=== PATIENT | male | born 1935 | race Caucasian/White ===

== ENCOUNTER → 2016-04-23 | Outpatient (CLI) | payer MEDICARE ==
[~2016-04-23] MED LIST: ASP81TEC PO; HYDR-3454 PO; LISI10TA2 PO; MECL-124 PO; SIMV40TA4 PO
--- OUTSIDE RECORDS SUMMARY | 2016-04-23 07:30 | XMS REPORT | Continuity of Care Document ---
Author Author [facility] Organization [facility] Address Unknown Phone Unavailable Allergies Active Description Code Type Severity Reaction Onset Reported/Identified Relationship to Patient Clinical Status Yes NKANo Known Allergies NKA Miscellaneous Allergy Unknown N/ A 03/24/2008 Medications Problems Date Dx Coded Attending Type Code Diagnosis Diagnosed By 08/06/2011 Ot 562.10 08/06/2011 Ot 600.00 08/06/2011 Ot V76.51 03/21/2015 Ot V72.84 03/27/2015 MARÍA RAZO, COLLEEN Tilley Ot K40.90 04/10/2015 MARÍA RAZO, COLLEEN Tilley Ot K40.90 04/10/2015 MARÍA RAZO, COLLEEN Tilley Ot Z01.812 04/10/2015 MARÍA RAZO, COLLEEN Tilley Ot Z11.2 04/28/2015 MARÍA RAZO, COLLEEN Tilley Ot K40.90 04/28/2015 MARÍA RAZO, COLLEEN Tilley Ot Z01.812 04/28/2015 MARÍA RAZO, COLLEEN Tilley Ot Z11.2 Procedures Results Encounters ACCT No. Visit Date/Time Discharge Status Pt. Type Provider Facility Loc./Unit Complaint [id number] 03/26/2015 06:00:00 2015 16:00:00 DIS Outpatient COLLEEN DANIEL MD [facility] [id number] 04/23/2016 07:27:00 ACT Outpatient CIARA CRISOSTOMO MD [facility] RAD MICROHEMOTURIA [id number] 03/21/2015 13:11:00 ACT Outpatient COLLEEN DANIEL MD [facility] PREOP [id number] 08/06/2011 07:17:00 Document Registration [id number] 08/05/2011 07:33:00 Document Registration
--- NOTE | 2016-04-23 08:14 | Diagnostic Imaging Report ---
PROCEDURE: CT urinary tract, rule out kidney stone. TECHNIQUE: Multiple contiguous axial images were obtained through the abdomen and pelvis without the use of intravenous contrast. INDICATION: Microhematuria. History of hernia. COMPARISON: None FINDINGS: Included views of the lung bases are clear. CT abdomen: Large, but otherwise uniformly hypodense right renal cyst is noted extending from the superior pole. Smaller hypodensity is also noted involving the posterior inferior pole of the left kidney. No renal or ureteral calculi are seen on either side. Additionally, there is no hydroureteronephrosis or other evidence of obstruction. Multiple hypodense hepatic cysts are also noted. Otherwise, the liver, spleen, pancreas, and adrenal glands have an unremarkable noncontrast CT appearance. Normal appendix is identified. There is colonic diverticulosis, but no CT evidence of acute diverticulitis. Small bowel loops are nondistended. No abnormal mesenteric or retroperitoneal adenopathy is seen. There is no loculated fluid collection, free fluid, nor free air within the abdomen. There is diffuse calcified aortic and arterial atherosclerosis. Bony structures show age-related degenerative changes, but no acute abnormalities. CT Pelvis: Urinary bladder is unopacified. No calculi are seen within the urinary bladder. There is a left inguinal hernia containing a portion of the distal descending and proximal sigmoid colon. Note is also made of left-sided hydrocele. There is no loculated fluid question, free fluid or free air within the pelvis. No abnormal adenopathy is seen. Bony structures show no acute abnormalities. IMPRESSION: 1. No renal or ureteral calculi or other evidence of obstruction on either side. 2. Bilateral hypodense renal cysts. 3. Colonic diverticulosis, but no CT evidence of acute diverticulitis. 4. Left inguinal hernia containing a portion of the colon. There is no evidence of upstream obstruction or underlying strangulation. Dictated by: Dictated on workstation # [id number]
== END ==
LOC: RAD 07:27
PROVIDERS: ATTEND Internal Medicine
DX: R31.29 Other microscopic hematuria (principal); F32.9 Major depressive disorder, single episode, unspecified
CPT/HCPCS: 74176

== ENCOUNTER → 2018-08-10 | Outpatient (CLI) | payer MEDICARE ==
[~2018-08-10] MED LIST changes: -HYDR-3454 PO; +HYDR-3455 PO
--- NOTE | 2018-08-10 15:07 | Diagnostic Imaging Report ---
CLINICAL INDICATION: Patient went to doctor for six month checkup and thought he needed a chest X-ray due to hoarseness and weight loss. Patient had no chest complaints. EXAM: Chest x-ray PA and lateral views. COMPARISONS: None. FINDINGS: Lungs/pleura: There is asymmetric consolidation in both lung apices with the right side more so than the left side. Otherwise, lungs are clear. There is no pleural effusion or pneumothorax. Mediastinum: Unremarkable. Pulmonary vasculature: Unremarkable. Heart: Unremarkable. Bones/extrathoracic soft tissue: There are hypertrophic spurs involving the thoracic spine. IMPRESSION: 1: There is an area of consolidation in the right lung apex. This may be related to apical pleural-parenchymal thickening/scarring, but a mass should be excluded. CT scan of the chest with contrast is suggested for further evaluation. 2: Otherwise, there is no radiographic evidence of acute cardiopulmonary process. Dictated by: Dictated on workstation # [id number]
== END ==
LOC: RAD 13:42
PROVIDERS: ATTEND Internal Medicine
DX: J18.1 Lobar pneumonia, unspecified organism (principal); R63.4 Abnormal weight loss
CPT/HCPCS: 71046

== ENCOUNTER → 2018-08-18 | Outpatient (CLI) | payer MEDICARE ==
[~2018-08-18] MED LIST changes: +HOLD METFORMIN - RECEIVED CONTRAST 20 ML VIAL IV SCH; +IOHEXOL 350 MG/ML 100 ML (OMNIPAQUE 350) VIAL IV ONE; +NS 100 ML (IVPB) BAG IV ONE
--- NOTE | 2018-08-18 11:47 | Diagnostic Imaging Report ---
PROCEDURE: CT chest with contrast only. TECHNIQUE: Multiple contiguous axial images were obtained through the chest after administration of intravenous contrast. Auto Exposure Controls were utilized during the CT exam to meet ALARA standards for radiation dose reduction. INDICATION: Abnormal chest x-ray. FINDINGS: Comparison is 08/10/2018 chest radiograph. The right apical soft tissue seen on the chest x-ray appears to be scarring on the CT with a lenticular shape and taller than wide configuration. However, there is a 2.5 x 2.0 cm nodule in the apicoposterior segment of the left upper lobe directly behind the aortic arch which is highly concerning for primary lung malignancy. Lungs are emphysematous. No edema or pneumonia. Both ventricles are mildly dilated. There are mild coronary artery calcifications. No axillary, supraclavicular, or mediastinal lymphadenopathy. The aorta is normal in caliber. No central pulmonary embolism. Multiple low attenuating hepatic lesions are present, most likely representing cysts. There are no suspicious osseous lesions. IMPRESSION: 1. Very suspicious nodule in the left upper lobe. This would be amenable to percutaneous biopsy. 2. The right apical abnormality seen on the chest radiograph likely represents scarring given its morphology. Dictated by: Dictated on workstation # [id number]
== END ==
LOC: RAD 08:42
PROVIDERS: ATTEND Internal Medicine
DX: J18.1 Lobar pneumonia, unspecified organism (principal)
CPT/HCPCS: 71260

== ENCOUNTER 2018-08-28 06:44 | Outpatient (CLI) | payer MEDICARE ==
[~2018-08-28] VITALS: Ht 175.3 cm; Wt 79.5 kg
[2018-08-28] VITALS (12 sets, daily range): BP systolic 100–150; BP diastolic 57–82
[~2018-08-28 06:44] MED LIST changes: -HOLD METFORMIN - RECEIVED CONTRAST 20 ML VIAL IV SCH; -IOHEXOL 350 MG/ML 100 ML (OMNIPAQUE 350) VIAL IV ONE; -NS 100 ML (IVPB) BAG IV ONE
[2018-08-28 07:17] LABS: HEMOGLOBIN 15.2 G/DL (13.3-17.7); MEAN PLATELET VOLUME 10.3 FL (7.4-10.4); RED CELL DISTRIBUTION WIDTH 12.9 % (10.0-14.5); WHITE BLOOD COUNT 8.4 10^3/uL (4.3-11.0)
[2018-08-28 07:28] LABS: PROTHROMBIN TIME PATIENT 13.7 SEC (12.2-14.7)
[2018-08-28] MEDS ORDERED: MIDAZOLAM 2 MG/2 ML (VERSED) VIAL IVP ONE (08:00)
[2018-08-28] MEDS ORDERED: fentaNYL INJECTION 100 MCG/2 ML AMP IVP ONE (08:00)
[2018-08-28] MEDS ORDERED: LIDOCAINE 1% INJ 20 ML 20 ML VIAL INJ ONE (08:00)
[2018-08-28] MEDS ORDERED: NS IV 1000 ML 1,000 ML IV STA (08:02)
[2018-08-28] MEDS ORDERED: SIMV40TA4 PO (08:40)
[2018-08-28] MEDS ORDERED: ASPI-983 PO (08:40)
--- NOTE | 2018-08-28 09:03 | NUR ---
Pt's family present: pt states he is ready to get his procedure "over with." He verbalized moderate anxiety, stating that he prayed in the past but this did not get the outcomes for which he asked. He said he appreciated this operations support analyst's visit and prayers, and that "maybe your prayers will work."
--- NOTE | 2018-08-28 09:27 | Pre-Op Note & Conscious Sedat ---
Pre-Operative Progress Note H&P Reviewed The H&P was reviewed, patient examined and no changes noted. Date H&P Reviewed: Aug 28, 2018 Time H&P Reviewed: 08:00 Pre-Op Diagnosis: Lung mass Conscious Sedation Pre-Proced Time 08:00 ASA Score 2 For ASA 3 and 4: Consider anesthesia and medical clearance. Also, for patients with a history of failed moderate sedation consider anesthesia. Airway Lungs Heart ASA score ASA 1: a normal healthy patient ASA 2: a patient with a mild systemic disease (mid diabetes, controlled hypertension, obesity ASA 3: a patient with a severe systemic disease that limits activity (angina, COPD, prior Myocardial infarction) ASA 4: a patient with an incapacitating disease that is a constant threat to life (CHF, renal failure) ASA 5: a moribund patient not expected to survive 24 hrs. (ruptured aneurysm) ASA 6: a declared brain- patient whose organs are being harvested. For emergent operations, add the letter E after the classification Mallampati Classification Grade 2 Sedation Plan Analgesia, Amnesia, Plan communicated to team members, Discussed options with patient/fam, Discussed risks with patient/fam The patient is an appropriate candidate to undergo the planned procedure, sedation, and anesthesia. The patient immediately re-assessed prior to indication. FOREST MOLINA MD Aug 28, 2018 09:26
--- NOTE | 2018-08-28 09:34 | NUR ---
TO AMB SURG FROM RADIOLOGY PER CART WITH STAFF X1. REPORT FROM ERIN CUTLER RN. DENISE/NANCY DSG D/I TO PROCEDURE SITE, SLIGHTLY LEFT OF SPINE, LEFT UPPER BACK. PT LYING ON BACK, DENIES COMPLAINTS. ON ROOM AIR, NO COUGH NOTED. PO FLUIDS PROVIDED. BED LOW, LOCKED, RAILS UP X2. CALL LIGHT TO PT AND DAUGHTERS AT SIDE.
[2018-08-28] MEDS ORDERED: HYDROcodone/APAP 5 MG/325 MG (LORTAB) TAB PO PRN (09:45)
--- NOTE | 2018-08-28 11:49 | Diagnostic Imaging Report ---
INDICATION: Left lung mass. Patient presents for CT-guided biopsy. TECHNIQUE: The patient was brought to the CT suite, placed on the table in [id number] decubitus position. Axial imaging through the chest was performed to evaluate appropriate entry site. Study was performed utilizing conscious sedation with radiology nursing and constant patient monitoring. Patient was administered a total of 50 mcg of fentanyl intravenously and 1.5 mg of Versed intravenously. Total procedure time was 10 minutes. The skin of the left posterior thorax was prepped and draped in the usual sterile fashion. Small amount of 1% lidocaine was utilized for local anesthesia. 20-gauge coaxial Temno needle was advanced from a posterior approach, placed with its tip along the margin of the mass in the posterior left upper lobe. Total of three core biopsies were obtained. Needle was removed during the injection of a blood patch. Hemostasis was obtained using manual compression. Followup imaging is without complicating feature. IMPRESSION: Successful CT-guided left upper lobe lung mass biopsy, utilizing conscious sedation. Pathology results are currently pending. Dictated by: Dictated on workstation # [id number]
--- NOTE | 2018-08-28 12:11 | Diagnostic Imaging Report ---
INDICATION: Status post left lung biopsy. TIME OF EXAM: 11:09 AM FINDINGS: Expiration portable upright view of the chest was obtained. No pneumothorax is seen status post left upper lobe biopsy. IMPRESSION: No pneumothorax. Dictated by: Dictated on workstation # [id number]
== END 2018-08-28 13:38 | disposition home or self-care (01) ==
LOC: RAD 06:44
PROVIDERS: ATTEND Internal Medicine
DX: R91.1 Solitary pulmonary nodule (principal)
CPT/HCPCS: 36415; 71045; 77012; 85027; 85610; 85730

== ENCOUNTER → 2018-09-19 | Outpatient (CLI) | payer MEDICARE ==
[~2018-09-19] MED LIST changes: +ASPI-983 PO
--- NOTE | 2018-09-19 14:25 | Diagnostic Imaging Report ---
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 TECHNIQUE: Serum blood glucose level at the time of injection was 96 mg/dL. Patient was administered 14.0 mCi F-18 FDG intravenously in the right antecubital location and PET imaging was performed from the top of skull to mid thighs. Noncontrast CT was also performed for attenuation correction and anatomic correlation. COMPARISON: No prior PET/CT studies are available for comparison. Comparison is made with prior chest CT from 08/18/2018. FINDINGS: There is symmetric activity throughout the brain. Soft tissues of the neck are unremarkable. There is a hypermetabolic mass in the left upper lobe posteriorly corresponding to patient's known lung carcinoma. SUV max is approximately 8.1. The area of consolidation versus mass in the right upper lobe does not show FDG uptake. No hilar or mediastinal hypermetabolism is seen. The abdomen and pelvis demonstrate physiologic activity within the GI and tracts. No suspicious hypermetabolism is seen. Note is made of a left inguinal hernia containing bowel loops. There are cysts within the liver and right kidney. IMPRESSION: Hypermetabolic mass in left upper lobe corresponding to known left upper lobe lung carcinoma. No mediastinal or hilar hypermetabolism is seen. No other suspicious abnormalities are detected. Dictated by: Dictated on workstation # [id number]
== END ==
LOC: RAD 07:46
PROVIDERS: ATTEND Internal Medicine
DX: C34.12 Malignant neoplasm of upper lobe, left bronchus or lung (principal)

== ENCOUNTER 2018-10-13 07:05 | Emergency (ER) | payer MEDICARE ==
[~2018-10-13] VITALS: Ht 175.3 cm; Wt 68.9 kg
--- NOTE | 2018-10-13 07:22 | ED GI ---
General Stated Complaint: LOWER ABD PAIN Source of Information: Patient Exam Limitations: No Limitations History of Present Illness Date Seen by Provider: Oct 13, 2018 Time Seen by Provider: 07:05 Initial Comments The patient presents to ER by private conveyance with family and chief complaint of left inguinal swelling and pain. He's been able to pass gas and had a bowel movement yesterday. He had a right inguinal hernia repair 20 years ago and in 2016 at his left inguinal repair by Dr. Das. The last day and a half however he says having increasing swelling and pain in his left groin down into the scrotum. No dysuria fever or chills. He does occasionally get nausea but is not having any at rest. He denies fever, diverticulosis, bloody stool. No other abdominal surgeries. Allergies and Home Medications Allergies Coded Allergies: No Known Allergies (Verified Allergy, Unknown, 03/24/08) Home Medications Aspirin 81 Mg Tablet.dr, 81 MG PO DAILY, (Reported) Lisinopril 10 Mg Tablet, 10 MG PO DAILY, (Reported) Simvastatin 40 Mg Tablet, 40 MG PO DAILY, (Reported) Patient Home Medication List Home Medication List Reviewed: Yes Review of Systems Review of Systems Constitutional: No chills, No diaphoresis EENTM: No Blurred Vision, No Double Vision Respiratory: Denies Cough, Denies Shortness of Air Cardiovascular: Denies Chest Pain, Denies Edema Gastrointestinal: See HPI, Abdominal Pain; Denies Constipated, Denies Diarrhea; Nausea; Denies Vomiting Genitourinary: Denies Burning, Denies Discharge Musculoskeletal: No back pain, No joint pain Skin: No pruritus, No rash Past Ddwivbn-Cnyhgv-Adyusz Hx Patient Social History Alcohol Use: Denies Use Recreational Drug Use: No Smoking Status: Former Smoker Immunizations Up To Date Date of Influenza Vaccine: Oct 15, 2014 Past Medical History Reproductive Disorders: No Hearing Impairment: Hard of Hearing Skin Adverse Reaction/Blood Tranf: No Physical Exam Vital Signs Vital Signs - First Documented 10/13/18 07:38 Temp 97.9 Pulse 92 Resp 16 B/P (MAP) 172/112 (132) Pulse Ox 96 Capillary Refill : Height/Weight/BMI Height: 5'9.00" Weight: 175lbs. 4.3oz. 79.665700wr; 29.12 BMI Method: General Appearance: WD/WN, mild distress HEENT: PERRL/EOMI, pharynx normal Neck: non-tender, full range of motion Respiratory: lungs clear, normal breath sounds, no respiratory distress, no accessory muscle use Cardiovascular: normal peripheral pulses, regular rate, rhythm Peripheral Pulses: 2+ Radial Pulses (R), 2+ Radial Pulses (L) Gastrointestinal: normal bowel sounds, non tender, soft, other (left inguinal canal and scrotum with a large mass consistent with inguinal hernia, nonpulsatile, nonerythematous or indurated.) Neurologic/Psychiatric: alert, oriented x 3 Skin: normal color, warm/dry Progress/Results/Core Measures Results/Orders Lab Results Laboratory Tests Test 10/13/18 07:23 Range/Units White Blood Count 10.6 4.3-11.0 10^3/uL Red Blood Count 4.79 4.35-5.85 10^6/uL Hemoglobin 15.2 13.3-17.7 G/DL Hematocrit 45 40-54 % Mean Corpuscular Volume 93 80-99 FL Mean Corpuscular Hemoglobin 32 25-34 PG Mean Corpuscular Hemoglobin Concent 34 32-36 G/DL Red Cell Distribution Width 13.0 10.0-14.5 % Platelet Count 186 130-400 10^3/uL Mean Platelet Volume 10.2 7.4-10.4 FL Neutrophils (%) (Auto) 83 H 42-75 % Lymphocytes (%) (Auto) 8 L 12-44 % Monocytes (%) (Auto) 8 0-12 % Eosinophils (%) (Auto) 1 0-10 % Basophils (%) (Auto) 0 0-10 % Neutrophils # (Auto) 8.8 H 1.8-7.8 X 10^3 Lymphocytes # (Auto) 0.9 L 1.0-4.0 X 10^3 Monocytes # (Auto) 0.8 0.0-1.0 X 10^3 Eosinophils # (Auto) 0.1 0.0-0.3 10^3/uL Basophils # (Auto) 0.0 0.0-0.1 10^3/uL Sodium Level 136 135-145 MMOL/L Potassium Level 4.5 3.6-5.0 MMOL/L Chloride Level 100 98-107 MMOL/L Carbon Dioxide Level 23 21-32 MMOL/L Anion Gap 13 5-14 MMOL/L Blood Urea Nitrogen 19 H 7-18 MG/DL Creatinine 0.95 0.60-1.30 MG/DL Estimat Glomerular Filtration Rate > 60 BUN/Creatinine Ratio 20 Glucose Level 141 H 70-105 MG/DL Calcium Level 10.1 8.5-10.1 MG/DL Corrected Calcium 9.7 8.5-10.1 MG/DL Total Bilirubin 1.7 H 0.1-1.0 MG/DL Aspartate Amino Transf (AST/SGOT) 25 5-34 U/L Alanine Aminotransferase (ALT/SGPT) 9 0-55 U/L Alkaline Phosphatase 72 40-136 U/L Total Protein 7.5 6.4-8.2 GM/DL Albumin 4.5 3.2-4.5 GM/DL My Orders Orders - CHRISTIANA TREVIZO Cbc With Automated Diff (10/13/18 07:19) Comprehensive Metabolic Panel (10/13/18 07:19) Ketorolac Injection (Toradol Injection) (10/13/18 07:30) Fentanyl Injection (Sublimaze Injection (10/13/18 07:45) Ondansetron Injection (Zofran Injectio (10/13/18 07:45) Medications Given in ED Current Medications Medications Dose Ordered Sig/Ozzy Route Start Time Stop Time Status Last Admin Dose Admin Fentanyl Citrate 50 mcg ONCE ONCE IVP 10/13/18 07:45 10/13/18 07:46 DC 10/13/18 07:53 50 MCG Ketorolac Tromethamine 30 mg ONCE ONCE IVP 10/13/18 07:30 10/13/18 07:31 DC 10/13/18 07:32 30 MG Ondansetron HCl 4 mg ONCE ONCE IVP 10/13/18 07:45 10/13/18 07:46 DC 10/13/18 07:53 4 MG Vital Signs/I&O 10/13/18 07:38 Temp 97.9 Pulse 92 Resp 16 B/P (MAP) 172/112 (132) Pulse Ox 96 Progress Progress Note : Time: 07:22 Progress Note Plan to give the patient some Toradol and then attempt reduction. 0745: Held pressure for about 5 minutes on the swollen small intestine however we were not able to facilitate reduction. Patient's pain is pretty significant and the intestine seems to be swollen so we called Dr. Szymanski and he'll come by and a little bit and try. 50 g of fentanyl and some Zofran IV. Consults : Consulting Physician: ANTONY SZYMANSKI MD Consults Notes 0900: Dr. Szymanski in the room with the patient. Dr. Szymanski had a extensive conversation with the patient got the hernia reduced back to chronic baseline. He provided the patient with a prescription for or TAB. The patient has plans to have surgery in the next week or 2 for a lung rese ction secondary to squamous cell carcinoma and has been given return precautions. After his lung resection if he wants to follow up with Dr. Szymanski at the time. He also provided him with a prescription for a hernia belt. Departure Impression Primary Impression: Left inguinal hernia Disposition: HOME, SELF-CARE Condition: Stable Departure-Patient Inst. Decision time for Depature: 09:43 Referrals: CIARA CRISOSTOMO MD (PCP/Family) Primary Care Physician ANTONY SZYMANSKI MD Patient Instructions: Inguinal and Femoral (Groin) Hernias Add. Discharge Instructions: Use stool softeners as necessary. If you cannot pass a bowel movement or having tremendous pain then you should return to the ER. Use the pain medicines as prescribed. Obtain the hernia belt and use it as described. CHRISTIANA TREVIZO Oct 13, 2018 07:22
[2018-10-13] MEDS ORDERED: KETOROLAC 30 MG/ML VIAL IVP ONE (07:30)
[2018-10-13 07:33] LABS: BASOPHILS % (AUTO) 0 % (0-10); EOSINOPHILS # (AUTO) 0.1 10^3/uL (0.0-0.3); EOSINOPHILS % (AUTO) 1 % (0-10); HEMATOCRIT 45 % (40-54); HEMOGLOBIN 15.2 G/DL (13.3-17.7); LYMPHOCYTES # (AUTO) 0.9 X 10^3 (1.0-4.0); LYMPHOCYTES % (AUTO) 8 % (12-44); MEAN CORPUSCULAR HEMOGLOBIN 32 PG (25-34); MEAN CORPUSCULAR HGB CONC 34 G/DL (32-36); MEAN CORPUSCULAR VOLUME 93 FL (80-99); MEAN PLATELET VOLUME 10.2 FL (7.4-10.4); MONOCYTES # (AUTO) 0.8 X 10^3 (0.0-1.0); MONOCYTES % (AUTO) 8 % (0-12); NEUTROPHILS # (AUTO) 8.8 X 10^3 (1.8-7.8); NEUTROPHILS % (AUTO) 83 % (42-75); PLATELET COUNT 186 10^3/uL (130-400); WHITE BLOOD COUNT 10.6 10^3/uL (4.3-11.0)
[2018-10-13] MEDS ORDERED: ONDANSETRON 4 MG/2 ML (SDV) Z0FRAN IVP ONE (07:45)
[2018-10-13] MEDS ORDERED: fentaNYL INJECTION 100 MCG/2 ML AMP IVP ONE (07:45)
[2018-10-13 07:58] LABS: ALANINE AMINOTRANSFERASE 9 U/L (0-55); ALBUMIN 4.5 GM/DL (3.2-4.5); ALKALINE PHOSPHATASE 72 U/L (40-136); BILIRUBIN,TOTAL 1.7 MG/DL (0.1-1.0); BUN/CREATININE RATIO 20; CALCIUM 10.1 MG/DL (8.5-10.1); CARBON DIOXIDE 23 MMOL/L (21-32); CHLORIDE 100 MMOL/L (98-107); CREATININE SERUM 0.95 MG/DL (0.60-1.30); GFR ESTIMATED > 60; GLUCOSE 141 MG/DL (70-105); POTASSIUM 4.5 MMOL/L (3.6-5.0); SODIUM 136 MMOL/L (135-145); TOTAL PROTEIN 7.5 GM/DL (6.4-8.2)
--- NOTE | 2018-10-13 09:12 | NUR ---
DR HERNÁNDEZ HERE ASSESSING PT AT THIS TIME.
[2018-10-13 09:51] VITALS: BP 122/74
--- NOTE | 2018-10-13 11:07 | HISTORY AND PHYSICAL ---
DATE OF SERVICE: 10/13/2018 ATTENDING PRIMARY CARE PHYSICIAN: Roscoe Holden MD HISTORY OF PRESENT ILLNESS: The patient is an 83-year-old male who presented to the Emergency Department with pain and swelling in the left groin. He has had a recurrent left inguinal hernia for years and states that he had a slight increase in size as well as pain starting yesterday. The patient was given IV pain medication and the hernia was able to reduce back to his chronic form. He otherwise states that he is tolerating a diet, had a bowel movement yesterday. He has had an open right inguinal hernia repair approximately 25 years ago and a laparoscopic left inguinal hernia repair in 2016. He states that since the surgery the hernia has reoccurred and grown slowly larger over several years. PAST MEDICAL HISTORY: Hypertension, hypercholesterolemia newly diagnosed left lung cancer. PAST SURGICAL HISTORY: Tonsillectomy, open right inguinal hernia repair and laparoscopic left inguinal hernia repair. ALLERGIES: No known drug allergies. MEDICATIONS: Lisinopril 20 mg daily, atorvastatin daily. SOCIAL HISTORY: Previous smoker, quit in 2003, 30-pack years. Negative alcohol. FAMILY HISTORY: Noncontributory. VITAL SIGNS: Stable, afebrile. REVIEW OF SYSTEMS: Well-nourished male in no acute distress. He is not experiencing any shortness of breath or difficulty in breathing. He is not experiencing any cough or sputum production. No chest pain, palpitations, diaphoresis. No nausea, vomiting with last bowel movement yesterday, which was normal in consistency. No red blood per rectum, no dark tarry stools. No fever, chills, no recent inadvertent weight loss. All other review of systems negative. PHYSICAL EXAMINATION: CHEST: Good breath sounds bilaterally. HEART: Regular, no murmurs. EXTREMITIES: No lower extremity edema, negative Homans sign. HEENT: No scleral icterus. NECK: No cervical lymphadenopathy. ABDOMEN: Soft, nondistended. There is a chronic left inguinal hernia identified. This appears to be a chronic preperitoneal fat versus a seroma. Since coming and noticing the larger hernia it has reduced back to this its normal chronic state. No overlying redness or erythema. ASSESSMENT AND PLAN: An 83-year-old male with recurrent left inguinal hernia. He did have an acute exacerbation; however, has reduced back to normal. At this time, he is comfortable and there were no signs of strangulation. We will recommend continue conservative management and proceed with pain control as well as a groin and scrotal support. He is currently in the process of being worked up for her to be scheduled for what sounds to be a left upper lobectomy for a newly diagnosed stage I lung cancer. We will recommend that take precedence over the surgery; however, eventually he will need to have this recurrent left inguinal hernia repair, which we would want to do when there is no inflammation and more on an elective basis. For now, we will proceed with scrotal and inguinal support as well as pain medication. He is instructed to call if his symptoms worsen. Job ID: [id number] DocumentID: [id number] Dictated Date: 10/13/2018 10:45:12 Tanbark Peeler Date: 10/13/2018 11:06:37 Dictated By: ANTONY HERNÁNDEZ MD MTDD
== END 2018-10-13 09:51 | disposition home or self-care (01) ==
LOC: EDUNIT# 07:05 → ER 07:05
DX: K40.90 Unilateral inguinal hernia, without obstruction or gangrene, not specified as recurrent (principal); Z98.890 Other specified postprocedural states; Z79.82 Long term (current) use of aspirin; Z87.891 Personal history of nicotine dependence
CPT/HCPCS: 36415; 80053; 85025

== ENCOUNTER → 2018-11-28 | Outpatient (CLI) | payer MEDICARE ==
[2018-11-28 13:27] LABS: BASOPHILS % (AUTO) 0 % (0-10); EOSINOPHILS # (AUTO) 0.2 10^3/uL (0.0-0.3); EOSINOPHILS % (AUTO) 2 % (0-10); HEMATOCRIT 31 % (40-54); HEMOGLOBIN 10.1 G/DL (13.3-17.7); LYMPHOCYTES # (AUTO) 0.6 X 10^3 (1.0-4.0); LYMPHOCYTES % (AUTO) 6 % (12-44); MEAN CORPUSCULAR HEMOGLOBIN 30 PG (25-34); MEAN CORPUSCULAR HGB CONC 32 G/DL (32-36); MEAN CORPUSCULAR VOLUME 94 FL (80-99); MEAN PLATELET VOLUME 9.7 FL (7.4-10.4); MONOCYTES # (AUTO) 0.6 X 10^3 (0.0-1.0); MONOCYTES % (AUTO) 6 % (0-12); NEUTROPHILS # (AUTO) 8.8 X 10^3 (1.8-7.8); NEUTROPHILS % (AUTO) 85 % (42-75); PLATELET COUNT 400 10^3/uL (130-400); RED CELL DISTRIBUTION WIDTH 14.1 % (10.0-14.5); WHITE BLOOD COUNT 10.4 10^3/uL (4.3-11.0)
[2018-11-28 14:26] LABS: BASOPHILS % (MANUAL) 0 %; EOSINOPHILS % (MANUAL) 1 %; LYMPHOCYTES % (MANUAL) 4 %; MONOCYTES % (MANUAL) 2 %; NEUTROPHILS % (MANUAL) 93 %
[2018-11-28 14:27] LABS: BURR CELLS SLIGHT
== END ==
LOC: LABNPT 09:15
PROVIDERS: ATTEND Internal Medicine
DX: Z01.89 Encounter for other specified special examinations (principal)
CPT/HCPCS: 85007; 85027

== ENCOUNTER 2019-02-21 12:44 | Outpatient (RCR) | payer MEDICARE ==
[~2019-02-21 12:44] MED LIST changes: -BARIUM SUSPENSION 2.1% (VANILLA SILQ) 450 ML PO ONE; -HOLD METFORMIN - RECEIVED CONTRAST 20 ML VIAL IV SCH; -IOHEXOL 350 MG/ML 100 ML (OMNIPAQUE 350) VIAL IV ONE; -NS 100 ML (IVPB) BAG IV ONE; +SIMV40TA25 PO
[2019-02-21 12:57] LABS: BASOPHILS % (AUTO) 0 % (0-10); EOSINOPHILS # (AUTO) 0.2 10^3/uL (0.0-0.3); EOSINOPHILS % (AUTO) 2 % (0-10); HEMATOCRIT 37 % (40-54); HEMOGLOBIN 11.8 G/DL (13.3-17.7); LYMPHOCYTES # (AUTO) 1.7 X 10^3 (1.0-4.0); LYMPHOCYTES % (AUTO) 15 % (12-44); MEAN CORPUSCULAR HEMOGLOBIN 28 PG (25-34); MEAN CORPUSCULAR HGB CONC 32 G/DL (32-36); MEAN CORPUSCULAR VOLUME 88 FL (80-99); MEAN PLATELET VOLUME 8.9 FL (7.4-10.4); MONOCYTES # (AUTO) 0.9 X 10^3 (0.0-1.0); MONOCYTES % (AUTO) 8 % (0-12); NEUTROPHILS # (AUTO) 8.6 X 10^3 (1.8-7.8); NEUTROPHILS % (AUTO) 76 % (42-75); PLATELET COUNT 311 10^3/uL (130-400); RED CELL DISTRIBUTION WIDTH 15.8 % (10.0-14.5); WHITE BLOOD COUNT 11.4 10^3/uL (4.3-11.0)
[2019-02-21 13:20] LABS: ALANINE AMINOTRANSFERASE 10 U/L (0-55); ALBUMIN 4.5 GM/DL (3.2-4.5); ALKALINE PHOSPHATASE 105 U/L (40-136); BILIRUBIN,TOTAL 0.4 MG/DL (0.1-1.0); BUN/CREATININE RATIO 23; CALCIUM 9.6 MG/DL (8.5-10.1); CARBON DIOXIDE 27 MMOL/L (21-32); CHLORIDE 101 MMOL/L (98-107); CREATININE SERUM 0.91 MG/DL (0.60-1.30); GFR ESTIMATED > 60; GLUCOSE 103 MG/DL (70-105); POTASSIUM 4.6 MMOL/L (3.6-5.0); SODIUM 139 MMOL/L (135-145); TOTAL PROTEIN 7.6 GM/DL (6.4-8.2)
== END 2019-05-01 | disposition home or self-care (01) ==
LOC: ONC 12:44
PROVIDERS: ATTEND Internal Medicine Hematology & Oncology
DX: C34.32 Malignant neoplasm of lower lobe, left bronchus or lung (principal); I10 Essential (primary) hypertension; Z90.2 Acquired absence of lung [part of]
CPT/HCPCS: 80053; 85025; 99214

== ENCOUNTER → 2019-02-21 | Outpatient (CLI) | payer MEDICARE ==
[~2019-02-21] MED LIST changes: +BARIUM SUSPENSION 2.1% (VANILLA SILQ) 450 ML PO ONE; +HOLD METFORMIN - RECEIVED CONTRAST 20 ML VIAL IV SCH; +IOHEXOL 350 MG/ML 100 ML (OMNIPAQUE 350) VIAL IV ONE; +NS 100 ML (IVPB) BAG IV ONE
--- NOTE | 2019-02-21 14:51 | Diagnostic Imaging Report ---
PROCEDURE: CT chest with contrast, CT abdomen and pelvis with and without contrast. TECHNIQUE: Pre and post intravenous contrast axial imaging of the abdomen and pelvis and post contrast axial imaging of the chest were performed. Auto Exposure Controls were utilized during the CT exam to meet ALARA standards for radiation dose reduction. INDICATION: Left-sided lobectomy for squamous cell carcinoma of the lung. COMPARISON: Correlation is made with prior CT chest from 08/18/2018 and PET/CT from 09/19/2018. CT CHEST: No axillary lymphadenopathy is detected. No definite mediastinal or hilar lymphadenopathy is detected. No pericardial fluid is identified. Postsurgical changes to the left hemithorax are now noted. There is some moderate fluid in the left base. There is also fluid in the left upper chest with air-fluid level. Previously noted mass on the left is no longer appreciated and has likely been surgically resected. There are multiple sutures on the left from resection. The irregular opacity in the right apex is stable. No new mass is seen. IMPRESSION: Postsurgical changes involving the left hemithorax. Previously noted soft tissue mass has been resected. No residual or recurrent mass is seen. There is some fluid filling the left hemithorax, although there is a gas-fluid level at the apex. No thoracic lymphadenopathy is detected. CT ABDOMEN AND PELVIS: Several circumscribed low densities within the liver are noted consistent with cysts. The gallbladder is unremarkable. There is no biliary ductal dilatation. The pancreas and spleen are unremarkable. No definite adrenal mass is identified. Large cyst in the upper pole of the right kidney is again noted. Aorta and iliac vessels are heavily calcified but non-aneurysmal. No central retroperitoneal or mesenteric lymphadenopathy is seen. Small and large bowel loops are normal in caliber. There is a hernia in the left inguinal canal with the bowel loops extending into the scrotal sac. Bowel loops appear to be predominantly sigmoid colon. No free fluid or fluid collection is identified. Bladder is unremarkable. Prostate is enlarged. Bony structures are nonacute. IMPRESSION: 1. Hepatic and renal cysts. 2. No evidence of abdominal or pelvic lymphadenopathy or metastatic disease. 3. Prostatomegaly. 4. Left inguinal hernia containing portion of the distal colon. No bowel obstruction is seen. Dictated by: Dictated on workstation # [id number]
== END ==
LOC: RAD 12:57
PROVIDERS: ATTEND Internal Medicine Hematology & Oncology
DX: C34.90 Malignant neoplasm of unspecified part of unspecified bronchus or lung (principal); K76.89 Other specified diseases of liver; N28.1 Cyst of kidney, acquired
CPT/HCPCS: 71260; 74178

== ENCOUNTER → 2019-05-17 | Outpatient (CLI) | payer MEDICARE ==
[~2019-05-17] MED LIST changes: +HOLD METFORMIN - RECEIVED CONTRAST 20 ML VIAL IV SCH; +IOHEXOL 350 MG/ML 100 ML (OMNIPAQUE 350) VIAL IV ONE; +NS 100 ML (IVPB) BAG IV ONE
--- NOTE | 2019-05-17 12:49 | Diagnostic Imaging Report ---
PROCEDURE: CT chest with contrast, CT abdomen and pelvis with and without contrast. TECHNIQUE: Pre and post intravenous contrast axial imaging of the abdomen and pelvis and post contrast axial imaging of the chest were performed. Auto Exposure Controls were utilized during the CT exam to meet ALARA standards for radiation dose reduction. INDICATION: Squamous cell carcinoma of the lung. Patient presents for follow-up. COMPARISON: Correlation is made with prior CT from 02/21/2019. FINDINGS: CT chest: Postsurgical changes involving the left hemithorax are again noted. Suture at the left hilum is seen. The pneumothorax component on the left has resolved. There is some fluid or pleural thickening in the left apex. There appears to be some mild residual fluid in the left base but improved when compared with prior exam. No right-sided effusion or pericardial effusion is identified. No axillary, hilar or mediastinal lymphadenopathy is detected. Irregular linear opacity in the right apex appears stable. No definite new or recurrent lung mass is identified. IMPRESSION: Postsurgical changes, as described. No thoracic lymphadenopathy is seen. Previously noted left-sided pneumothorax has resolved. In addition, pleural fluid on the left has decreased. CT abdomen and pelvis: Hepatic low densities appear to be stable and most consistent with cysts. No new liver mass is detected. Gallbladder is unremarkable. There is no biliary ductal dilatation. Pancreas and spleen are unremarkable. No definite adrenal mass is identified. Large cyst in upper pole of right kidney appears stable. There is a small cyst in lower pole of left kidney, stable. Aorta and iliac vessels remain heavily calcified but non-aneurysmal. Small and large bowel loops remain nonobstructed. The hernia in the left inguinal region containing bowel loops is again noted. No abdominal or pelvic lymphadenopathy is seen. Bladder and prostate are unremarkable. Bony structures appear nonacute. IMPRESSION: 1. Stable CT abdomen and pelvis since exam from 02/21/2019. There are hepatic and renal cysts. No lymphadenopathy or evidence of metastatic disease is detected. 2. Left inguinal hernia containing bowel loops. No obstruction or strangulation is identified. Dictated by: Dictated on workstation # [id number]
== END ==
LOC: RAD 10:52
PROVIDERS: ATTEND Internal Medicine Hematology & Oncology
DX: C34.90 Malignant neoplasm of unspecified part of unspecified bronchus or lung (principal); N28.1 Cyst of kidney, acquired; K76.89 Other specified diseases of liver; K40.90 Unilateral inguinal hernia, without obstruction or gangrene, not specified as recurrent
CPT/HCPCS: 71260; 74178

== ENCOUNTER 2019-05-21 13:50 | Outpatient (RCR) | payer MEDICARE ==
[2019-05-17 11:34] LABS: BASOPHILS % (AUTO) 0 % (0-10); EOSINOPHILS # (AUTO) 0.2 10^3/uL (0.0-0.3); EOSINOPHILS % (AUTO) 2 % (0-10); HEMATOCRIT 39 % (40-54); HEMOGLOBIN 12.5 G/DL (13.3-17.7); LYMPHOCYTES % (AUTO) 10 % (12-44); MEAN CORPUSCULAR HEMOGLOBIN 28 PG (25-34); MEAN CORPUSCULAR HGB CONC 32 G/DL (32-36); MEAN CORPUSCULAR VOLUME 86 FL (80-99); MEAN PLATELET VOLUME 9.4 FL (7.4-10.4); MONOCYTES # (AUTO) 0.6 X 10^3 (0.0-1.0); MONOCYTES % (AUTO) 6 % (0-12); NEUTROPHILS # (AUTO) 7.9 X 10^3 (1.8-7.8); NEUTROPHILS % (AUTO) 81 % (42-75); PLATELET COUNT 258 10^3/uL (130-400); RED CELL DISTRIBUTION WIDTH 15.6 % (10.0-14.5); WHITE BLOOD COUNT 9.7 10^3/uL (4.3-11.0)
[2019-05-17 11:54] LABS: ALANINE AMINOTRANSFERASE 9 U/L (0-55); ALBUMIN 4.5 GM/DL (3.2-4.5); ALKALINE PHOSPHATASE 95 U/L (40-136); BILIRUBIN,TOTAL 0.7 MG/DL (0.1-1.0); BUN/CREATININE RATIO 14; CALCIUM 9.5 MG/DL (8.5-10.1); CARBON DIOXIDE 24 MMOL/L (21-32); CHLORIDE 102 MMOL/L (98-107); CREATININE SERUM 0.92 MG/DL (0.60-1.30); GFR ESTIMATED > 60; GLUCOSE 104 MG/DL (70-105); POTASSIUM 4.3 MMOL/L (3.6-5.0); SODIUM 136 MMOL/L (135-145); TOTAL PROTEIN 7.7 GM/DL (6.4-8.2)
== END 2019-08-14 15:26 | disposition home or self-care (01) ==
LOC: ONC 13:50
PROVIDERS: ATTEND Internal Medicine Hematology & Oncology
DX: C34.32 Malignant neoplasm of lower lobe, left bronchus or lung (principal); I10 Essential (primary) hypertension; Z90.2 Acquired absence of lung [part of]
CPT/HCPCS: 80053; 85025; 99213

== ENCOUNTER → 2019-08-15 | Outpatient (CLI) | payer MEDICARE ==
--- NOTE | 2019-08-15 13:19 | Diagnostic Imaging Report ---
PROCEDURE: CT chest with contrast only. TECHNIQUE: Multiple contiguous axial images were obtained through the chest after administration of intravenous contrast. Auto Exposure Controls were utilized during the CT exam to meet ALARA standards for radiation dose reduction. INDICATION: Non-small cell lung cancer. COMPARISON: 05/17/2019 and 08/18/2018 FINDINGS: No significant adenopathy within the chest. Postsurgical changes are again noted within the left hilum with associated left upper lobectomy. Previously noted left-sided pleural effusion is again identified, appearing similar to the prior examination and is small in size. Leftward deviation of the mediastinum secondary to volume loss and postsurgical changes again noted. No aneurysmal dilatation of the thoracic aorta. The heart is within normal limits in size. No significant pericardial effusion. No right pleural effusion. No pneumothorax. Scarring within the right lung apex is again identified, appearing similar to the prior exams. Background emphysematous changes, greatest within upper lobes. No new pulmonary nodule. The trachea is patent. Large right renal cyst is partially visualized. Multiple hepatic cysts are again noted with additional tiny subcentimeter hypodensities which are too small to completely characterize. These appear similar to the prior exams. No definite new hepatic lesion noted. The upper abdomen is otherwise unremarkable. Scattered osseous degenerative changes without acute osseous abnormality. IMPRESSION: Postsurgical changes within the left lung without evidence of residual or recurrent malignancy. Persistent irregular density within the right upper lobe felt to relate to scarring. No new pulmonary nodules. Mild background emphysematous changes. Stable small left pleural effusion. Additional stable findings as above. Dictated by: Dictated on workstation # [id number]
== END ==
LOC: RAD 10:58
PROVIDERS: ATTEND Internal Medicine Hematology & Oncology
DX: J43.9 Emphysema, unspecified (principal); J98.4 Other disorders of lung; J90 Pleural effusion, not elsewhere classified; Z98.890 Other specified postprocedural states; Z85.118 Personal history of other malignant neoplasm of bronchus and lung
CPT/HCPCS: 71260

== ENCOUNTER 2019-08-22 10:53 | Outpatient (RCR) | payer MEDICARE ==
[2019-08-15 11:21] LABS: BASOPHILS % (AUTO) 0 % (0-10); EOSINOPHILS # (AUTO) 0.2 10^3/uL (0.0-0.3); EOSINOPHILS % (AUTO) 2 % (0-10); HEMATOCRIT 39 % (40-54); HEMOGLOBIN 12.7 G/DL (13.3-17.7); LYMPHOCYTES # (AUTO) 1.1 X 10^3 (1.0-4.0); LYMPHOCYTES % (AUTO) 12 % (12-44); MEAN CORPUSCULAR HEMOGLOBIN 29 PG (25-34); MEAN CORPUSCULAR HGB CONC 33 G/DL (32-36); MEAN CORPUSCULAR VOLUME 89 FL (80-99); MEAN PLATELET VOLUME 9.8 FL (7.4-10.4); MONOCYTES # (AUTO) 0.6 X 10^3 (0.0-1.0); MONOCYTES % (AUTO) 6 % (0-12); NEUTROPHILS # (AUTO) 7.3 X 10^3 (1.8-7.8); NEUTROPHILS % (AUTO) 80 % (42-75); PLATELET COUNT 221 10^3/uL (130-400); WHITE BLOOD COUNT 9.1 10^3/uL (4.3-11.0)
[2019-08-15 11:45] LABS: ALANINE AMINOTRANSFERASE 9 U/L (0-55); ALBUMIN 4.4 GM/DL (3.2-4.5); ALKALINE PHOSPHATASE 94 U/L (40-136); BILIRUBIN,TOTAL 0.8 MG/DL (0.1-1.0); BUN/CREATININE RATIO 17; CALCIUM 9.3 MG/DL (8.5-10.1); CARBON DIOXIDE 26 MMOL/L (21-32); CHLORIDE 104 MMOL/L (98-107); CREATININE SERUM 1.08 MG/DL (0.60-1.30); GFR ESTIMATED > 60; GLUCOSE 100 MG/DL (70-105); POTASSIUM 4.5 MMOL/L (3.6-5.0); SODIUM 140 MMOL/L (135-145); TOTAL PROTEIN 7.3 GM/DL (6.4-8.2)
[~2019-08-22 10:53] MED LIST changes: +ASPI-1238 PO; -ASPI-983 PO; -HOLD METFORMIN - RECEIVED CONTRAST 20 ML VIAL IV SCH; -IOHEXOL 350 MG/ML 100 ML (OMNIPAQUE 350) VIAL IV ONE; -NS 100 ML (IVPB) BAG IV ONE
== END 2019-11-01 14:24 | disposition home or self-care (01) ==
LOC: ONC 10:53
PROVIDERS: ATTEND Internal Medicine Hematology & Oncology
DX: C34.32 Malignant neoplasm of lower lobe, left bronchus or lung (principal); I10 Essential (primary) hypertension; Z90.2 Acquired absence of lung [part of]
CPT/HCPCS: 80053; 85025; 99213

== ENCOUNTER → 2019-11-02 | Outpatient (CLI) | payer MEDICARE ==
[2019-11-02 14:26] LABS: BASOPHILS % (AUTO) 0 % (0-10); EOSINOPHILS # (AUTO) 0.3 10^3/uL (0.0-0.3); EOSINOPHILS % (AUTO) 3 % (0-10); HEMATOCRIT 38 % (40-54); HEMOGLOBIN 12.8 G/DL (13.3-17.7); LYMPHOCYTES # (AUTO) 1.2 X 10^3 (1.0-4.0); LYMPHOCYTES % (AUTO) 17 % (12-44); MEAN CORPUSCULAR HEMOGLOBIN 30 PG (25-34); MEAN CORPUSCULAR HGB CONC 34 G/DL (32-36); MEAN CORPUSCULAR VOLUME 91 FL (80-99); MEAN PLATELET VOLUME 9.6 FL (7.4-10.4); MONOCYTES # (AUTO) 0.5 X 10^3 (0.0-1.0); MONOCYTES % (AUTO) 7 % (0-12); NEUTROPHILS # (AUTO) 5.4 X 10^3 (1.8-7.8); NEUTROPHILS % (AUTO) 73 % (42-75); PLATELET COUNT 210 10^3/uL (130-400); WHITE BLOOD COUNT 7.4 10^3/uL (4.3-11.0)
[2019-11-02 14:45] LABS: ALANINE AMINOTRANSFERASE 11 U/L (0-55); ALBUMIN 4.2 GM/DL (3.2-4.5); ALKALINE PHOSPHATASE 94 U/L (40-136); BILIRUBIN,TOTAL 0.8 MG/DL (0.1-1.0); BUN/CREATININE RATIO 16; CALCIUM 8.7 MG/DL (8.5-10.1); CARBON DIOXIDE 27 MMOL/L (21-32); CHLORIDE 103 MMOL/L (98-107); CREATININE SERUM 1.03 MG/DL (0.60-1.30); GFR ESTIMATED > 60; GLUCOSE 133 MG/DL (70-105); POTASSIUM 3.7 MMOL/L (3.6-5.0); SODIUM 138 MMOL/L (135-145); TOTAL PROTEIN 6.7 GM/DL (6.4-8.2)
== END ==
LOC: ONC 14:16
PROVIDERS: ATTEND Internal Medicine Hematology & Oncology
DX: C34.32 Malignant neoplasm of lower lobe, left bronchus or lung (principal); I10 Essential (primary) hypertension
CPT/HCPCS: 80053; 85025; G0463; 99213

== ENCOUNTER 2019-11-26 16:17 | Inpatient (IN) | payer MEDICARE ==
[2019-11-26] VITALS (8 sets, daily range): BP systolic 144–149; BP diastolic 76–91
[~2019-11-26] VITALS: Ht 175 cm; Wt 62.0 kg
[2019-11-26] MEDS ORDERED: fentaNYL INJECTION 100 MCG/2 ML AMP IVP ONE (16:45)
[2019-11-26] MEDS ORDERED: NS IV 500 ML 500 ML IV SCH (16:45)
--- NOTE | 2019-11-26 16:50 | ED General ---
General Stated Complaint: ABD PAIN;NAUSEA Source of Information: Patient Exam Limitations: No Limitations History of Present Illness Date Seen by Provider: Nov 26, 2019 Time Seen by Provider: 16:47 Initial Comments To ER with abdominal pain that began earlier this morning. He had some intermittent nausea but none currently. He is not passing gas today as per usual. No fevers. No cough no shortness of breath. He has a chronic left inguinal hernia for which he wears an abdominal binder. That is in place currently. The left inguinal hernia doesn't seem to be any larger than usual but it is much more tender than usual. His daughter and son-in-law with whom he lives tested positive for coronavirus this morning. He has no symptoms as of y et. Timing/Duration: 12 Hours Severity: Moderate Associated Systoms: Denies Symptoms Allergies and Home Medications Allergies Coded Allergies: Benita Known Allergies (Verified Allergy, Unknown, 03/24/08) Home Medications Aspirin 81 Mg Tablet.dr, 81 MG PO DAILY, (Reported) Lisinopril 10 Mg Tablet, 10 MG PO DAILY, (Reported) Simvastatin 40 Mg Tablet, 40 MG PO DAILY, (Reported) Patient Home Medication List Home Medication List Reviewed: Yes Review of Systems Review of Systems Constitutional: see HPI EENTM: see HPI Respiratory: no symptoms reported Cardiovascular: no symptoms reported Gastrointestinal: abdominal pain Genitourinary: no symptoms reported Musculoskeletal: no symptoms reported Skin: no symptoms reported Psychiatric/Neurological: No Symptoms Reported Hematologic/Lymphatic: No Symptoms Reported Immunological/Allergic: no symptoms reported Past Ezwenyf-Yabote-Nzcoow Hx Patient Social History Former Smoker, Quit: Oct 09, 2003 Recent Foreign Travel: No Contact w/Someone Who Travel: No Recent Hopitalizations: No Immunizations Up To Date Date of Influenza Vaccine: Oct 15, 2014 Past Medical History Surgeries: Yes (LEFT EAR SURGERY AND RIGHT ING HERNIA SURGERY, BILAT CATARACTS) Respiratory: No Cardiac: Yes High Cholesterol, Hypertension Neurological: Yes Reproductive Disorders: No Genitourinary: No Gastrointestinal: Yes (inguinal hernia) Musculoskeletal: No Endocrine: No Hearing Impairment: Hard of Hearing Cancer: Yes Skin Psychosocial: No Integumentary: No Blood Disorders: No Adverse Reaction/Blood Tranf: No Physical Exam Vital Signs Vital Signs - First Documented 11/26/19 16:30 Temp 36.5 Pulse 107 Resp 18 B/P (MAP) 156/87 (110) Pulse Ox 99 Capillary Refill : Height, Weight, BMI Height: 5'9.00" Weight: 152lbs. 4.3oz. 68.393153tn; 29.12 BMI Method:Stated General Appearance: No Apparent Distress, WD/WN Eyes: Bilateral Eye Normal Inspection, Bilateral Eye PERRL, Bilateral Eye EOMI Neck: Full Range of Motion, Normal Inspection Respiratory: No Accessory Muscle Use, No Respiratory Distress Gastrointestinal: Normal Bowel Sounds, Soft, Tenderness (tenderness left lower abdomen and left inguinal region. There is a very firm left inguinal hernia) Neurologic/Psychiatric: Alert, Oriented x3 Skin: Normal Color, Warm/Dry Focused Exam Lactate Level 11/26/19 17:20: Lactic Acid Level 1.42 Lactic Acid Level Laboratory Tests Test 11/26/19 17:20 Lactic Acid Level 1.42 MMOL/L (0.50-2.00) Progress/Results/Core Measures Suspected Sepsis SIRS Temperature: Pulse: Respiratory Rate: Laboratory Tests 11/26/19 16:40: White Blood Count 14.7H Blood Pressure / Mean: 11/26/19 17:20: Lactic Acid Level 1.42 Laboratory Tests 11/26/19 16:40: Creatinine 1.04, Platelet Count 232, Total Bilirubin 1.4H Results/Orders Lab Results Laboratory Tests Test 11/26/19 16:40 11/26/19 16:41 11/26/19 17:20 Range/Units White Blood Count 14.7 H 4.3-11.0 10^3/uL Red Blood Count 4.65 4.30-5.52 10^6/uL Hemoglobin 14.0 13.3-17.7 g/dL Hematocrit 42 40-54 % Mean Corpuscular Volume 90 80-99 fL Mean Corpuscular Hemoglobin 30 25-34 pg Mean Corpuscular Hemoglobin Concent 33 32-36 g/dL Red Cell Distribution Width 13.1 10.0-14.5 % Platelet Count 232 130-400 10^3/uL Mean Platelet Volume 9.8 9.0-12.2 fL Immature Granulocyte % (Auto) 1 % Neutrophils (%) (Auto) 91 H 42-75 % Lymphocytes (%) (Auto) 5 L 12-44 % Monocytes (%) (Auto) 3 0-12 % Eosinophils (%) (Auto) 0 0-10 % Basophils (%) (Auto) 0 0-10 % Neutrophils # (Auto) 13.4 H 1.8-7.8 10^3/uL Lymphocytes # (Auto) 0.7 L 1.0-4.0 10^3/uL Monocytes # (Auto) 0.5 0.0-1.0 10^3/uL Eosinophils # (Auto) 0.0 0.0-0.3 10^3/uL Basophils # (Auto) 0.0 0.0-0.1 10^3/uL Immature Granulocyte # (Auto) 0.1 0.0-0.1 10^3/uL Neutrophils % (Manual) 95 % Lymphocytes % (Manual) 3 % Monocytes % (Manual) 2 % Eosinophils % (Manual) 0 % Basophils % (Manual) 0 % Band Neutrophils 0 % Blood Morphology Comment NORMAL Sodium Level 136 135-145 MMOL/L Potassium Level 4.1 3.6-5.0 MMOL/L Chloride Level 99 98-107 MMOL/L Carbon Dioxide Level 24 21-32 MMOL/L Anion Gap 13 5-14 MMOL/L Blood Urea Nitrogen 16 7-18 MG/DL Creatinine 1.04 0.60-1.30 MG/DL Estimat Glomerular Filtration Rate > 60 BUN/Creatinine Ratio 15 Glucose Level 122 H 70-105 MG/DL Calcium Level 9.4 8.5-10.1 MG/DL Corrected Calcium 8.5-10.1 MG/DL Total Bilirubin 1.4 H 0.1-1.0 MG/DL Aspartate Amino Transf (AST/SGOT) 16 5-34 U/L Alanine Aminotransferase (ALT/SGPT) 9 0-55 U/L Alkaline Phosphatase 107 40-136 U/L Total Protein 7.4 6.4-8.2 GM/DL Albumin 4.6 H 3.2-4.5 GM/DL Lactic Acid Level 1.42 0.50-2.00 MMOL/L My Orders Orders - DOMENIC MUNOZ APRN Cbc With Automated Diff (11/26/19 16:40) Comprehensive Metabolic Panel (11/26/19 16:40) Ed Iv/Invasive Line Start (11/26/19 16:40) Lactic Acid Analyzer (11/26/19 16:40) Ct Abdomen/Pelvis W (11/26/19 16:40) Fentanyl Injection (Sublimaze Injection (11/26/19 16:45) Ns Iv 500 Ml (Sodium Chloride 0.9%) (11/26/19 16:45) Covid 19 Inhouse Test (11/26/19 16:46) Iohexol Injection (Omnipaque 350 Mg/Ml 1 (11/26/19 17:00) Received Contrast (Hold Metformin- Contr (11/26/19 17:00) Ns (Ivpb) (Sodium Chloride 0.9% Ivpb Bag (11/26/19 17:00) Manual Differential (11/26/19 16:40) Medications Given in ED Current Medications Medications Dose Ordered Sig/Ozzy Route Start Time Stop Time Status Last Admin Dose Admin Iohexol 100 ml ONCE ONCE IV 11/26/19 17:00 11/26/19 17:01 DC 11/26/19 18:09 100 ML Sodium Chloride 100 ml ONCE ONCE IV 11/26/19 17:00 11/26/19 17:01 DC 11/26/19 18:09 80 ML Vital Signs/I&O 11/26/19 16:30 Temp 36.5 Pulse 107 Resp 18 B/P (MAP) 156/87 (110) Pulse Ox 99 Capillary Refill : Departure Impression Primary Impression: Obstruction concurrent with and due to inguinal hernia of left side Additional Impression: Recurrent left inguinal hernia Disposition: ADMITTED INPATIENT Condition: Stable Admissions Decision to Admit Reason: Admit from ER (General) Decision to Admit/Date: Nov 26, 2019 Time/Decision to Admit Time: 18:39 Departure-Patient Inst. Referrals: CIARA CRISOSTOMO MD (PCP/Family) Primary Care Physician DOMENIC MUNOZ APRN Nov 26, 2019 16:50
[2019-11-26] MEDS ORDERED: IOHEXOL 350 MG/ML 100 ML (OMNIPAQUE 350) VIAL IV ONE (17:00)
[2019-11-26] MEDS ORDERED: HOLD METFORMIN - RECEIVED CONTRAST 20 ML VIAL IV SCH (17:00)
[2019-11-26] MEDS ORDERED: NS 100 ML (IVPB) BAG IV ONE (17:00)
[2019-11-26 17:06] LABS: BASOPHILS % (AUTO) 0 % (0-10); EOSINOPHILS % (AUTO) 0 % (0-10); HEMATOCRIT 42 % (40-54); LYMPHOCYTES # (AUTO) 0.7 10^3/uL (1.0-4.0); LYMPHOCYTES % (AUTO) 5 % (12-44); MEAN CORPUSCULAR HEMOGLOBIN 30 pg (25-34); MEAN CORPUSCULAR HGB CONC 33 g/dL (32-36); MEAN CORPUSCULAR VOLUME 90 fL (80-99); MEAN PLATELET VOLUME 9.8 fL (9.0-12.2); MONOCYTES # (AUTO) 0.5 10^3/uL (0.0-1.0); MONOCYTES % (AUTO) 3 % (0-12); NEUTROPHILS # (AUTO) 13.4 10^3/uL (1.8-7.8); NEUTROPHILS % (AUTO) 91 % (42-75); PLATELET COUNT 232 10^3/uL (130-400); WHITE BLOOD COUNT 14.7 10^3/uL (4.3-11.0)
[2019-11-26 17:21] LABS: ALBUMIN 4.6 GM/DL (3.2-4.5); CHLORIDE 99 MMOL/L (98-107); POTASSIUM 4.1 MMOL/L (3.6-5.0); SODIUM 136 MMOL/L (135-145)
[2019-11-26 17:23] LABS: CALCIUM 9.4 MG/DL (8.5-10.1)
[2019-11-26 17:24] LABS: GLUCOSE 122 MG/DL (70-105); TOTAL PROTEIN 7.4 GM/DL (6.4-8.2)
[2019-11-26 17:25] LABS: CARBON DIOXIDE 24 MMOL/L (21-32)
[2019-11-26 17:26] LABS: BILIRUBIN,TOTAL 1.4 MG/DL (0.1-1.0)
[2019-11-26 17:27] LABS: ALKALINE PHOSPHATASE 107 U/L (40-136); BAND NEUTROPHILS 0 %; CREATININE SERUM 1.04 MG/DL (0.60-1.30); GFR ESTIMATED > 60; LYMPHOCYTES % (MANUAL) 3 %; NEUTROPHILS % (MANUAL) 95 %
[2019-11-26 17:28] LABS: BASOPHILS % (MANUAL) 0 %; BUN/CREATININE RATIO 15; EOSINOPHILS % (MANUAL) 0 %; MONOCYTES % (MANUAL) 2 %; RBC MORPH NORMAL
[2019-11-26 17:30] LABS: ALANINE AMINOTRANSFERASE 9 U/L (0-55)
--- NOTE | 2019-11-26 18:29 | Diagnostic Imaging Report ---
PROCEDURE: CT abdomen and pelvis with contrast. TECHNIQUE: Multiple contiguous axial images were obtained through the abdomen and pelvis after administration of intravenous contrast. Auto Exposure Controls were utilized during the CT exam to meet ALARA standards for radiation dose reduction. All CT scans use one or more of the following dose optimizing techniques: automated exposure control, MA and/or KvP adjustment based on patient size and exam type or iterative reconstruction. INDICATION: Generalized abdominal pain and distention, left inguinal hernia. COMPARISON: 08/15/2019 FINDINGS: There are moderately distended loops of small bowel throughout the abdomen. There is mild distention of the stomach and proximal colon. There is a bowel containing left inguinal hernia which may be the transition point. There is no free air or free fluid. There is a small effusion in the left lung base. The right lung base is clear. Stable cysts are seen in the liver and right kidney. Otherwise, solid organs and vascular structures are intact. There is abdominal aortic ectasia with atherosclerotic disease. No solid organ or bowel ischemia is seen. There is diverticulosis of the sigmoid colon without diverticulitis. There is mild prostate enlargement. The urinary bladder is grossly normal. Osseous structures are age-appropriate. IMPRESSION: 1. Small bowel obstruction with likely transition point in the left inguinal canal which contains a loop of small bowel 2. No free air or free fluid. 3. Small left pleural effusion. 4. Atherosclerosis of the abdominal aorta without evidence of solid organ or bowel ischemia. Dictated by: Dictated on workstation # [id number]
[2019-11-26] MEDS ORDERED: ceFAZolin INJECTION 2,000 MG ONE (19:04)
--- NOTE | 2019-11-26 19:30 | Consultation - Surgery ---
History of Present Illness History of Present Illness Patient Consulted On(padmini/time) 11/26/19 19:25 Time Seen by Provider: 18:54 History of Present Illness Surgery asked to consult regarding left inguinal hernia. HPI per ED: To ER with abdominal pain that began earlier this morning. He had some intermittent nausea but none currently. He is not passing gas today as per usual. No fevers. No cough no shortness of breath. He has a chronic left inguinal hernia for which he wears an abdominal binder. That is in place currently. The left inguinal hernia doesn't seem to be any larger than usual but it is much more tender than usual. His daughter and son-in-law with whom he live s tested positive for coronavirus this morning. He has no symptoms as of yet. Timing/Duration: 12 Hours Severity: Moderate Associated Systoms: Denies Symptoms When I spoke to pt he states the pain has kind of "ebbed away", but that he still has some pain. The pain started early this morning and is now rating it a 2-3 out of 10; this morning it was at least a 7. He states he had his left inguinal hernia repaired in 2015, but ever since then he has had a "golf ball" in the inguinal area. He thinks that is bigger and harder today. Pain does not radiate anywhere and not moving helps the pain. Allergies and Home Medications Allergies Coded Allergies: LISANo Known Allergies (Verified Allergy, Unknown, 03/24/08) Home Medications Aspirin 81 Mg Tablet.dr, 81 MG PO DAILY, (Reported) Lisinopril 10 Mg Tablet, 10 MG PO DAILY, (Reported) Simvastatin 40 Mg Tablet, 40 MG PO DAILY, (Reported) Patient Home Medication List Home Medication List Reviewed: Yes Past Rwbmsbh-Aejrrd-Hbmdhl Hx Patient Social History Alcohol Use: Denies Use Recreational Drug Use: No Smoking Status: Never a Smoker Former Smoker, Quit: Oct 09, 2003 Recent Foreign Travel: No Contact w/Someone Who Travel: No Recent Infectious Disease Expo: No Recent Hopitalizations: No Immunizations Up To Date Date of Influenza Vaccine: Oct 15, 2014 Surgeries History of Surgeries: Yes (LEFT EAR SURGERY AND RIGHT ING HERNIA SURGERY, BILAT CATARACTS) Surgeries: Lobectomy Respiratory History of Respiratory Disorde: No Cardiovascular History of Cardiac Disorders: Yes Cardiac Disorders: High Cholesterol, Hypertension Neurological History of Neurological Disord: Yes Reproductive System Hx Reproductive Disorders: No Genitourinary History of Genitourinary Disor: No Gastrointestinal History of Gastrointestinal Di: Yes (inguinal hernia) Musculoskeletal History of Musculoskeletal Dis: No Endocrine History of Endocrine Disorders: No HEENT History of HEENT Disorders: Yes HEENT Disorders: Cataract Hearing Impairment: Hard of Hearing Cancer History of Cancer: Yes Cancer: Skin Psychosocial History of Psychiatric Problem: No Integumentary History of Skin or Integumenta: No Blood Transfusions History of Blood Disorders: No Adverse Reaction to a Blood Tr: No Family Medical History Significant Family History: CAD Over 55 Years Old (father of heart diseas e) Review of Systems-General Constitutional: No chills, No diaphoresis; malaise, weakness EENTM: vision loss; No blurred vision, No double vision, No mouth pain, No mouth swelling, No epistaxis Respiratory: No cough, No dyspnea on exertion, No short of breath Cardiovascular: No chest pain, No edema, No palpitations Gastrointestinal: abdominal pain (LLQ); No jaundice, No nausea, No vomiting Genitourinary: No dysuria, No frequency, No hematuria Musculoskeletal: back pain, joint pain, joint swelling, muscle pain, muscle stiffness Skin: No change in color, No change in hair/nails Psychiatric/Neurological: Denies Anxiety, Denies Depressed, Denies Seizure, Denies Tremors Other pt denies any hx of abnormal bleeding or bruising Physical Exam-General Problems Physical Exam Vital Signs Vital Signs - First Documented 11/26/19 16:30 Temp 36.5 Pulse 107 Resp 18 B/P (MAP) 156/87 (110) Pulse Ox 99 Capillary Refill : Less Than 3 Seconds General Appearance: WD/WN, no apparent distress Eyes: Bilateral Eye PERRL, Bilateral Eye EOMI HEENT: pharynx normal; No scleral icterus (R), No scleral icterus (L) Neck: non-tender, supple Respiratory: chest non-tender, lungs clear, normal breath sounds, no respiratory distress, no accessory muscle use Cardiovascular: no murmur, tachycardia Gastrointestinal: soft, no organomegaly, hernia (incarcerated LIH) Back: no CVA tenderness, no vertebral tenderness Extremities: non-tender, no pedal edema, no calf tenderness, normal capillary refill Neurologic/Psychiatric: specialist managers II-XII nml as tested, no motor/sensory deficits, alert, normal mood/affect, oriented x 3 Skin: normal color, warm/dry Lymphatic: no adenopathy (neck, axilla or groin) Data Review Labs Laboratory Tests 11/26/19 16:40: White Blood Count 14.7H, Red Blood Count 4.65, Hemoglobin 14.0, Hematocrit 42, Mean Corpuscular Volume 90, Mean Corpuscular Hemoglobin 30, Mean Corpuscular Hemoglobin Concent 33, Red Cell Distribution Width 13.1, Platelet Count 232, Mean Platelet Volume 9.8, Immature Granulocyte % (Auto) 1, Neutrophils (%) (Auto) 91H, Lymphocytes (%) (Auto) 5L, Monocytes (%) (Auto) 3, Eosinophils (%) (Auto) 0, Basophils (%) (Auto) 0, Neutrophils # (Auto) 13.4H, Lymphocytes # (Auto) 0.7L, Monocytes # (Auto) 0.5, Eosinophils # (Auto) 0.0, Basophils # (Auto) 0.0, Immature Granulocyte # (Auto) 0.1, Neutrophils % (Manual) 95, Lymphocytes % (Manual) 3, Monocytes % (Manual) 2, Eosinophils % (Manual) 0, Basophils % (Manual) 0, Band Neutrophils 0, Blood Morphology Comment NORMAL, Sodium Level 136, Potassium Level 4.1, Chloride Level 99, Carbon Dioxide Level 24, Anion Gap 13, Blood Urea Nitrogen 16, Creatinine 1.04, Estimat Glomerular Filtration Rate > 60, BUN/Creatinine Ratio 15, Glucose Level 122H, Calcium Level 9.4, Corrected Calcium , Total Bilirubin 1.4H, Aspartate Amino Transf (AST/SGOT) 16, Alanine Aminotransferase (ALT/SGPT) 9, Alkaline Phosphatase 107, Total Protein 7.4, Albumin 4.6H 11/26/19 16:41: Coronavirus 2019 (MASOOD) Negative 11/26/19 17:20: Lactic Acid Level 1.42 Radiology Date of Exam:11/26/19 CT ABDOMEN/PELVIS W PROCEDURE: CT abdomen and pelvis with contrast. TECHNIQUE: Multiple contiguous axial images were obtained through the abdomen and pelvis after administration of intravenous contrast. Auto Exposure Controls were utilized during the CT exam to meet ALARA standards for radiation dose reduction. All CT scans use one or more of the following dose optimizing techniques: automated exposure control, MA and/or KvP adjustment based on patient size and exam type or iterative reconstruction. INDICATION: Generalized abdominal pain and distention, left inguinal hernia. COMPARISON: 08/15/2019 FINDINGS: There are moderately distended loops of small bowel throughout the abdomen. There is mild distention of the stomach and proximal colon. There is a bowel containing left inguinal hernia which may be the transition point. There is no free air or free fluid. There is a small effusion in the left lung base. The right lung base is clear. Stable cysts are seen in the liver and right kidney. Otherwise, solid organs and vascular structures are intact. There is abdominal aortic ectasia with atherosclerotic disease. No solid organ or bowel ischemia is seen. There is diverticulosis of the sigmoid colon without diverticulitis. There is mild prostate enlargement. The urinary bladder is grossly normal. Osseous structures are age-appropriate. IMPRESSION: 1. Small bowel obstruction with likely transition point in the left inguinal canal which contains a loop of small bowel 2. No free air or free fluid. 3. Small left pleural effusion. 4. Atherosclerosis of the abdominal aorta without evidence of solid organ or bowel ischemia. Dictated on workstation # [id number] Dict: 11/26/191814 Trans: 11/26/19 1829 [facility] [id number] Interpreted by: BERHANE BROWN Assessment/Plan Assessment/Plan Assessment/Plan Incarcerated LIH r/o strangulated HTN Pt has an elevated WBC (14.7) with a left shift and CT shows PSBO with transition point in the Left inguinal hernia. It also shows a large fluid collection in inguinal canal. I need to look laparoscopically to make sure the bowel is viable and then try to repair the area. The best way to do this is use the robot. I may also have to do part of the surgery open to get into the inguinal and figure out what the large collection of fluid is; if I can't see from inside. I discussed the procedure with pt; risks and complications not limited to pain, bleeding infection, scar, damage to bowel and need for further procedure including bowel resection. All questions answered to his satisfaction. FLACA BARAJAS DO Nov 26, 2019 19:30
--- NOTE | 2019-11-26 19:36 | NUR ---
Daughter Kendra, called and updated on patient plan of care.
--- NOTE | 2019-11-26 19:37 | NUR ---
Consent signed and witnessed.
[2019-11-26] MEDS ORDERED: SEVOFLURANE (ULTANE) 15 ML INHAL SOLN ONE ×6 (19:51→22:21)
[2019-11-26] MEDS ORDERED: proPOfol 200 MG/20 ML (DIPRIVAN) VIAL IV ONE (19:51)
[2019-11-26] MEDS ORDERED: ROCURONIUM 10 MG/ML 5 ML SYRINGE IV ONE (19:51)
[2019-11-26] MEDS ORDERED: LIDOCAINE PF 2% 5 ML (XYLOCAINE) VIAL ONE (19:51)
[2019-11-26] MEDS ORDERED: fentaNYL INJECTION 100 MCG/2 ML AMP ONE (19:52)
[2019-11-26] MEDS ORDERED: MIDAZOLAM 2 MG/2 ML (VERSED) VIAL ONE (19:52)
[2019-11-26] MEDS ORDERED: SUCCINYLCHOLINE INJ 100 MG/5 ML SYR/VIAL ONE (19:57)
[2019-11-26] MEDS ORDERED: ONDANSETRON 4 MG/2 ML (SDV) Z0FRAN ONE ×2 (19:57→22:21)
--- NOTE | 2019-11-26 20:00 | NUR ---
Pt up to [facility] for BM.
[2019-11-26] MEDS ORDERED: BUP/EPI 0.5% 1:200,000 (SENSORCAINE) 30 ML VIAL ONE (20:05)
--- NOTE | 2019-11-26 20:28 | NUR ---
Surgery staff here for patient.
[2019-11-26] MEDS: LACTATED RINGERS 1,000 ML IV PRN ×2 (20:34→21:50)
[2019-11-26] MEDS ORDERED: PHENYLEPHRINE 100 MCG/ML 10 ML (ANESTHESIA) SYR ONE (20:51)
[2019-11-26] MEDS ORDERED: GLYCOPYRROLATE 0.2 MG/ML (ROBINUL) 2 ML VIAL ONE (22:20)
[2019-11-26] MEDS ORDERED: NEOSTIGMINE 3 MG/3 ML VIAL ONE (22:20)
--- NOTE | 2019-11-26 23:45 | NUR ---
Received pt from recovery room nurse Patricia. Pt alert and oriented, no complaints of pain. Dressing is clean, dry and intact. All pt needs met.
--- NOTE | 2019-11-26 23:45 | NUR ---
BRAYAN LINO admitted to room 421, with an admitting diagnosis of Small Bowel Obstruction; Left Incarcerated Inguinal Hernia; Large Testicular Mass; Intraperitoneal Mass, on from PACU via hospital bed, accompanied by staff.BRAYAN LINO introduced to surroundings, call light, bed controls, phone, TV, temperature control, lights, meal times, smoking policy, visitor policy, side rail policy, bathrooms and showers. Patient Rights given to patient in the handbook. BRAYAN LINO verbalizes understanding that [facility] is not responsible for the loss or damage to any personal effects or valuables that are kept in the patients posession during their hospitalization. BRAYAN LINO verbalizes understanding of Interdisciplinary Patient Education. Patient and/or family were informed about the Rapid Response Team and its purpose.
[2019-11-27] VITALS: BP 145/76
[2019-11-27] MEDS ORDERED: HYDROcodone/APAP 5 MG/325 MG (LORTAB) TAB PO PRN (01:00)
[2019-11-27] MEDS ORDERED: ONDANSETRON 4 MG/2 ML (SDV) Z0FRAN IVP PRN (01:00)
--- NOTE | 2019-11-27 01:00 | Progress Note-Post Operative ---
Post-Operative Progess Note Surgeon (s)/Pressure Washer (s) Surgeon FLACA BARAJAS DO Pressure Washer: Bessie Pre-Operative Diagnosis Incarcerated LIH, Partial bowel obstruction Post-Operative Diagnosis Incarcerated LIH Testicular mass Procedure & Operative Findings Date of Procedure 11/27/19 Procedure Performed/Findings Diagnostic Laparoscopy with lysis of adhesions Open LIH with primary closure Left orchiectomy Anesthesia Type GET Estimated Blood Loss Estimated blood loss (mL): scant Specimens/Packing Specimens Removed intraperitoneal mass left testicle FLACA BARAJAS DO Nov 27, 2019 01:00
[2019-11-27] MEDS ORDERED: ceFAZolin INJECTION 0 MG ONE (04:27)
[2019-11-27 04:54] VITALS: BP 110/62
[2019-11-27] MEDS: LACTATED RINGERS 1,000 ML IV SCH ×3 (04:57→17:01)
[2019-11-27] MEDS: ceFAZolin 2 GM IV Premixed 50 ML IV SCH ×2 (04:57→14:16)
--- NOTE | 2019-11-27 06:37 | OPERATIVE REPORT ---
DATE OF SERVICE: PREOPERATIVE DIAGNOSES: Incarcerated left inguinal hernia with a transition point in the hernia as well as partial bowel obstruction secondary to this incarcerated hernia and large mass in the inguinal canal. POSTOPERATIVE DIAGNOSES: Incarcerated left inguinal hernia, a large testicular mass. PROCEDURES: 1. Diagnostic laparoscopy with lysis of adhesions, reduction of left inguinal hernia. 2. Open left inguinal herniorrhaphy with primary closure. 3. Left orchiectomy for removal of testicular mass. SURGEON: Todd Brown DO HOT MAN: Anand La DO. ANESTHESIA: General endotracheal tube. SPECIMEN: Intraperitoneal mass, portion of colon, and left testicular mass. BLOOD LOSS: Less than 20 mL. FLUIDS: Per anesthesia. POSTOPERATIVE CONDITION: Stable. INDICATION FOR PROCEDURE: The patient is an 84-year-old male who came in with increasing left inguinal pain. He knows he has a hernia there, but since he got it fixed in 2015 laparoscopically, but ever since then he had a large "golf ball" in his inguinal canal. FINDINGS: I actually looked at old CT, he has had a large incarcerated left inguinal hernia since at least 2016, that was when the first CT was done and all of them showed intestine in the left inguinal hernia, but the one today showed a mass and the transition point with a partial bowel obstruction. He had some bowel in the left inguinal hernia. This was reduced. While repairing this, looking at the intestine that was in the hernia found intraperitoneal mass, this was removed. Also appeared to be possibly a diverticulum that was attached to the wall of the abdomen, so this had to be removed and removed the large left testicular mass and the testicle. PROCEDURE NOTE: After informed consent was obtained, the patient was brought to the operating room, placed on the operating table in supine position, sterilely prepped and draped in normal fashion. Local lidocaine was used to infiltrate the skin above the umbilicus. I made the incision with #11 blade, carried down to skin into subcutaneous tissue, then deepened down to subcutaneous tissue with Bovie electrocautery down to fascia. Fascia was incised with Bovie electrocautery and bluntly entered the abdomen, swept a finger around, placed limited trocar port under direct visualization. Created pneumoperitoneum and then placed another 5mm port in the left lower quadrant just below at the level of the umbilicus using local lidocaine, 11 blade for stab incision and VersaStep system, all done under direct visualization. There were some adhesions in the abdominal wall. These were carefully taken down with Bovie electrocautery. Pulled the intestine out of the hernia, took a picture of this and then looked in the hernia, there was a very large mass down in the inguinal canal, trying to push from the outside and look from inside, could not see it. I elected to close the hernia with an open technique. I made an incision in the left inguinal region after first infiltrating with local as well as ilioinguinal nerve block. I made an incision with #15 blade, carried down through the skin into subcutaneous tissue, then deepened down to subcutaneous tissue with Bovie electrocautery down to the fascia and external oblique. External oblique fascia infiltrated with local and incised to the external inguinal ring. There was a very large mass and could try started to trying dissect out the cord and cord structures, able to start dissecting off and get into the hernia sac. I then started dissecting the hernia sac off the cord and cord structures and off the this large mass, able to remove this mass through into the inguinal canal, brought up the intestine to look at the sigmoid colon that we had been working on laparoscopically. It looked like there was a diverticulum or a portion of intestine; used an Endo-PRAKASH to cut this off, lysed some more adhesions with Bovie electrocautery and then found intraperitoneal mass. This was removed and passed off the table and sent to pathology. Then started dissecting out the cord and cord structures. They were right towards this mass. This was a very large firm mass, attached right to the left testicle. There was no way to remove this mass and save the testicle, so elected to perform orchiectomy, grabbed the cord and cord structures above this right at the opening into the inguinal canal and used the Endo-PRAKASH clamping and firing and transecting this and then had delivered this large mass and the testicle, went below the testicle, grasped the tissue clamped, cut this with Bovie electrocautery and then ligated and then removed this mass and testicle. At this point, I then elected to close inguinal hernia sac; used 0 Vicryl pursestring suture to close this and then suture ligated with 0 Vicryl, cut the inguinal hernia sac off, passed this off table, then elected to close the floor defect, closed with 2-0 Vicryl to primary close the floor with closing the Oscar's ligament to the shelving portion of Poupart ligament and the transverse abdominis. This was closed nicely and then closed the external oblique fascia over this with another 2-0 Vicryl, then closed Dominick's fascia with 2-0 Vicryl. Copiously irrigated with normal saline. Looked with the scope on the inside, looked like a good closure of the inguinal hernia and there was no leakage from the gas and pressure from the pneumoperitoneum leaking out into the hernia, so looked like it was a good closure. At this point, then removed the 11 mm trocar port and allowed pneumoperitoneum to escape and then closed the supraumbilical incision with an 0 Vicryl [id number] suture. Copiously irrigated this incision and closed this incision with rod as well as closed the 5 mm incisions with rod and then closed the left inguinal incision with rod. Area was cleaned and dried, dressings placed. The patient transferred to recovery room in stable condition. Sponge, instrument and needle count correct at the end of the case. Dr. La assisted in this case helping to make incisions, close incisions, identify anatomy, hold anatomy out of the way. Job ID: [id number] DocumentID: [id number] Dictated Date: 11/27/2019 01:16:32 Service Delivery Manager Date: 11/27/2019 06:36:22 Dictated By: DO RED FOX
[2019-11-27 07:54] VITALS: BP 121/72
[2019-11-27] MEDS: PANTOPRAZOLE 40 MG (PROTONIX) VIAL IVP SCH (07:58)
--- NOTE | 2019-11-27 09:59 | Anesthesia-General Post-Op ---
General Patient Condition Mental Status/LOC: Same as Preop Cardiovascular: Satisfactory Nausea/Vomiting: Absent Respiratory: Satisfactory Pain: Controlled Complications: Absent Post Op Complications Complications None Follow Up Care/Instructions Patient Instructions None needed. Anesthesia/Patient Condition Patient Condition Patient is doing well, no complaints, stable vital signs, no apparent adverse anesthesia problems. No complications reported per nursing. D/C home per [facility] Criteria: LAUREN Davenport CRNA Nov 27, 2019 09:59
[2019-11-27 12:15] VITALS: BP 118/65
--- NOTE | 2019-11-27 12:29 | Progress Note - Surgery ---
Subjective Time Seen by a Provider: 11:46 Subjective/Events-last exam Pt seen and examined, states pain is minimal and he has "weird sensations in my penis". He is hungry. Review of Systems General: No Chills, No Night Sweats Pulmonary: No Dyspnea, No Cough Cardiovascular: No: Chest Pain, Palpitations Gastrointestinal: No: Nausea, Vomiting Focused Exam Lactate Level 11/26/19 17:20: Lactic Acid Level 1.42 Objective Exam Vital Signs Date Time Temp Pulse Resp B/P (MAP) Pulse Ox O2 Delivery O2 Flow Rate FiO2 11/27/19 12:15 36.0 80 16 118/65 (82) 95 Room Air 11/27/19 09:00 Nasal Cannula 11/27/19 07:54 35.9 74 16 121/72 (88) 96 Nasal Cannula 2.00 11/27/19 04:54 36.0 74 16 110/62 (78) 97 Nasal Cannula 2.00 11/27/19 00:00 97 Nasal Cannula 2.00 11/27/19 00:00 36.0 96 16 145/76 95 Nasal Cannula 2.00 11/26/19 23:45 95 Nasal Cannula 2.00 11/26/19 23:45 Room Air 11/26/19 23:45 37.2 20 145/76 (99) 95 Room Air 11/26/19 23:40 37.2 20 145/76 (99) 95 Room Air 11/26/19 23:30 Room Air 11/26/19 23:30 20 145/76 (99) 95 Room Air 11/26/19 23:20 20 144/78 (100) 96 Room Air 11/26/19 23:18 OxyMask 2 11/26/19 23:10 OxyMask 3 11/26/19 23:10 20 147/83 (104) 98 OxyMask 2 11/26/19 23:00 19 149/76 (100) 97 OxyMask 3 11/26/19 22:55 OxyMask 6 11/26/19 22:50 24 148/77 (100) 99 OxyMask 6 11/26/19 22:40 OxyMask 6 11/26/19 22:40 37.4 16 146/91 (109) 99 OxyMask 6 11/26/19 20:07 96 18 140/98 94 Room Air 11/26/19 16:30 36.5 107 18 156/87 (110) 99 I & O 11/27/19 07:00 Intake Total 3050 ml Output Total 1250 ml Balance 1800 ml Capillary Refill : Less Than 3 SecondsLess Than 3 Seconds General Appearance: No Apparent Distress, WD/WN Respiratory: Lungs Clear, No Accessory Muscle Use, No Respiratory Distress Cardiovascular: Regular Rate, Rhythm, No Murmur Gastrointestinal: soft, other (Incisions are c/d/i) Neurologic/Psychiatric: Alert, Oriented x3 Skin: Warm/Dry Results Lab Laboratory Tests 11/26/19 16:40: White Blood Count 14.7H, Red Blood Count 4.65, Hemoglobin 14.0, Hematocrit 42, Mean Corpuscular Volume 90, Mean Corpuscular Hemoglobin 30, Mean Corpuscular Hemoglobin Concent 33, Red Cell Distribution Width 13.1, Platelet Count 232, Mean Platelet Volume 9.8, Immature Granulocyte % (Auto) 1, Neutrophils (%) (Auto) 91H, Lymphocytes (%) (Auto) 5L, Monocytes (%) (Auto) 3, Eosinophils (%) (Auto) 0, Basophils (%) (Auto) 0, Neutrophils # (Auto) 13.4H, Lymphocytes # (Auto) 0.7L, Monocytes # (Auto) 0.5, Eosinophils # (Auto) 0.0, Basophils # (Auto) 0.0, Immature Granulocyte # (Auto) 0.1, Neutrophils % (Manual) 95, Lymp hocytes % (Manual) 3, Monocytes % (Manual) 2, Eosinophils % (Manual) 0, Basophils % (Manual) 0, Band Neutrophils 0, Blood Morphology Comment NORMAL, Sodium Level 136, Potassium Level 4.1, Chloride Level 99, Carbon Dioxide Level 24, Anion Gap 13, Blood Urea Nitrogen 16, Creatinine 1.04, Estimat Glomerular Filtration Rate > 60, BUN/Creatinine Ratio 15, Glucose Level 122H, Calcium Level 9.4, Corrected Calcium , Total Bilirubin 1.4H, Aspartate Amino Transf (AST/SGOT) 16, Alanine Aminotransferase (ALT/SGPT) 9, Alkaline Phosphatase 107, Total Protein 7.4, Albumin 4.6H 11/26/19 16:41: Coronavirus 2019 (MASOOD) Negative 11/26/19 17:20: Lactic Acid Level 1.42 Assessment/Plan Assessment/Plan Assessment/Plan S/P Repair of Incarcerated LIH Left Testicular mass HTN I explained to pt that we had to perform a left Orchiectomy and why; he understood. His main concern is restarting his home meds and going back home; because his son-in law is Covid +. Pt encouraged to eat and ambulate, will restart home meds. He will talk to daughter about quarrantining and isolating at her house. Continue pain control. Clinical Quality Measures DVT/VTE Risk/Contraindication: Risk Factor Score Per Nursin RFS Level Per Nursing on Admit: 4+=Very High FLACA BARAJAS DO Nov 27, 2019 12:29
[2019-11-27 15:48] VITALS: BP 141/76
[2019-11-27] MEDS ORDERED: BUSP7.5T5 PO (18:34)
[2019-11-27 20:00] VITALS: BP 138/71
[2019-11-27] MEDS: busPIRone 15 MG (BUSPAR) TABLET PO SCH (20:36)
[2019-11-28 00:21] VITALS: BP 112/58
[2019-11-28 04:35] VITALS: BP 118/65
--- NOTE | 2019-11-28 07:42 | Progress Note - Surgery ---
TOM DEXTER,MED STUDENT 11/28/19 0742: Subjective Date Seen by a Provider: Nov 28, 2019 Time Seen by a Provider: 07:00 Subjective/Events-last exam Patient doing well this morning. He states he is having some burning pain near incisions when he moves, but is not needing any pain medications. Having some loose stools. He did notice one episode of blood in his urine yesterday but is not sure if it has happened since. Denies chest pain, shortness of breath, fever or chills. 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 Review of Systems General: No Chills HEENT: No Head Aches; Other (Dizziness) Pulmonary: No Dyspnea, No Cough Cardiovascular: No: Chest Pain, Palpitations, Edema Gastrointestinal: No: Nausea, Vomiting, Abdominal Pain Genitourinary: No Dysuria; Hematuria Musculoskeletal: neck pain ("pops" ) Neurological: Other (Dizziness) Focused Exam Lactate Level 11/26/19 17:20: Lactic Acid Level 1.42 Objective Exam Vital Signs Date Time Temp Pulse Resp B/P (MAP) Pulse Ox O2 Delivery O2 Flow Rate FiO2 11/28/19 04:35 36.6 73 20 118/65 (82) 95 Room Air 11/28/19 00:21 36.5 60 20 112/58 (76) 94 Room Air 11/27/19 20:40 Room Air 11/27/19 20:00 36.7 84 18 138/71 (93) 97 Room Air 11/27/19 15:48 36.4 83 20 141/76 (97) 97 Room Air 11/27/19 12:15 36.0 80 16 118/65 (82) 95 Room Air 11/27/19 09:00 Nasal Cannula 11/27/19 07:54 35.9 74 16 121/72 (88) 96 Nasal Cannula 2.00 I & O 11/28/19 07:00 Intake Total 1700 ml Output Total 1370 ml Balance 330 ml Capillary Refill : Less Than 3 SecondsLess Than 3 Seconds General Appearance: No Apparent Distress HEENT: PERRL/EOMI, Moist Mucous Membranes Neck: Supple, Carotid Bruit (left ) Respiratory: Lungs Clear, No Accessory Muscle Use, No Respiratory Distress Cardiovascular: Regular Rate, Rhythm, No Murmur, Other Peripheral Pulses: 2+ Dorsalis Pedis (R), 2+ Left Dors-Pedis (L), 2+ Radial Pulses (R), 2+ Radial Pulses (L) (hyperdynamic) Gastrointestinal: normal bowel sounds, non tender, soft; No distended; other (Incisions are c/d/i, mild swelling near inguinal incision, no edema) Extremity: Normal Capillary Refill, No Pedal Edema Neurologic/Psychiatric: Alert, Oriented x3 Skin: Warm/Dry Assessment/Plan Assessment/Plan Assessment/Plan S/P Repair of Incarcerated LIH Left Testicular mass, s/p left orchiectomy- awaiting pathology reports Hematuria- continue to monitor, possibly from hdz BPPV vs carotid stenosis- can attempt corina-hallpike to see if dizziness is caused by BPPV, can also consider carotid ultrasound after discharge HTN- continue home medications Pts COVID test came back negative Encourage ambulationg and IS Clinical Quality Measures DVT/VTE Risk/Contraindication: Risk Factor Score Per Nursin RFS Level Per Nursing on Admit: 4+=Very High TODD BROWN DO 11/28/19 1428: Subjective Time Seen by a Provider: 12:44 Subjective/Events-last exam Pt seen and examined, states his pain is controlled. He thought he saw some blood in his urine. Pt was not dizzy when I saw him. Review of Systems General: No Chills HEENT: No Head Aches Pulmonary: No Dyspnea, No Cough Cardiovascular: No: Chest Pain, Palpitations Gastrointestinal: No: Nausea, Vomiting, Abdominal Pain Objective Exam General Appearance: No Apparent Distress Respiratory: Lungs Clear, No Accessory Muscle Use, No Respiratory Distress Cardiovascular: Regular Rate, Rhythm, No Murmur Gastrointestinal: soft; No distended; tenderness (mild at LLQ incision), other (Incisions are c/d/i, small ecchymosis near inguinal incision, no edema) Assessment/Plan Assessment/Plan Assessment/Plan S/P Repair of LIH S/P left orchiectomy with excision of mass. Supervisory-Addendum Brief Verification & Attestation Participated in pt care: history, MDM, physical Personally performed: exam, history, MDM Care discussed with: Medical Student Procedures: n/a Verification and Attestation of Medical Student E/M Service A medical student performed and documented this service. I then reviewed and verified all information documented by the medical student and made modifications to such information, when appropriate. I personally performed a physical exam, medical decision making and then discussed any differences between the notes and made revisions as necessary to create one note. Todd Brown , 11/28/19 , 14:28 TOM DEXTER,MED STUDENT Nov 28, 2019 07:42 TODD BROWN DO Nov 28, 2019 14:28
[2019-11-28 07:50] VITALS: BP 144/65
[2019-11-28] MEDS: PANTOPRAZOLE 40 MG (PROTONIX) VIAL IVP SCH (08:52)
[2019-11-28] MEDS ORDERED: SIMvastatin 40 MG (ZOCOR) TAB PO SCH (09:00)
[2019-11-28] MEDS ORDERED: lisINopril 10 MG (PRINIVIL) TABLET PO SCH (09:00)
[2019-11-28] MEDS ORDERED: PANTOPRAZOLE 40 MG (PROTONIX) TAB PO SCH (09:00)
[2019-11-28] MEDS: busPIRone 15 MG (BUSPAR) TABLET PO SCH (09:45)
[2019-11-28 11:47] VITALS: BP 131/67
--- NOTE | 2019-11-28 13:41 | NUR ---
CM/SS: Visited with pt as to plan for discharge - based on son in law testing positive and pt has been staying with them prior to hospital stay. Pt does have his home at the [facility]. Plan: Pt to stay with granddaughter in [place] until he is stronger and can return to his apartment Summary: [facility]. He would like to return there. Call to [facility], [facility] - he is ok for pt to return and his local non COVID daughter can help him based on their guidelines. Call to Daughter Mariela - [phone] - She would like for pt to stay with his granddaughter in [place]. Pt is informed and talks with daughter, he is ok with the idea. Call back to Pat at [facility] - letting him know that pt would not be coming back, he would be staying with his granddaughter in [place]. Granddaughter will be here to cotton picker pt between on 330pm and 400pm. Dr. Brown is notified on the updated plan for pt as to his discharge. Talk with granddaughter on the phone she is given information as to the entrance and also given the nurses number to call when she arrives. She verbalizes understanding. RAMIRO Ling is notified of the above plan. This worker will follow up.
--- NOTE | 2019-11-28 14:32 | Discharge Inst-Surgical ---
Discharge Inst-Surgical Depart Medication/Instructions New, Converted or Re-Newed RX: Other (Use Motrin for pain) Patient Instructions Follow up Appt: Make appointment for 1 week. [phone] Instructions: No lifting greater than 20 pounds. No strenuous activity. May shower in 24 hours, no tub bath or soaking. Use incentive spirometer at home as directed. No Smoking Skin/Wound Care: May remove bandages in am. You need to leave the rod in place and come in to clinic to have them removed. Symptoms to Report: Appetite Changes, Extremity Discoloration, Numbness/Tingling, Swelling Increased, Bleeding Excessive, Eyesight Changes, Pain Increased, Urine Color Change, Constipation(Persistent), Fever over 101 degree F, Pain/Pressure in chest, Urinating Difficulty, Cough Up/Vomit Blood, Heart Beat Irreg/Pounding, Pain/Pressure in jaw, Cramps in feet or legs, Lightheadedness, Pain/Pressure in shoulder, Diarrhea(Persistent), Memory Changes Suddenly, Questions/Concerns, Weight gain consecutive days, Dizziness/Fainting, Nausea/Vomiting, Shortness of Breath, Weight gain over 2 pounds If questions or concerns contact your physician Or seek help at emergency department. Activity Activity as Tolerated: Yes Activity Instructions: Avoid Stress to Incision Driving Instructions: No Driving/Refer to Dr. Patel Discharge Diet: No Restrictions Diet After 24 Hours: Clear Liquid if Nauseous If Any Problems/Questions/Issu: Contact Your Physician, Go to Emergency Room Skin/Wound Care Infection Signs and Symptoms: Increased Redness, Foul Odor of Wound, Increased Drainage, Skin Itchy or Has a Rash, Increased Swelling, Temperature Above 101 F Bathing Instructions: Shower Stitches/[place]/Dermabond Dis: Care of FLACA Hunt DO Nov 28, 2019 14:32
[2019-11-28 16:29] VITALS: BP 131/67
== END 2019-11-28 16:31 | disposition home or self-care (01) | DRG 331 ==
LOC: EDUNIT# 16:17 → ER 16:19 → SDC 19:27 → 4TH 23:45
PROVIDERS: ADMIT Surgery; ATTEND Surgery
PROC: 0YQ60ZZ Repair Left Inguinal Region, Open Approach (ICD-10-PCS; principal; 2019-11-27)
PROC: 0DBN0ZZ Excision of Sigmoid Colon, Open Approach (ICD-10-PCS; 2019-11-27)
PROC: 0YJ64ZZ Inspection of Left Inguinal Region, Percutaneous Endoscopic Approach (ICD-10-PCS; 2019-11-27)
PROC: 0VTB0ZZ Resection of Left Testis, Open Approach (ICD-10-PCS; 2019-11-27)
DX: K40.31 Unilateral inguinal hernia, with obstruction, without gangrene, recurrent (principal); N50.9 Disorder of male genital organs, unspecified; Z20.828 Contact with and (suspected) exposure to other viral communicable diseases; I10 Essential (primary) hypertension; K57.30 Diverticulosis of large intestine without perforation or abscess without bleeding; E78.00 Pure hypercholesterolemia, unspecified; R31.9 Hematuria, unspecified; R42 Dizziness and giddiness; Z85.828 Personal history of other malignant neoplasm of skin; N45.1 Epididymitis; N50.0 Atrophy of testis
CPT/HCPCS: 36415; 74177; 80053; 83605; 85007; 85027; 87635; 88302; 88305; 88307

== ENCOUNTER → 2019-12-31 | Outpatient (CLI) | payer MEDICARE ==
[~2019-12-31] MED LIST changes: +BUSP7.5T5 PO
== END ==
LOC: LABNPT 08:13
PROVIDERS: ATTEND Internal Medicine
DX: J02.9 Acute pharyngitis, unspecified (principal); Z20.828 Contact with and (suspected) exposure to other viral communicable diseases
CPT/HCPCS: 87635

== ENCOUNTER → 2020-05-01 | Outpatient (CLI) | payer MEDICARE ==
[~2020-05-01] MED LIST changes: -LISI10TA2 PO; +LISI10TA25 PO
[2020-05-01 15:03] LABS: BASOPHILS % (AUTO) 1 % (0-10); EOSINOPHILS # (AUTO) 0.3 10^3/uL (0.0-0.3); EOSINOPHILS % (AUTO) 4 % (0-10); HEMATOCRIT 42 % (40-54); HEMOGLOBIN 13.7 g/dL (13.3-17.7); LYMPHOCYTES # (AUTO) 1.4 10^3/uL (1.0-4.0); LYMPHOCYTES % (AUTO) 17 % (12-44); MEAN CORPUSCULAR HEMOGLOBIN 30 pg (25-34); MEAN CORPUSCULAR HGB CONC 33 g/dL (32-36); MEAN CORPUSCULAR VOLUME 91 fL (80-99); MEAN PLATELET VOLUME 9.6 fL (9.0-12.2); MONOCYTES # (AUTO) 0.5 10^3/uL (0.0-1.0); MONOCYTES % (AUTO) 7 % (0-12); NEUTROPHILS # (AUTO) 5.8 10^3/uL (1.8-7.8); NEUTROPHILS % (AUTO) 72 % (42-75); PLATELET COUNT 201 10^3/uL (130-400)
[2020-05-01 15:39] LABS: ALANINE AMINOTRANSFERASE 13 U/L (0-55); ALBUMIN 4.5 GM/DL (3.2-4.5); ALKALINE PHOSPHATASE 95 U/L (40-136); BUN/CREATININE RATIO 15; CARBON DIOXIDE 26 MMOL/L (21-32); CHLORIDE 102 MMOL/L (98-107); CREATININE SERUM 0.98 MG/DL (0.60-1.30); GFR ESTIMATED > 60; GLUCOSE 108 MG/DL (70-105); POTASSIUM 4.2 MMOL/L (3.6-5.0); SODIUM 138 MMOL/L (135-145); TOTAL PROTEIN 7.3 GM/DL (6.4-8.2)
== END ==
LOC: ONC 14:52
PROVIDERS: ATTEND Internal Medicine Hematology & Oncology
DX: C34.32 Malignant neoplasm of lower lobe, left bronchus or lung (principal); I10 Essential (primary) hypertension; Z90.2 Acquired absence of lung [part of]; Z98.890 Other specified postprocedural states
CPT/HCPCS: 80053; 85025; G0463; 99213

== ENCOUNTER → 2020-05-05 | Outpatient (CLI) | payer MEDICARE ==
[~2020-05-05] MED LIST changes: +CATHETER FLUSH 10 ML SYR IV PRN; +HOLD METFORMIN - RECEIVED CONTRAST 20 ML VIAL IV SCH; +IOHEXOL 350 MG/ML 100 ML (OMNIPAQUE 350) VIAL IV ONE; +NS 100 ML (IVPB) BAG IV ONE
--- NOTE | 2020-05-05 09:28 | Diagnostic Imaging Report ---
PROCEDURE: CT chest and abdomen with contrast. TECHNIQUE: Multiple contiguous axial images were obtained through the chest and abdomen after the administration of intravenous contrast. Auto Exposure Controls were utilized during the CT exam to meet ALARA standards for radiation dose reduction. INDICATION: Lung carcinoma, follow-up. Correlation is made with prior CT chest from 08/15/[address] abdomen from 11/26/2019. CT CHEST: Postsurgical changes of left upper lobectomy with volume loss left hemithorax is again noted and similar to prior exam. There is small amount of pleural fluid on the left side. No right-sided effusion. There is no pericardial effusion. No axillary lymphadenopathy is detected. No definite mediastinal or hilar lymphadenopathy is detected. Background emphysematous changes in both lungs again noted. The irregular density in the right apex appears similar to prior exam. No new pulmonary mass is identified. IMPRESSION: Stable CT chest with postsurgical changes when compared with exam from 11/26/2019. No thoracic lymphadenopathy or evidence of pulmonary mass is detected. CT ABDOMEN: Circumscribed low-density masses within the liver appear stable and again likely owing to cysts. The gallbladder is unremarkable. There is no biliary ductal dilatation. Pancreas and spleen are unremarkable. No adrenal mass is detected. A large cyst upper pole right kidney is again noted. Left kidney is unremarkable. Aorta is nonaneurysmal. No central retroperitoneal or mesenteric lymphadenopathy is seen. There is no ascites. Bony structures appear nonacute. IMPRESSION: Hepatic and right renal cysts, stable. No definite abdominal lymphadenopathy or evidence of metastatic disease is identified. Dictated by: Dictated on workstation # [id number]
== END ==
LOC: RAD 08:20
PROVIDERS: ATTEND Internal Medicine Hematology & Oncology
DX: C34.90 Malignant neoplasm of unspecified part of unspecified bronchus or lung (principal); K76.89 Other specified diseases of liver; N28.1 Cyst of kidney, acquired
CPT/HCPCS: 71260; 74160

== ENCOUNTER 2020-05-07 12:55 | Outpatient (RCR) | payer MEDICARE ==
[~2020-05-07 12:55] MED LIST changes: -CATHETER FLUSH 10 ML SYR IV PRN; -HOLD METFORMIN - RECEIVED CONTRAST 20 ML VIAL IV SCH; -IOHEXOL 350 MG/ML 100 ML (OMNIPAQUE 350) VIAL IV ONE; -NS 100 ML (IVPB) BAG IV ONE
== END 2020-08-05 | disposition home or self-care (01) ==
LOC: ONC 12:55
PROVIDERS: ATTEND Internal Medicine Hematology & Oncology
DX: C34.32 Malignant neoplasm of lower lobe, left bronchus or lung (principal); I10 Essential (primary) hypertension; Z90.2 Acquired absence of lung [part of]; Z98.890 Other specified postprocedural states
CPT/HCPCS: 99213

== ENCOUNTER → 2020-11-05 | Outpatient (CLI) | payer MEDICARE ==
[2020-11-05 15:04] LABS: BASOPHILS % (AUTO) 0 % (0-10); EOSINOPHILS # (AUTO) 0.1 10^3/uL (0.0-0.3); EOSINOPHILS % (AUTO) 1 % (0-10); HEMATOCRIT 38 % (40-54); HEMOGLOBIN 12.3 g/dL (13.3-17.7); LYMPHOCYTES # (AUTO) 1.1 10^3/uL (1.0-4.0); LYMPHOCYTES % (AUTO) 11 % (12-44); MEAN CORPUSCULAR HEMOGLOBIN 30 pg (25-34); MEAN CORPUSCULAR HGB CONC 32 g/dL (32-36); MEAN CORPUSCULAR VOLUME 93 fL (80-99); MEAN PLATELET VOLUME 9.1 fL (9.0-12.2); MONOCYTES # (AUTO) 0.6 10^3/uL (0.0-1.0); MONOCYTES % (AUTO) 6 % (0-12); NEUTROPHILS # (AUTO) 7.4 10^3/uL (1.8-7.8); NEUTROPHILS % (AUTO) 80 % (42-75); PLATELET COUNT 288 10^3/uL (130-400); WHITE BLOOD COUNT 9.3 10^3/uL (4.3-11.0)
[2020-11-05 15:25] LABS: ALBUMIN 3.9 GM/DL (3.2-4.5); BILIRUBIN,TOTAL 0.8 MG/DL (0.1-1.0); CALCIUM 9.2 MG/DL (8.5-10.1); CREATININE SERUM 0.88 MG/DL (0.60-1.30); POTASSIUM 4.6 MMOL/L (3.6-5.0)
== END ==
LOC: EDSTATUS 08-06 13:46 → ONC 14:27
PROVIDERS: ATTEND Internal Medicine Hematology & Oncology
DX: C34.32 Malignant neoplasm of lower lobe, left bronchus or lung (principal); D64.9 Anemia, unspecified; K76.89 Other specified diseases of liver; N28.1 Cyst of kidney, acquired; I10 Essential (primary) hypertension
CPT/HCPCS: 80053; 85025; G0463; 99213

== ENCOUNTER → 2020-11-07 | Outpatient (CLI) | payer MEDICARE | LOC: ONC 09:48 | PROVIDERS: ATTEND Internal Medicine Hematology & Oncology | DX: C34.32 Malignant neoplasm of lower lobe, left bronchus or lung (principal); D64.9 Anemia, unspecified; K76.89 Other specified diseases of liver; N28.1 Cyst of kidney, acquired; Z90.12 Acquired absence of left breast and nipple | CPT/HCPCS: 82274 ==

== ENCOUNTER 2020-11-19 05:30 | Outpatient (RCR) | payer MEDICARE | END 2020-11-19 09:01 | disposition home or self-care (01) | LOC: PREOP 05:30 | PROVIDERS: ATTEND Internal Medicine | DX: Z01.812 Encounter for preprocedural laboratory examination (principal); D64.9 Anemia, unspecified; R19.5 Other fecal abnormalities | CPT/HCPCS: 87635 ==

== ENCOUNTER 2020-11-21 08:41 | Day surgery (SDC) | payer MEDICARE ==
--- NOTE | 2020-11-16 12:28 | HISTORY AND PHYSICAL ---
DATE OF SERVICE: PANENDOSCOPY HISTORY AND PHYSICAL DATE OF ADMISSION: . HISTORY OF PRESENT ILLNESS: The patient is an 85-year-old white male, who 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 It was noted that his hemoglobin had dropped a gram over the past 4 to 6 months as I recall down to 12.3. He then had stool tested for occult blood, which was positive. He essentially had a negative review of systems from a GI standpoint, denying reflux symptoms, dysphagia, abdominal pain, nausea, vomiting, bright red blood per rectum or melena. His weight has been stable. He had accomplished one other colonoscopy in 2011, at which time he had diverticular disease with no evidence for neoplasia. Previously, he has not undergone EGD evaluation. 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 He has a history of hypertension and hyperlipidemia with no known history of coronary artery disease. PHYSICAL EXAMINATION: GENERAL: Reveals a white male, who appears to be in no acute distress. VITAL SIGNS: Weight 139.6 pounds, up 1.2 pounds from a month ago. Blood pressure 120/84. CHEST: Clear. CARDIOVASCULAR: Reveals a regular rate and rhythm without S3 or S4. Soft I to II/ systolic ejection murmur heard best at left lower sternal border without evidence of pulsus, parvus or tardus. ABDOMEN: Soft, supple without mass, organomegaly or tenderness. EXTREMITIES: Reveal no cyanosis, clubbing or edema. ASSESSMENT AND PLAN: For further investigation of anemia with occult positive blood in the stool, the patient is undergoing panendoscopy. Prep instructions with the Suprep kit were given and questions were answered. Job ID: [id number] DocumentID: [id number] Dictated Date: 11/13/2020 18:01:36 Instructional Specialist Date: 11/13/2020 18:13:17 Dictated By: CIARA CRISOSTOMO MD
[~2020-11-21] VITALS: Ht 175.3 cm; Wt 62.0 kg
[2020-11-21 09:00] VITALS: BP 122/92
[2020-11-21] MEDS ORDERED: LACTATED RINGERS 1,000 ML IV ONE (09:07)
[2020-11-21] MEDS ORDERED: LACTATED RINGERS 1,000 ML IV STA (09:18)
--- NOTE | 2020-11-21 09:28 | Pre-Op Note & Conscious Sedat ---
Pre-Operative Progress Note H&P Reviewed The H&P was reviewed, patient examined and no changes noted. Date H&P Reviewed: Nov 21, 2020 Time H&P Reviewed: 09:28 Conscious Sedation Pre-Proced ASA Score 3 For ASA 3 and 4: Consider anesthesia and medical clearance. Also, for patients with a history of failed moderate sedation consider anesthesia. Airway Lungs Heart ASA score ASA 1: a normal healthy patient ASA 2: a patient with a mild systemic disease (mid diabetes, controlled hypertension, obesity ASA 3: a patient with a severe systemic disease that limits activity (angina, COPD, prior Myocardial infarction) ASA 4: a patient with an incapacitating disease that is a constant threat to life (CHF, renal failure) ASA 5: a moribund patient not expected to survive 24 hrs. (ruptured aneurysm) ASA 6: a declared brain- patient whose organs are being harvested. For emergent operations, add the letter E after the classification Mallampati Classification Grade 2 Sedation Plan Analgesia, Amnesia, Plan communicated to team members, Discussed options with patient/fam, Discussed risks with patient/fam The patient is an appropriate candidate to undergo the planned procedure, sedation, and anesthesia. The patient immediately re-assessed prior to indication. CIARA CRISOSTOMO MD Nov 21, 2020 09:28
[2020-11-21] MEDS ORDERED: LIDOCAINE JELLY 2% 6 ML SYRINGE MM PRN (09:30)
[2020-11-21] MEDS ORDERED: proPOfol 200 MG/20 ML (DIPRIVAN) VIAL IV ONE ×2 (10:11→10:47)
[2020-11-21 11:00] VITALS: BP 101/66
[2020-11-21 11:05] VITALS: BP 105/67
[2020-11-21 11:10] VITALS: BP 105/63
[2020-11-21] MEDS ORDERED: LACTATED RINGERS 1,000 ML IV SCH (11:30)
[2020-11-21 11:35] VITALS: BP 113/83
[2020-11-21 11:50] VITALS: BP 113/83
--- NOTE | 2020-11-21 12:29 | Anesthesia-General Post-Op ---
MAC Patient Condition Mental Status/LOC: Same as Preop Cardiovascular: Satisfactory Nausea/Vomiting: Absent Respiratory: Satisfactory Pain: Controlled Complications: Absent Post Op Complications Complications None Follow Up Care/Instructions Patient Instructions None needed. Anesthesiology Discharge Order Discharge Order Patient is doing well, no complaints, stable vital signs, no apparent adverse anesthesia problems. No complications reported per nursing. ALEX LAN CRNA Nov 21, 2020 12:29
--- NOTE | 2020-11-21 20:13 | OPERATIVE REPORT ---
DATE OF SERVICE: PANENDOSCOPY SUMMARY INDICATION FOR THE PROCEDURE: Anemia, likely secondary to GI bleed with occult positive blood in the stool. DESCRIPTION OF PROCEDURE: The patient was placed in the left lateral decubitus position. The endoscope was inserted in the oral cavity and under direct visualization, esophagus was intubated. Endoscope was passed down the esophagus through the stomach and second portion of the duodenum. Careful inspection was made as the endoscope was withdrawn. FINDINGS: The proximal, mid and distal esophagus were unremarkable. There is a small hiatal hernia present with several centimeters of the stomach being present above the level of the diaphragm. There is no evidence for esophagitis. The cardia of the stomach was unremarkable. Several small fundal appearing polyps were noted. There was no evidence for gastritis. No evidence for blood in the upper GI tract. The pylorus and pyloric channel were unremarkable. There was some mild duodenal bulb, erythema and there were several small 2 to 3 mm areas of erosion whitish in color, again with no blood confined to the second portion of the duodenum. The proximal third portion was unremarkable. These findings are noted in the proximal aspect of the second portion of the duodenum only. Biopsies were obtained and submitted for histopathology and the biopsy from the antrum was obtained and submitted for Helicobacter. ASSESSMENT: 1. Small hiatal hernia was present without evidence for esophagitis. 2. Several shallow duodenal erosions were noted without evidence for ulceration. They were present in the proximal aspect of the second portion of the duodenum. There was no blood in the upper GI tract and these are an unlikely source for bleeding to the extent to cause anemia. We then proceeded with colonoscopy. Prior to undergoing colonoscopy, a digital rectal evaluation was performed. Anal sphincter tone was normal and the perianal reflexes were intact. Prostate is mildly enlarged and anodular on digital inspection. No other abnormalities were noted on digital inspection of the anal canal or distal rectal vault. The colonoscope was then inserted into the rectum and under direct visualization advanced to the cecum. Photographic documentation of the appendiceal orifice and cecum were obtained. Quality of the prep was good. FINDINGS: There was no evidence for internal or external hemorrhoids and the rectum was unremarkable. Severe diverticular disease, most notably in the sigmoid colon was present without evidence for diverticulitis. No evidence for blood was noted on today's colonoscopy. There was no evidence to suggest diverticulitis. Diverticulum were noted in the descending colon as well, which was otherwise unremarkable. The splenic flexure, transverse colon and hepatic flexure were unremarkable. Present in the proximal ascending colon adjacent to the ileocecal valve were vascular malformations. A photograph was obtained. There was no stigmata to suggest recent bleeding. It measured roughly 6 x 10 mm in size. A small area was noted in the cecum for which no other abnormalities were identified. ASSESSMENT: 1. Angiodysplasia of the proximal ascending colon and cecum as noted above without evidence for blood in the lower GI tract or stigmata to suggest recent bleeding. 2. Severe diverticular disease present predominantly in the sigmoid colon and to a lesser extent in the transverse colon was present without evidence for diverticulitis. The patient has been requested to discontinue baby aspirin use and increased dietary sources of iron, we will have the patient return in one month to repeat CBC and he is to return for early evaluation if he is seeing any evidence for blood in the stool. Job ID: [id number] DocumentID: [id number] Dictated Date: 11/21/2020 11:25:38 Wheat Inspector Date: 11/21/2020 20:12:22 Dictated By: CIARA CRISOSTOMO MD [facility]
== END 2020-11-21 11:50 | disposition home or self-care (01) ==
LOC: ENDO 08:41
PROVIDERS: ATTEND Internal Medicine
DX: K29.50 Unspecified chronic gastritis without bleeding (principal); K29.80 Duodenitis without bleeding; K26.9 Duodenal ulcer, unspecified as acute or chronic, without hemorrhage or perforation; K44.9 Diaphragmatic hernia without obstruction or gangrene; D50.0 Iron deficiency anemia secondary to blood loss (chronic); K57.30 Diverticulosis of large intestine without perforation or abscess without bleeding; K55.21 Angiodysplasia of colon with hemorrhage; I10 Essential (primary) hypertension; Z87.891 Personal history of nicotine dependence; Z79.82 Long term (current) use of aspirin; Z79.899 Other long term (current) drug therapy

== ENCOUNTER → 2020-11-27 | Outpatient (CLI) | payer MEDICARE ==
[~2020-11-27] MED LIST changes: +HOLD METFORMIN - RECEIVED CONTRAST 20 ML VIAL IV SCH; +IOHEXOL 350 MG/ML 100 ML (OMNIPAQUE 350) VIAL IV ONE; +NS 100 ML (IVPB) BAG IV ONE
--- NOTE | 2020-11-27 15:17 | Diagnostic Imaging Report ---
PROCEDURE: CT chest and abdomen with contrast. TECHNIQUE: Multiple contiguous axial images were obtained through the chest and abdomen after the administration of intravenous contrast. Auto Exposure Controls were utilized during the CT exam to meet ALARA standards for radiation dose reduction. INDICATION: History of lung cancer. COMPARISON: 05/05/2020. FINDINGS: CT CHEST: Irregular lesion in the right upper lobe unchanged from prior measuring 2.5 x 1.8 cm. Left lobectomy again noted with some chronic left apical pleural fluid and pleural thickening, unchanged. No thoracic lymphadenopathy. There is compensatory hyperexpansion of the right lung with leftward cardiomediastinal deviation unchanged. No pneumothorax. Some pleural fluid, likely loculated, in the left posterior sulcus, chronic. CT ABDOMEN: Tiny low density foci in the liver most notably in the left hepatic lobe, unchanged, believed cystic. No solid or enhancing liver mass. There is infrarenal aortic atherosclerotic ectasia, unruptured, measuring 2.9 cm. No ascites or hemorrhage. No bowel, biliary or urinary tract obstruction. Large anechoic benign Bosniak 1 cyst off the upper pole of the right kidney, stable. Smaller low-density left renal lesions, unchanged, also believed cystic. No lymphadenopathy. IMPRESSION: Stable findings in the chest and abdomen. Dictated on workstation # [id number]
== END ==
LOC: RAD 12:10
PROVIDERS: ATTEND Internal Medicine Hematology & Oncology
DX: C34.90 Malignant neoplasm of unspecified part of unspecified bronchus or lung (principal)
CPT/HCPCS: 71260; 74160

== ENCOUNTER → 2020-12-02 | Outpatient (CLI) | payer MEDICARE ==
[~2020-12-02] MED LIST changes: -HOLD METFORMIN - RECEIVED CONTRAST 20 ML VIAL IV SCH; -IOHEXOL 350 MG/ML 100 ML (OMNIPAQUE 350) VIAL IV ONE; -NS 100 ML (IVPB) BAG IV ONE
[2020-12-02 15:40] LABS: BASOPHILS % (AUTO) 1 % (0-10); EOSINOPHILS # (AUTO) 0.2 10^3/uL (0.0-0.3); EOSINOPHILS % (AUTO) 3 % (0-10); HEMATOCRIT 37 % (40-54); HEMOGLOBIN 11.8 g/dL (13.3-17.7); LYMPHOCYTES # (AUTO) 1.1 X 10^3 (1.0-4.0); LYMPHOCYTES % (AUTO) 14 % (12-44); MEAN CORPUSCULAR HEMOGLOBIN 30 pg (25-34); MEAN CORPUSCULAR HGB CONC 32 g/dL (32-36); MEAN CORPUSCULAR VOLUME 92 fL (80-99); MEAN PLATELET VOLUME 9.5 fL (9.0-12.2); MONOCYTES # (AUTO) 0.5 X 10^3 (0.0-1.0); MONOCYTES % (AUTO) 7 % (0-12); NEUTROPHILS # (AUTO) 5.9 X 10^3 (1.8-7.8); NEUTROPHILS % (AUTO) 76 % (42-75); PLATELET COUNT 243 10^3/uL (130-400); WHITE BLOOD COUNT 7.8 10^3/uL (4.3-11.0)
[2020-12-02 16:10] LABS: BILIRUBIN,TOTAL 0.6 MG/DL (0.1-1.0); CALCIUM 9.1 MG/DL (8.5-10.1); CREATININE SERUM 0.87 MG/DL (0.60-1.30); POTASSIUM 4.6 MMOL/L (3.6-5.0); TOTAL PROTEIN 6.8 GM/DL (6.4-8.2)
== END ==
LOC: ONC 14:45
PROVIDERS: ATTEND Internal Medicine Hematology & Oncology
DX: C34.32 Malignant neoplasm of lower lobe, left bronchus or lung (principal); D50.9 Iron deficiency anemia, unspecified; I10 Essential (primary) hypertension; Z90.12 Acquired absence of left breast and nipple
CPT/HCPCS: 80053; 82728; 83540; 83550; 85025; G0463; 99213

== ENCOUNTER 2021-01-23 09:13 | Outpatient (RCR) | payer MEDICARE ==
[2021-01-23 09:22] LABS: BASOPHILS % (AUTO) 1 % (0-10); EOSINOPHILS # (AUTO) 0.3 10^3/uL (0.0-0.3); EOSINOPHILS % (AUTO) 4 % (0-10); HEMATOCRIT 41 % (40-54); HEMOGLOBIN 13.3 g/dL (13.3-17.7); LYMPHOCYTES # (AUTO) 1.2 10^3/uL (1.0-4.0); LYMPHOCYTES % (AUTO) 15 % (12-44); MEAN CORPUSCULAR HEMOGLOBIN 29 pg (25-34); MEAN CORPUSCULAR HGB CONC 32 g/dL (32-36); MEAN CORPUSCULAR VOLUME 91 fL (80-99); MEAN PLATELET VOLUME 9.5 fL (9.0-12.2); MONOCYTES # (AUTO) 0.5 10^3/uL (0.0-1.0); MONOCYTES % (AUTO) 7 % (0-12); NEUTROPHILS % (AUTO) 73 % (42-75); PLATELET COUNT 221 10^3/uL (130-400); WHITE BLOOD COUNT 8.1 10^3/uL (4.3-11.0)
[2021-01-23 09:44] LABS: ALBUMIN 4.2 GM/DL (3.2-4.5); CALCIUM 9.2 MG/DL (8.5-10.1); CREATININE SERUM 1.06 MG/DL (0.60-1.30); POTASSIUM 4.4 MMOL/L (3.6-5.0); TOTAL PROTEIN 6.9 GM/DL (6.4-8.2)
== END 2021-02-13 | disposition home or self-care (01) ==
LOC: ONC 09:13
PROVIDERS: ATTEND Internal Medicine Hematology & Oncology
DX: C34.32 Malignant neoplasm of lower lobe, left bronchus or lung (principal); D50.9 Iron deficiency anemia, unspecified; I10 Essential (primary) hypertension
CPT/HCPCS: 80053; 85025

== ENCOUNTER 2021-03-01 08:10 | Inpatient (IN) | payer MEDICARE ==
[~2021-03-01] VITALS: Ht 175 cm; Wt 54.8 kg
[2021-03-01] MEDS ORDERED: RT-ALBUTEROL/IPRATROPIUM 3 ML (DUONEB) VIAL ONE (08:29)
[2021-03-01] MEDS ORDERED: ASPIRIN 81 MG CHEW (CHILDREN'S ASA) PO ONE (08:30)
[2021-03-01] MEDS ORDERED: CEFEPIME INJECTION 1,000 MG in NS (IVPB) 50 ML IV ONE (08:30)
[2021-03-01] MEDS ORDERED: NS IV 1000 ML 1,000 ML IV SCH (08:30)
[2021-03-01] MEDS ORDERED: VANCOMYCIN INJECTION 750 MG in NS (IVPB) 100 ML IV ONE (08:30)
--- NOTE | 2021-03-01 08:38 | ED Respiratory ---
General Chief Complaint: Respiratory Problems Stated Complaint: SOB Source: patient, EMS Exam Limitations: clinical condition History of Present Illness Date Seen by Provider: Mar 01, 2021 Time Seen by Provider: 08:25 Initial Comments Patient to the ER by EMS from home with chief complaint that last night he started having some shortness of breath chest tightness and this morning he was not getting any better. EMS gave him a breathing treatment and put him on a nonrebreather which maintain oxygen saturations in the mid upper 90s. Patient has a history of a thoracotomy a few years ago for lung cancer by Dr. Segovia at [facility]. He has not had any fevers or chills. He states his breathing a little better after EMS gave him a breathing treatment. He is known to Dr. Holden for primary care. No nausea vomiting diarrhea. Does not rely on oxygen at baseline. No history of COPD or asthma. Quit smoking many years ago. Allergies and Home Medications Allergies Coded Allergies: NKANo Known Allergies (Verified Allergy, Unknown, 03/24/08) Patient Home Medication List Home Medication List Reviewed: Yes Lisinopril (Lisinopril) 10 Mg Tablet, 10 MG PO DAILY, (Reported) Entered as Reported by: CHAVA BETANCUR on 03/21/15 1445 Simvastatin (Simvastatin) 40 Mg Tablet, 40 MG PO DAILY, (Reported) Entered as Reported by: CHARLEY DANIELLE on 08/28/18 0840 Review of Systems Review of Systems Constitutional: No chills, No fever; malaise, weakness EENTM: No ear discharge, No ear pain Respiratory: cough, short of breath Cardiovascular: No chest pain, No palpitations Gastrointestinal: No abdominal pain, No nausea, No vomiting Genitourinary: No discharge, No dysuria Musculoskeletal: No back pain, No joint pain Skin: No pruritus, No rash Psychiatric/Neurological: Denies Headache, Denies Numbness All Other Systems Reviewed Negative Unless Noted: Yes Past Bdcmxtc-Pnlvbs-Rgzmjr Hx Patient Social History Tobacco Use?: No Use of E-Cig and/or Vaping dev: No Substance use?: No Immunizations Up To Date First/Initial COVID19 Vaccinat: YES Second COVID19 Vaccination Phil: YES Third COVID19 Vaccination Date: YES Past Medical History Surgeries: Yes (LEFT EAR SURGERY AND RIGHT ING HERNIA SURGERY, BILAT CATARACTS) Abdominal, Lobectomy Respiratory: No Cardiac: Yes High Cholesterol, Hypertension Neurological: No Reproductive Disorders: No Sexually Transmitted Disease: No HIV/AIDS: No Genitourinary: No Gastrointestinal: Yes (inguinal hernia) Musculoskeletal: No Endocrine: No HEENT: Yes Cataract Hearing Impairment: Hard of Hearing Cancer: Yes Skin Psychosocial: No Integumentary: No Blood Disorders: No Adverse Reaction/Blood Tranf: No Family Medical History CAD Over 55 Years Old Physical Exam Vital Signs - First Documented 03/01/21 08:45 Temp 37.2 Pulse 98 Resp 38 B/P (MAP) 137/99 (112) Pulse Ox 99 O2 Delivery Non Rebreather O2 Flow Rate 15.00 Capillary Refill : Height: 5'9.00" Weight: 152lbs. 4.3oz. [id number]; 20.17 BMI Method:Stated General Appearance: WD/WN, no apparent distress Eyes: Bilateral Eye Normal Inspection, Bilateral Eye PERRL, Bilateral Eye EOMI HEENT: PERRL/EOMI, normal ENT inspection, TMs normal; No pharynx normal (Dry oral mucosa) Neck: full range of motion, normal inspection Respiratory: lungs clear, normal breath sounds, no respiratory distress, no accessory muscle use Cardiovascular: normal peripheral pulses, regular rate, rhythm Gastrointestinal: non tender, soft Neurologic/Psychiatric: alert, normal mood/affect, oriented x 3 Skin: normal color, warm/dry Focused Exam Sepsis Stage: Sepsis Possible Source: Pulmonary Lactate Level 03/01/21 08:36: Lactic Acid Level 1.17 Time of Focused Exam: 10:24 Respiratory: Lungs Clear, Normal Breath Sounds, Respiratory Distress (Moderate with oxygen saturations 100% on 35% FiO2) Cardiovascular: Regular Rate, Rhythm, Normal Peripheral Pulses Capillary Refill: Less Than 3 Seconds Peripheral Pulses: 2+ Radial Pulses (R), 2+ Radial Pulses (L) Skin: normal color Lactic Acid Level Laboratory Tests Test 03/01/21 08:36 Lactic Acid Level 1.17 MMOL/L (0.50-2.00) Within 3hrs of presentation: Admin fluids (Added another 500 cc to bring him up to 20 mL/kg based on an estimated body weight of 140 pounds.), Admin ABX, Blood cultures prior to ABX's, Focus exam, Lactate level Progress/Results/Core Measures Suspected Sepsis SIRS Temperature: Pulse: Respiratory Rate: Laboratory Tests 03/01/21 08:36: White Blood Count 24.6H Blood Pressure / Mean: 03/01/21 08:36: Lactic Acid Level 1.17 Laboratory Tests 03/01/21 08:36: Creatinine 0.79, INR Comment 1.0, Platelet Count 265, Total Bilirubin 2.0H Results/Orders Lab Results Laboratory Tests Test 03/01/21 08:25 03/01/21 08:36 03/01/21 08:51 Range/Units Influenza Type A (RT-PCR) Not Detected Not Detecte Influenza Type B (RT-PCR) Not Detected Not Detecte SARS-CoV-2 RNA (RT-PCR) Not Detected Not Detecte White Blood Count 24.6 H 4.3-11.0 10^3/uL Red Blood Count 4.29 L 4.30-5.52 10^6/uL Hemoglobin 12.7 L 13.3-17.7 g/dL Hematocrit 37 L 40-54 % Mean Corpuscular Volume 87 80-99 fL Mean Corpuscular Hemoglobin 30 25-34 pg Mean Corpuscular Hemoglobin Concent 34 32-36 g/dL Red Cell Distribution Width 13.5 10.0-14.5 % Platelet Count 265 130-400 10^3/uL Mean Platelet Volume 9.7 9.0-12.2 fL Immature Granulocyte % (Auto) 1 % Neutrophils (%) (Auto) 94 H 42-75 % Lymphocytes (%) (Auto) 2 L 12-44 % Monocytes (%) (Auto) 3 0-12 % Eosinophils (%) (Auto) 0 0-10 % Basophils (%) (Auto) 0 0-10 % Neutrophils # (Auto) 23.2 H 1.8-7.8 10^3/uL Lymphocytes # (Auto) 0.4 L 1.0-4.0 10^3/uL Monocytes # (Auto) 0.8 0.0-1.0 10^3/uL Eosinophils # (Auto) 0.0 0.0-0.3 10^3/uL Basophils # (Auto) 0.0 0.0-0.1 10^3/uL Immature Granulocyte # (Auto) 0.2 H 0.0-0.1 10^3/uL Neutrophils % (Manual) 96 % Lymphocytes % (Manual) 1 % Monocytes % (Manual) 3 % Eosinophils % (Manual) 0 % Basophils % (Manual) 0 % Band Neutrophils 0 % Blood Morphology Comment NORMAL Prothrombin Time 14.1 12.2-14.7 SEC INR Comment 1.0 0.8-1.4 Activated Partial Thromboplast Time 30 24-35 SEC D-Dimer 4.70 H 0.00-0.49 UG/ML Sodium Level 125 *L 135-145 MMOL/L Potassium Level 4.5 3.6-5.0 MMOL/L Chloride Level 91 L 98-107 MMOL/L Carbon Dioxide Level 22 21-32 MMOL/L Anion Gap 12 5-14 MMOL/L Blood Urea Nitrogen 18 7-18 MG/DL Creatinine 0.79 0.60-1.30 MG/DL Estimat Glomerular Filtration Rate 87 BUN/Creatinine Ratio 23 Glucose Level 130 H 70-105 MG/DL Lactic Acid Level 1.17 0.50-2.00 MMOL/L Calcium Level 9.2 8.5-10.1 MG/DL Corrected Calcium 9.0 8.5-10.1 MG/DL Magnesium Level 1.9 1.6-2.4 MG/DL Total Bilirubin 2.0 H 0.1-1.0 MG/DL Aspartate Amino Transf (AST/SGOT) 16 5-34 U/L Alanine Aminotransferase (ALT/SGPT) 10 0-55 U/L Alkaline Phosphatase 83 40-136 U/L Myoglobin 74.1 10.0-92.0 NG/ML Troponin I < 0.028 <0.028 NG/ML B-Type Natriuretic Peptide 51.5 <100.0 PG/ML Total Protein 7.1 6.4-8.2 GM/DL Albumin 4.3 3.2-4.5 GM/DL Blood Gas Puncture Site R BRACH Blood Gas Patient Temperature 37.8 Arterial Blood pH 7.41 7.37-7.43 Arterial Blood Partial Pressure CO2 40 35-45 MMHG Arterial Blood Partial Pressure O2 131 H 79-93 MMHG Arterial Blood HCO3 25 23-27 MMOL/L Arterial Blood Total CO2 25.9 21.0-31.0 MMOL/L Arterial Blood Oxygen Saturation 99 94-100 % Arterial Blood Base Excess 0.6 -2.5-2.5 MMOL/L Jesu Test YES-POS Blood Gas Ventilator Setting NO Blood Gas Inspired Oxygen 50% My Orders Orders - CHRISTIANA TREVIZO Chest 1 View, Ap/Pa Only (03/01/21 ) Cbc With Automated Diff (03/01/21 08:29) Magnesium (03/01/21 08:29) Ekg Tracing (03/01/21 08:29) Comprehensive Metabolic Panel (03/01/21 08:29) Myoglobin Serum (03/01/21 08:29) Protime With Inr (03/01/21 08:29) Partial Thromboplastin Time (03/01/21 08:29) O2 (03/01/21 08:29) Monitor-Rhythm Ecg Trace Only (03/01/21 08:29) Lipid Panel (03/02/21 06:00) Ed Iv/Invasive Line Start (03/01/21 08:29) Bnp Margo (03/01/21 08:29) Fibrin Degradation Products (03/01/21 08:29) Troponin I [place] (03/01/21 08:29) Aspirin Chewable Tablet (Baby Aspirin Ch (03/01/21 08:30) Blood Culture (03/01/21 08:29) Sputum Culture (03/01/21 08:29) Urinalysis (03/01/21 08:29) Urine Culture (03/01/21 08:29) Ed Iv/Invasive Line Start (03/01/21 08:29) Ed Iv/Invasive Line Start (03/01/21 08:29) Vital Signs Adult Sepsis Patie Q15M (03/01/21 08:29) O2 (03/01/21 08:29) Remove Rings In Anticipation O (03/01/21 08:29) Lactic Acid Analyzer (03/01/21 08:29) Ns Iv 1000 Ml (Sodium Chloride 0.9%) (03/01/21 08:30) Cefepime Injection (Maxipime Injection) (03/01/21 08:30) Vancomycin Injection (Vancomycin Injecti (03/01/21 08:30) Vancomycin Injection (Vancomycin Injecti (03/01/21 09:30) Albuterol/Ipra Inhalation Soln (Duoneb I (03/01/21 08:29) Arterial Blood Gas (03/01/21 08:37) Manual Differential (03/01/21 08:36) Arterial Blood Draw - Obtain (03/01/21 ) Covid 19 Inhouse Test (03/01/21 09:13) Influenza A And B By Pcr (03/01/21 09:13) Isolation Central Supply Req (03/01/21 09:13) Vancomycin Injection (Vancomycin Injecti (03/01/21 09:30) Ed Iv/Invasive Line Start (03/01/21 10:25) Normal Saline 500ml Iv (03/01/21 10:30) Medications Given in ED Current Medications Medications Dose Ordered Sig/Ozzy Route Start Time Stop Time Status Last Admin Dose Admin Albuterol/ Ipratropium 3 ml STK-MED ONCE .ROUTE 03/01/21 08:29 03/01/21 08:33 DC 03/01/21 08:38 3 ML Aspirin 324 mg ONCE ONCE PO 03/01/21 08:30 03/01/21 08:34 DC 03/01/21 09:34 324 MG Cefepime HCl 1000 mg/Sodium Chloride 50 ml @ 100 mls/hr ONCE ONCE IV 03/01/21 08:30 03/01/21 08:59 DC 03/01/21 09:34 100 MLS/HR Vital Signs/I&O 03/01/21 08:45 Temp 37.2 Pulse 98 Resp 38 B/P (MAP) 137/99 (112) Pulse Ox 99 O2 Delivery Non Rebreather O2 Flow Rate 15.00 Capillary Refill : Progress Note : Time: 09:05 Progress Note BiPAP was initiated 126 at 50% FiO2. ABG obtained. Labs COVID influenza chest x-ray and a septic work-up. We will start with just a liter of fluids and does want a be cautious if he has COVID about overloading him with fluids. ECG Initial ECG Impression Date: Mar 01, 2021 Initial ECG Impression Time: 08:17 Initial ECG Rate: 95 Initial ECG Rhythm: Normal Sinus Initial ECG Intervals: Normal Initial ECG Impression: Normal Comment Sinus rhythm without clinically relevant ST changes. Baseline wander in the lateral leads. Diagnostic Imaging Diagonstic Imaging: Xray Plain Films/CT/US/NM/MRI: chest Comments [facility] [place] [place] NAME: BRAYAN LINO MED REC#: [id number] PT STATUS: REG ER : 1935 PHYSICIAN: CHRISTIANA TREVIZO MD ADMIT DATE: 03/01/21/ER Signed Date of Exam:03/01/21 CHEST 1 VIEW, AP/PA ONLY CHEST 1 VIEW, AP/PA ONLY Indication: Shortness of air Comparison: CT chest of 11/27/2020 Findings: Stable left apical pleural thickening of fluid. Stable volume loss within the left hemithorax. New left basilar pulmonary opacities have developed. Right apical spiculated nodule is similar. Impression: 1. New left basilar pulmonary opacities could be on the basis of aspiration or pneumonia. 2. Stable chronic volume loss within left lung and chronic left apical pleural thickening. Dictated by: Dictated on workstation # [id number] Dict: 03/01/21 0854 Trans: 03/01/21 0858 CV [id number] Interpreted by: ALFRED FLAHERTY MD Electronically signed by: ALFRED FLAHERTY MD 03/01/21 0858 Reviewed: Reviewed by Me Departure Communication (Admissions) Time/Spoke to Admitting Phy: 10:15 Discussed the case with Dr. Holden and he agrees to admit the patient to the floor on BiPAP with sputum cultures to be collected Impression Primary Impression: Pneumonia Qualified Codes: J18.9 - Pneumonia, unspecified organism Additional Impression: Acute respiratory failure with hypoxemia Disposition: ADMITTED INPATIENT Condition: Stable Admissions Decision to Admit Reason: Admit from ER (General) Decision to Admit/Date: Mar 01, 2021 Time/Decision to Admit Time: 09:07 Departure-Patient Inst. Referrals: CIARA HOLDEN MD (PCP/Family) Primary Care Physician CHRISTIANA TREVIZO Mar 01, 2021 08:38
[2021-03-01 08:41] LABS: BASOPHILS % (AUTO) 0 % (0-10); EOSINOPHILS % (AUTO) 0 % (0-10); HEMATOCRIT 37 % (40-54); HEMOGLOBIN 12.7 g/dL (13.3-17.7); LYMPHOCYTES # (AUTO) 0.4 10^3/uL (1.0-4.0); LYMPHOCYTES % (AUTO) 2 % (12-44); MEAN CORPUSCULAR HEMOGLOBIN 30 pg (25-34); MEAN CORPUSCULAR HGB CONC 34 g/dL (32-36); MEAN CORPUSCULAR VOLUME 87 fL (80-99); MEAN PLATELET VOLUME 9.7 fL (9.0-12.2); MONOCYTES # (AUTO) 0.8 10^3/uL (0.0-1.0); MONOCYTES % (AUTO) 3 % (0-12); NEUTROPHILS # (AUTO) 23.2 10^3/uL (1.8-7.8); NEUTROPHILS % (AUTO) 94 % (42-75); PLATELET COUNT 265 10^3/uL (130-400); WHITE BLOOD COUNT 24.6 10^3/uL (4.3-11.0)
[2021-03-01 08:51] LABS: PROTHROMBIN TIME PATIENT 14.1 SEC (12.2-14.7)
[2021-03-01 08:52] LABS: ABG BASE EXCESS 0.6 MMOL/L (-2.5-2.5); ABG OXYGEN SATURATION 99 % (94-100); ABG PCO2 40 MMHG (35-45); ABG PH 7.41 (7.37-7.43); ABG PO2 131 MMHG (79-93); ABG TCO2 25.9 MMOL/L (21.0-31.0); ALLENS TEST YES-POS; INSPIRED O2 50%; PATIENT TEMP 37.8; VENTILATOR NO
[2021-03-01 08:55] LABS: ALBUMIN 4.3 GM/DL (3.2-4.5); POTASSIUM 4.5 MMOL/L (3.6-5.0)
[2021-03-01 08:56] LABS: CALCIUM 9.2 MG/DL (8.5-10.1)
[2021-03-01 08:58] LABS: TOTAL PROTEIN 7.1 GM/DL (6.4-8.2)
--- NOTE | 2021-03-01 09:00 | Diagnostic Imaging Report ---
CHEST 1 VIEW, AP/PA ONLY Indication: Shortness of air Comparison: CT chest of 11/27/2020 Findings: Stable left apical pleural thickening of fluid. Stable volume loss within the left hemithorax. New left basilar pulmonary opacities have developed. Right apical spiculated nodule is similar. Impression: 1. New left basilar pulmonary opacities could be on the basis of aspiration or pneumonia. 2. Stable chronic volume loss within left lung and chronic left apical pleural thickening. Dictated by: Dictated on workstation # [id number]
[2021-03-01 09:01] LABS: BAND NEUTROPHILS 0 %; BASOPHILS % (MANUAL) 0 %; CREATININE SERUM 0.79 MG/DL (0.60-1.30); EOSINOPHILS % (MANUAL) 0 %; LYMPHOCYTES % (MANUAL) 1 %; MONOCYTES % (MANUAL) 3 %; NEUTROPHILS % (MANUAL) 96 %; RBC MORPH NORMAL
[2021-03-01 09:04] LABS: MAGNESIUM 1.9 MG/DL (1.6-2.4)
[2021-03-01] MEDS ORDERED: VANCOMYCIN INJECTION 500 MG in NS (IVPB) 100 ML IV ONE (09:30)
[2021-03-01] MEDS ORDERED: VANCOMYCIN 1250 MG/NS 250 ML IVPB IV NR ×2 (09:30)
[2021-03-01] MEDS ORDERED: NS IV 500 ML 500 ML IV ONE (10:30)
[2021-03-01 11:33] VITALS: BP 122/70
[2021-03-01 11:47] VITALS: BP 122/70
[2021-03-01] MEDS ORDERED: ONDANSETRON 4 MG/2 ML (SDV) Z0FRAN IVP PRN (12:00)
[2021-03-01] MEDS ORDERED: ACETAMINOPHEN 325 MG TABLET PO PRN (12:00)
[2021-03-01] MEDS: LACTATED RINGERS 1,000 ML IV SCH ×2 (12:14→18:26)
--- NOTE | 2021-03-01 12:38 | History & Physical-Hospitalist ---
History of Present Illness HPI/Chief Complaint Patient is a 85-year-old white male who noted the onset of increased congestion Tuesday night with paroxysms of cough that he reports for minimally productive of a little bit of yellowish sputum. He did cough to the point that he could not catch his breath. He was brought in by family members secondary to this. He denied night sweats chills or fever but had a difficult to describe sensation in his face where he thought he might of run a fever although he did not check his temperature. Family noted they took him to the store Tuesday night that walking back in the house at appeared his respirations were more labored not typical for him. 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 He denies hemoptysis reports his appetite has been poor ever since surgery but even more so over the last week or so. He denies abdominal pain and is noted no melena or bright red blood per rectum. He denies nausea. Date Seen 03/01/21 Time Seen by a Provider: 12:36 Attending Physician Roscoe Crisostomo MD PCP Roscoe Crisostomo MD Referring Physician Date of Admission Mar 01, 2021 at 10:30 Home Medications & Allergies Home Medications Reviewed patient Home Medication Reconciliation performed by pharmacy medication reconciliations supervisor sound technician and/or nursing. Patients Allergies have been reviewed. Allergies Allergies Coded Allergies NKANo Known Allergies (Verified Allergy, Unknown, 03/24/08) Past Clwrxjh-Bafcyr-Drqmic Hx Patient Social History Tobacco Use?: No Use of E-Cig and/or Vaping dev: No Substance use?: No Alcohol Use?: No Pt feels they are or have been: No Immunizations Up To Date Date of Influenza Vaccine: Nov 20, 2019 First/Initial COVID19 Vaccinat: 2020 Second COVID19 Vaccination Phil: 2020 Date of Pneumonia Vaccine: Dec 12, 2015 Current Status Advance Directives: Yes Advance Directive Location: Copy placed in chart Communicates: Verbally Primary Language: Emirati Preferred Spoken Language: Emirati Is interpretation needed?: No Sensory deficits: Vision impairment Implanted or Applied Medical D: None Past Medical History Surgeries: Abdominal, Lobectomy High Cholesterol, Hypertension Sexually Transmitted Disease: No HIV/AIDS: No Cataract Hearing Impairment: Hard of Hearing Skin Blood Disorders: No Adverse Reaction/Blood Tranf: No Family Medical History CAD Over 55 Years Old Review of Systems Constitutional: see HPI Physical Exam Physical Exam Vital Signs Vital Signs - First Documented 03/01/21 08:45 Temp 37.2 Pulse 98 Resp 38 B/P (MAP) 137/99 (112) Capillary Refill : Less Than 3 Seconds Height, Weight, BMI Height: 5'9.00" Weight: 152lbs. 4.3oz. [id number]; 20.89 BMI Method:Stated General Appearance: No Apparent Distress, Thin Neck: Full Range of Motion, Normal Inspection, Non Tender Respiratory: No Accessory Muscle Use, No Respiratory Distress, Other (Decreased breath sounds in left base with some rales and rhonchi coarse breath sounds bilaterally no wheezing noted at the time of auscultation but was reported in the emergency room.) Gastrointestinal: Normal Bowel Sounds, No Organomegaly, No Pulsatile Mass, Non Tender, Soft Extremity: Normal Capillary Refill, Normal Inspection, Normal Range of Motion, Non Tender, No Calf Tenderness, No Pedal Edema Results Results/Procedures Labs Laboratory Tests 03/01/21 08:36 Patient resulted labs reviewed. Assessment/Plan Admission Diagnosis 1. Acute left lower lobe pneumonia COVID and flu negative bacterial etiology likely continuing broad-spectrum antibiotics in the form of cefepime and vancomycin as patient has MRSA and Pseudomonas risk. Blood cultures pending. Suspect mucous plugging that did require BiPAP in the emergency room currently the patient is on 3 L per nasal cannula with BiPAP capability in the room should he develop respiratory difficulty again. 2. Patient does have a past history of C. difficile that followed his left upper lobe lobectomy a little over a year ago we will continue to monitor an increased risk was discussed with the patient with the need to notify for any bowel habit change. 3. 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 4. History of hyperlipidemia continue statin therapy 5. History of hypertension hold lisinopril for now resume for significant hypertension. 6. Hyponatremia secondary to underlying pneumonia doubt paraneoplastic process but cannot rule this out entirely. He did not experience hyponatremia previous to squamous cell carcinoma resection.Normal saline has been initiated we will repeat basic metabolic panel in the morning with CBC. Patient currently asymptomatic. Admission Status: Inpatient Order (span 2 midnights) Reason for Inpatient Admission: See admission diagnosis ROSCOE CRISOSTOMO MD Mar 01, 2021 12:38
[2021-03-01 13:50] VITALS: BP 122/70
[2021-03-01] MEDS ORDERED: RT-ALBUTEROL/IPRATROPIUM 3 ML (DUONEB) VIAL INH PRN (14:00)
[2021-03-01 15:49] VITALS: BP 107/59
[2021-03-01] MEDS: CEFEPIME INJECTION 1,000 MG in NS (IVPB) 50 ML IV SCH ×2 (17:09→21:05)
[2021-03-01 19:33] VITALS: BP 101/55
[2021-03-01] MEDS: AtorvaSTATin TABLET 10 MG TABLET PO SCH (21:05)
[2021-03-01] MEDS: RT-ALBUTEROL/IPRATROPIUM 3 ML (DUONEB) VIAL INH SCH (21:59)
[2021-03-02] VITALS: BP 89/54
[2021-03-02] MEDS: LACTATED RINGERS 1,000 ML IV SCH ×4 (03:04→21:57)
[2021-03-02 03:21] VITALS: BP 104/61
[2021-03-02] MEDS: CEFEPIME INJECTION 1,000 MG in NS (IVPB) 50 ML IV SCH ×4 (03:50→21:56)
[2021-03-02 06:19] LABS: BASOPHILS % (AUTO) 0 % (0-10); EOSINOPHILS % (AUTO) 0 % (0-10); HEMATOCRIT 33 % (40-54); HEMOGLOBIN 10.9 g/dL (13.3-17.7); LYMPHOCYTES # (AUTO) 0.7 10^3/uL (1.0-4.0); LYMPHOCYTES % (AUTO) 5 % (12-44); MEAN CORPUSCULAR HEMOGLOBIN 29 pg (25-34); MEAN CORPUSCULAR HGB CONC 33 g/dL (32-36); MEAN CORPUSCULAR VOLUME 89 fL (80-99); MEAN PLATELET VOLUME 9.6 fL (9.0-12.2); MONOCYTES # (AUTO) 0.7 10^3/uL (0.0-1.0); MONOCYTES % (AUTO) 5 % (0-12); NEUTROPHILS # (AUTO) 13.8 10^3/uL (1.8-7.8); NEUTROPHILS % (AUTO) 89 % (42-75); PLATELET COUNT 195 10^3/uL (130-400); WHITE BLOOD COUNT 15.4 10^3/uL (4.3-11.0)
[2021-03-02 06:30] LABS: POTASSIUM 4.4 MMOL/L (3.6-5.0)
[2021-03-02 06:31] LABS: CALCIUM 8.3 MG/DL (8.5-10.1); TRIGLYCERIDES 27 MG/DL (<150); VLDL CHOLESTEROL 5 MG/DL (5-40)
[2021-03-02 06:36] LABS: CHOLESTEROL 66 MG/DL (< 200); CREATININE SERUM 0.79 MG/DL (0.60-1.30)
[2021-03-02 06:37] LABS: HDL CHOLESTEROL 34 MG/DL (40-60)
--- NOTE | 2021-03-02 07:34 | Diagnostic Imaging Report ---
INDICATION: Pneumonia. Comparison made with prior examination of 03/01/2021. FINDINGS: The heart size is normal. There is some left basilar atelectasis and/or pneumonitis. There is left pleural effusion. There is no pneumothorax. Mediastinum is unremarkable. IMPRESSION: Left basilar infiltrate and left pleural effusion with some left apical pleural thickening and/or scarring. This is essentially unchanged compared to prior examination. Dictated by: Dictated on workstation # [id number]
[2021-03-02 08:00] VITALS: BP 109/55
[2021-03-02] MEDS: VANCOMYCIN INJECTION 1,000 MG in NS (IVPB) 250 ML IV SCH (09:54)
[2021-03-02] MEDS ORDERED: LOSA50TA63 PO (10:09)
[2021-03-02] MEDS ORDERED: MULT-975 PO (10:09)
[2021-03-02] MEDS ORDERED: ESCI-2 PO (10:09)
[2021-03-02] MEDS ORDERED: ACET-2267 PO (10:10)
[2021-03-02] MEDS: RT-ALBUTEROL/IPRATROPIUM 3 ML (DUONEB) VIAL INH SCH ×2 (10:44→21:23)
--- NOTE | 2021-03-02 11:58 | Progress Note - Hospitalist ---
Subjective HPI/CC On Admission Date Seen by Provider: Mar 02, 2021 Time Seen by Provider: 10:30 Patient is a 85-year-old white male who noted the onset of increased congestion Tuesday night with paroxysms of cough that he reports for minimally productive of a little bit of yellowish sputum. He did cough to the point that he could not catch his breath. He was brought in by family members secondary to this. He denied night sweats chills or fever but had a difficult to describe sensation in his face where he thought he might of run a fever although he did not check his temperature. Family noted they took him to the store Tuesday night that walking back in the house at appeared his respirations were more labored not typical for him. 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 He denies hemoptysis reports his appetite has been poor ever since surgery but even more so over the last week or so. He denies abdominal pain and is noted no melena or bright red blood per rectum. He denies nausea. Subjective/Events-last exam Patient reports feeling better no bad shortness of breath episodes at rest. Still feels a lot of chest congestion with a loose cough ports he was able to produce a sputum specimen but reported that it was more frothy and not purulent. He has had no shortness of breath at rest and was able to get to the bathroom and back on a did this morning. He has had no nausea denies diarrhea. Focused Exam Lactate Level 03/01/21 08:36: Lactic Acid Level 1.17 Time of Focused Exam: 10:24 Objective Exam Vital Signs Vital Signs Date Time Temp Pulse Resp B/P (MAP) Pulse Ox O2 Delivery O2 Flow Rate FiO2 03/02/21 10:44 93 Room Air 03/02/21 08:00 35.6 69 16 109/55 (73) 03/01/21 13:54 0.00 03/01/21 13:50 3 Capillary Refill : Less Than 3 Seconds General Appearance: No Apparent Distress, Thin Respiratory: No Accessory Muscle Use, No Respiratory Distress, Other (Coarse breath sounds bilaterally without wheezing some vesicular breath sounds left base) Cardiovascular: Regular Rate, Rhythm, No Gallop, No Murmur Gastrointestinal: Normal Bowel Sounds, No Organomegaly, No Pulsatile Mass, Non Tender, Soft Results/Procedures Lab Laboratory Tests 03/02/21 06:06 Patient resulted labs reviewed. Assessment/Plan Assessment and Plan Assess & Plan/Chief Complaint 1. Acute left lower lobe pneumonia COVID and flu negative bacterial etiology likely continuing broad-spectrum antibiotics in the form of cefepime and vancomycin as patient has MRSA and Pseudomonas risk. Blood And sputum cultures pending although from the patient's description doubt that we will get an organism from sputum. His white count is down he is less short of breath indicative of positive response to therapeutic so far. 2. Patient does have a past history of C. difficile that followed his left upper lobe lobectomy a little over a year ago we will continue to monitor an increased risk was discussed with the patient with the need to notify for any bowel habit change. 3. 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 4. History of hyperlipidemia continue statin therapy 5. History of hypertension hold lisinopril for now resume for significant hypertension. 6. Hyponatremia secondary to underlying pneumonia doubt paraneoplastic process but cannot rule this out entirely. Sodium level up to 128 patient eating no symptoms will DC IV fluids due to adequate p.o. intake repeat a basic metabolic panel in the morning. CIARA CRISOSTOMO MD Mar 02, 2021 11:58
[2021-03-02 12:00] VITALS: BP 118/56
[2021-03-02 16:00] VITALS: BP 115/60
[2021-03-02 20:56] VITALS: BP 110/58
[2021-03-02] MEDS: AtorvaSTATin TABLET 10 MG TABLET PO SCH (21:56)
[2021-03-03] VITALS (7 sets, daily range): BP systolic 121–160; BP diastolic 57–77
[2021-03-03] MEDS: CEFEPIME INJECTION 1,000 MG in NS (IVPB) 50 ML IV SCH ×4 (03:53→21:38)
[2021-03-03] MEDS: LACTATED RINGERS 1,000 ML IV SCH (03:53)
[2021-03-03 06:47] LABS: BILIRUBIN,TOTAL 1.2 MG/DL (0.1-1.0); CALCIUM 8.4 MG/DL (8.5-10.1); CREATININE SERUM 0.72 MG/DL (0.60-1.30); POTASSIUM 4.8 MMOL/L (3.6-5.0); TOTAL PROTEIN 5.3 GM/DL (6.4-8.2)
[2021-03-03 06:49] LABS: BASOPHILS % (AUTO) 0 % (0-10); EOSINOPHILS % (AUTO) 0 % (0-10); HEMATOCRIT 33 % (40-54); HEMOGLOBIN 11.2 g/dL (13.3-17.7); LYMPHOCYTES # (AUTO) 0.8 10^3/uL (1.0-4.0); LYMPHOCYTES % (AUTO) 6 % (12-44); MEAN CORPUSCULAR HEMOGLOBIN 30 pg (25-34); MEAN CORPUSCULAR HGB CONC 34 g/dL (32-36); MEAN CORPUSCULAR VOLUME 89 fL (80-99); MONOCYTES # (AUTO) 0.7 10^3/uL (0.0-1.0); MONOCYTES % (AUTO) 6 % (0-12); NEUTROPHILS # (AUTO) 11.2 10^3/uL (1.8-7.8); NEUTROPHILS % (AUTO) 87 % (42-75); PLATELET COUNT 216 10^3/uL (130-400); WHITE BLOOD COUNT 12.8 10^3/uL (4.3-11.0)
[2021-03-03] MEDS: RT-ALBUTEROL/IPRATROPIUM 3 ML (DUONEB) VIAL INH SCH ×2 (07:31→20:52)
[2021-03-03] MEDS: VANCOMYCIN INJECTION 1,000 MG in NS (IVPB) 250 ML IV SCH (10:47)
--- NOTE | 2021-03-03 11:15 | Progress Note - Hospitalist ---
VISHNU QUINTERO 03/03/21 1115: Subjective HPI/CC On Admission Date Seen by Provider: Mar 03, 2021 Time Seen by Provider: 10:30 Patient is a 85-year-old white male who noted the onset of increased congestion Tuesday night with paroxysms of cough that he reports for minimally productive of a little bit of yellowish sputum. He did cough to the point that he could not catch his breath. He was brought in by family members secondary to this. He denied night sweats chills or fever but had a difficult to describe sensation in his face where he thought he might of run a fever although he did not check his temperature. Family noted they took him to the store Tuesday night that walking back in the house at appeared his respirations were more labored not typical for him. 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 He denies hemoptysis reports his appetite has been poor ever since surgery but even more so over the last week or so. He denies abdominal pain and is noted no melena or bright red blood per rectum. He denies nausea. Subjective/Events-last exam Patient is laying in bed at time of encounter. He states that he is not feeling very well today. He denies having any pain, although he does report a cough and exertional dyspnea. Patient is not requiring supplemental oxygen at this time; states he does not require supplemental oxygen at home. He states he has had several loose bowel movements. Reports decreased appetite. He reports some unsteadiness; usually uses a cane when outside of his house. In his home he generally furniture surfs and does not use a walker or cane. PT/OT will evaluate him today. Vitals are stable. Na 129, heparin locked Lactated Ringers. Will monitor Na and oral intake. WBC have decreased from 15.4 to 12.8 CXR from 03/02 demonstrated left basilar infiltrates, left pleural effusion, and left apical pleural thickening. Overall unchanged from previous imaging on 03/01. Medications reviewed. Review of Systems General: No Chills; Malaise; No Appetite (moderately decreased) Pulmonary: Dyspnea, Cough Cardiovascular: No: Chest Pain Gastrointestinal: No: Nausea, Vomiting, Abdominal Pain Musculoskeletal: neck pain (occasional) Focused Exam Lactate Level 1/16/22 08:36: Lactic Acid Level 1.17 Time of Focused Exam: 10:24 Objective Exam Vital Signs Vital Signs Date Time Temp Pulse Resp B/P (MAP) Pulse Ox O2 Delivery O2 Flow Rate FiO2 03/03/21 08:00 36.5 87 20 141/73 (95) 94 Room Air 03/01/21 13:54 0.00 03/01/21 13:50 3 Capillary Refill : Less Than 3 Seconds General Appearance: No Apparent Distress Respiratory: No Accessory Muscle Use, No Respiratory Distress, Other (coarse breath sounds of left lower lung field posteriorly) Cardiovascular: Regular Rate, Rhythm, No Edema, No Murmur Gastrointestinal: Normal Bowel Sounds, Non Tender, Soft Extremity: No Pedal Edema Neurologic/Psychiatric: Alert, Normal Mood/Affect Skin: Normal Color, Warm/Dry Results/Procedures Lab Laboratory Tests 03/03/21 05:55 Patient resulted labs reviewed. Assessment/Plan Assessment and Plan Assess & Plan/Chief Complaint Assessment: Left lower lobe pneumonia History of squamous cell carcinoma of left upper lobe s/p lobectomy Hyperlipidemia HTN Hyponatremia History of C. difficile infection Advanced age Debility Plan: Continue Vancomycin - finished Continue Cefepime Monitor for bowel habit/stool changes Continue Duoneb Heparin lock IV fluids AM labs: CBC, BMP. Monitor Na PT/OT AMALIA MAHONEY DO 03/04/21 0607: Subjective Subjective/Events-last exam Pt is doing well Sodium level 129 Will discontinue IV fluids Chest x-ray shows no changes Sputum culture is pending Vancomycin and Cefepime maintained Will initiate PT and OT also Review of Systems General: Fatigue, Malaise Pulmonary: Dyspnea Objective Exam General Appearance: No Apparent Distress, WD/WN, Chronically ill Respiratory: Decreased Breath Sounds, Other (coarse breath sounds of left lower lung field posteriorly) Cardiovascular: Regular Rate, Rhythm Neurologic/Psychiatric: Alert, Oriented x3 Assessment/Plan Assessment and Plan Assess & Plan/Chief Complaint Abx O2 PT OT Supervisory-Addendum Brief Verification & Attestation Participated in pt care: history, MDM, physical Personally performed: exam, history, MDM, supervision of care Care discussed with: Medical Student Procedures: n/a Results interpretation: Verified all documentation Verification and Attestation of Medical Student E/M Service A medical student performed and documented this service in my presence. I reviewed and verified all information documented by the medical student and made modifications to such information, when appropriate. I personally performed the physical exam and medical decision making. Amalia Mahoney, Mar 04, 2021,06:06 VISHNU QUINTERO Mar 03, 2021 11:15 AMALIA MAHONEY DO Mar 04, 2021 06:07
--- NOTE | 2021-03-03 14:04 | Physical Therapy Evaluation ---
PT Evaluation-General Medical Diagnosis Admission Date Mar 01, 2021 at 10:30 Medical Diagnosis: PNA/ Sepesis/ Resp failure Onset Date: Mar 01, 2021 Therapy Diagnosis Therapy Diagnosis: Weakness, debility Height/Weight Height (Feet): 5 Height (Inches): 9.00 Weight (Pounds): 152 Weight (Ounces): 4.3 Precautions Precautions/Isolations: Fall Prevention, Standard Precautions Referral Physician: Fernando Reason for Referral: Evaluation/Treatment Medical History Pertinent Medical History: HTN Additional Medical History Lung Cancer Current History Patient came to the hospital via EMS with reports of SOA. Social History Home: Apartment Current Living Status: Alone Entry Into Home: Elevator Prior Prior Level of Function SCALE: Activities may be completed with or without assistive devices. 5-Zsgwvjdkpx-axqtcvp completes the activity by him/herself with no assistance from a helper. 5-Set-up or Clean-up Assistance-helper sets up or cleans up; patient completes activity. [place] assists only prior to or following the activity. 4-Supervision or Touching Assistance-helper provides verbal cues and/or touching/steadying and/or contact guard assistance as patient completes activity. Assistance may be provided throughout the activity or intermittently. 3-Partial/Moderate Assistance-helper does LESS THAN HALF the effort. [place] lifts, holds or supports trunk or limbs, but provides less than half the effort. 2-Substantial/Maximal Assistance-helper does MORE THAN HALF the effort. [place] lifts or holds trunk or limbs and provides more than half the effort. 6-Aqqxyhpou-qphjpb does ALL the effort. Patient does none of the effort to complete the activity. Or, the assistance of 2 or more helpers is required for the patient to complete the activity. If activity was not attempted, code reason: 7-Patient Refused. 9-Not Applicable-not attempted and the patient did not perform the activity before the current illness, exacerbation or injury. 10-Not Attempted due to Environmental Limitations-(lack of equipment, weather restraints, etc.). 88-Not Attempted due to Medical Conditions or Safety Concerns. Bed Mobility: 6 Transfers (B,C,W/C): 6 Gait: 6 Indoor Mobility (Ambulation): Independent Prior Devices Use: Walker Prior Device Use: Cane PT Evaluation-Current Subjective Patient presented laying in bed. Patient is from [facility] apartment [facility]. Patient reports that he lives alone and uses either a cane or walker at home but also furniture walks around his apartment. Patient reports that he started having coughing fits a few nights ago and had difficulty breathing because of it. Objective Patient Orientation: Person, Place, Situation ROM/Strength ROM Lower Extremities WFL Strength Lower Extremities 4/5 strength bilaterally grossly Sensory Vision: Functional Hearing: Functional Transfers Lying to Sitting/Side of Bed(Q: 6 Sit to Stand (QC): 5 Chair/Epn-dy-Zvtxo Xfer(QC): 5 Gait Does the Patient Walk?: Yes Mode of Locomotion: Walk Anticipated Mode of Locomotion: Walk Walk 10 feet (QC): 4 Walk 50 ft with 2 Turns(QC): 4 Walk 150 ft (QC): 4 Distance: >300' Gait Assistive Device: FWW Balance Sitting Static: Normal Sitting Dynamic: Normal Standing Static: Normal Standing Dynamic: Fair Assessment/Needs Patient ambulated over 300' with FWW and SBA. Patient required rest breaks due to coughing and having productive coughs. Patient reported that he was fatigued after ambulation because he is deconditioned and has laid in a bed for a couple days. Patient reports that he is planning on returning to his apartment once he can get his coughing under control. Patient requested additional seated exercises that he can work on in his room because he wants to keep his strength up in his legs. Patient was educated that he can ask nursing staff for help walking later this evening. Rehab Potential: Good PT Snf Goals Pie Cutter Goals PT Snf Goals Time Frame: Mar 14, 2021 Roll Left & Right (QC): 6 Sit to Lying (QC): 6 Lying-Sitting on Side/Bed(QC): 6 Sit to Stand (QC): 6 Chair/Rac-gf-Mrmge Xfer(QC): 6 Toilet Transfer (QC): 6 Does the Patient Walk: Yes Walk 10 feet (QC): 6 Walk 50ft with 2 Turns (QC): 6 Walk 150 ft (QC): 6 Walking 10ft on Uneven Surface: 6 Does the Pt use WC or Scooter?: No PT Plan Problem List Problem List: Activity Tolerance, Functional Strength, Safety Treatment/Plan Treatment Plan: Continue Plan of Care Treatment Plan: Education, Functional Activity Sandie, Functional Strength, Gait, Therapeutic Exercise Treatment Duration: Mar 14, 2021 Frequency: 6 times per week Estimated Hrs Per Day: .25 hour per day Time/GCodes Time In: 1340 Time Out: 1356 Total Billed Treatment Time: 16 [facility] L[facility]I [facility] PT Mar 03, 2021 14:04
--- NOTE | 2021-03-03 14:46 | Occupational Therapy Eval ---
OT Evaluation-General/PLF Medical Diagnosis Admission Date Mar 01, 2021 at 10:30 Medical Diagnosis: PNA/ Sepesis/ Resp failure Onset Date: Mar 01, 2021 Therapy Diagnosis Therapy Diagnosis: impaired endurance Height/Weight Height (Feet): 5 Height (Inches): 9.00 Weight (Pounds): 152 Weight (Ounces): 4.3 Precautions Precautions/Isolations: Fall Prevention, Standard Precautions Referral Physician: Fernando Referral Reason: Evaluation/Treatment Medical History Pertinent Medical History: HTN Additional Medical History squamous cell carcinoma of L upper lobe-pt underwent lobectomy hyponatremia c-diff Current History presents to ER with increased congestion, cough, and SOA Reviewed History: Yes Social History Home: Apartment Current Living Status: Alone Entry Into Home: Elevator Pt reports living alone at [facility]; 6th floor with elevator access. He was indep with adls and iadls. His daughters assist with transportation and getting groceries but they do work signal timer. Pt reports using a cane outside of his apartment and furniture surfs within the apartment. He states that he eats simple meals such as oatmeal for breakfast and peanut butter and jelly for dinner. ADL-Prior Level of Function SCALE: Activities may be completed with or without assistive devices. 4-Bshpeknivj-aekagcn completes the activity by him/herself with no assistance from a helper. 5-Set-up or Clean-up Assistance-helper sets up or cleans up; patient completes activity. [place] assists only prior to or following the activity. 4-Supervision or Touching Assistance-helper provides verbal cues and/or touching/steadying and/or contact guard assistance as patient completes activity. Assistance may be provided throughout the activity or intermittently. 3-Partial/Moderate Assistance-helper does LESS THAN HALF the effort. [place] lifts, holds or supports trunk or limbs, but provides less than half the effort. 2-Substantial/Maximal Assistance-helper does MORE THAN HALF the effort. [place] lifts or holds trunk or limbs and provides more than half the effort. 3-Xwsicgqfl-uwsrev does ALL the effort. Patient does none of the effort to complete the activity. Or, the assistance of 2 or more helpers is required for the patient to complete the activity. If activity was not attempted, code reason: 7-Patient Refused. 9-Not Applicable-not attempted and the patient did not perform the activity before the current illness, exacerbation or injury. 10-Not Attempted due to Environmental Limitations-(lack of equipment, weather restraints, etc.). 88-Not Attempted due to Medical Conditions or Safety Concerns. Self Care: Independent Functional Cognition: Independent DME/Equipment: Grab Bars, Shower Drive Self: No OT Current Status Subjective Denies pain, agreeable to evaluation. Appearance Returned to sitting in chair, all needs within reach, RN notified. Mental Status/Objective Patient Orientation: Person, Place, Situation Current Glasses/Contacts: Yes Hearing Aids: No Hand Dominance: Right Upper Extremity ROM WNL Upper Extremity Strength R shoulder impaired secondary to old rotator cuff injury 20+ years ago; 3/5 All other joints 4/5 ADL-Treatment Oral Hygiene (QC): 4 Lower Body Dressing (QC): 4 On/Off Footwear (QC): 4 Toileting Hygiene (QC): 4 Pt stands quickly, initially unsteady. Cues for safety and slowing pace. He ambulated to/from bathroom with SBA and use of walker. OT educated pt on using w alker outside of hospital to aid in energy conservation and balance. Pt able to perform toilet transfer and all steps of toileting with supervision for safety. He does fatigue easily and requests to return to chair post activity.Lengthy conversation on independent vs assisted living. Pt could benefit from increased assistance with home management and iadls if returning home. Education OT Patient Education: Correct positioning, Energy conservation, Progress toward Goal/Update tx plan, Purpose of tx/functional activities, Safety issues, Transfer techniques Teaching Recipient: Patient Teaching Methods: Discussion Response to Teaching: Verbalize Understanding, Return Demonstration OT Wagon Washer Goals Skilled Nursing Goals Time Frame: Mar 10, 2021 Oral Hygiene (QC): 6 Toileting Hygiene (QC): 6 Shower/Bathe Self (QC): 4 Upper Body Dressing (QC): 6 Lower Body Dressing (QC): 6 On/Off Footwear (QC): 5 1=Demonstrate adherence to instructed precautions during ADL tasks. 2=Patient will verbalize/demonstrate understanding of assistive devices/modifications for ADL. 3=Patient will improve strength/tolerance for activity to enable patient to perform ADL's. OT Education/Plan Problem List/Assessment Assessment: Decreased Activ Tolerance, Decreased UE Strength, Impaired I ADL's Discharge Recommendations Plan/Recommendations: Continue POC Therapy Discharge Recommendati: Scheduled Assistance, Homemaker Support, Home & Family Treatment Plan/Plan of Care Treatment,Training & Education: Yes Patient would benefit from OT for education, treatment and training to promote independence in ADL's, mobility, safety and/or upper extremity function for ADL's. Plan of Care: ADL Retraining, Functional Mobility, UE Funct Exercise/Act Treatment Duration: Mar 10, 2021 Frequency: 3 times per week Estimated Hrs Per Day: .25 hour per day Agreement: Yes Rehab Potential: Good Time/GCodes Start Time: 13:58 Stop Time: 14:27 Total Time Billed (hr/min): 29 Billed Treatment Time 1 visit EVL (10 min) ADL (19 min) Meryl Cadena OT Mar 03, 2021 14:46
--- NOTE | 2021-03-03 18:08 | Physician Query Clarification ---
Physician Query-General Query to Physician: The medical record reflects the following clinical scenario: The patient, in the setting of History/Risk factors, Previous Lung CA/Lobectomy, PNA Clinical Findings Admission RR 30 -38, 02 sats 99% on 15 L NRB, then placed on Bipap, Had "Labored breathing", Later was able to be titrated to RA, Treatment IV ABX, Supplemental 02, Breathing RX, Question: Do you agree with the impression of Acute Hypoxic Respiratory Failure per Dr. Jesse Torrez? 1. Yes; will document Acute Hypoxic Respiratory Failure, present on admission, now resolved in the Progress Notes 2. No; will continue current documentation in the Progress Notes 3. Other; will document explanation of clinical findings 4. Clinically undetermined; no explanation for clinical findings Please clarify and document your clinical opinion in the Progress Notes and Discharge Summary including the definitive and/or presumptive diagnosis, (suspected or probable), related to the above clinical findings. Please include clinical findings supporting your diagnosis. In responding to this query, please exercise your independent professional judgment. The purpose of this communication is to more accurately reflect the complexity of your patients condition. The fact that a question is asked does not imply that any particular answer is desired or expected. Please remember a lack of response to the above will prompt a phone page by CDI/coding staff Thank you for timely response to this clarification. Cathy Alexander MSN, RN [employer] Consultant [phone] [email or web address] PHYSICIAN RESPONSE: Based on the clinical findings in the record, please respond to the query above on this document as an addendum. Physician Response: Physician Response yes If you have questions please contact: Qa Consultant: Ext: Thank you for your time and cooperation. [employer] Consultant/Qa Consultant This is a permanent part of the medical record CATHY ALEXANDER Mar 03, 2021 18:08 DAVID MAHONEY DO Mar 03, 2021 20:45
[2021-03-03] MEDS: AtorvaSTATin TABLET 10 MG TABLET PO SCH (21:38)
[2021-03-04] VITALS (7 sets, daily range): BP systolic 128–148; BP diastolic 68–83
[2021-03-04] MEDS: CEFEPIME INJECTION 1,000 MG in NS (IVPB) 50 ML IV SCH ×4 (04:13→21:55)
[2021-03-04 06:46] LABS: BASOPHILS % (AUTO) 0 % (0-10); EOSINOPHILS % (AUTO) 0 % (0-10); HEMATOCRIT 38 % (40-54); HEMOGLOBIN 12.8 g/dL (13.3-17.7); LYMPHOCYTES # (AUTO) 0.8 10^3/uL (1.0-4.0); LYMPHOCYTES % (AUTO) 6 % (12-44); MEAN CORPUSCULAR HEMOGLOBIN 30 pg (25-34); MEAN CORPUSCULAR HGB CONC 34 g/dL (32-36); MEAN CORPUSCULAR VOLUME 88 fL (80-99); MEAN PLATELET VOLUME 9.7 fL (9.0-12.2); MONOCYTES # (AUTO) 0.8 10^3/uL (0.0-1.0); MONOCYTES % (AUTO) 6 % (0-12); NEUTROPHILS # (AUTO) 11.9 10^3/uL (1.8-7.8); NEUTROPHILS % (AUTO) 87 % (42-75); PLATELET COUNT 267 10^3/uL (130-400); WHITE BLOOD COUNT 13.7 10^3/uL (4.3-11.0)
[2021-03-04 07:11] LABS: ALBUMIN 3.5 GM/DL (3.2-4.5); BILIRUBIN,TOTAL 1.4 MG/DL (0.1-1.0); CREATININE SERUM 0.75 MG/DL (0.60-1.30); POTASSIUM 3.9 MMOL/L (3.6-5.0); TOTAL PROTEIN 6.4 GM/DL (6.4-8.2)
--- NOTE | 2021-03-04 10:26 | Physical Therapy Daily Note ---
PT Daily Note-Current Subjective Pt up in chair, agreeable to treatment. Pt denies pain. Pt c/o SOA after one lap and does not want to walk further. Pt reports overall improvement but says he is not quite up to his prior level yet. Pain Numeric Pain Scale: 0-No Pain Mental Status Patient Orientation: Person, Place, Situation Transfers SCALE: Activities may be completed with or without assistive devices. 0-Ekmgicmcxt-xotknxl completes the activity by him/herself with no assistance from a helper. 5-Set-up or Clean-up Assistance-helper sets up or cleans up; patient completes activity. [place] assists only prior to or following the activity. 4-Supervision or Touching Assistance-helper provides verbal cues and/or touching/steadying and/or contact guard assistance as patient completes activity. Assistance may be provided throughout the activity or intermittently. 3-Partial/Moderate Assistance-helper does LESS THAN HALF the effort. [place] lifts, holds or supports trunk or limbs, but provides less than half the effort. 2-Substantial/Maximal Assistance-helper does MORE THAN HALF the effort. [place] lifts or holds trunk or limbs and provides more than half the effort. 2-Ttxwkijnv-rjnprf does ALL the effort. Patient does none of the effort to complete the activity. Or, the assistance of 2 or more helpers is required for the patient to complete the activity. If activity was not attempted, code reason: 7-Patient Refused. 9-Not Applicable-not attempted and the patient did not perform the activity before the current illness, exacerbation or injury. 10-Not Attempted due to Environmental Limitations-(lack of equipment, weather restraints, etc.). 88-Not Attempted due to Medical Conditions or Safety Concerns. Sit -stand transfers mod (I) Gait Training Gait Assistive Device: FWW Pt amb with FWW and CGA-SBA x 300ft at steady speed. Pt conversing throughout without issue. Pt noted he felt SOA upon return to room and declined walking further at this time. Exercises Seated Therapy Exercises: Ankle pumps, Long arc quads, Hip flexion Seated Reps: 15 Assessment Current Status: Good Progress Good performance. Pt appeared to tolerate very well despite c/o SOA. Pt resting in recliner post treatment with call light and all needs met. PT Porcelain Enameling Supervisor Goals Alf Goals PT Alf Goals Time Frame: Mar 14, 2021 Roll Left & Right (QC): 6 Sit to Lying (QC): 6 Lying-Sitting on Side/Bed(QC): 6 Sit to Stand (QC): 6 Chair/Kza-zu-Qmpvu Xfer(QC): 6 Toilet Transfer (QC): 6 Does the Patient Walk: Yes Walk 10 feet (QC): 6 Walk 50ft with 2 Turns (QC): 6 Walk 150 ft (QC): 6 Walking 10ft on Uneven Surface: 6 Does the Pt use WC or Scooter?: No PT Plan Treatment/Plan Treatment Plan: Continue Plan of Care Treatment Plan: Education, Functional Activity Sandie, Functional Strength, Gait, Therapeutic Exercise Treatment Duration: Mar 14, 2021 Frequency: 6 times per week Estimated Hrs Per Day: .25 hour per day Time/GCodes Time In: 900 Time Out: 920 Total Billed Treatment Time: 20 Total Billed Treatment 1, gait 15', ther ex 5' J CARLOS MEJIA CPTA Mar 04, 2021 10:26
--- NOTE | 2021-03-04 11:01 | Occupational Ther Daily Note ---
OT Current Status-Daily Note Subjective Pt alert, sitting in recliner. Pt agrees to therapy. No c/o pain. Mental Status/Objective Patient Orientation: Person, Place, Time, Situation Attachments: IV ADL-Treatment Pt and nrsg tech states that pt just had shower. Pt completed all bathing sitting on shower bench, per nrsg report. Pt wanted to complete denture care. After supplies were gathered pt able to sit in recliner and complete by self. Therapy Code Descriptions/Definitions Functional [place] Measure: 0=Not Assessed/NA 4=Minimal Assistance 1=Total Assistance 5=Supervision or Setup 2=Maximal Assistance 6=Modified [place] 3=Moderate Assistance 7=Complete IndependenceSCALE: Activities may be completed with or without assistive devices. 8-Hgcvrxmfez-ydiiubp completes the activity by him/herself with no assistance from a helper. 5-Set-up or Clean-up Assistance-helper sets up or cleans up; patient completes activity. [place] assists only prior to or following the activity. 4-Supervision or Touching Assistance-helper provides verbal cues and/or touching/steadying and/or contact guard assistance as patient completes activity. Assistance may be provided throughout the activity or intermittently. 3-Partial/Moderate Assistance-helper does LESS THAN HALF the effort. [place] lifts, holds or supports trunk or limbs, but provides less than half the effort. 2-Substantial/Maximal Assistance-helper does MORE THAN HALF the effort. [place] lifts or holds trunk or limbs and provides more than half the effort. 5-Rwsutrkgw-vyaohe does ALL the effort. Patient does none of the effort to complete the activity. Or, the assistance of 2 or more helpers is required for the patient to complete the activity. If activity was not attempted, code reason: 7-Patient Refused. 9-Not Applicable-not attempted and the patient did not perform the activity before the current illness, exacerbation or injury. 10-Not Attempted due to Environmental Limitations-(lack of equipment, weather restraints, etc.). 88-Not Attempted due to Medical Conditions or Safety Concerns. Oral Hygiene (QC): 5 Other Treatment Pt given medium resistance theraband and HEP for use in room. Skilled instruction for correct technique and modifications due to R rotator cuff injury. Pt able to complete each shldr exercises at waist level due to rotator cuff injury 5 reps 2 sets then bicep and tricep exercises 2 set 10 reps. After session, pt sitting in recliner with call light/phone in reach. All needs met. OT Mainstreaming Facilitator Goals Correction Goals Time Frame: Mar 10, 2021 Oral Hygiene (QC): 6 Toileting Hygiene (QC): 6 Shower/Bathe Self (QC): 4 Upper Body Dressing (QC): 6 Lower Body Dressing (QC): 6 On/Off Footwear (QC): 5 1=Demonstrate adherence to instructed precautions during ADL tasks. 2=Patient will verbalize/demonstrate understanding of assistive devices/modifications for ADL. 3=Patient will improve strength/tolerance for activity to enable patient to perform ADL's. OT Education/Plan Problem List/Assessment Assessment: Impaired Self-Care Skills, Restricted Funct UE ROM Discharge Recommendations Plan/Recommendations: Continue POC Treatment Plan/Plan of Care Patient would benefit from OT for education, treatment and training to promote independence in ADL's, mobility, safety and/or upper extremity function for ADL's. Plan of Care: ADL Retraining, Functional Mobility, UE Funct Exercise/Act Treatment Duration: Mar 10, 2021 Frequency: 3 times per week Estimated Hrs Per Day: .25 hour per day Agreement: Yes Rehab Potential: Good Time/GCodes Start Time: 10:12 Stop Time: 10:28 Total Time Billed (hr/min): 26 Billed Treatment Time 1 visit-ADL 1 (8 min) EX 1 (18 min) BERT CAZARES Mar 04, 2021 11:01
--- NOTE | 2021-03-04 11:54 | Progress Note - Hospitalist ---
VISHNU QUINTERO 03/04/21 1154: Subjective HPI/CC On Admission Date Seen by Provider: Mar 04, 2021 Time Seen by Provider: 11:00 Patient is a 85-year-old white male who noted the onset of increased congestion Tuesday night with paroxysms of cough that he reports for minimally productive of a little bit of yellowish sputum. He did cough to the point that he could not catch his breath. He was brought in by family members secondary to this. He denied night sweats chills or fever but had a difficult to describe sensation in his face where he thought he might of run a fever although he did not check his temperature. Family noted they took him to the store Tuesday night that walking back in the house at appeared his respirations were more labored not typical for him. 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 He denies hemoptysis reports his appetite has been poor ever since surgery but even more so over the last week or so. He denies abdominal pain and is noted no melena or bright red blood per rectum. He denies nausea. Subjective/Events-last exam Patient is sitting up in bed at time of encounter. He is alert and conversational. He says he feels about the same as yesterday with a little improvement. His cough has not changed from yesterday, and he reports that his phlegm is thick and sticky, causing him to choke. This provokes some anxiety for the patient. He expressed that since he is fearful of choking, he does not want to cough up the mucus as frequently. He continues to have soft bowel movements, often while micturating. He reports exertional dyspnea when getting out of bed to use the restroom. Patient also reports tense upper abdominal pain that feels like a muscle cramp. He states that this has been going on for months. Vitals appear stable. WBC increase to 13.7 from 12.8. Na 130, was 129 on 03/03. Medications have been reviewed. Begin incentive spirometer. Planning to consult Cardiology due to the patient's continued exertional dyspnea. Patient reports in 2019 during a hospitalization he had a secondary diagnosis of atrial fibrillation. He has not had any cardiac evaluation or inter vention since. Ordering an echo. Review of Systems HEENT: No Head Aches Pulmonary: Dyspnea (with exertion), Cough Cardiovascular: No: Chest Pain, Edema Gastrointestinal: Abdominal Pain (band-like upper abdominal pain that feels muscular in origin) Musculoskeletal: neck pain (occasional while resting in bed) Focused Exam Time of Focused Exam: 10:24 Objective Exam Vital Signs Vital Signs Date Time Temp Pulse Resp B/P (MAP) Pulse Ox O2 Delivery O2 Flow Rate FiO2 03/04/21 08:42 Room Air 03/04/21 07:41 36.8 105 24 135/70 (91) 93 03/04/21 07:14 0.00 03/04/21 03:44 21 Capillary Refill : Less Than 3 Seconds General Appearance: No Apparent Distress, Thin Respiratory: Normal Breath Sounds, No Accessory Muscle Use, No Respiratory Distress, Decreased Breath Sounds (left lower lung field posteriorly) Cardiovascular: Regular Rate, Rhythm, No Edema, No Murmur Gastrointestinal: Normal Bowel Sounds Extremity: No Pedal Edema Neurologic/Psychiatric: Alert, Normal Mood/Affect Skin: Normal Color, Warm/Dry Results/Procedures Lab Laboratory Tests 03/04/21 06:26 Patient resulted labs reviewed. Assessment/Plan Assessment and Plan Assess & Plan/Chief Complaint Assessment: Left lower lobe pneumonia History of squamous cell carcinoma of left upper lobe s/p lobectomy Hyperlipidemia HTN Hyponatremia History of C. difficile infection Advanced age Debility Exertional dyspnea Plan: Continue Cefepime Monitor for bowel habit/stool changes Continue Duoneb Heparin lock IV fluids AM labs: CBC, BMP. Monitor Na PT/OT Incentive spirometer Consult Cardiology, echocardiogram for dyspnea evaluation Mucinex for mucus thinning AMALIA MAHONEY DO 03/05/21 0536: Subjective Subjective/Events-last exam Pt is doing a little better Phlegm is awfully thick so we will start Mucinex PT and OT ordered Echocardiogram will be obtained along with Dr. Gabriel consult and added a BNP to the labs. Review of Systems General: Fatigue, Malaise Pulmonary: Dyspnea (with exertion), Cough Objective Exam General Appearance: No Apparent Distress, WD/WN, Chronically ill Respiratory: No Accessory Muscle Use, No Respiratory Distress, Decreased Breath Sounds (left lower lung field posteriorly) Cardiovascular: Regular Rate, Rhythm Neurologic/Psychiatric: Alert, Oriented x3 Assessment/Plan Assessment and Plan Assess & Plan/Chief Complaint Cardiology consult Lovenox for DVT prophylaxis started Continue antibiotics Supervisory-Addendum Brief Verification & Attestation Participated in pt care: history, MDM, physical Personally performed: exam, history, MDM, supervision of care Care discussed with: Medical Student Procedures: n/a Results interpretation: Verified all documentation Verification and Attestation of Medical Student E/M Service A medical student performed and documented this service in my presence. I reviewed and verified all information documented by the medical student and made modifications to such information, when appropriate. I personally performed the physical exam and medical decision making. Amalia Mahoney, Mar 05, 2021,05:35 VISHNU QUINTERO Mar 04, 2021 11:54 AMALIA MAHONEY DO Mar 05, 2021 05:36
[2021-03-04] MEDS: guaiFENesin (MUCINEX) 600 MG TAB PO SCH ×2 (12:14→19:18)
--- NOTE | 2021-03-04 12:57 | Consultation-Cardiology ---
HPI-Cardiology Cardiology Consultation: Date of Consultation 03/04/2021 Date of Admission 03/01/2021 Attending Physician Amalia King DO Admitting Physician Roscoe Holden MD Consulting Physician CHIKA PERSON JR, MD HPI: Time Seen by a Provider: 12:56 Chief Complaint: Reason for consultation: Dyspnea on exertion. I had the pleasure of seeing Don on the medical/surgical unit at [facility] in [place], [place] this afternoon. He has no known history of coronary artery disease but does have a history of postoperative atrial fibrillation when he had a partial lobectomy due to lung cancer in 2019. This sounds as though it resolved before he left the hospital. He normally walks around the community room at his apartment complex for exercise without any issues. On Tuesday evening he developed a persistent, dry cough. He tried to sleep but the cough is keeping him awake. He thought if he sat up in a chair, this would help. However, he continued to cough all evening. On Tuesday morning he decided to go to the emergency room. He had some testing and was felt to have left lower lobe pneumonia and was admitted for treatment. When he was having the coughing spells, he denied any shortness of breath. However, since being here in the hospital, he has been having some shortness of breath while walking around in his room. His cough is improved. He denies any chest discomfort. He denies paroxysmal nocturnal dyspnea, or orthopnea, lightheadedness, syncope, or ankle edema. From time to time, he will get some palpitations with the sensation of a fluttering in his chest but this only happens once or twice per month if even that. Certain portions of this document may have been dictated utilizing voice recognition technology. Inherent to this technology, typographical and grammatical errors may exist. As much as I am diligent to identify and correct these mistakes, some errors may remain in the document. Review of Systems-Cardiology Review of Systems Other comments Review of 10 organ systems is as per the history of present illness, otherwise negative. All Other Systems Reviewed Negative Unless Noted: Yes KWA-Yndift-Cmbznd Hx Patient Social History Former smoker/When Quit: Aug 06, 2007 2nd Hand Smoke Exposure: No Have you traveled recently?: No Alcohol Use?: No Pt feels they are or have been: No Immunizations Up To Date Date of Pneumonia Vaccine: Dec 12, 2015 Date of Influenza Vaccine: Nov 20, 2019 Past Medical History PMH As described under Assessment. Family Medical History Family Medical History: The patient does not know of any family history of premature coronary artery disease in first-degree relatives. Allergies and Home Medications Allergies Coded Allergies: LISANo Known Allergies (Verified Allergy, Unknown, 03/24/08) Patient Home Medication List Home Medication List Reviewed: Yes Acetaminophen (Tylenol Extra Strength) 500 Mg Tablet, 500 MG PO Q8H PRN for HEADACHE, (Reported) Entered as Reported by: PARKER AL on 03/02/21 1010 Last Action: Held Escitalopram Oxalate (Escitalopram Oxalate) 10 Mg Tablet, 10 MG PO DAILY, (Reported) Entered as Reported by: PARKER AL on 03/02/21 1009 Last Action: Held Losartan Potassium (Losartan Potassium) 50 Mg Tablet, 50 MG PO DAILY, (Reported) Entered as Reported by: PARKER AL on 03/02/21 1009 Last Action: Held Multivitamin/Iron/Folic Acid (Multi-Day Plus Iron Tablet) 1 Each Tablet, 1 EACH PO DAILY, (Reported) Entered as Reported by: PARKER AL on 03/02/21 1009 Last Action: Held Simvastatin (Simvastatin) 40 Mg Tablet, 40 MG PO DAILY, (Reported) Entered as Reported by: CHARLEY DANIELLE on 08/28/18 0840 Last Action: Held Discontinued Medications Lisinopril (Lisinopril) 10 Mg Tablet, 10 MG PO DAILY, (Reported) Discontinued Reason: No Longer Taking Entered as Reported by: CHAVA BETANCUR on 03/21/15 1445 Last Action: Discontinued Exam Vital Signs Vital Signs Date Time Temp Pulse Resp B/P (MAP) Pulse Ox O2 Delivery O2 Flow Rate FiO2 03/04/21 12:08 36.8 80 18 144/76 (98) 96 Room Air 03/04/21 07:14 0.00 03/04/21 03:44 21 Physical Exam General: Alert. No acute distress. Well nourished and appears stated age. Eye: Extraocular movements are intact. Conjunctivae are clear. There are no xanthelasma. HENT: Normocephalic. Atraumatic. Carotid pulsations 2/2 without bruits. Neck: Jugular venous pressure does not appear elevated. No thyromegaly appreciated. Respiratory: Lungs are clear to auscultation. Respirations are non-labored. B reath sounds are equal. Symmetrical chest wall expansion. Cardiovascular: Normal rate. Regular rhythm. No murmur. No gallop. Point of maximal impulse is not appear displaced. Good pulses equal in all extremities. No edema. Gastrointestinal: Soft. Normal bowel sounds. Skin: Skin turgor is normal. There is no pallor. Musculoskeletal: No kyphosis or scoliosis appreciated. Neurologic: Alert and oriented to person, place, time. Cranial nerves 3-12 appear grossly intact. The patient has good motor tone strength in the upper and lower extremities bilaterally. Psychiatric: Cooperative. Appropriate mood & affect. Labs Laboratory Tests Test 03/04/21 06:26 Range/Units White Blood Count 13.7 H 4.3-11.0 10^3/uL Red Blood Count 4.33 4.30-5.52 10^6/uL Hemoglobin 12.8 L 13.3-17.7 g/dL Hematocrit 38 L 40-54 % Mean Corpuscular Volume 88 80-99 fL Mean Corpuscular Hemoglobin 30 25-34 pg Mean Corpuscular Hemoglobin Concent 34 32-36 g/dL Red Cell Distribution Width 13.8 10.0-14.5 % Platelet Count 267 130-400 10^3/uL Mean Platelet Volume 9.7 9.0-12.2 fL Immature Granulocyte % (Auto) 1 % Neutrophils (%) (Auto) 87 H 42-75 % Lymphocytes (%) (Auto) 6 L 12-44 % Monocytes (%) (Auto) 6 0-12 % Eosinophils (%) (Auto) 0 0-10 % Basophils (%) (Auto) 0 0-10 % Neutrophils # (Auto) 11.9 H 1.8-7.8 10^3/uL Lymphocytes # (Auto) 0.8 L 1.0-4.0 10^3/uL Monocytes # (Auto) 0.8 0.0-1.0 10^3/uL Eosinophils # (Auto) 0.0 0.0-0.3 10^3/uL Basophils # (Auto) 0.0 0.0-0.1 10^3/uL Immature Granulocyte # (Auto) 0.1 0.0-0.1 10^3/uL Sodium Level 130 L 135-145 MMOL/L Potassium Level 3.9 3.6-5.0 MMOL/L Chloride Level 94 L 98-107 MMOL/L Carbon Dioxide Level 23 21-32 MMOL/L Anion Gap 13 5-14 MMOL/L Blood Urea Nitrogen 15 7-18 MG/DL Creatinine 0.75 0.60-1.30 MG/DL Estimat Glomerular Filtration Rate 88 BUN/Creatinine Ratio 20 Glucose Level 85 70-105 MG/DL Calcium Level 9.0 8.5-10.1 MG/DL Corrected Calcium 9.4 8.5-10.1 MG/DL Total Bilirubin 1.4 H 0.1-1.0 MG/DL Aspartate Amino Transf (AST/SGOT) 17 5-34 U/L Alanine Aminotransferase (ALT/SGPT) 11 0-55 U/L Alkaline Phosphatase 77 40-136 U/L B-Type Natriuretic Peptide 168.7 H <100.0 PG/ML Total Protein 6.4 6.4-8.2 GM/DL Albumin 3.5 3.2-4.5 GM/DL ECG Impression ECG Comment Electrocardiogram from 03/01 showed sinus rhythm with left atrial abnormality and left ventricular hypertrophy. Diagnosis/Problems Diagnosis/Problems (1) Dyspnea Assessment & Plan: He is in the hospital being treated for pneumonia and also has a prior partial left lower lobectomy. I suspect the pneumonia on top of his baseline decreased pulmonary capacity has led to his shortness of breath. He had an echocardiogram earlier today and I briefly reviewed the images and there was no sign of left ventricular systolic dysfunction or significant valvular heart disease. We will await the final report. I do not believe he will need any additional cardiac testing. His BNP level was only marginally elevated. He did have an elevated D-dimer level at the time of admission but did not have a chest CT angiogram. I have ordered a CT angiogram of the chest and discussed this with the current hospitalist. (2) Paroxysmal atrial fibrillation Assessment & Plan: It sounds likely he may have had postoperative atrial fibrillation following his partial lung resection in 2019. His electrocardiogram from admission shows a sinus rhythm. This does not necessarily require ongoing follow-up. (3) Primary hypertension Assessment & Plan: His blood pressures have been intermittently elevated. I will resume his home dose of the losartan. (4) Mixed hyperlipidemia Assessment & Plan: Continue statin medication. His LDL level was actually quit e low on his home dose of simvastatin. He may be able to reduce the dose. I suggested he follow-up with his primary provider in this regard after discharge. (5) Abnormal electrocardiogram Assessment & Plan: He has a borderline abnormal electrocardiogram as outlined above but no evidence of prior infarct or ischemia at rest. We will await the results of the echocardiogram. I do not see any indication for an ischemic evaluation at this time. CHIKA PERSON JR, MD Mar 04, 2021 12:57
[2021-03-04] MEDS ORDERED: LOSARTAN 50 MG (COZAAR) TAB PO NR (16:00)
[2021-03-04] MEDS ORDERED: HOLD METFORMIN - RECEIVED CONTRAST 20 ML VIAL IV SCH (16:30)
[2021-03-04] MEDS ORDERED: NS 100 ML (IVPB) BAG IV ONE (16:30)
[2021-03-04] MEDS ORDERED: IOHEXOL 350 MG/ML 100 ML (OMNIPAQUE 350) VIAL IV ONE (16:30)
--- NOTE | 2021-03-04 18:12 | Diagnostic Imaging Report ---
PROCEDURE: CT angiography of the chest with contrast. TECHNIQUE: Multiple contiguous axial images were obtained through the chest after uneventful bolus administration of intravenous contrast. 3D reconstructed CTA MIP acquisitions were also performed. Auto Exposure Controls were utilized during the CT exam to meet ALARA standards for radiation dose reduction. INDICATION: Elevated D-dimer, shortness of breath. COMPARISON: 05/05/2020. FINDINGS: There are stable postoperative changes in the left hemithorax. There is a stable spiculated mass in the right upper lobe. Pleural thickening is seen in the right or left apex. There is new infiltrate and consolidation in the left lung base which likely represents pneumonia. Follow-up recommended to assure resolution. Heart and pulmonary arteries are stable. Coronary artery disease is present. There is no pneumothorax. Although the timing of the contrast bolus is such that the aorta cannot be fully evaluated, there is an intraluminal filling defect that is seen just above the diaphragm and extends into the abdomen. A focal dissection cannot be fully excluded. Osseous structures and visualized upper abdominal solid organs are otherwise unremarkable. IMPRESSION: 1. New infiltrate in the left base with consolidation. Follow-up recommended. 2. Status post partial left-sided pneumonectomy. 3. No pulmonary embolism identified. 4. Filling artifact versus dissection of the distal thoracic aorta and visualized upper abdominal aorta. This may be further evaluated with dissection technique. 5. Coronary artery disease. Dr. Gurvinder Gabriel in [place] was paged at 6:08 p.m., by maryellen. Dictated by: Dictated on workstation # [id number]
[2021-03-04] MEDS: AtorvaSTATin TABLET 10 MG TABLET PO SCH (19:18)
[2021-03-04] MEDS: ENOXAPARIN 40 MG/0.4 ML (LOVENOX) SYR SC SCH (21:55)
[2021-03-05 03:38] VITALS: BP 136/79
[2021-03-05] MEDS: CEFEPIME INJECTION 1,000 MG in NS (IVPB) 50 ML IV SCH ×4 (03:40→21:21)
[2021-03-05 06:13] LABS: BASOPHILS % (AUTO) 0 % (0-10); EOSINOPHILS # (AUTO) 0.1 10^3/uL (0.0-0.3); EOSINOPHILS % (AUTO) 0 % (0-10); HEMATOCRIT 35 % (40-54); HEMOGLOBIN 11.9 g/dL (13.3-17.7); LYMPHOCYTES # (AUTO) 0.5 10^3/uL (1.0-4.0); LYMPHOCYTES % (AUTO) 3 % (12-44); MEAN CORPUSCULAR HEMOGLOBIN 29 pg (25-34); MEAN CORPUSCULAR HGB CONC 34 g/dL (32-36); MEAN CORPUSCULAR VOLUME 87 fL (80-99); MEAN PLATELET VOLUME 9.3 fL (9.0-12.2); MONOCYTES # (AUTO) 0.9 10^3/uL (0.0-1.0); MONOCYTES % (AUTO) 6 % (0-12); NEUTROPHILS # (AUTO) 13.7 10^3/uL (1.8-7.8); NEUTROPHILS % (AUTO) 90 % (42-75); PLATELET COUNT 271 10^3/uL (130-400); WHITE BLOOD COUNT 15.3 10^3/uL (4.3-11.0)
[2021-03-05 06:34] LABS: ALBUMIN 3.4 GM/DL (3.2-4.5); POTASSIUM 3.5 MMOL/L (3.6-5.0)
[2021-03-05 06:35] LABS: CALCIUM 8.7 MG/DL (8.5-10.1)
[2021-03-05 06:36] LABS: TOTAL PROTEIN 6.2 GM/DL (6.4-8.2)
[2021-03-05 06:38] LABS: BILIRUBIN,TOTAL 0.9 MG/DL (0.1-1.0)
[2021-03-05 06:40] LABS: CREATININE SERUM 0.73 MG/DL (0.60-1.30)
[2021-03-05 07:21] VITALS: BP 144/65
[2021-03-05 07:47] VITALS: BP 144/65
--- NOTE | 2021-03-05 09:17 | Physical Therapy Daily Note ---
PT Daily Note-Current Subjective Patient presented sitting in chair after finishing breakfast. Patient reports that he wants to take a walk this morning. Mental Status Patient Orientation: Person, Place, Time, Situation Transfers SCALE: Activities may be completed with or without assistive devices. 6-Gvdiiynkqx-tlipcwq completes the activity by him/herself with no assistance from a helper. 5-Set-up or Clean-up Assistance-helper sets up or cleans up; patient completes activity. Venus assists only prior to or following the activity. 4-Supervision or Touching Assistance-helper provides verbal cues and/or touching/steadying and/or contact guard assistance as patient completes activity. Assistance may be provided throughout the activity or intermittently. 3-Partial/Moderate Assistance-helper does LESS THAN HALF the effort. Venus lifts, holds or supports trunk or limbs, but provides less than half the effort. 2-Substantial/Maximal Assistance-helper does MORE THAN HALF the effort. Venus lifts or holds trunk or limbs and provides more than half the effort. 9-Bzyqvoeaj-uqjxmw does ALL the effort. Patient does none of the effort to complete the activity. Or, the assistance of 2 or more helpers is required for the patient to complete the activity. If activity was not attempted, code reason: 7-Patient Refused. 9-Not Applicable-not attempted and the patient did not perform the activity before the current illness, exacerbation or injury. 10-Not Attempted due to Environmental Limitations-(lack of equipment, weather restraints, etc.). 88-Not Attempted due to Medical Conditions or Safety Concerns. Sit to Stand (QC): 5 Gait Training Distance: >500' Walk 10 feet (QC): 4 Walk 50 ft with 2 Turns(QC): 4 Walk 150 ft (QC): 4 Gait Assistive Device: FWW Patient ambulated with CGA/SBA. Patient reported that he was slightly fatigued after ambulation. Exercises Seated Therapy Exercises: Ankle pumps, Long arc quads, Hip flexion, Hip abd/add Seated Reps: 10 Patient completed seated exercises with minimal fatigue and only one rest break. Assessment Patient continues to improve and increase his endurance with ambulation. Patient reports that he wants to continue to walk farther so he can go back to living in his apartment. Patient had slight fatigue with exercises but did not report any shortness of breath. Patient required a few rest breaks while ambulating to cough. PT Hospice Superintendent Goals Mcfp Goals PT Mcfp Goals Time Frame: Mar 14, 2021 Roll Left & Right (QC): 6 Sit to Lying (QC): 6 Lying-Sitting on Side/Bed(QC): 6 Sit to Stand (QC): 6 Chair/Idu-gn-Yorgn Xfer(QC): 6 Toilet Transfer (QC): 6 Does the Patient Walk: Yes Walk 10 feet (QC): 6 Walk 50ft with 2 Turns (QC): 6 Walk 150 ft (QC): 6 Walking 10ft on Uneven Surface: 6 Does the Pt use WC or Scooter?: No PT Plan Treatment/Plan Treatment Plan: Continue Plan of Care Treatment Plan: Education, Functional Activity Sandie, Functional Strength, Gait, Therapeutic Exercise Treatment Duration: Mar 14, 2021 Frequency: 6 times per week Estimated Hrs Per Day: .25 hour per day Time/GCodes Time In: 813 Time Out: 825 Total Billed Treatment Time: 12 Total Billed Treatment 1 Visit FA 12 min LILLI COOPER PT Mar 05, 2021 09:17
[2021-03-05] MEDS: guaiFENesin (MUCINEX) 600 MG TAB PO SCH ×2 (09:20→20:04)
[2021-03-05] MEDS: LOSARTAN 50 MG (COZAAR) TAB PO SCH (09:20)
--- NOTE | 2021-03-05 10:15 | Occupational Ther Daily Note ---
OT Current Status-Daily Note Subjective Pt alert, lying in bed. Pt agrees to therapy. No c/o pain. Discussed with nrsg about pt's mobility independence in room. Pt up ad michael in room during the day. Educated pt that if he felt uncomfortable or dizzy to call nrsg for assistance before ambulating. Mental Status/Objective Patient Orientation: Person, Place, Time, Situation Attachments: IV ADL-Treatment Independent with bed mobility. Independent with ambulating to/from bathroom. Independent standing at sink to complete oral care. Independent with B UE theraband HEP. Will see 1 more time tomorrow before discharge from OT services. After session, pt lying in bed with call light/phone in reach. All needs met in room. Therapy Code Descriptions/Definitions Functional [place] Measure: 0=Not Assessed/NA 4=Minimal Assistance 1=Total Assistance 5=Supervision or Setup 2=Maximal Assistance 6=Modified [place] 3=Moderate Assistance 7=Complete IndependenceSCALE: Activities may be completed with or without assistive devices. 4-Mahljzlmtj-mmsomkg completes the activity by him/herself with no assistance from a helper. 5-Set-up or Clean-up Assistance-helper sets up or cleans up; patient completes activity. Rolette assists only prior to or following the activity. 4-Supervision or Touching Assistance-helper provides verbal cues and/or touching/steadying and/or contact guard assistance as patient completes activity. Assistance may be provided throughout the activity or intermittently. 3-Partial/Moderate Assistance-helper does LESS THAN HALF the effort. Rolette lifts, holds or supports trunk or limbs, but provides less than half the effort. 2-Substantial/Maximal Assistance-helper does MORE THAN HALF the effort. Rolette lifts or holds trunk or limbs and provides more than half the effort. 3-Lozyrgpkh-zglyvk does ALL the effort. Patient does none of the effort to complete the activity. Or, the assistance of 2 or more helpers is required for the patient to complete the activity. If activity was not attempted, code reason: 7-Patient Refused. 9-Not Applicable-not attempted and the patient did not perform the activity before the current illness, exacerbation or injury. 10-Not Attempted due to Environmental Limitations-(lack of equipment, weather restraints, etc.). 88-Not Attempted due to Medical Conditions or Safety Concerns. Oral Hygiene (QC): 6 OT Nurse General Duty Goals Alf Goals Time Frame: Mar 10, 2021 Oral Hygiene (QC): 6 Toileting Hygiene (QC): 6 Shower/Bathe Self (QC): 4 Upper Body Dressing (QC): 6 Lower Body Dressing (QC): 6 On/Off Footwear (QC): 5 1=Demonstrate adherence to instructed precautions during ADL tasks. 2=Patient will verbalize/demonstrate understanding of assistive devices/modifications for ADL. 3=Patient will improve strength/tolerance for activity to enable patient to perform ADL's. OT Education/Plan Problem List/Assessment Assessment: Decreased Activ Tolerance, Decreased UE Strength Discharge Recommendations Plan/Recommendations: Continue POC Treatment Plan/Plan of Care Patient would benefit from OT for education, treatment and training to promote independence in ADL's, mobility, safety and/or upper extremity function for ADL's. Plan of Care: ADL Retraining, Functional Mobility, UE Funct Exercise/Act Treatment Duration: Mar 10, 2021 Frequency: 3 times per week Estimated Hrs Per Day: .25 hour per day Agreement: Yes Rehab Potential: Good Time/GCodes Start Time: 09:39 Stop Time: 10:09 Total Time Billed (hr/min): 30 Billed Treatment Time 1 visit-ADL 2 (30 min) BERT CAZARES Mar 05, 2021 10:15
[2021-03-05] MEDS ORDERED: KCL 10 MEQ TAB (MICRO K) PO NR (11:30)
[2021-03-05 11:53] VITALS: BP 113/63
[2021-03-05] MEDS: LACTOBACILLUS Acidoph/Bulgar 1 GM (LACTINEX) PACKET PO SCH ×3 (12:17→20:04)
--- NOTE | 2021-03-05 12:24 | Progress Note - Hospitalist ---
VISHNU QUINTERO 03/05/21 1224: Subjective HPI/CC On Admission Date Seen by Provider: Mar 05, 2021 Time Seen by Provider: 11:00 Patient is a 85-year-old white male who noted the onset of increased congestion Tuesday night with paroxysms of cough that he reports for minimally productive of a little bit of yellowish sputum. He did cough to the point that he could not catch his breath. He was brought in by family members secondary to this. He denied night sweats chills or fever but had a difficult to describe sensation in his face where he thought he might of run a fever although he did not check his temperature. Family noted they took him to the store Tuesday night that walking back in the house at appeared his respirations were more labored not typical for him. 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 He denies hemoptysis reports his appetite has been poor ever since surgery but even more so over the last week or so. He denies abdominal pain and is noted no melena or bright red blood per rectum. He denies nausea. Subjective/Events-last exam Patient is sitting up in chair at time of encounter. He is alert and conversational. He states his cough is improving and he is no longer choking on phlegm/mucus. Dyspnea is still present with exertion. He denies dyspnea at rest or with conversation. He states he has been up to the bathroom, chair, and has walked laps around the hallway with PT. He states per PT's report he is able to walk to the restroom unassisted. He reports he is using his incentive spirometer and demonstrated using it during the encounter. He states he got up frequently throughout the night to urinate. On a few occasions he reports having a bowel movement while micturating. He states his last bowel movement was diarrhea. He expresses concern with this and reiterates his past history of C. difficile infection. He states [facility] and has an appointment in May. Vitals are stable. Per Cardiology, Losartan has been resumed for HTN management. Na 131, has slowly increased throughout the week. K 3.5 WBC 15.3, yesterday 13.7. BNP 168.7, was 51.5 on 03/01. CT Chest demonstrated new infiltrate in left base with consolidation. No pulmonary embolism. Filling artifact vs. dissection of distal thoracic aorta. Coronary artery disease. Cysts are present in the liver that have been previously assessed. Right suprarenal cyst has previously been assessed. Echocardiogram: LV appeared normal with EF 60-65%, mild mitral regurgitation, trivial aortic regurgitation, pulmonary artery pressure 30-35mmHg. Review of Systems General: No Chills HEENT: No Head Aches Pulmonary: Dyspnea (with exertion), Cough Cardiovascular: No: Chest Pain Gastrointestinal: Diarrhea (x1 this morning); No: Nausea, Vomiting, Abdominal Pain Musculoskeletal: other (buttock pain from sitting in bed/chair) Focused Exam Time of Focused Exam: 10:24 Objective Exam Vital Signs Vital Signs Date Time Temp Pulse Resp B/P (MAP) Pulse Ox O2 Delivery O2 Flow Rate FiO2 03/05/21 12:12 93 Room Air 0.00 03/05/21 11:53 37.1 96 20 113/63 (80) 03/04/21 03:44 21 Capillary Refill : Less Than 3 Seconds General Appearance: No Apparent Distress, Thin Respiratory: Lungs Clear, Normal Breath Sounds, No Accessory Muscle Use, No Respiratory Distress Cardiovascular: Regular Rate, Rhythm, No Edema, No Murmur, Normal Peripheral Pulses (+2 left radial pulse) Gastrointestinal: Normal Bowel Sounds, Non Tender, Soft Neurologic/Psychiatric: Alert, Normal Mood/Affect Skin: Normal Color, Warm/Dry Results/Procedures Lab Laboratory Tests 03/05/21 05:50 Patient resulted labs reviewed. 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 difficile infection Advanced age Debility Exertional dyspnea Hypokalemia Plan: Continue Cefepime Monitor for bowel habit/stool changes. Initiate probiotic therapy Continue Duoneb Heparin lock IV fluids AM labs: CBC, BMP. Monitor Na Replace K and monitor PT/OT Incentive spirometer Consult Cardiology, echocardiogram for dyspnea evaluation Cardiology resumed Losartan for HTN management Mucinex for mucus thinning Consult Pulmonology Lovenox injection for DVT prophylaxis AMALIA MAHONEY DO 03/06/21 0611: Subjective Subjective/Events-last exam Pulmonary consult will be obtained Appreciate cardiology consult Continue IV antibiotics Objective Exam General Appearance: No Apparent Distress, WD/WN, Chronically ill Respiratory: Lungs Clear, Normal Breath Sounds Assessment/Plan Assessment and Plan Assess & Plan/Chief Complaint Appreciate consultants Supervisory-Addendum Brief Verification & Attestation Participated in pt care: history, MDM, physical Personally performed: exam, history, MDM, supervision of care Care discussed with: Medical Student Procedures: n/a Results interpretation: Verified all documentation Verification and Attestation of Medical Student E/M Service A medical student performed and documented this service in my presence. I reviewed and verified all information documented by the medical student and made modifications to such information, when appropriate. I personally performed the physical exam and medical decision making. Amalia Mahoney, Mar 06, 2021,06:11 VISHNU QUINTERO Mar 05, 2021 12:24 AMALIA MAHONEY DO Mar 06, 2021 06:11
--- NOTE | 2021-03-05 12:40 | Pulmonary Consultation ---
History of Present Illness History of Present Illness Date Seen by Provider: Mar 05, 2021 Time Seen by Provider: 12:39 History of Present Illness 85 yr old male with history of sq cell ca left upperlobe s/p JOSE F lobectomy in 2018 presented with mild coug and wheezing. c/o extertional dyspnea. no pfts availble in the computer. he is not any home o2. exercise tolerance is about 100feet with use of walker.. denies any chest pain, or fever. no significant cough preset. CTA chest showed rul small scar which is unchanged for 2 yrs. but has LLL infiltrate. He is not aware that he has copd. but CT chest da ting back to 2019 showed evidence of emphysema. Allergies and Home Medications Allergies Coded Allergies: NKANo Known Allergies (Verified Allergy, Unknown, 03/24/08) Home Medications Acetaminophen 500 Mg Tablet, 500 MG PO Q8H PRN for HEADACHE, (Reported) Escitalopram Oxalate 10 Mg Tablet, 10 MG PO DAILY, (Reported) Losartan Potassium 50 Mg Tablet, 50 MG PO DAILY, (Reported) Multivitamin/Iron/Folic Acid 1 Each Tablet, 1 EACH PO DAILY, (Reported) Simvastatin 40 Mg Tablet, 40 MG PO DAILY, (Reported) Past Medical/Social/Family Hx Patient Social History Tobacco Use?: No Smokeless Tobacco Frequency: Former User Use of E-Cig and/or Vaping dev: No Substance use?: No Alcohol Use?: No Pt stated abuse/neglect: No Immunizations Up To Date Influenza Vaccine Up-to-Date: Yes; Up-to-Date First/Initial COVID19 Vaccinat: 2020 Second COVID19 Vaccination Phil: 2020 Date of Pneumonia Vaccine: Dec 12, 2015 Current Status Advance Directives: Yes Advance Directive Location: Copy placed in chart Communicates: Verbally Primary Language: Sammarinese Preferred Spoken Language: Sammarinese Is interpretation needed?: No Sensory deficits: Vision impairment Implanted or Applied Medical D: None Review of Systems Constitutional: see HPI EENTM: see HPI Sepsis Event Evaluation Height, Weight, BMI Height: 5'9.00" Weight: 152lbs. 4.3oz. [id number]; 20.89 BMI Method:Stated Exam Exam Patient acknowledged, consented, and participated in this virtual visit which was conducted using real time audio/video Vital Signs Date Time Temp Pulse Resp B/P (MAP) Pulse Ox O2 Delivery O2 Flow Rate FiO2 03/05/21 12:12 93 Room Air 0.00 03/05/21 11:53 37.1 96 20 113/63 (80) 95 Room Air 03/05/21 08:00 Room Air 03/05/21 07:47 36.5 96 22 144/65 (91) 93 Room Air 03/05/21 07:21 36.5 96 22 144/65 (91) 93 Room Air 03/05/21 03:38 36.7 89 20 136/79 (98) 94 Room Air 03/04/21 23:55 36.5 81 22 132/68 (89) 94 Room Air 03/04/21 19:38 36.1 109 20 134/83 (100) 93 Room Air 03/04/21 19:37 Room Air 03/04/21 16:00 36.5 86 18 135/74 (94) 97 Room Air I & O 03/05/21 07:00 Intake Total 1130 ml Output Total 1350 ml Balance -220 ml Height & Weight Height: 5'9.00" Weight: 152lbs. 4.3oz. [id number]; 20.89 BMI Method:Stated General Appearance: No Apparent Distress, WD/WN, Chronically ill Neck: Full Range of Motion, Normal Inspection, Non Tender Respiratory: No Accessory Muscle Use, No Respiratory Distress, Decreased Breath Sounds (left lower lung field posteriorly), Rhonci Cardiovascular: Regular Rate, Rhythm Capillary Refill: Less Than 3 Seconds Peripheral Pulses: 2+ Radial Pulses (R), 2+ Radial Pulses (L) Gastrointestinal: non tender, soft Extremity: No Pedal Edema Neurologic/Psychiatric: Alert, Oriented x3 Skin: Normal Color, Warm/Dry Results Lab Laboratory Tests 03/04/21 06:26 03/05/21 05:50 Assessment/Plan Assessment/Plan 1. exertional dyspnea is due to combination of underlying copd, plus JOSE F lobectomy with volume loss, and LL lobe pnuemonia. 2. mild exacerbation of copd. 3.rul density needs to be followed. likely scar. Recommendations. 1.continue bronchodilators 2. Add incruse ellipta for out patient therapy. 3. Continue antibiotics. 4.short course of steroids orally. 5.spirometry to evaluate his fvc and FEV1. 6. evaluate for home oxygen prior to discharge. 7. out patient pulmonary rehab. Thanks for the consult Critical Care: Critically Ill Patient Time spent with patient (mins): 40 HANH MCKOY MD Mar 05, 2021 12:40
[2021-03-05] MEDS ORDERED: predniSONE 20 MG TAB PO NR (12:45)
[2021-03-05 15:30] VITALS: BP 145/71
--- NOTE | 2021-03-05 16:03 | Cardiology Progress Note ---
Progress Note-Cardiology Events since last exam Date Seen by Provider: Mar 05, 2021 Time Seen by Provider: 15:58 Events since last exam I am following him due to shortness of breath. I did have him undergo a CT angiogram of the chest yesterday that did not show any evidence of pulmonary embolism but did show a probable descending thoracic aortic dissection without luminal compromise. He states his cough and breathing are both improving. He has been getting himself up to use his bathroom in the room. He denies chest discomfort, palpitations, syncope, or ankle edema. Certain portions of this document may have been dictated utilizing voice recognition technology. Inherent to this technology, typographical and grammatical errors may exist. As much as I am diligent to identify and correct these mistakes, some errors may remain in the document. Vitals Last set of Vitals Signs Vital Signs 03/04/21 03/05/21 03/05/21 03:44 11:53 12:12 Temp 37.1 Pulse 96 Resp 20 B/P (MAP) 113/63 (80) Pulse Ox 93 O2 Delivery Room Air O2 Flow Rate 0.00 FiO2 21 Labs Labs Laboratory Tests 03/05/21 05:50 Exam Vital Signs Vital Signs Date Time Temp Pulse Resp B/P (MAP) Pulse Ox O2 Delivery O2 Flow Rate FiO2 03/05/21 12:12 93 Room Air 0.00 03/05/21 11:53 37.1 96 20 113/63 (80) 03/04/21 03:44 21 Physical Exam General: Alert. No acute distress. Eye: No xanthelasma. HENT: Normocephalic. Neck: Jugular venous pressure does not appear elevated. Respiratory: Lungs are clear to auscultation. Respirations are non-labored. Breath sounds are equal. Symmetrical chest wall expansion. Cardiovascular: Normal rate. Regular rhythm. No murmur. No gallop. No edema. Gastrointestinal: Soft. Normal bowel sounds. Skin: Warm. Dry. Neurologic: Alert and oriented to person, place, time. Cranial nerves 3-11 grossly intact. Psychiatric: Cooperative. Appropriate mood & affect. Labs Laboratory Tests Test 03/05/21 05:50 Range/Units White Blood Count 15.3 H 4.3-11.0 10^3/uL Red Blood Count 4.05 L 4.30-5.52 10^6/uL Hemoglobin 11.9 L 13.3-17.7 g/dL Hematocrit 35 L 40-54 % Mean Corpuscular Volume 87 80-99 fL Mean Corpuscular Hemoglobin 29 25-34 pg Mean Corpuscular Hemoglobin Concent 34 32-36 g/dL Red Cell Distribution Width 13.5 10.0-14.5 % Platelet Count 271 130-400 10^3/uL Mean Platelet Volume 9.3 9.0-12.2 fL Immature Granulocyte % (Auto) 1 % Neutrophils (%) (Auto) 90 H 42-75 % Lymphocytes (%) (Auto) 3 L 12-44 % Monocytes (%) (Auto) 6 0-12 % Eosinophils (%) (Auto) 0 0-10 % Basophils (%) (Auto) 0 0-10 % Neutrophils # (Auto) 13.7 H 1.8-7.8 10^3/uL Lymphocytes # (Auto) 0.5 L 1.0-4.0 10^3/uL Monocytes # (Auto) 0.9 0.0-1.0 10^3/uL Eosinophils # (Auto) 0.1 0.0-0.3 10^3/uL Basophils # (Auto) 0.0 0.0-0.1 10^3/uL Immature Granulocyte # (Auto) 0.1 0.0-0.1 10^3/uL Sodium Level 131 L 135-145 MMOL/L Potassium Level 3.5 L 3.6-5.0 MMOL/L Chloride Level 97 L 98-107 MMOL/L Carbon Dioxide Level 22 21-32 MMOL/L Anion Gap 12 5-14 MMOL/L Blood Urea Nitrogen 20 H 7-18 MG/DL Creatinine 0.73 0.60-1.30 MG/DL Estimat Glomerular Filtration Rate 89 BUN/Creatinine Ratio 27 Glucose Level 95 70-105 MG/DL Calcium Level 8.7 8.5-10.1 MG/DL Corrected Calcium 9.2 8.5-10.1 MG/DL Total Bilirubin 0.9 0.1-1.0 MG/DL Aspartate Amino Transf (AST/SGOT) 17 5-34 U/L Alanine Aminotransferase (ALT/SGPT) 12 0-55 U/L Alkaline Phosphatase 67 40-136 U/L Total Protein 6.2 L 6.4-8.2 GM/DL Albumin 3.4 3.2-4.5 GM/DL Diagnosis/Problems Diagnosis/Problems (1) Dyspnea Assessment & Plan: He is in the hospital being treated for pneumonia and also has a prior partial left lower lobectomy. I suspect the pneumonia on top of his baseline decreased pulmonary capacity has led to his shortness of breath. His echocardiogram during this admission shows a normal ejection fraction with no significant valvular heart disease. His chest CT did not show any evidence of a pulmonary embolism. I suspect his shortness of breath is due to the acute pneumonia. I do not believe there are any cardiac conditions contributing to his shortness of breath at this time.I do not believe he will need any additional cardiac testing at this time. 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 There does not seem to be any evidence of luminal compromise and the patient does not seem to be having any symptoms. I suspect if this truly is a dissection, this is chronic and can be managed medically. One might consider a follow-up chest and abdominal CT scan with contrast in 6 months. (3) Coronary artery disease without angina pectoris Assessment & Plan: Coronary calcification was also noted on his chest CT which is a sign of probable underlying coronary atherosclerosis. However, at the present time, he is not having any angina. I would just recommend he continue on statin medication. I will also add low strength aspirin. (4) Paroxysmal atrial fibrillation Assessment & Plan: It sounds likely he may have had postoperative atrial fibrillation following his partial lung resection in 2019. His electrocardiogram from admission shows a sinus rhythm. This does not ne cessarily require ongoing follow-up. (5) Primary hypertension Assessment & Plan: His blood pressures have improved after restarting his home dose of losartan. (6) Mixed hyperlipidemia Assessment & Plan: Continue statin medication. His LDL level was actually quite low on his home dose of simvastatin. He may be able to reduce the dose. I suggested he follow-up with his primary provider in this regard after d ischarge. (7) Abnormal electrocardiogram Assessment & Plan: He has a borderline abnormal electrocardiogram as outlined above but no evidence of prior infarct or ischemia at rest. His chest CT did show evidence of coronary artery disease but he is not having any angina. I do not see any indication for an ischemic evaluation at this time. CHIKA PERSON JR, MD Mar 05, 2021 16:03
--- NOTE | 2021-03-05 16:46 | Consultation - Surgery ---
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 When prompted to take PO medication this afternoon (03/05/21), patient stated that it felt like the pill got stuck in his throat despite drinking water, for which surgery consult was requested. Patient states that is felt like the esophagus possibly spasmed, which prevented any water or applesauce from being swallowed. Patient reports that he has had difficulty swallowing his whole life, and had been aggravated by previous intubation for lung lobectomy. Patient states mild SOA and productive cough. Patient denied any subjective fever, malaise, or abdominal pain. Of note, patient appeared to be overwhelmed and frustrated, which--according to his daughter---is a dramatic change from yesterday. Allergies and Home Medications Allergies Coded Allergies: NKANo Known Allergies (Verified Allergy, Unknown, 03/24/08) Patient Home Medication List Home Medication List Reviewed: Yes Acetaminophen (Tylenol Extra Strength) 500 Mg Tablet, 500 MG PO Q8H PRN for HEADACHE, (Reported) Entered as Reported by: PARKER AL on 03/02/21 1010 Last Action: Held Escitalopram Oxalate (Escitalopram Oxalate) 10 Mg Tablet, 10 MG PO DAILY, (Reported) Entered as Reported by: PARKER AL on 03/02/21 1009 Last Action: Held Losartan Potassium (Losartan Potassium) 50 Mg Tablet, 50 MG PO DAILY, (Reported) Entered as Reported by: PARKER AL on 03/02/21 1009 Last Action: Held Multivitamin/Iron/Folic Acid (Multi-Day Plus Iron Tablet) 1 Each Tablet, 1 EACH PO DAILY, (Reported) Entered as Reported by: PARKER AL on 03/02/21 1009 Last Action: Held Simvastatin (Simvastatin) 40 Mg Tablet, 40 MG PO DAILY, (Reported) Entered as Reported by: CHARLEY DANIELLE on 08/28/18 0840 Last Action: Held Discontinued Medications Lisinopril (Lisinopril) 10 Mg Tablet, 10 MG PO DAILY, (Reported) Discontinued Reason: No Longer Taking Entered as Reported by: CHAVA BETANCUR on 03/21/15 1656 Last Action: Discontinued Past Omjvhnl-Dppydg-Jphhpv Hx Patient Social History Former Smoker, Quit: Oct 09, 2003 2nd Hand Smoke Exposure: No Recent Hopitalizations: No Alcohol Use?: No Have you traveled recently?: No Immunizations Up To Date Date of Pneumonia Vaccine: Dec 12, 2015 Date of Influenza Vaccine: Nov 20, 2019 Surgeries History of Surgeries: Yes (LEFT EAR SURGERY AND RIGHT ING HERNIA SURGERY, BILAT CATARACTS) Surgeries: Abdominal, Lobectomy Respiratory History of Respiratory Disorde: No Cardiovascular History of Cardiac Disorders: Yes Cardiac Disorders: High Cholesterol, Hypertension Neurological History of Neurological Disord: No Reproductive System Hx Reproductive Disorders: No Sexually Transmitted Disease: No HIV/AIDS: No Genitourinary History of Genitourinary Disor: No Gastrointestinal History of Gastrointestinal Di: Yes (inguinal hernia) Musculoskeletal History of Musculoskeletal Dis: No Endocrine History of Endocrine Disorders: No HEENT History of HEENT Disorders: Yes HEENT Disorders: Cataract Hearing Impairment: Hard of Hearing Cancer History of Cancer: Yes Cancer: Skin Psychosocial History of Psychiatric Problem: No Integumentary History of Skin or Integumenta: No Blood Transfusions History of Blood Disorders: No Adverse Reaction to a Blood Tr: No Family Medical History Significant Family History: CAD Over 55 Years Old Review of Systems-General Constitutional: No chills, No fever; weakness EENTM: throat pain; No ear pain, No eye pain Respiratory: cough, phlegm, short of breath Cardiovascular: No chest pain, No palpitations Gastrointestinal: No abdominal pain, No constipation; dysphagia Genitourinary: No frequency, No hematuria Musculoskeletal: No joint pain, No joint swelling Skin: No change in color, No change in hair/nails Psychiatric/Neurological: Anxiety, Emotional Problems Physical Exam-General Problems Physical Exam Vital Signs Vital Signs - First Documented 03/01/21 03/01/21 03/01/21 08:23 08:45 13:50 Temp 37.2 Pulse 97 Resp 38 B/P (MAP) 137/99 (112) FiO2 3 Capillary Refill : Less Than 3 Seconds General Appearance: no apparent distress, cachetic, thin Eyes: Bilateral Eye Normal Inspection, Bilateral Eye PERRL, Bilateral Eye EOMI HEENT: PERRL/EOMI, normal ENT inspection Respiratory: normal breath sounds, no respiratory distress, no accessory muscle use, decreased breath sounds, crackles (mild) Cardiovascular: regular rate, rhythm, no edema, tachycardia Peripheral Pulses: 2+ Left Dors-Pedis (L), 2+ Radial Pulses (L) Gastrointestinal: non tender, soft Rectal: deferred Back: normal inspection Extremities: normal inspection Neurologic/Psychiatric: alert, oriented x 3 Data Review Labs Laboratory Tests 03/05/21 05:50: White Blood Count 15.3H, Red Blood Count 4.05L, Hemoglobin 11.9L, Hematocrit 35L , Mean Corpuscular Volume 87, Mean Corpuscular Hemoglobin 29, Mean Corpuscular Hemoglobin Concent 34, Red Cell Distribution Width 13.5, Platelet Count 271, Mean Platelet Volume 9.3, Immature Granulocyte % (Auto) 1, Neutrophils (%) (Auto) 90H, Lymphocytes (%) (Auto) 3L, Monocytes (%) (Auto) 6, Eosinophils (%) (Auto) 0, Basophils (%) (Auto) 0, Neutrophils # (Auto) 13.7H, Lymphocytes # (Auto) 0.5L, Monocytes # (Auto) 0.9, Eosinophils # (Auto) 0.1, Basophils # (Aut o) 0.0, Immature Granulocyte # (Auto) 0.1, Sodium Level 131L, Potassium Level 3.5L, Chloride Level 97L, Carbon Dioxide Level 22, Anion Gap 12, Blood Urea Nitrogen 20H, Creatinine 0.73, Estimat Glomerular Filtration Rate 89, BUN/Creatinine Ratio 27, Glucose Level 95, Calcium Level 8.7, Corrected Calcium 9.2, Total Bilirubin 0.9, Aspartate Amino Transf (AST/SGOT) 17, Alanine Aminotransferase (ALT/SGPT) 12, Alkaline Phosphatase 67, Total Protein 6.2L, Albumin 3.4 Microbiology 03/02/21 MRSA Screen - Final, Complete MRSA not isolated 03/01/21 Blood Culture - Preliminary, Resulted No growth Radiology [facility], [place] NAME: BRAYAN LINO [facility] REC#: [id number] PT STATUS: ADM IN : 1935 PHYSICIAN: CHIKA GABRIEL JR, MD ADMIT DATE: 03/01/21 Signed Date of Exam:03/04/21 CT ANGIO CHEST W PROCEDURE: CT angiography of the chest with contrast. TECHNIQUE: Multiple contiguous axial images were obtained through the chest after uneventful bolus administration of intravenous contrast. 3D reconstructed CTA MIP acquisitions were also performed. Auto Exposure Controls were utilized during the CT exam to meet ALARA standards for radiation dose reduction. INDICATION: Elevated D-dimer, shortness of breath. COMPARISON: 05/05/2020. FINDINGS: There are stable postoperative changes in the left hemithorax. There is a stable spiculated mass in the right upper lobe. Pleural thickening is seen in the right or left apex. There is new infiltrate and consolidation in the left lung base which likely represents pneumonia. Follow-up recommended to assure resolution. Heart and pulmonary arteries are stable. Coronary artery disease is present. There is no pneumothorax. Although the timing of the contrast bolus is such that the aorta cannot be fully evaluated, there is an intraluminal filling defect that is seen just above the diaphragm and extends into the abdomen. A focal dissection cannot be fully excluded. Osseous structures and visualized upper abdominal solid organs are otherwise unremarkable. IMPRESSION: 1. New infiltrate in the left base with consolidation. Follow-up recommended. 2. Status post partial left-sided pneumonectomy. 3. No pulmonary embolism identified. 4. Filling artifact versus dissection of the distal thoracic aorta and visualized upper abdominal aorta. This may be further evaluated with dissection technique. 5. Coronary artery disease. Dr. Chika Gabriel in [place] was paged at 6:08 p.m., by maryellen. Assessment/Plan Assessment/Plan Assessment/Plan 1. PNA 2. Dysphagia, rule out pill esophagitis 3. SOA, non-oxygen dependent 4. Hx of squamous cell carcinoma of lung, s/p lobectomy Acute on chronic dysphagia, will monitor inpatient for any recurrences Patient to follow-up outpatient to clinic for EGD with Dr. Brown-- hx of hernia repair with Dr Brown in November of 2020 MARYCHUY SIMON DO 03/05/21 1802: History of Present Illness History of Present Illness History of Present Illness Consult requested by Dr. King for dysphagia. Patient is a 85-year-old male who is hospitalized for left lower lobe pneumonia. He has been coughing up phlegm. Patient felt he had a pill get stuck when he was trying to take it. He is having some difficulties of dysphagia whole life but worse over the last couple months. Patient was able to drink water and get it to clear finally. Patient is anxious about not being able to swallow. Not having any difficulties currently at this time. Breathing is always an issue due to previous lung resection. Patient denies n/v fever sweats chills or chest pain at this time. Allergies and Home Medications Allergies Coded Allergies: NKANo Known Allergies (Verified Allergy, Unknown, 03/24/08) Patient Home Medication List Home Medication List Reviewed: Yes Acetaminophen (Tylenol Extra Strength) 500 Mg Tablet, 500 MG PO Q8H PRN for HEADACHE, (Reported) Entered as Reported by: PARKER AL on 03/02/21 1010 Last Action: Held Escitalopram Oxalate (Escitalopram Oxalate) 10 Mg Tablet, 10 MG PO DAILY, (Reported) Entered as Reported by: PARKER AL on 03/02/21 1009 Last Action: Held Losartan Potassium (Losartan Potassium) 50 Mg Tablet, 50 MG PO DAILY, (Reported) Entered as Reported by: PARKER AL on 03/02/21 1009 Last Action: Held Multivitamin/Iron/Folic Acid (Multi-Day Plus Iron Tablet) 1 Each Tablet, 1 EACH PO DAILY, (Reported) Entered as Reported by: PARKER AL on 03/02/21 1009 Last Action: Held Simvastatin (Simvastatin) 40 Mg Tablet, 40 MG PO DAILY, (Reported) Entered as Reported by: CHARLEY DANIELLE on 08/28/18 0840 Last Action: Held Discontinued Medications Lisinopril (Lisinopril) 10 Mg Tablet, 10 MG PO DAILY, (Reported) Discontinued Reason: No Longer Taking Entered as Reported by: CHAVA BETANCUR on 03/21/15 1445 Last Action: Discontinued Past Bqvnizy-Isvwmy-Zahojv Hx Reviewed Nursing Assessment Reviewed/Agree w Nursing PMH: Yes Family Medical History Significant Family History: No Pertinent Family Hx Review of Systems-General Constitutional: No chills, No fever; weakness EENTM: throat pain; No ear pain, No eye pain Respiratory: cough, phlegm, short of breath Cardiovascular: No chest pain, No palpitations Gastrointestinal: dysphagia Genitourinary: No frequency, No hematuria Musculoskeletal: No joint pain, No joint swelling Skin: No change in color, No change in hair/nails Psychiatric/Neurological: Anxiety; Denies Depressed, Denies Emotional Problems All Other Systems Reviewed Negative Unless Noted: Yes (Negative excepted noted.) Physical Exam-General Problems Physical Exam General Appearance: no apparent distress, cachetic, thin, other (sitting in chair.) HEENT: PERRL/EOMI, normal ENT inspection Neck: non-tender, supple Respiratory: no respiratory distress, no accessory muscle use, decreased breath sounds Cardiovascular: regular rate, rhythm, no edema Gastrointestinal: non tender, soft Rectal: deferred Back: normal inspection, no CVA tenderness Extremities: non-tender, normal inspection Neurologic/Psychiatric: alert, normal mood/affect, oriented x 3 Skin: normal color, warm/dry Lymphatic: no adenopathy Assessment/Plan Assessment/Plan Assessment/Plan LLL pneumonia dysphagia shortness of air. Hx left lung sc carcinoma, s/p lobectomy Patient not having any difficulty at this time. Continue management of pneumonia would defer egd till pneumonia resolved plan egd outpatient, Dr. Stephanie gardner so will arrange follow up with him. Will sign off call if needed. Supervisory-Addendum Brief Verification & Attestation Participated in pt care: history, MDM, physical Personally performed: exam, history, MDM, supervision of care Care discussed with: Medical Student Procedures: n/a Results interpretation: Verified all documentation Verification and Attestation of Medical Student E/M Service A medical student performed and documented this service in my presence. I reviewed and verified all information documented by the medical student and made modifications to such information, when appropriate. I personally performed the physical exam and medical decision making. Marychuy Simon, Mar 05, 2021,18:07 MARIBELL BURRELL Mar 05, 2021 16:45 MARYCHUY SIMON DO Mar 05, 2021 18:02
[2021-03-05 20:00] VITALS: BP 144/74
[2021-03-05] MEDS: AtorvaSTATin TABLET 10 MG TABLET PO SCH (20:04)
[2021-03-05] MEDS: ENOXAPARIN 40 MG/0.4 ML (LOVENOX) SYR SC SCH (20:04)
[2021-03-05] MEDS: UMECLIDINIUM BROMIDE (INCRUSE ELLIPTA) 7'S IH SCH (20:05)
[2021-03-06] VITALS (7 sets, daily range): BP systolic 115–146; BP diastolic 58–78
[2021-03-06] MEDS: CEFEPIME INJECTION 1,000 MG in NS (IVPB) 50 ML IV SCH ×3 (04:01→20:46)
[2021-03-06] MEDS: KCL 10 MEQ TAB (MICRO K) PO SCH (05:37)
[2021-03-06] MEDS: predniSONE 20 MG TAB PO SCH (05:37)
[2021-03-06] MEDS: LACTOBACILLUS Acidoph/Bulgar 1 GM (LACTINEX) PACKET PO SCH (05:37)
[2021-03-06 06:31] LABS: BASOPHILS % (AUTO) 0 % (0-10); EOSINOPHILS % (AUTO) 0 % (0-10); HEMATOCRIT 38 % (40-54); HEMOGLOBIN 12.7 g/dL (13.3-17.7); LYMPHOCYTES # (AUTO) 0.6 10^3/uL (1.0-4.0); LYMPHOCYTES % (AUTO) 3 % (12-44); MEAN CORPUSCULAR HEMOGLOBIN 30 pg (25-34); MEAN CORPUSCULAR HGB CONC 34 g/dL (32-36); MEAN CORPUSCULAR VOLUME 88 fL (80-99); MEAN PLATELET VOLUME 9.3 fL (9.0-12.2); MONOCYTES % (AUTO) 4 % (0-12); NEUTROPHILS # (AUTO) 21.8 10^3/uL (1.8-7.8); NEUTROPHILS % (AUTO) 92 % (42-75); PLATELET COUNT 312 10^3/uL (130-400); WHITE BLOOD COUNT 23.6 10^3/uL (4.3-11.0)
[2021-03-06 06:56] LABS: ACANTHOCYTES SLIGHT; ALBUMIN 3.5 GM/DL (3.2-4.5); BILIRUBIN,TOTAL 0.7 MG/DL (0.1-1.0); BURR CELLS MODERATE; CALCIUM 9.1 MG/DL (8.5-10.1); CREATININE SERUM 0.82 MG/DL (0.60-1.30); ELLIPT/OVALOCYTES SLIGHT; LYMPHOCYTES % (MANUAL) 3 %; MONOCYTES % (MANUAL) 6 %; NEUTROPHILS % (MANUAL) 91 %; POTASSIUM 3.6 MMOL/L (3.6-5.0); TOTAL PROTEIN 6.3 GM/DL (6.4-8.2)
--- NOTE | 2021-03-06 08:14 | Diagnostic Imaging Report ---
INDICATION: Pneumonia. TECHNIQUE: Single view chest 6:26 AM. CORRELATION STUDY: 03/02/2021 FINDINGS: Left lung volume loss with surgical clips over the left hilum present. Right lung hyperinflated. Pleural density over the left lung apex as well as parenchymal density over the medial right lung apex overall generally stable. Infiltrate-like opacity at the left lung base with blunting left costophrenic angle stable to slightly improved. Mediastinal structures are shifted towards the left hemithorax but appear generally stable. IMPRESSION: 1. Residual infiltrate and/or scarring about the left lung base. 2. Postop changes left lung with left lung volume loss. Biapical pleural parenchymal densities, stable. Dictated by: Dictated on workstation # [id number]
[2021-03-06] MEDS: ASPIRIN E.C. 81 MG (ECOTRIN) TAB PO SCH (08:34)
[2021-03-06] MEDS: guaiFENesin (MUCINEX) 600 MG TAB PO SCH ×2 (08:34→20:46)
[2021-03-06] MEDS: LOSARTAN 50 MG (COZAAR) TAB PO SCH (08:34)
[2021-03-06] MEDS: UMECLIDINIUM BROMIDE (INCRUSE ELLIPTA) 7'S IH SCH (09:07)
--- NOTE | 2021-03-06 09:34 | Physical Therapy Daily Note ---
PT Daily Note-Current Subjective Patient presented in bed and agrees to participate in physical therapy today. Patient reports that he thinks his legs are still weak and is not ready to go home yet. Mental Status Patient Orientation: Person, Place, Time, Situation Transfers SCALE: Activities may be completed with or without assistive devices. 2-Hmekciypjy-nskmikn completes the activity by him/herself with no assistance from a helper. 5-Set-up or Clean-up Assistance-helper sets up or cleans up; patient completes activity. [place] assists only prior to or following the activity. 4-Supervision or Touching Assistance-helper provides verbal cues and/or touchi ng/steadying and/or contact guard assistance as patient completes activity. Assistance may be provided throughout the activity or intermittently. 3-Partial/Moderate Assistance-helper does LESS THAN HALF the effort. [place] lifts, holds or supports trunk or limbs, but provides less than half the effort. 2-Substantial/Maximal Assistance-helper does MORE THAN HALF the effort. [place] lifts or holds trunk or limbs and provides more than half the effort. 8-Yfkkymmbu-jhzrkb does ALL the effort. Patient does none of the effort to complete the activity. Or, the assistance of 2 or more helpers is required for the patient to complete the activity. If activity was not attempted, code reason: 7-Patient Refused. 9-Not Applicable-not attempted and the patient did not perform the activity before the current illness, exacerbation or injury. 10-Not Attempted due to Environmental Limitations-(lack of equipment, weather restraints, etc.). 88-Not Attempted due to Medical Conditions or Safety Concerns. Sit to Lying (QC): 6 Lying to Sitting/Side of Bed(Q: 6 Sit to Stand (QC): 5 Chair/Pld-yp-Ccqci Xfer(QC): 5 Patient completed transfers with set up assistance. Patient was able to perform sit to stand transfers safely once he had help getting his walker in front of him. Gait Training Does the Patient Walk?: Yes Distance: 750' Walk 10 feet (QC): 5 Walk 50 ft with 2 Turns(QC): 5 Walk 150 ft (QC): 5 Gait Assistive Device: FWW Patient ambulated with set up assistance for 750' with FWW. Patient reported that he started to feel fatigued after this distance. Patient stopped only once to cough and catch his breath during ambulation. Exercises Seated Therapy Exercises: Ankle pumps, Long arc quads, Hip flexion Seated Reps: 15 Standing: Heel/toe raises, Marching, Sit to Stand Standing Reps: 10 Assessment Patient performed exercises and ambulation wit slight fatigue at the end of the therapy session. Patient reported that he wants to continue to get stronger so he can return back home. PT Shoder Filler Goals Shoder Filler Goals PT Senior Care Goals Time Frame: Mar 14, 2021 Roll Left & Right (QC): 6 Sit to Lying (QC): 6 Lying-Sitting on Side/Bed(QC): 6 Sit to Stand (QC): 6 Chair/Yjj-nf-Cnbce Xfer(QC): 6 Toilet Transfer (QC): 6 Does the Patient Walk: Yes Walk 10 feet (QC): 6 Walk 50ft with 2 Turns (QC): 6 Walk 150 ft (QC): 6 Walking 10ft on Uneven Surface: 6 Does the Pt use WC or Scooter?: No PT Plan Problem List Problem List: Activity Tolerance, Functional Strength, Safety, Balance, Gait, Transfer, Bed Mobility, ROM Treatment/Plan Treatment Plan: Continue Plan of Care Treatment Plan: Education, Functional Activity Sandie, Functional Strength, Gait, Therapeutic Exercise Treatment Duration: Mar 14, 2021 Frequency: 6 times per week Estimated Hrs Per Day: .25 hour per day Time/GCodes Time In: 820 Time Out: 843 Total Billed Treatment Time: 23 Total Billed Treatment 1 Visit Gait 15 min Ex 8 min LILLI COOPER PT Mar 06, 2021 09:34
--- NOTE | 2021-03-06 09:43 | Occupational Ther Daily Note ---
OT Current Status-Daily Note Subjective Pt alert, sitting in recliner. Pt agrees to therapy. No c/o pain. Mental Status/Objective Patient Orientation: Person, Place, Time, Situation Attachments: IV ADL-Treatment Pt agrees to shower. Pt stabilizes self with grabbar while standing on one leg to thread lower body clothing and footwear off/on of feet by self. Pt then completes shower sitting on shower bench and using grabbar to stabilize self when standing to cleanse buttocks. No LOB noted throughout session. Sitting in recliner, pt able to don socks by self. After session, pt sitting in recliner with call light/phone in reach. All needs met in room. Therapy Code Descriptions/Definitions Functional [place] Measure: 0=Not Assessed/NA 4=Minimal Assistance 1=Total Assistance 5=Supervision or Setup 2=Maximal Assistance 6=Modified [place] 3=Moderate Assistance 7=Complete IndependenceSCALE: Activities may be completed with or without assistive devices. 4-Bwfnijhwnj-kijhzuh completes the activity by him/herself with no assistance from a helper. 5-Set-up or Clean-up Assistance-helper sets up or cleans up; patient completes activity. [place] assists only prior to or following the activity. 4-Supervision or Touching Assistance-helper provides verbal cues and/or touching/steadying and/or contact guard assistance as patient completes activity. Assistance may be provided throughout the activity or intermittently. 3-Partial/Moderate Assistance-helper does LESS THAN HALF the effort. [place] lifts, holds or supports trunk or limbs, but provides less than half the effort. 2-Substantial/Maximal Assistance-helper does MORE THAN HALF the effort. [place] lifts or holds trunk or limbs and provides more than half the effort. 8-Exfdypobi-xxkods does ALL the effort. Patient does none of the effort to complete the activity. Or, the assistance of 2 or more helpers is required for the patient to complete the activity. If activity was not attempted, code reason: 7-Patient Refused. 9-Not Applicable-not attempted and the patient did not perform the activity before the current illness, exacerbation or injury. 10-Not Attempted due to Environmental Limitations-(lack of equipment, weather restraints, etc.). 88-Not Attempted due to Medical Conditions or Safety Concerns. Shower/Bathe Self (QC): 6 Upper Body Dressing (QC): 6 Lower Body Dressing (QC): 6 On/Off Footwear: 6 Other Treatment Pt demonstrates independence with B UE theraband exercises. OT Assisted Goals [place] Remover Goals Time Frame: Mar 10, 2021 Oral Hygiene (QC): 6 (met) Toileting Hygiene (QC): 6 (met) Shower/Bathe Self (QC): 4 (met) Upper Body Dressing (QC): 6 (met) Lower Body Dressing (QC): 6 (met) On/Off Footwear (QC): 5 (met) 1=Demonstrate adherence to instructed precautions during ADL tasks. 2=Patient will verbalize/demonstrate understanding of assistive devices/modifications for ADL. 3=Patient will improve strength/tolerance for activity to enable patient to perform ADL's. OT Education/Plan Discharge Recommendations Plan/Recommendations: Discharge/Goals Met Treatment Plan/Plan of Care Patient would benefit from OT for education, treatment and training to promote independence in ADL's, mobility, safety and/or upper extremity function for ADL's. Plan of Care: ADL Retraining, Functional Mobility, UE Funct Exercise/Act Treatment Duration: Mar 10, 2021 Frequency: 3 times per week Estimated Hrs Per Day: .25 hour per day Agreement: Yes Rehab Potential: Good Time/GCodes Start Time: 09:18 Stop Time: 10:12 Total Time Billed (hr/min): 54 Billed Treatment Time 1 visit-ADL 4 (54 min) BERT CAZARES Mar 06, 2021 09:43
--- NOTE | 2021-03-06 11:31 | Progress Note - Hospitalist ---
VISHNU QUINTERO 03/06/21 1131: Subjective HPI/CC On Admission Date Seen by Provider: Mar 06, 2021 Time Seen by Provider: 10:00 Patient is a 85-year-old white male who noted the onset of increased congestion Tuesday night with paroxysms of cough that he reports for minimally productive of a little bit of yellowish sputum. He did cough to the point that he could not catch his breath. He was brought in by family members secondary to this. He denied night sweats chills or fever but had a difficult to describe sensation in his face where he thought he might of run a fever although he did not check his temperature. Family noted they took him to the store Tuesday night that walking back in the house at appeared his respirations were more labored not typical for him. 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 He denies hemoptysis reports his appetite has been poor ever since surgery but even more so over the last week or so. He denies abdominal pain and is noted no melena or bright red blood per rectum. He denies nausea. Subjective/Events-last exam Patient was sitting up in bed at time of encounter. He is alert, conversing, and pleasant. He states that his cough is better than yesterday and he has been coughing up less phlegm. He is still experiencing shortness of breath with exertion. Denies dyspnea at rest or with conversation. He states he had 4-5 incidents of diarrhea yesterday. On one occasion he was unable to make it to the restroom in time and had an incident of fecal incontinence. Patient has been taking probiotics, will increase dose today. He reports an increase in appetite today and finished a full serving of scrambled eggs. Pulmonology consulted yesterday and recommended to continue current pulmonary regimen with addition of a short course of oral steroids, spirometry to evaluate FVC and FEV1, and out- patient Incruse Ellipta and pulmonary rehab. Na 130 BUN 29, Cr 0.82 WBC 23.6, likely due to combination of Prednisone and possible C. difficile infection CXR: Residual infiltrate and/or scarring about the left lung base. Postop changes left lung with left lung volume loss. Stable biapical pleural parenchymal densities. Review of Systems General: Appetite (increase in appetite since yesterday) Pulmonary: Dyspnea (with exertion), Cough Cardiovascular: No: Chest Pain Gastrointestinal: Diarrhea (4-5 incidents yesterday, 03/05/21); No: Nausea, Vomiting, Abdominal Pain Focused Exam Time of Focused Exam: 10:24 Objective Exam Vital Signs Vital Signs Date Time Temp Pulse Resp B/P (MAP) Pulse Ox O2 Delivery O2 Flow Rate FiO2 03/06/21 09:07 97 Room Air 03/06/21 08:00 36.4 78 18 146/78 (100) 03/05/21 12:12 0.00 03/04/21 03:44 21 Capillary Refill : Less Than 3 Seconds General Appearance: No Apparent Distress, Thin Respiratory: No Accessory Muscle Use, No Respiratory Distress, Wheezing (on the left) Cardiovascular: Regular Rate, Rhythm, No Edema Gastrointestinal: Normal Bowel Sounds, Non Tender, Soft Extremity: No Pedal Edema Neurologic/Psychiatric: Alert, Oriented x3, Normal Mood/Affect Skin: Normal Color, Warm/Dry Results/Procedures Lab Laboratory Tests 03/06/21 06:15 Patient resulted labs reviewed. 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 difficile infection Advanced age Debility Exertional dyspnea Hypokalemia - resolved Diarrhea - possible C. difficile infection Plan: Continue Cefepime Monitor for bowel habit/stool changes. Increase Probiotic dose Stool sample for C. difficile antigen and Toxins A&B Continue Duoneb Heparin lock IV fluids AM labs: CBC, BMP. Monitor Na PT/OT Incentive spirometer Cardiology resumed Losartan for HTN management Mucinex for mucus thinning Consult Pulmonology, initiate oral steroid therapy and conduct spirometry Lovenox injection for DVT prophylaxis AMALIA MAHONEY DO 03/07/21 0629: Subjective Subjective/Events-last exam Pt doing about the same Elevated White Count at 23,000 Loose stools make it suspicious for C-Diff Colitis and that was confirmed Started on Vancomycin and Questran Sodium level 130 Wheezing is noted in the left lower lobe Prednisone started and inhaled Corticosteroid by Pulmonology Review of Systems General: Fatigue, Malaise Pulmonary: Dyspnea (with exertion) Gastrointestinal: Diarrhea (4-5 incidents yesterday, 03/05/21) Objective Exam General Appearance: No Apparent Distress, WD/WN, Chronically ill, Thin Respiratory: No Accessory Muscle Use, No Respiratory Distress, Decreased Breath Sounds Cardiovascular: Regular Rate, Rhythm Neurologic/Psychiatric: Alert, Oriented x3 Assessment/Plan Assessment and Plan Assess & Plan/Chief Complaint Vancomycin p.o. for C. difficile Lovenox for DVT prophylaxis Supportive care Supervisory-Addendum Brief Verification & Attestation Participated in pt care: history, MDM, physical Personally performed: exam, history, MDM, supervision of care Care discussed with: Medical Student Procedures: n/a Results interpretation: Verified all documentation Verification and Attestation of Medical Student E/M Service A medical student performed and documented this service in my presence. I reviewed and verified all information documented by the medical student and made modifications to such information, when appropriate. I personally performed the physical exam and medical decision making. Amalia Mahoney, Mar 07, 2021,06:28 VISHNU QUINTERO Mar 06, 2021 11:31 AMALIA MAHONEY DO Mar 07, 2021 06:29
[2021-03-06] MEDS: LACTOBACILLUS ACIDOPHILUS (PROBIOTIC) CAPSULE PO SCH ×3 (11:45→17:14)
[2021-03-06] MEDS: VANCOMYCIN 125 MG CAPSULE PO SCH ×2 (14:45→17:14)
--- NOTE | 2021-03-06 16:20 | Cardiology Progress Note ---
Progress Note-Cardiology Events since last exam Date Seen by Provider: Mar 06, 2021 Time Seen by Provider: 16:15 Events since last exam I was initially asked to see him due to shortness of breath. His shortness of breath continues to improve. He denies chest discomfort, palpitations, syncope, or ankle edema. His main complaint is diarrhea. He has now been diagnosed with C. difficile. Certain portions of this document may have been dictated utilizing voice recognition technology. Inherent to this technology, typographical and grammatical errors may exist. As much as I am diligent to identify and correct these mistakes, some errors may remain in the document. Vitals Last set of Vitals Signs Vital Signs 03/04/21 03/05/21 03/06/21 03:44 12:12 15:42 Temp 35.2 Pulse 88 Resp 20 B/P (MAP) 146/70 (95) Pulse Ox 97 O2 Delivery Room Air O2 Flow Rate 0.00 FiO2 21 Labs Labs Laboratory Tests 03/06/21 06:15 Exam Vital Signs Vital Signs Date Time Temp Pulse Resp B/P (MAP) Pulse Ox O2 Delivery O2 Flow Rate FiO2 03/06/21 15:42 35.2 88 20 146/70 (95) 97 Room Air 03/05/21 12:12 0.00 03/04/21 03:44 21 Physical Exam General: Alert. No acute distress. Eye: No xanthelasma. HENT: Normocephalic. Neck: Jugular venous pressure does not appear elevated. Respiratory: Lungs are clear to auscultation. Respirations are non-labored. Breath sounds are equal. Symmetrical chest wall expansion. Cardiovascular: Normal rate. Regular rhythm. No murmur. No gallop. No edema. Gastrointestinal: Soft. Normal bowel sounds. Skin: Warm. Dry. Neurologic: Alert and oriented to person, place, time. Cranial nerves 3-11 duong sly intact. Psychiatric: Cooperative. Appropriate mood & affect. Labs Laboratory Tests Test 03/06/21 06:15 Range/Units White Blood Count 23.6 H 4.3-11.0 10^3/uL Red Blood Count 4.30 4.30-5.52 10^6/uL Hemoglobin 12.7 L 13.3-17.7 g/dL Hematocrit 38 L 40-54 % Mean Corpuscular Volume 88 80-99 fL Mean Corpuscular Hemoglobin 30 25-34 pg Mean Corpuscular Hemoglobin Concent 34 32-36 g/dL Red Cell Distribution Width 13.7 10.0-14.5 % Platelet Count 312 130-400 10^3/uL Mean Platelet Volume 9.3 9.0-12.2 fL Immature Granulocyte % (Auto) 1 % Neutrophils (%) (Auto) 92 H 42-75 % Lymphocytes (%) (Auto) 3 L 12-44 % Monocytes (%) (Auto) 4 0-12 % Eosinophils (%) (Auto) 0 0-10 % Basophils (%) (Auto) 0 0-10 % Neutrophils # (Auto) 21.8 H 1.8-7.8 10^3/uL Lymphocytes # (Auto) 0.6 L 1.0-4.0 10^3/uL Monocytes # (Auto) 1.0 0.0-1.0 10^3/uL Eosinophils # (Auto) 0.0 0.0-0.3 10^3/uL Basophils # (Auto) 0.0 0.0-0.1 10^3/uL Immature Granulocyte # (Auto) 0.2 H 0.0-0.1 10^3/uL Neutrophils % (Manual) 91 % Lymphocytes % (Manual) 3 % Monocytes % (Manual) 6 % [place] Cells MODERATE Elliptocytes SLIGHT Acanthocytes SLIGHT Sodium Level 130 L 135-145 MMOL/L Potassium Level 3.6 3.6-5.0 MMOL/L Chloride Level 97 L 98-107 MMOL/L Carbon Dioxide Level 19 L 21-32 MMOL/L Anion Gap 14 5-14 MMOL/L Blood Urea Nitrogen 29 H 7-18 MG/DL Creatinine 0.82 0.60-1.30 MG/DL Estimat Glomerular Filtration Rate 86 BUN/Creatinine Ratio 35 Glucose Level 117 H 70-105 MG/DL Calcium Level 9.1 8.5-10.1 MG/DL Corrected Calcium 9.5 8.5-10.1 MG/DL Total Bilirubin 0.7 0.1-1.0 MG/DL Aspartate Amino Transf (AST/SGOT) 16 5-34 U/L Alanine Aminotransferase (ALT/SGPT) 13 0-55 U/L Alkaline Phosphatase 69 40-136 U/L Total Protein 6.3 L 6.4-8.2 GM/DL Albumin 3.5 3.2-4.5 GM/DL Diagnosis/Problems Diagnosis/Problems (1) Dyspnea Assessment & Plan: He is in the hospital being treated for pneumonia and also has a prior partial left lower lobectomy. I suspect the pneumonia on top of his baseline decreased pulmonary capacity has led to his shortness of breath. His echocardiogram during this admission shows a normal ejection fraction with no significant valvular heart disease. His chest CT did not show any evidence of a pulmonary embolism. He was seen by pulmonary medicine via telemedicine who also believes the patient's shortness of breath is related to his pulmonary disease. No additional cardiac testing is indicated at this time. His symptoms are gradually improving. Cardiology will sign off. Please call if you have other questions or concerns. 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 There does not seem to be any evidence of luminal compromise and the patient does not seem to be having any symptoms. I suspect if this truly is a dissection, this is chronic and can be managed medically. One might consider a follow-up chest and abdominal CT scan with contrast in 6 months. I told him that we could certainly follow him in the cardiology office for long-term surveillance of this dissection. He would like to discuss this with his regular primary provider. If he decides to follow-up with our office, he has my contact information and will call himself to schedule an appointment. (3) Coronary artery disease without angina pectoris Assessment & Plan: Coronary calcification was also noted on his chest CT which is a sign of probable underlying coronary atherosclerosis. However, at the present time, he is not having any angina. I would just recommend he continue on statin medication. I also added low strength aspirin. (4) Paroxysmal atrial fibrillation Assessment & Plan: It sounds likely he may have had postoperative atrial fibrillation following his partial lung resection in 2019. His electroc ardiogram from admission shows a sinus rhythm. This does not necessarily require ongoing follow-up. (5) Primary hypertension Assessment & Plan: His blood pressures have improved after restarting his home dose of losartan. (6) Mixed hyperlipidemia Assessment & Plan: Continue statin medication. His LDL level was actually quite low on his home dose of simvastatin. He may be able to reduce the dose. I suggested he follow-up with his primary provider in this regard after discharge. (7) Abnormal electrocardiogram Assessment & Plan: He has a borderline abnormal electrocardiogram as outlined above but no evidence of prior infarct or ischemia at rest. His chest CT did show evidence of coronary artery disease but he is not having any angina. I do not see any indication for an ischemic evaluation at this time. CHIKA PERSON JR, MD Mar 06, 2021 16:20
[2021-03-06] MEDS ORDERED: CEFEPIME INJECTION 1,000 MG in NS (IVPB) 50 ML IV SCH (17:00)
[2021-03-06] MEDS: CHOLESTYRAMINE 4 GM (QUESTRAN LITE, PREVALITE) PKT PO SCH (18:16)
[2021-03-06] MEDS: AtorvaSTATin TABLET 10 MG TABLET PO SCH (20:46)
[2021-03-06] MEDS: ENOXAPARIN 40 MG/0.4 ML (LOVENOX) SYR SC SCH (20:46)
[2021-03-07] MEDS: VANCOMYCIN 125 MG CAPSULE PO SCH ×5 (00:53→23:37)
[2021-03-07 03:04] VITALS: BP 110/55
[2021-03-07] MEDS: CEFEPIME INJECTION 1,000 MG in NS (IVPB) 50 ML IV SCH (05:02)
[2021-03-07] MEDS: KCL 10 MEQ TAB (MICRO K) PO SCH (06:32)
[2021-03-07] MEDS: predniSONE 20 MG TAB PO SCH (06:32)
[2021-03-07 06:44] LABS: BASOPHILS # (AUTO) 0.1 10^3/uL (0.0-0.1); BASOPHILS % (AUTO) 0 % (0-10); EOSINOPHILS % (AUTO) 0 % (0-10); HEMATOCRIT 37 % (40-54); HEMOGLOBIN 12.4 g/dL (13.3-17.7); LYMPHOCYTES # (AUTO) 1.1 10^3/uL (1.0-4.0); LYMPHOCYTES % (AUTO) 6 % (12-44); MEAN CORPUSCULAR HEMOGLOBIN 30 pg (25-34); MEAN CORPUSCULAR HGB CONC 33 g/dL (32-36); MEAN CORPUSCULAR VOLUME 89 fL (80-99); MEAN PLATELET VOLUME 9.2 fL (9.0-12.2); MONOCYTES # (AUTO) 0.8 10^3/uL (0.0-1.0); MONOCYTES % (AUTO) 4 % (0-12); NEUTROPHILS # (AUTO) 16.7 10^3/uL (1.8-7.8); NEUTROPHILS % (AUTO) 88 % (42-75); PLATELET COUNT 325 10^3/uL (130-400); WHITE BLOOD COUNT 18.9 10^3/uL (4.3-11.0)
--- NOTE | 2021-03-07 06:48 | Progress Note - Hospitalist ---
Subjective HPI/CC On Admission Date Seen by Provider: Mar 07, 2021 Time Seen by Provider: 11:30 Patient is a 85-year-old white male who noted the onset of increased congestion Tuesday night with paroxysms of cough that he reports for minimally productive of a little bit of yellowish sputum. He did cough to the point that he could not catch his breath. He was brought in by family members secondary to this. He denied night sweats chills or fever but had a difficult to describe sensation in his face where he thought he might of run a fever although he did not check his temperature. Family noted they took him to the store Tuesday night that walking back in the house at appeared his respirations were more labored not typical for him. 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 He denies hemoptysis reports his appetite has been poor ever since surgery but even more so over the last week or so. He denies abdominal pain and is noted no melena or bright red blood per rectum. He denies nausea. Subjective/Events-last exam Patient doing a lot better Completed antibiotics Cough improved Diarrhea improved with oral vancomycin and Questran Walking around pretty well Review of Systems Pulmonary: Cough Gastrointestinal: Diarrhea Focused Exam Time of Focused Exam: 10:24 Objective Exam Vital Signs Vital Signs Date Time Temp Pulse Resp B/P (MAP) Pulse Ox O2 Delivery O2 Flow Rate FiO2 03/08/21 03:45 36.0 67 18 115/57 (76) 96 Room Air 03/05/21 12:12 0.00 03/04/21 03:44 21 Capillary Refill : Less Than 3 Seconds General Appearance: No Apparent Distress, WD/WN, Chronically ill, Thin Respiratory: Lungs Clear, Normal Breath Sounds Cardiovascular: Regular Rate, Rhythm Neurologic/Psychiatric: Alert, Oriented x3, No Motor/Sensory Deficits, Normal Mood/Affect Results/Procedures Lab Laboratory Tests 03/07/21 06:30 Patient resulted labs reviewed. Imaging: Reviewed Imaging Report Assessment/Plan Assessment and Plan Assess & Plan/Chief Complaint Assessment: Pneumonia Exacerbation of COPD Acute C. difficile colitis with history of C. difficile colitis Plan: Vancomycin p.o. for C. difficile Lovenox for DVT prophylaxis Supportive care Critical Care Critically Ill Patient DAVID MAHONEY DO Mar 07, 2021 06:48
[2021-03-07 06:56] LABS: ALBUMIN 3.7 GM/DL (3.2-4.5); POTASSIUM 3.3 MMOL/L (3.6-5.0)
[2021-03-07 06:58] LABS: CALCIUM 9.2 MG/DL (8.5-10.1)
[2021-03-07 06:59] LABS: TOTAL PROTEIN 6.5 GM/DL (6.4-8.2)
[2021-03-07 07:01] LABS: BILIRUBIN,TOTAL 0.5 MG/DL (0.1-1.0)
[2021-03-07 07:02] LABS: CREATININE SERUM 0.82 MG/DL (0.60-1.30)
[2021-03-07 07:30] VITALS: BP 120/61
[2021-03-07] MEDS: UMECLIDINIUM BROMIDE (INCRUSE ELLIPTA) 7'S IH SCH (07:45)
[2021-03-07] MEDS: CHOLESTYRAMINE 4 GM (QUESTRAN LITE, PREVALITE) PKT PO SCH ×3 (09:34→17:13)
[2021-03-07] MEDS: LOSARTAN 50 MG (COZAAR) TAB PO SCH (09:34)
[2021-03-07] MEDS: ASPIRIN E.C. 81 MG (ECOTRIN) TAB PO SCH (09:34)
[2021-03-07] MEDS: guaiFENesin (MUCINEX) 600 MG TAB PO SCH ×2 (09:34→20:56)
[2021-03-07] MEDS: LACTOBACILLUS ACIDOPHILUS (PROBIOTIC) CAPSULE PO SCH ×3 (09:34→17:13)
--- NOTE | 2021-03-07 10:41 | Physical Therapy Daily Note ---
PT Daily Note-Current Subjective Pt is in bed and agreeable to bed ex. He notes that he just got back to bed from the restroom and due to cdiff is no longer allowed out of his room. Mental Status Patient Orientation: Person, Place, Time, Situation Attachments: Oxygen, IV Transfers SCALE: Activities may be completed with or without assistive devices. 9-Pvxhqvxslr-ayqyboi completes the activity by him/herself with no assistance from a helper. 5-Set-up or Clean-up Assistance-helper sets up or cleans up; patient completes activity. [place] assists only prior to or following the activity. 4-Supervision or Touching Assistance-helper provides verbal cues and/or touching/steadying and/or contact guard assistance as patient completes activity. Assistance may be provided throughout the activity or intermittently. 3-Partial/Moderate Assistance-helper does LESS THAN HALF the effort. [place] lifts, holds or supports trunk or limbs, but provides less than half the effort. 2-Substantial/Maximal Assistance-helper does MORE THAN HALF the effort. [place] lifts or holds trunk or limbs and provides more than half the effort. 4-Gtlelrzip-lodwdg does ALL the effort. Patient does none of the effort to complete the activity. Or, the assistance of 2 or more helpers is required for the patient to complete the activity. If activity was not attempted, code reason: 7-Patient Refused. 9-Not Applicable-not attempted and the patient did not perform the activity before the current illness, exacerbation or injury. 10-Not Attempted due to Environmental Limitations-(lack of equipment, weather restraints, etc.). 88-Not Attempted due to Medical Conditions or Safety Concerns. Gait Training Does the Patient Walk?: Yes Wheelchair Training Does the Pt Use a Wheelchair?: No Exercises Supine Ex: LE Protocol, Bridging, Ankle pumps, Glut sets, Lower trunk rotation, Heel Slides, Short Arc Quads Supine Reps: 20 Pt is able to complete the exercises without assistance. Assessment Current Status: Good Progress Despite his newly imposed limitations, he remains positive about his progress and participates fully. PT Care Home Goals Care Home Goals PT Horses Or Mules Teamster Goals Time Frame: Mar 14, 2021 Roll Left & Right (QC): 6 Sit to Lying (QC): 6 Lying-Sitting on Side/Bed(QC): 6 Sit to Stand (QC): 6 Chair/Smb-wd-Dsntg Xfer(QC): 6 Toilet Transfer (QC): 6 Does the Patient Walk: Yes Walk 10 feet (QC): 6 Walk 50ft with 2 Turns (QC): 6 Walk 150 ft (QC): 6 Walking 10ft on Uneven Surface: 6 Does the Pt use WC or Scooter?: No PT Plan Treatment/Plan Treatment Plan: Continue Plan of Care Treatment Plan: Education, Functional Activity Sandie, Functional Strength, Gait, Therapeutic Exercise Treatment Duration: Mar 14, 2021 Frequency: 6 times per week Estimated Hrs Per Day: .25 hour per day Time/GCodes Time In: 0900 Time Out: 0915 Total Billed Treatment Time: 15 Total Billed Treatment 1, ex 15 ALON KILGORE PT Mar 07, 2021 10:41
[2021-03-07 11:30] VITALS: BP 120/61
[2021-03-07 12:00] VITALS: BP 105/62
[2021-03-07] MEDS ORDERED: KCL 10 MEQ TAB (MICRO K) PO SCH (13:00)
[2021-03-07] MEDS: POTASSIUM BICARB 20 MEQ (EFFER-K) TABLET PO SCH ×2 (13:40→20:52)
[2021-03-07 15:43] VITALS: BP 120/66
[2021-03-07 20:20] VITALS: BP 107/62
[2021-03-07] MEDS: ENOXAPARIN 40 MG/0.4 ML (LOVENOX) SYR SC SCH (20:56)
[2021-03-07] MEDS: AtorvaSTATin TABLET 10 MG TABLET PO SCH (20:56)
[2021-03-08] VITALS (7 sets, daily range): BP systolic 103–142; BP diastolic 56–75
[2021-03-08] MEDS: VANCOMYCIN 125 MG CAPSULE PO SCH ×3 (05:59→17:32)
[2021-03-08] MEDS: predniSONE 20 MG TAB PO SCH (06:00)
--- NOTE | 2021-03-08 07:00 | Progress Note - Hospitalist ---
Subjective HPI/CC On Admission Date Seen by Provider: Mar 08, 2021 Time Seen by Provider: 11:45 Patient is a 85-year-old white male who noted the onset of increased congestion Tuesday night with paroxysms of cough that he reports for minimally productive of a little bit of yellowish sputum. He did cough to the point that he could not catch his breath. He was brought in by family members secondary to this. He denied night sweats chills or fever but had a difficult to describe sensation in his face where he thought he might of run a fever although he did not check his temperature. Family noted they took him to the store Tuesday night that walking back in the house at appeared his respirations were more labored not typical for him. 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 He denies hemoptysis reports his appetite has been poor ever since surgery but even more so over the last week or so. He denies abdominal pain and is noted no melena or bright red blood per rectum. He denies nausea. Subjective/Events-last exam Patient doing a lot better Formed stools now present No cough reported Tolerating treatment well Likely go home tomorrow Lives at the [facility] Review of Systems General: Fatigue, Malaise Gastrointestinal: Diarrhea Focused Exam Time of Focused Exam: 10:24 Objective Exam Vital Signs Vital Signs Date Time Temp Pulse Resp B/P (MAP) Pulse Ox O2 Delivery O2 Flow Rate FiO2 03/09/21 04:36 36.1 60 20 121/59 (79) 98 Room Air 03/08/21 08:00 0.00 03/04/21 03:44 21 Capillary Refill : Less Than 3 Seconds General Appearance: No Apparent Distress, WD/WN, Chronically ill, Thin Respiratory: No Accessory Muscle Use, No Respiratory Distress, Decreased Breath Sounds Cardiovascular: Regular Rate, Rhythm Neurologic/Psychiatric: Alert, Oriented x3, No Motor/Sensory Deficits, Normal Mood/Affect Results/Procedures Lab Laboratory Tests 03/08/21 06:50 Patient resulted labs reviewed. Imaging: Reviewed Imaging Report Assessment/Plan Assessment and Plan Assess & Plan/Chief Complaint Assessment: Pneumonia Exacerbation of COPD Acute C. difficile colitis with history of C. difficile colitis Plan: Vancomycin p.o. for C. difficile Lovenox for DVT prophylaxis Supportive care 03/08/2021: Vancomycin p.o. Finished with antibiotics Discharge home tomorrow Critical Care Critically Ill Patient DAVID MAHONEY DO Mar 08, 2021 07:00
[2021-03-08 07:04] LABS: BASOPHILS % (AUTO) 0 % (0-10); EOSINOPHILS # (AUTO) 0.1 10^3/uL (0.0-0.3); EOSINOPHILS % (AUTO) 1 % (0-10); HEMATOCRIT 33 % (40-54); HEMOGLOBIN 10.9 g/dL (13.3-17.7); LYMPHOCYTES # (AUTO) 1.1 10^3/uL (1.0-4.0); LYMPHOCYTES % (AUTO) 12 % (12-44); MEAN CORPUSCULAR HEMOGLOBIN 30 pg (25-34); MEAN CORPUSCULAR HGB CONC 34 g/dL (32-36); MEAN CORPUSCULAR VOLUME 89 fL (80-99); MEAN PLATELET VOLUME 9.2 fL (9.0-12.2); MONOCYTES # (AUTO) 0.5 10^3/uL (0.0-1.0); MONOCYTES % (AUTO) 5 % (0-12); NEUTROPHILS # (AUTO) 7.5 10^3/uL (1.8-7.8); NEUTROPHILS % (AUTO) 82 % (42-75); PLATELET COUNT 272 10^3/uL (130-400); WHITE BLOOD COUNT 9.1 10^3/uL (4.3-11.0)
[2021-03-08 07:11] LABS: ALBUMIN 3.2 GM/DL (3.2-4.5); POTASSIUM 3.5 MMOL/L (3.6-5.0)
[2021-03-08 07:13] LABS: CALCIUM 8.6 MG/DL (8.5-10.1)
[2021-03-08 07:14] LABS: TOTAL PROTEIN 5.5 GM/DL (6.4-8.2)
[2021-03-08 07:16] LABS: BILIRUBIN,TOTAL 0.4 MG/DL (0.1-1.0)
[2021-03-08 07:17] LABS: CREATININE SERUM 0.75 MG/DL (0.60-1.30)
[2021-03-08] MEDS: UMECLIDINIUM BROMIDE (INCRUSE ELLIPTA) 7'S IH SCH (07:25)
[2021-03-08] MEDS: POTASSIUM BICARB 20 MEQ (EFFER-K) TABLET PO SCH ×3 (09:37→21:31)
[2021-03-08] MEDS: CHOLESTYRAMINE 4 GM (QUESTRAN LITE, PREVALITE) PKT PO SCH ×3 (09:37→17:32)
[2021-03-08] MEDS: ASPIRIN E.C. 81 MG (ECOTRIN) TAB PO SCH (09:38)
[2021-03-08] MEDS: LACTOBACILLUS ACIDOPHILUS (PROBIOTIC) CAPSULE PO SCH ×3 (09:38→17:31)
[2021-03-08] MEDS: guaiFENesin (MUCINEX) 600 MG TAB PO SCH ×2 (09:38→21:30)
[2021-03-08] MEDS: LOSARTAN 50 MG (COZAAR) TAB PO SCH (09:38)
[2021-03-08] MEDS: AtorvaSTATin TABLET 10 MG TABLET PO SCH (21:30)
[2021-03-08] MEDS: ENOXAPARIN 40 MG/0.4 ML (LOVENOX) SYR SC SCH (21:30)
[2021-03-09] MEDS: VANCOMYCIN 125 MG CAPSULE PO SCH ×3 (00:48→12:06)
[2021-03-09 04:36] VITALS: BP 121/59
[2021-03-09] MEDS: predniSONE 20 MG TAB PO SCH (06:20)
[2021-03-09 06:41] LABS: BASOPHILS % (AUTO) 0 % (0-10); EOSINOPHILS # (AUTO) 0.1 10^3/uL (0.0-0.3); EOSINOPHILS % (AUTO) 1 % (0-10); HEMATOCRIT 35 % (40-54); HEMOGLOBIN 11.5 g/dL (13.3-17.7); LYMPHOCYTES # (AUTO) 1.3 10^3/uL (1.0-4.0); LYMPHOCYTES % (AUTO) 14 % (12-44); MEAN CORPUSCULAR HEMOGLOBIN 29 pg (25-34); MEAN CORPUSCULAR HGB CONC 33 g/dL (32-36); MEAN CORPUSCULAR VOLUME 89 fL (80-99); MEAN PLATELET VOLUME 9.3 fL (9.0-12.2); MONOCYTES # (AUTO) 0.5 10^3/uL (0.0-1.0); MONOCYTES % (AUTO) 6 % (0-12); NEUTROPHILS # (AUTO) 6.9 10^3/uL (1.8-7.8); NEUTROPHILS % (AUTO) 77 % (42-75); PLATELET COUNT 286 10^3/uL (130-400); WHITE BLOOD COUNT 8.9 10^3/uL (4.3-11.0)
[2021-03-09 07:07] LABS: ALBUMIN 3.3 GM/DL (3.2-4.5); BILIRUBIN,TOTAL 0.4 MG/DL (0.1-1.0); CALCIUM 8.7 MG/DL (8.5-10.1); CREATININE SERUM 0.77 MG/DL (0.60-1.30); POTASSIUM 3.8 MMOL/L (3.6-5.0); TOTAL PROTEIN 5.7 GM/DL (6.4-8.2)
[2021-03-09 08:00] VITALS: BP 138/78
[2021-03-09] MEDS: UMECLIDINIUM BROMIDE (INCRUSE ELLIPTA) 7'S IH SCH (08:21)
[2021-03-09] MEDS: guaiFENesin (MUCINEX) 600 MG TAB PO SCH (08:42)
[2021-03-09] MEDS: LOSARTAN 50 MG (COZAAR) TAB PO SCH (08:42)
[2021-03-09] MEDS: ASPIRIN E.C. 81 MG (ECOTRIN) TAB PO SCH (08:43)
[2021-03-09] MEDS: LACTOBACILLUS ACIDOPHILUS (PROBIOTIC) CAPSULE PO SCH ×2 (08:43→12:06)
[2021-03-09] MEDS: POTASSIUM BICARB 20 MEQ (EFFER-K) TABLET PO SCH ×2 (08:43→12:05)
[2021-03-09] MEDS: CHOLESTYRAMINE 4 GM (QUESTRAN LITE, PREVALITE) PKT PO SCH ×2 (08:43→12:06)
--- NOTE | 2021-03-09 08:51 | Physical Therapy Daily Note ---
PT Daily Note-Current Subjective Patient presents laying in bed. Patient reports that he is willing to get up and walk and perform some exercises. Mental Status Patient Orientation: Person, Place, Time, Situation Transfers SCALE: Activities may be completed with or without assistive devices. 9-Taaybjhipk-avizylx completes the activity by him/herself with no assistance from a helper. 5-Set-up or Clean-up Assistance-helper sets up or cleans up; patient completes activity. [place] assists only prior to or following the activity. 4-Supervision or Touching Assistance-helper provides verbal cues and/or touching/steadying and/or contact guard assistance as patient completes activity. Assistance may be provided throughout the activity or intermittently. 3-Partial/Moderate Assistance-helper does LESS THAN HALF the effort. [place] lifts, holds or supports trunk or limbs, but provides less than half the effort. 2-Substantial/Maximal Assistance-helper does MORE THAN HALF the effort. [place] lifts or holds trunk or limbs and provides more than half the effort. 3-Xszuapkxu-mtfrds does ALL the effort. Patient does none of the effort to complete the activity. Or, the assistance of 2 or more helpers is required for the patient to complete the activity. If activity was not attempted, code reason: 7-Patient Refused. 9-Not Applicable-not attempted and the patient did not perform the activity before the current illness, exacerbation or injury. 10-Not Attempted due to Environmental Limitations-(lack of equipment, weather restraints, etc.). 88-Not Attempted due to Medical Conditions or Safety Concerns. Lying to Sitting/Side of Bed(Q: 6 Sit to Stand (QC): 6 Chair/Ivu-pp-Qdopz Xfer(QC): 6 Toilet Transfer (QC): 6 Gait Training Does the Patient Walk?: Yes Distance: 1000' Walk 10 feet (QC): 6 Walk 50 ft with 2 Turns(QC): 6 Walk 150 ft (QC): 6 Gait Assistive Device: FWW Patient ambulated independently for 1000'. Patient required break half way through to use the restroom. Exercises Seated Therapy Exercises: Ankle pumps, Long arc quads, Hip flexion, Hip abd/add Seated Reps: 10 Assessment Current Status: Good Progress Patient continues to improve ambulation distance. Patient ambulated 1000' independently with a break in the middle to use the bathroom. Patient completed seated exercises as well without difficulty. Patient still has slight apprehension about returning home but reports that he believes he is stronger than when he was a few days ago. Patient is able to entire therapy session with minimal fatigue. PT Assisted Goals Astrophysics Professor Goals PT Assisted Goals Time Frame: Mar 14, 2021 Roll Left & Right (QC): 6 Sit to Lying (QC): 6 Lying-Sitting on Side/Bed(QC): 6 Sit to Stand (QC): 6 Chair/Eof-lt-Ewzsi Xfer(QC): 6 Toilet Transfer (QC): 6 Does the Patient Walk: Yes Walk 10 feet (QC): 6 Walk 50ft with 2 Turns (QC): 6 Walk 150 ft (QC): 6 Walking 10ft on Uneven Surface: 6 Does the Pt use WC or Scooter?: No PT Plan Problem List Problem List: Activity Tolerance, Functional Strength, Safety, Balance, Gait Treatment/Plan Treatment Plan: Continue Plan of Care Treatment Plan: Education, Functional Activity Sandie, Functional Strength, Gait, Therapeutic Exercise Treatment Duration: Mar 14, 2021 Frequency: 6 times per week Estimated Hrs Per Day: .25 hour per day Time/GCodes Time In: 745 Time Out: 809 Total Billed Treatment Time: 24 Total Billed Treatment 1 Visit Gait 15 min FA 9 min LILLI COOPER PT Mar 09, 2021 08:51
[2021-03-09] MEDS ORDERED: VANC125C5 PO (10:24)
[2021-03-09] MEDS ORDERED: ASPI-1238 PO (10:24)
[2021-03-09] MEDS ORDERED: LACT1CAP7 PO (10:24)
[2021-03-09] MEDS ORDERED: CHOL4PAC3 PO (10:24)
--- NOTE | 2021-03-09 10:25 | D/C HH Face to Face Order ---
D/C Face to Face Orders Reconcile Patient Problems Problems Reviewed?: Yes Instructions for Patient Via [facility] disco volante, Patient Instructions/FollowUp: PCP 1 week Physician to follow Patient: Adina Discharge Diet for Home: No Restrictions Patient Problems: PNA C diff Patient Data-Allergies,Ht & Wt Patient Allergies: Coded Allergies: NKANo Known Allergies (Verified Allergy, Unknown, 03/24/08) Height (Feet): 5 Height (Inches): 9.00 Weight (Pounds): 152 Weight (Ounces): 4.3 Home Health Need/Face to Face Date of Face to Face: Mar 09, 2021 Clinical Findings: Generalized weakness and fatigue, Instability, Muscle weakness I have seen Pt [id number]: Yes Discharged To: Home Diagnosis/Conditions: C diff Patient is Homebound due to: Muscle weakness Homebound Status Due to the above stated illness, injury or surgical procedure (medical condition or diagnosis) and associated clinical findings, the patient is homebound because of his/her inability to leave home except with aid of a supportive device and/or person AND leaving the home requires a considerable and taxing effort or is medically contraindicated. Pt req the following assistanc: [facility] Nursing Orders Home Health Services Order: Nursing Services, Computer Compositor-Evaluate & Treat, Physical Therapy-Evaluate & Treat Home Health Infusion Therapy Line Start Date: Mar 01, 2021 Certify Stmt I certify that this patient is under my care and that I, a nurse practitioner or a physician; a assistant elementary teacher working with me, had a face to face encounter that - meets the physician face to face encounter requirements with this patient as dated. DAVID MAHONEY DO Mar 09, 2021 10:25
--- NOTE | 2021-03-09 10:25 | Discharge Summary ---
Discharge Summary Hospital Course Was the Problem List Reviewed?: Yes Problems/Dx: (1) Dyspnea (2) Dissecting aneurysm of thoracic aorta, Gutierrez type B (3) Coronary artery disease without angina pectoris (4) Paroxysmal atrial fibrillation (5) Primary hypertension (6) Mixed hyperlipidemia (7) Abnormal electrocardiogram Hospital Course Date of Admission: Mar 01, 2021 at 10:30 Admission Diagnosis : Family Physician/Provider: Roscoe Holden MD Date of Discharge: 03/09/21 Discharge Diagnosis: Pneumonia, exacerbation of COPD, C. difficile colitis, general debility Hospital Course: Pt had an uneventful but lengthy hospital course for 9 days for pneumonia and acute hypoxic respiratory failure. Cardiology was consulted and pt was placed on baby aspirin. Pulmonology saw him placed on inhaler and Prednisone for a few days. C.diff was diagnosed he has a history of that. Pt was placed on Vancomycin PO QID. Overall he did very well, needed home care at discharge. He was found to be in improved condition. Labs and Pending Lab Test: Laboratory Tests 03/09/21 05:57: White Blood Count 8.9, Red Blood Count 3.91L, Hemoglobin 11.5L, Hematocrit 35L, Mean Corpuscular Volume 89, Mean Corpuscular Hemoglobin 29, Mean Corpuscular Hemoglobin Concent 33, Red Cell Distribution Width 13.5, Platelet Count 286, Mean Platelet Volume 9.3, Immature Granulocyte % (Auto) 2, Neutrophils (%) (Auto) 77H, Lymphocytes (%) (Auto) 14, Monocytes (%) (Auto) 6, Eosinophils (%) (Auto) 1, Basophils (%) (Auto) 0, Neutrophils # (Auto) 6.9, Lymphocytes # (Auto) 1.3, Monocytes # (Auto) 0.5, Eosinophils # (Auto) 0.1, Basophils # (Auto) 0.0, Immature Granulocyte # (Auto) 0.2H, Sodium Level 133L, Potassium Level 3.8, Chloride Level 100, Carbon Dioxide Level 23, Anion Gap 10, Blood Urea Nitrogen 29H, Creatinine 0.77, Estimat Glomerular Filtration Rate 88, BUN/Creatinine Ratio 38, Glucose Level 87, Calcium Level 8.7, Corrected Calcium 9.3, Total Bilirubin 0.4, Aspartate Amino Transf (AST/SGOT) 18, Alanine Aminotransferase (ALT/SGPT) 14, Alkaline Phosphatase 58, Total Protein 5.7L, Albumin 3.3 Microbiology 03/06/21 C. difficile GDH Antigen & Toxins - Final, Complete 03/02/21 MRSA Screen - Final, Complete MRSA not isolated 03/01/21 Blood Culture - Final, Complete No growth Home Meds Active Acidophilus-Pectin Capsule (Lactobacillus Acidophilus/Pect) 1 Each Capsule 2 Each PO TIDWM Aspirin EC (Aspirin) 81 Mg Tablet.dr 81 Mg PO DAILY Prevalite Packet (Cholestyramine/Aspartame) 4 Gm Powd.pack 4 Gm PO TIDWM Vancomycin HCl 125 Mg Capsule 125 Mg PO QID Reported Tylenol Extra Strength (Acetaminophen) 500 Mg Tablet 500 Mg PO Q8H PRN Multi-Day Plus Iron Tablet (Multivitamin/Iron/Folic Acid) 1 Each Tablet 1 Each PO DAILY Losartan Potassium 50 Mg Tablet 50 Mg PO DAILY Escitalopram Oxalate 10 Mg Tablet 10 Mg PO DAILY Simvastatin 40 Mg Tablet 40 Mg PO DAILY Assessment/Pt Instructions PCP in 1 week Discharge Planning: <30 minutes discharge planning Discharge Instructions Discharge Diet: No Restrictions Activity as Tolerated: Yes Discharge Physical Examination Vital Signs Vital Signs Date Time Temp Pulse Resp B/P (MAP) Pulse Ox O2 Delivery O2 Flow Rate FiO2 03/09/21 08:22 98 Room Air 03/09/21 08:00 36.6 75 20 138/78 (98) 03/09/21 08:00 0.00 03/04/21 03:44 21 General Appearance: No Apparent Distress, WD/WN, Chronically ill Respiratory: Normal Breath Sounds Cardiovascular: Regular Rate, Rhythm Allergies: Coded Allergies: NKANo Known Allergies (Verified Allergy, Unknown, 03/24/08) Discharge Summary Date of Admission Mar 01, 2021 at 10:30 Date of Discharge Discharge Date: Mar 09, 2021 Admission Diagnosis 1. Acute left lower lobe pneumonia COVID and flu negative bacterial etiology likely continuing broad-spectrum antibiotics in the form of cefepime and vancomycin as patient has MRSA and Pseudomonas risk. Blood cultures pending. Suspect mucous plugging that did require BiPAP in the emergency room currently the patient is on 3 L per nasal cannula with BiPAP capability in the room should he develop respiratory difficulty again. 2. Patient does have a past history of C. difficile that followed his left upper lobe lobectomy a little over a year ago we will continue to monitor an increased risk was discussed with the patient with the need to notify for any bowel habit change. 3. 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 4. History of hyperlipidemia continue statin therapy 5. History of hypertension hold lisinopril for now resume for significant hypertension. 6. Hyponatremia secondary to underlying pneumonia doubt paraneoplastic process but cannot rule this out entirely. He did not experience hyponatremia previous to squamous cell carcinoma resection.Normal saline has been initiated we will repeat basic metabolic panel in the morning with CBC. Patient currently asymptomatic. Discharge Diagnosis Assessment: Pneumonia Exacerbation of COPD Acute C. difficile colitis with history of C. difficile colitis Plan: Vancomycin p.o. for C. difficile Lovenox for DVT prophylaxis Supportive care 03/08/2021: Vancomycin p.o. Finished with antibiotics Discharge home tomorrow (1) Dyspnea Assessment & Plan: He is in the hospital being treated for pneumonia and also has a prior partial left lower lobectomy. I suspect the pneumonia on top of his baseline decreased pulmonary capacity has led to his shortness of breath. His echocardiogram during this admission shows a normal ejection fraction with no s ignificant valvular heart disease. His chest CT did not show any evidence of a pulmonary embolism. He was seen by pulmonary medicine via telemedicine who also believes the patient's shortness of breath is related to his pulmonary disease. No additional cardiac testing is indicated at this time. His symptoms are gradually improving. Cardiology will sign off. Please call if you have other questions or concerns. (2) Dissecting aneurysm of thoracic aorta, Gutierrez type B Assessment & Plan: This was an incidental finding on his chest CT. There does not seem to be any evidence of luminal compromise and the patient does not seem to be having any symptoms. I suspect if this truly is a dissection, this is chronic and can be managed medically. One might consider a follow-up chest and abdominal CT scan with contrast in 6 months. I told him that we could certainly follow him in the cardiology office for long-term surveillance of this dissection. He would like to discuss this with his regular primary provider. If he decides to follow-up with our office, he has my contact information and will call himself to schedule an appointment. (3) Coronary artery disease without angina pectoris Assessment & Plan: Coronary calcification was also noted on his chest CT which is a sign of probable underlying coronary atherosclerosis. However, at the present time, he is not having any angina. I would just recommend he continue on statin medication. I also added low strength aspirin. (4) Paroxysmal atrial fibrillation Assessment & Plan: It sounds likely he may have had postoperative atrial fibrillation following his partial lung resection in 2019. His electrocardiogram from admission shows a sinus rhythm. This does not necessarily require ongoing follow-up. (5) Primary hypertension Assessment & Plan: His blood pressures have improved after restarting his home dose of losartan. (6) Mixed hyperlipidemia Assessment & Plan: Continue statin medication. His LDL level was actually quite low on his home dose of simvastatin. He may be able to reduce the dose. I suggested he follow-up with his primary provider in this regard after discharge. (7) Abnormal electrocardiogram Assessment & Plan: He has a borderline abnormal electrocardiogram as outlined above but no evidence of prior infarct or ischemia at rest. His chest CT did show evidence of coronary artery disease but he is not having any angina. I do not see any indication for an ischemic evaluation at this time. DAVID MAHONEY DO Mar 09, 2021 10:25
[2021-03-09 11:10] VITALS: BP 128/60
--- NOTE | 2021-03-09 13:14 | Progress Note ---
VISHNU QUINTERO 03/09/21 1314: Progress Note Brief hospital course: Tong Coats is an 85 year old white male who presented to the ED on 03/01/2021 via family with exertional dyspnea requiring supplemental oxygen. He has a past medical history of squamous cell carcinoma s/p left upper lobectomy in 2019, C. difficile infection, hyperlipidemia, and hypertension. CXR demonstrated new left basilar pulmonary opacities and stable chronic volume loss within left lung and chronic left apical pleural thickening. Patient was admitted for left lower lobe pneumonia, and Cefepime, Vancomycin, supplemental oxygen, and IV fluids were initiated. On 03/02/2021, patient developed hyponatremia and IV fluids were ceased with adequate PO intake. CXR was essentially unchanged from 03/01/2021. On 03/03/2021 PT and OT evaluated patient and initiated therapies. Patient began experiencing several loose stools throughout the day. On 03/04/2021 loose stools persisted as well as exertional dyspnea. Chest/thorax CTA demonstrated new infiltrate in the left base with consolidation, status post partial left-sided pneumonectomy, no pulmonary embolism identified, filling artifact versus dissection of the distal thoracic aorta, coronary artery disease, cysts present in the liver that have been previously assessed, right suprarenal cyst previously assessed. Cardiology was consulted. Losartan was resumed for hypertension therapy. Echocardiogram: LV appeared normal with EF 60-65%, mild mitral regurgitation, trivial aortic regurgitation, pulmonary artery pressure 30-35mmHg. On 03/05/2021 Probiotics were initiated. Pulmonology was consulted and oral Prednisone therapy was initiated. Surgery was consulted for acute on chronic dysphagia, outpatient EGD with Dr. Brown recommended. Patient also developed hypokalemia, potassium replacement initiated. On 03/06/2021 patient screened positive for C. difficile infection. Vancomycin PO therapy initiated, Probiotics dose increased. Questran lite powder therapy initiated. CXR demonstrated residual infiltrate and/or scarring about the left lung base. Pneumonia and C. difficile therapies were continued th roughout the rest of the patient's hospital stay. Home health services were discussed/set-up and patient was discharged to return to independent living facility on 03/09/2021. Patient will continue PO Vancomycin, Probiotics, and Questran powder on outpatient basis and will follow-up with PCP, Dr. Holden. This is a brief description of the patient's stay and contains pertinent aspects of the patient's care. Full description of the patient's care can be found in his chart. Date of admission: 03/01/2021 Date of discharge: 03/09/2021 Attending physician: Dr. Amalia Mahoney PCP: Dr. Holden Admission diagnosis: Left lower lobe pneumonia Discharge diagnosis: Left lower lobe pneumonia, C. difficile infection Secondary Diagnoses: Exertional dyspnea, History of C. difficile infection, Hyperlipidemia, Hypertension, Hyponatremia, Hypokalemia, Acute on chronic dysphagia, Debility Consultation: Cardiology, Pulmonology, Surgery, PT, OT Procedures: Echocardiogram AMALIA MAHONEY DO 03/10/21 0543: Supervisory-Addendum Brief Verification & Attestation Participated in pt care: history, MDM, physical Personally performed: exam, history, MDM, supervision of care Care discussed with: Medical Student Procedures: n/a Results interpretation: Verified all documentation Verification and Attestation of Medical Student E/M Service A medical student performed and documented this service in my presence. I reviewed and verified all information documented by the medical student and made modifications to such information, when appropriate. I personally performed the physical exam and medical decision making. Amalia Mahoney, Mar 10, 2021,05:43 VISHNU QUINTERO Mar 09, 2021 13:14 AMALIA MAHONEY DO Mar 10, 2021 05:43
[2021-03-09 16:20] VITALS: BP 128/60
== END 2021-03-09 16:20 | disposition home health service (06) | DRG 193 ==
LOC: ER 08:20 → EDUNIT# 08:24 → 4TH 10:30
PROVIDERS: ADMIT Internal Medicine; ATTEND Internal Medicine
PROC: 5A09357 Assistance with Respiratory Ventilation, Less than 24 Consecutive Hours, Continuous Positive Airway Pressure (ICD-10-PCS; principal; 2021-03-01)
DX: J15.9 Unspecified bacterial pneumonia (principal); J96.01 Acute respiratory failure with hypoxia; I71.01 Dissection of thoracic aorta; E87.1 Hypo-osmolality and hyponatremia; A04.72 Enterocolitis due to Clostridium difficile, not specified as recurrent; J43.9 Emphysema, unspecified; R13.10 Dysphagia, unspecified; I10 Essential (primary) hypertension; Z20.822 Contact with and (suspected) exposure to COVID-19; E78.00 Pure hypercholesterolemia, unspecified; E78.2 Mixed hyperlipidemia; I25.10 Atherosclerotic heart disease of native coronary artery without angina pectoris; I48.0 Paroxysmal atrial fibrillation; I08.0 Rheumatic disorders of both mitral and aortic valves; E87.6 Hypokalemia; Z87.891 Personal history of nicotine dependence; H54.7 Unspecified visual loss
CPT/HCPCS: 36415; 36600; 71045; 71275; 80048; 80053; 80061; 82805; 83605; 83735; 83874; 83880; 84145; 84484; 85007; 85025; 85027; 85379; 85610; 85730; 87040; 87070; 87081; 87205; 87324; 87449; 87636; 93005; 93041; 93306; 94010; 94640; 94664; 94668; 94760; 96361; 96365; 96375

== ENCOUNTER 2021-03-29 22:20 | Inpatient (IN) | payer MEDICARE ==
[~2021-03-29] VITALS: Ht 175.3 cm; Wt 69.1 kg
[~2021-03-29 22:20] MED LIST changes: +ACET-2267 PO; +CHOL4PAC3 PO; +ESCI-2 PO; +LACT1CAP7 PO; +LOSA50TA63 PO; +MULT-975 PO; +VANC125C5 PO
--- NOTE | 2021-03-29 22:54 | ED Dyspnea ---
General Stated Complaint: SOA- COUGH Source of Information: Patient Exam Limitations: No Limitations History of Present Illness Date Seen by Provider: Mar 29, 2021 Time Seen by Provider: 22:49 Initial Comments Patient is an 85-year-old male who presents to the emergency department today with a chief complaint of severe shortness of breath. He states that he has been feeling a little bit more short of breath than usual over the last couple of days and went to take his trash down the [place] and did not think he would make it back into his apartment in his apartment because he was so short of breath. He complains of a nonproductive cough. He feels terrible. He feels like "something is wrong". He denies fevers or chills. He denies upper respiratory congestion. He is fully Covid vaccinated with a booster. Recent hospitalization in mid February for left lower lobe pneumonia. He does not wear oxygen at home or at night at all. He is a former smoker having quit many years ago. He does not need to use inhalers. No swelling in his legs or cramping in his calves. No bowel or bladder complaints. All other review of systems reviewed and negative except as stated. Timing/Duration: 1-3 Hours, Other (2-3 days) Severity: Severe Modifying Factors: Worse With Coughing; Improves With Oxygen Associated Symptoms: Anxiety, Cough, Lightheadedness, Weakness Allergies and Home Medications Allergies Coded Allergies: NKANo Known Allergies (Verified Allergy, Unknown, 03/24/08) Patient Home Medication List Home Medication List Reviewed: Yes Acetaminophen (Tylenol Extra Strength) 500 Mg Tablet, 500 MG PO Q8H PRN for HEADACHE, (Reported) Entered as Reported by: PARKER AL on 03/02/21 1010 Aspirin (Aspirin EC) 81 Mg Tablet.dr, 81 MG PO DAILY Prescribed by: DAVID MAHONEY on 03/09/21 1024 Cholestyramine/Aspartame (Prevalite Packet) 4 Gm Powd.pack, 4 GM PO TIDWM Prescribed by: DAVID MAHONEY on 03/09/21 1024 Escitalopram Oxalate (Escitalopram Oxalate) 10 Mg Tablet, 10 MG PO DAILY, (Reported) Entered as Reported by: PARKER AL on 03/02/21 1009 Lactobacillus Acidophilus/Pect (Acidophilus-Pectin Capsule) 1 Each Capsule, 2 EACH PO TIDWM Prescribed by: DAVID MAHONEY on 03/09/21 1024 Losartan Potassium (Losartan Potassium) 50 Mg Tablet, 50 MG PO DAILY, (Reported) Entered as Reported by: PARKER AL on 03/02/21 1009 Multivitamin/Iron/Folic Acid (Multi-Day Plus Iron Tablet) 1 Each Tablet, 1 EACH PO DAILY, (Reported) Entered as Reported by: PARKER AL on 03/02/21 1009 Simvastatin (Simvastatin) 40 Mg Tablet, 40 MG PO DAILY, (Reported) Entered as Reported by: CHARLEY DANIELLE on 08/28/18 0840 Vancomycin HCl (Vancomycin HCl) 125 Mg Capsule, 125 MG PO QID Prescribed by: DAVID MAHONEY on 03/09/21 1024 Review of Systems Review of Systems Constitutional: see HPI EENTM: no symptoms reported Respiratory: cough; No phlegm; short of breath Cardiovascular: no symptoms reported Gastrointestinal: no symptoms reported Genitourinary: no symptoms reported Musculoskeletal: no symptoms reported Skin: no symptoms reported Psychiatric/Neurological: Anxiety All Other Systems Reviewed Negative Unless Noted: Yes Past Qrxzxer-Efyvgs-Lnfcor Hx Immunizations Up To Date First/Initial COVID19 Vaccinat: 2020 Second COVID19 Vaccination Phil: 2020 Third COVID19 Vaccination Date: YES Past Medical History Surgeries: Yes (LEFT EAR SURGERY AND RIGHT ING HERNIA SURGERY, BILAT CATARACTS) Abdominal, Lobectomy Respiratory: No Cardiac: Yes High Cholesterol, Hypertension Neurological: No Reproductive Disorders: No Sexually Transmitted Disease: No HIV/AIDS: No Genitourinary: No Gastrointestinal: Yes (inguinal hernia) Musculoskeletal: No Endocrine: No HEENT: Yes Cataract Hearing Impairment: Hard of Hearing Cancer: Yes Skin Psychosocial: No Integumentary: No Blood Disorders: No Adverse Reaction/Blood Tranf: No Family Medical History No Pertinent Family Hx Physical Exam Vital Signs Capillary Refill : Height, Weight, BMI Height: 5'9.00" Weight: 152lbs. 4.3oz. 68.043918hg; 20.89 BMI Method:Stated General Appearance: Anxious, Chronically ill HEENT: PERRL/EOMI Neck: Normal Inspection Respiratory: Crackles (left base), Wheezing, Other (4 word-dyspnea - initial RR 32; room air sats at rest 88%; labored breathing) Cardiovascular: Regular Rate, Rhythm (tachy 99bpm), Normal Peripheral Pulses Gastrointestinal: Normal Bowel Sounds, Non Tender, Soft Extremity: Normal Capillary Refill, Normal Inspection, Normal Range of Motion, Non Tender, No Calf Tenderness, No Pedal Edema Neurologic/Psychiatric: Alert, Oriented x3, No Motor/Sensory Deficits, Normal Mood/Affect Skin: Normal Color, Warm/Dry Focused Exam Lactate Level 03/29/21 23:30: Lactic Acid Level 0.75 Lactic Acid Level Laboratory Tests Test 03/29/21 23:30 Lactic Acid Level 0.75 MMOL/L (0.50-2.00) Progress/Results/Core Measures Results/Orders Lab Results Laboratory Tests Test 03/29/21 22:45 03/29/21 23:30 03/30/21 00:20 Range/Units White Blood Count 9.4 4.3-11.0 10^3/uL Red Blood Count 4.03 L 4.30-5.52 10^6/uL Hemoglobin 11.8 L 13.3-17.7 g/dL Hematocrit 36 L 40-54 % Mean Corpuscular Volume 90 80-99 fL Mean Corpuscular Hemoglobin 29 25-34 pg Mean Corpuscular Hemoglobin Concent 33 32-36 g/dL Red Cell Distribution Width 14.0 10.0-14.5 % Platelet Count 261 130-400 10^3/uL Mean Platelet Volume 9.6 9.0-12.2 fL Immature Granulocyte % (Auto) 1 % Neutrophils (%) (Auto) 83 H 42-75 % Lymphocytes (%) (Auto) 8 L 12-44 % Monocytes (%) (Auto) 7 0-12 % Eosinophils (%) (Auto) 1 0-10 % Basophils (%) (Auto) 0 0-10 % Neutrophils # (Auto) 7.8 1.8-7.8 10^3/uL Lymphocytes # (Auto) 0.8 L 1.0-4.0 10^3/uL Monocytes # (Auto) 0.7 0.0-1.0 10^3/uL Eosinophils # (Auto) 0.1 0.0-0.3 10^3/uL Basophils # (Auto) 0.0 0.0-0.1 10^3/uL Immature Granulocyte # (Auto) 0.1 0.0-0.1 10^3/uL Sodium Level 134 L 135-145 MMOL/L Potassium Level 4.3 3.6-5.0 MMOL/L Chloride Level 99 98-107 MMOL/L Carbon Dioxide Level 26 21-32 MMOL/L Anion Gap 9 5-14 MMOL/L Blood Urea Nitrogen 26 H 7-18 MG/DL Creatinine 0.89 0.60-1.30 MG/DL Estimat Glomerular Filtration Rate 84 BUN/Creatinine Ratio 29 Glucose Level 127 H 70-105 MG/DL Calcium Level 9.1 8.5-10.1 MG/DL Corrected Calcium 9.1 8.5-10.1 MG/DL Total Bilirubin 0.8 0.1-1.0 MG/DL Aspartate Amino Transf (AST/SGOT) 15 5-34 U/L Alanine Aminotransferase (ALT/SGPT) 9 0-55 U/L Alkaline Phosphatase 74 40-136 U/L C-Reactive Protein High Sensitivity 5.17 H 0.00-0.50 MG/DL Total Protein 7.0 6.4-8.2 GM/DL Albumin 4.0 3.2-4.5 GM/DL Procalcitonin 0.03 <0.10 NG/ML Influenza Type A (RT-PCR) Not Detected Not Detecte Influenza Type B (RT-PCR) Not Detected Not Detecte SARS-CoV-2 RNA (RT-PCR) Detected H Not Detecte Urine Color YELLOW Urine Clarity CLEAR Urine pH 6.5 5-9 Urine Specific [place] 1.025 H 1.016-1.022 Urine Protein 2+ H NEGATIVE Urine Glucose (UA) NEGATIVE NEGATIVE Urine Ketones NEGATIVE NEGATIVE Urine Nitrite NEGATIVE NEGATIVE Urine Bilirubin 1+ H NEGATIVE Urine Urobilinogen 0.2 < = 1.0 MG/DL Urine Leukocyte Esterase TRACE H NEGATIVE Urine RBC (Auto) 3+ H NEGATIVE Urine RBC >100 H /HPF Urine WBC 5-10 H /HPF Urine Renal Epithelial Cells 0-2 /HPF Urine Crystals NONE /LPF Urine Bacteria MODERATE H /HPF Urine Casts NONE /LPF Urine Mucus NEGATIVE /LPF Urine Culture Indicated CULTURE PENDING Lactic Acid Level 0.75 0.50-2.00 MMOL/L Blood Gas Puncture Site LEFT RADIAL Blood Gas Patient Temperature 36.5 Arterial Blood pH 7.44 H 7.37-7.43 Arterial Blood Partial Pressure CO2 39 35-45 MMHG Arterial Blood Partial Pressure O2 67 L 79-93 MMHG Arterial Blood HCO3 26 23-27 MMOL/L Arterial Blood Total CO2 27.3 21.0-31.0 MMOL/L Arterial Blood Oxygen Saturation 96 94-100 % Arterial Blood Base Excess 2.1 -2.5-2.5 MMOL/L Jesu Test YES-POS Blood Gas Ventilator Setting NO Blood Gas Inspired Oxygen 2L My Orders Orders - ZAHRAA ALMAZAN MD Cbc With Automated Diff (03/29/21:03) Comprehensive Metabolic Panel (03/29/21:) Blood Culture (03/29/21:) Sputum Culture (03/29/21:) Urinalysis (03/29/21:) Urine Culture (03/29/21:) Protime With Inr (03/29/21:) Partial Thromboplastin Time (03/29/21:) Chest 1 View, Ap/Pa Only (03/29/21:) Ed Iv/Invasive Line Start (03/29/21:03) Ed Iv/Invasive Line Start (03/29/21:) Vital Signs Adult Sepsis Patie Q15M (03/29/21:) O2 (03/29/21:03) Remove Rings In Anticipation O (03/29/21:) Lactic Acid Analyzer (03/29/21:) Hs C Reactive Protein (03/29/21:) Procalcitonin (Pct) (03/29/21 23:03) Covid 19 Inhouse Test (03/29/21:) Influenza A And B By Pcr (03/29/21:) Isolation Central Supply Req (03/29/21:) Fibrin Degradation Products (03/29/21:) Arterial Blood Gas (03/30/21 00:22) Diagnostic Imaging Diagonstic Imaging: Xray Plain Films/CT/US/NM/MRI: chest Comments Volume loss left lung, no significant infiltrates observed, haziness in the left base. Normal cardiac silhouette --interpreted by me Departure Communication (Admissions) Time/Spoke to Admitting Phy: 00:[address] Mahoney Impression Primary Impression: Hypoxia Additional Impression: COVID-19 Disposition: ADMITTED INPATIENT Condition: Stable Admissions Decision to Admit Reason: Admit from ER (General) Decision to Admit/Date: Mar 30, 2021 Time/Decision to Admit Time: 00:41 Departure-Patient Inst. Referrals: CIARA CRISOSTOMO MD (PCP/Family) Primary Care Physician ZAHRAA ALMAZAN MD Mar 29, 2021 22:54
[2021-03-29 23:09] LABS: BASOPHILS % (AUTO) 0 % (0-10); EOSINOPHILS # (AUTO) 0.1 10^3/uL (0.0-0.3); EOSINOPHILS % (AUTO) 1 % (0-10); HEMATOCRIT 36 % (40-54); HEMOGLOBIN 11.8 g/dL (13.3-17.7); LYMPHOCYTES # (AUTO) 0.8 10^3/uL (1.0-4.0); LYMPHOCYTES % (AUTO) 8 % (12-44); MEAN CORPUSCULAR HEMOGLOBIN 29 pg (25-34); MEAN CORPUSCULAR HGB CONC 33 g/dL (32-36); MEAN CORPUSCULAR VOLUME 90 fL (80-99); MEAN PLATELET VOLUME 9.6 fL (9.0-12.2); MONOCYTES # (AUTO) 0.7 10^3/uL (0.0-1.0); MONOCYTES % (AUTO) 7 % (0-12); NEUTROPHILS # (AUTO) 7.8 10^3/uL (1.8-7.8); NEUTROPHILS % (AUTO) 83 % (42-75); PLATELET COUNT 261 10^3/uL (130-400); WHITE BLOOD COUNT 9.4 10^3/uL (4.3-11.0)
[2021-03-29 23:15] LABS: POTASSIUM 4.3 MMOL/L (3.6-5.0)
[2021-03-29 23:16] LABS: CALCIUM 9.1 MG/DL (8.5-10.1)
[2021-03-29 23:19] LABS: BILIRUBIN,TOTAL 0.8 MG/DL (0.1-1.0)
[2021-03-29 23:21] LABS: CREATININE SERUM 0.89 MG/DL (0.60-1.30)
[2021-03-29 23:38] LABS: BILIRUBIN,URINE 1+ (NEGATIVE); CLARITY,URINE CLEAR; COLOR,URINE YELLOW; GLUCOSE, URINE (UA) NEGATIVE (NEGATIVE); KETONES,URINE NEGATIVE (NEGATIVE); LEUKOCYTE ESTERASE ,URINE TRACE (NEGATIVE); NITRITE,URINE NEGATIVE (NEGATIVE); PH,URINE 6.5 (5-9); PROTEIN,URINE 2+ (NEGATIVE)
[2021-03-29 23:46] LABS: BACTERIA,URINE MODERATE /HPF; RBC,URINE >100 /HPF; RENAL EPITHELIAL CELLS,URINE 0-2 /HPF
[2021-03-30] VITALS (15 sets, daily range): BP systolic 89–143; BP diastolic 46–83
[2021-03-30 00:29] LABS: ABG BASE EXCESS 2.1 MMOL/L (-2.5-2.5); ABG OXYGEN SATURATION 96 % (94-100); ABG PCO2 39 MMHG (35-45); ABG PH 7.44 (7.37-7.43); ABG PO2 67 MMHG (79-93); ABG TCO2 27.3 MMOL/L (21.0-31.0); ALLENS TEST YES-POS; INSPIRED O2 2L; PATIENT TEMP 36.5; VENTILATOR NO
[2021-03-30] MEDS ORDERED: ENOXAPARIN 60 MG/0.6 ML (LOVENOX) SYR SC ONE (00:45)
[2021-03-30] MEDS ORDERED: ACETAMINOPHEN 325 MG TABLET PO PRN (03:15)
[2021-03-30] MEDS ORDERED: RT-ALBUTEROL HFA 8.5 GM INHALER IH PRN (03:15)
[2021-03-30] MEDS ORDERED: NS IV 1000 ML 1,000 ML IV SCH (03:15)
[2021-03-30 05:45] LABS: FIBRIN DEGRADATION PRODUCTS 3.59 UG/ML (0.00-0.49); INR 1.1 (0.8-1.4); PROTHROMBIN TIME PATIENT 14.6 SEC (12.2-14.7)
[2021-03-30 05:48] LABS: BASOPHILS % (AUTO) 0 % (0-10); EOSINOPHILS % (AUTO) 0 % (0-10); HEMATOCRIT 36 % (40-54); HEMOGLOBIN 11.9 g/dL (13.3-17.7); LYMPHOCYTES # (AUTO) 0.4 10^3/uL (1.0-4.0); LYMPHOCYTES % (AUTO) 3 % (12-44); MEAN CORPUSCULAR HEMOGLOBIN 29 pg (25-34); MEAN CORPUSCULAR HGB CONC 33 g/dL (32-36); MEAN CORPUSCULAR VOLUME 88 fL (80-99); MEAN PLATELET VOLUME 9.7 fL (9.0-12.2); MONOCYTES # (AUTO) 0.2 10^3/uL (0.0-1.0); MONOCYTES % (AUTO) 2 % (0-12); NEUTROPHILS # (AUTO) 10.6 10^3/uL (1.8-7.8); NEUTROPHILS % (AUTO) 94 % (42-75); PLATELET COUNT 253 10^3/uL (130-400); WHITE BLOOD COUNT 11.2 10^3/uL (4.3-11.0)
[2021-03-30 05:53] LABS: POTASSIUM 4.5 MMOL/L (3.6-5.0)
[2021-03-30 05:54] LABS: CALCIUM 9.1 MG/DL (8.5-10.1)
[2021-03-30 05:58] LABS: PHOSPHORUS 2.7 MG/DL (2.3-4.7)
[2021-03-30 05:59] LABS: CREATININE SERUM 0.79 MG/DL (0.60-1.30)
[2021-03-30 06:01] LABS: MAGNESIUM 1.9 MG/DL (1.6-2.4)
--- NOTE | 2021-03-30 06:26 | Diagnostic Imaging Report ---
EXAM: CHEST 1 VIEW, AP/PA ONLY INDICATION: Shortness of breath. Cough. Hypoxia. COMPARISON: 03/06/2021. FINDINGS: Hyperinflation. Stable elevation left hemidiaphragm with consolidation in the left lung base. Normal heart size and central pulmonary vascularity. No pleural effusion or pneumothorax. No new focal pulmonary opacity. No acute osseous findings. IMPRESSION: 1. COPD. 2. Stable elevation left hemidiaphragm and airspace consolidation left lung base. Dictated by: Dictated on workstation # [id number]
[2021-03-30 06:54] LABS: LYMPHOCYTES % (MANUAL) 1 %; NEUTROPHILS % (MANUAL) 99 %
[2021-03-30 06:55] LABS: ACANTHOCYTES SLIGHT; BURR CELLS SLIGHT; ELLIPT/OVALOCYTES SLIGHT
[2021-03-30] MEDS: ASPIRIN E.C. 81 MG (ECOTRIN) TAB PO SCH (08:48)
[2021-03-30] MEDS: DOCUSATE SODIUM 100 MG (COLACE) CAP PO SCH (08:50)
[2021-03-30] MEDS: RT-ALBUTEROL HFA 8.5 GM INHALER IH SCH ×3 (09:27→22:09)
--- NOTE | 2021-03-30 13:45 | History & Physical-Hospitalist ---
History of Present Illness HPI/Chief Complaint Tong Coats is an 85 year old male with PMH HTN, HLD, SCC of the lung s/p lobectomy, history of C diff, who presented with shortness of breath. He also has a cough. His symptoms started yesterday morning. He reports subjective fever. He denies chest pain. He denies abdominal pain. He has not had nausea, vomiting, or diarrhea. He is feeling weak. He was recently hospitalized with pneumonia and he thought he had pneumonia again. He has been doing therapy with home health care. Source: patient Exam Limitations: no limitations Date Seen 03/30/21 Time Seen by a Provider: 09:15 Attending Physician Flaquita Mathews MD PCP Roscoe Holden MD Referring Physician Date of Admission Mar 30, 2021 at 00:40 Home Medications & Allergies Home Medications Reviewed patient Home Medication Reconciliation performed by pharmacy medication reconciliations non morse intercept technician and/or nursing. Patients Allergies have been reviewed. Allergies Allergies Coded Allergies NKANo Known Allergies (Verified Allergy, Unknown, 03/24/08) Past Qjhfybs-Wauvxv-Louusz Hx Immunizations Up To Date Date of Influenza Vaccine: Nov 19, 2020 First/Initial COVID19 Vaccinat: 2020 Second COVID19 Vaccination Phil: 2020 Date of Pneumonia Vaccine: Dec 12, 2015 Current Status Communicates: Verbally Primary Language: Serbian Preferred Spoken Language: Serbian Past Medical History Surgeries: Abdominal, Lobectomy High Cholesterol, Hypertension Sexually Transmitted Disease: No HIV/AIDS: No Cataract Hearing Impairment: Hard of Hearing Skin Blood Disorders: No Adverse Reaction/Blood Tranf: No Family Medical History No Pertinent Family Hx Review of Systems Constitutional: fever, weakness EENTM: no symptoms reported Respiratory: cough, short of breath Cardiovascular: no symptoms reported Gastrointestinal: no symptoms reported Genitourinary: no symptoms reported Musculoskeletal: no symptoms reported Skin: no symptoms reported Psychiatric/Neurological: No Symptoms Reported Physical Exam Physical Exam Vital Signs Vital Signs - First Documented 03/29/21 03/29/21 03/30/21 22:38 22:41 02:42 Temp 36.5 Pulse 102 Resp 24 B/P (MAP) 143/83 (103) Pulse Ox 89 O2 Delivery Nasal Cannula O2 Flow Rate 2.00 FiO2 21 Capillary Refill : Less Than 3 Seconds Height, Weight, BMI Height: 5'9.00" Weight: 152lbs. 4.3oz. [id number]; 18.22 BMI Method:Stated General Appearance: No Apparent Distress, WD/WN HEENT: PERRL/EOMI, Pharynx Normal Neck: Normal Inspection, Supple Respiratory: Lungs Clear, Normal Breath Sounds, No Respiratory Distress Cardiovascular: Regular Rate, Rhythm, No Edema, No Murmur Gastrointestinal: Normal Bowel Sounds, Non Tender, Soft Extremity: Normal Inspection, Non Tender, No Pedal Edema Neurologic/Psychiatric: Alert, Oriented x3 Skin: Normal Color, Warm/Dry Results Results/Procedures Labs Laboratory Tests 03/29/21 22:45 03/30/21 05:10 Patient resulted labs reviewed. Imaging: Reviewed Imaging Report Assessment/Plan Admission Diagnosis Acute respiratory failure due to COVID-19 Admission Status: Inpatient Order (span 2 midnights) Reason for Inpatient Admission: Respiratory failure Assessment and Plan Acute respiratory failure due to COVID-19 COVID+, fully vaccinated and boosted Minimal supplemental oxygen requirement Decadron Lovenox HTN HLD Depression Hold home meds Resume once med rec completed SCC of the lung s/p lobectomy History of C diff Advanced age Clinically significant, no acute management needs Diagnosis/Problems Diagnosis/Problems (1) Acute respiratory failure due to COVID-19 Status: Acute (2) HTN (hypertension) Status: Chronic (3) HLD (hyperlipidemia) Status: Chronic (4) History of Clostridium difficile infection Status: Chronic (5) 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
[2021-03-30] MEDS ORDERED: MELATONIN 3 MG TABLET PO PRN (14:00)
[2021-03-30] MEDS ORDERED: polyethylene glycoL POWDER 17 GM (MIRALAX) PACK PO PRN (14:00)
[2021-03-30] MEDS ORDERED: ONDANSETRON 4 MG (ZOFRAN) ORAL DISSOLVE TAB PO PRN (14:00)
[2021-03-30] MEDS ORDERED: ANTACID SUSP 30 ML UDC (MYLANTA) PO PRN (14:00)
[2021-03-30] MEDS ORDERED: ONDANSETRON 4 MG/2 ML (SDV) Z0FRAN IV PRN (14:00)
[2021-03-30] MEDS: ENOXAPARIN 60 MG/0.6 ML (LOVENOX) SYR SC SCH (14:20)
[2021-03-30] MEDS ORDERED: GUAI600T43 PO (14:34)
[2021-03-30] MEDS: LACTOBACILLUS ACIDOPHILUS (PROBIOTIC) CAPSULE PO SCH (18:12)
[2021-03-31] MEDS: ENOXAPARIN 60 MG/0.6 ML (LOVENOX) SYR SC SCH ×2 (01:26→14:02)
[2021-03-31] MEDS: RT-ALBUTEROL HFA 8.5 GM INHALER IH SCH ×4 (03:09→21:16)
[2021-03-31 04:32] VITALS: BP 94/47
[2021-03-31 06:21] LABS: BASOPHILS % (AUTO) 0 % (0-10); EOSINOPHILS % (AUTO) 0 % (0-10); HEMATOCRIT 32 % (40-54); HEMOGLOBIN 10.3 g/dL (13.3-17.7); LYMPHOCYTES # (AUTO) 0.6 10^3/uL (1.0-4.0); LYMPHOCYTES % (AUTO) 5 % (12-44); MEAN CORPUSCULAR HEMOGLOBIN 29 pg (25-34); MEAN CORPUSCULAR HGB CONC 33 g/dL (32-36); MEAN CORPUSCULAR VOLUME 90 fL (80-99); MEAN PLATELET VOLUME 9.7 fL (9.0-12.2); MONOCYTES # (AUTO) 0.7 10^3/uL (0.0-1.0); MONOCYTES % (AUTO) 5 % (0-12); NEUTROPHILS # (AUTO) 11.8 10^3/uL (1.8-7.8); NEUTROPHILS % (AUTO) 89 % (42-75); PLATELET COUNT 264 10^3/uL (130-400); WHITE BLOOD COUNT 13.2 10^3/uL (4.3-11.0)
[2021-03-31 06:41] LABS: CALCIUM 8.6 MG/DL (8.5-10.1); CREATININE SERUM 0.97 MG/DL (0.60-1.30); POTASSIUM 3.9 MMOL/L (3.6-5.0)
[2021-03-31 07:42] VITALS: BP 103/55
[2021-03-31] MEDS: ASPIRIN E.C. 81 MG (ECOTRIN) TAB PO SCH (08:38)
[2021-03-31] MEDS: DOCUSATE SODIUM 100 MG (COLACE) CAP PO SCH (08:38)
[2021-03-31] MEDS: LACTOBACILLUS ACIDOPHILUS (PROBIOTIC) CAPSULE PO SCH ×3 (08:38→17:31)
--- NOTE | 2021-03-31 10:46 | Physical Therapy Evaluation ---
PT Evaluation-General Medical Diagnosis Admission Date Mar 30, 2021 at 00:40 Medical Diagnosis: acute resp failure due to covid 19 Onset Date: Mar 30, 2021 Therapy Diagnosis Therapy Diagnosis: impaired mobility, strength, endurance Height/Weight Height (Feet): 5 Height (Inches): 9.00 Weight (Pounds): 152 Weight (Ounces): 4.3 Precautions Precautions/Isolations: Contact Isolation, Droplet Isolation, Fall Prevention Referral Physician: Yocasta Reason for Referral: Evaluation/Treatment Medical History Pertinent Medical History: HTN Additional Medical History Past Medical History Surgeries: Abdominal, Lobectomy High Cholesterol, Hypertension Sexually Transmitted Disease: No HIV/AIDS: No Cataract Hearing Impairment: Hard of Hearing Reviewed History: Yes Social History Home: Apartment (6th floor) Current Living Status: Alone Entry Into Home: Elevator Prior Prior Level of Function SCALE: Activities may be completed with or without assistive devices. 5-Unlxxdndhz-zhteahl completes the activity by him/herself with no assistance from a helper. 5-Set-up or Clean-up Assistance-helper sets up or cleans up; patient completes activity. [place] assists only prior to or following the activity. 4-Supervision or Touching Assistance-helper provides verbal cues and/or touching/steadying and/or contact guard assistance as patient completes activity. Assistance may be provided throughout the activity or intermittently. 3-Partial/Moderate Assistance-helper does LESS THAN HALF the effort. [place] lifts, holds or supports trunk or limbs, but provides less than half the effort. 2-Substantial/Maximal Assistance-helper does MORE THAN HALF the effort. [place] lifts or holds trunk or limbs and provides more than half the effort. 9-Mnrqrbcvv-jjjvnl does ALL the effort. Patient does none of the effort to complete the activity. Or, the assistance of 2 or more helpers is required for the patient to complete the activity. If activity was not attempted, code reason: 7-Patient Refused. 9-Not Applicable-not attempted and the patient did not perform the activity before the current illness, exacerbation or injury. 10-Not Attempted due to Environmental Limitations-(lack of equipment, weather restraints, etc.). 88-Not Attempted due to Medical Conditions or Safety Concerns. Bed Mobility: 6 Transfers (B,C,W/C): 6 Gait: 6 Indoor Mobility (Ambulation): Independent Prior Devices Use: Walker Patient states he uses a rolling walker in his apartment building, a SPC outside, and surfs furniture in his apartment PT Evaluation-Current Subjective Patient in bed pre tx, agrees to PT, has no complaints of pain. Pt/Family Goals to be independent at home Objective Patient Orientation: Person, Place, Situation Attachments: Oxygen ROM/Strength ROM Lower Extremities WNL Strength Lower Extremities LLE (hip flexion 3+/5, knee flexion 4/5, knee extension 4/5, dorsiflexion 4/5), RLE (hip flexion 3+/5, knee flexion 4/5, knee extension 4/5, dorsiflexion 4/5) Sensory Vision: Wears Glasses Hearing: Functional Sensation Right Lower Extremit: Impaired Sensation Left Lower Extremity: Impaired Sensation Lower Extremities patient seems to have intact light touch sensation in both lower extremities, however he says he has some decreased sensation in his feet Transfers Roll Left to Right (QC): 6 Sit to Lying (QC): 6 Lying to Sitting/Side of Bed(Q: 6 Sit to Stand (QC): 4 Gait Does the Patient Walk?: Yes Mode of Locomotion: Walk Anticipated Mode of Locomotion: Walk Walk 10 feet (QC): 4 Distance: 20' Gait Assistive Device: Handheld Assist Comments/Gait Description Patient is unsteady walking on his own, with SUPERVISOR LENS GENERATING he is still slightly unsteady but no LOB Balance Sitting Static: Normal Sitting Dynamic: Normal Standing Static: Fair Standing Dynamic: Poor Treatment BLE supine exercises x20 (AP, HS) Assessment/Needs Patient in bed post tx with nurse call, phone, tray, all needs met. Patient has impaired mobility, strength, endurance. He is unsteady with ambulation, he would benefit from using a rolling walker in his apartment if he goes home. Rehab Potential: Fair PT Cell Stripper Final Goals Cell Stripper Final Goals PT Retirement Goals Time Frame: Apr 07, 2021 Roll Left & Right (QC): 6 Sit to Lying (QC): 6 Lying-Sitting on Side/Bed(QC): 6 Sit to Stand (QC): 6 Chair/Hyl-bu-Szbmm Xfer(QC): 6 Walk 10 feet (QC): 6 Walk 50ft with 2 Turns (QC): 6 PT Plan Problem List Problem List: Activity Tolerance, Functional Strength, Safety, Balance, Gait, Transfer, Bed Mobility, ROM Treatment/Plan Treatment Plan: Continue Plan of Care Treatment Plan: Bed Mobility, Education, Functional Activity Sandie, Functional Strength, Gait, Safety, Therapeutic Exercise, Transfers Treatment Duration: Apr 07, 2021 Frequency: 6 times per week Estimated Hrs Per Day: .25 hour per day Patient and/or Family Agrees t: Yes Safety Risks/Education Patient Education: Gait Training, Transfer Techniques, Correct Positioning, Safety Issues Teaching Recipient: Patient Teaching Methods: Demonstration, Discussion Response to Teaching: Reinforcement Needed Discharge Recommendations Plan Patient will perform bed mobility and transfer training, balance and endurance training, functional strengthening, stair training, gait training, and education, to improve functional mobility and independence at home. Therapy Discharge Recommendati: Scheduled Assistance, Home & Family, Post Acute PT Time/GCodes Time In: 1016 Time Out: 1031 Total Billed Treatment Time: 15 Total Billed Treatment 1 visit LUCAS Mcdonald' BESSY GEIGER PT Mar 31, 2021 10:46
[2021-03-31 11:14] VITALS: BP 97/51
--- NOTE | 2021-03-31 14:41 | Occupational Therapy Eval ---
OT Evaluation-General/PLF Medical Diagnosis Admission Date Mar 30, 2021 at 00:40 Medical Diagnosis: acute resp failure due to covid 19 Onset Date: Mar 30, 2021 Therapy Diagnosis Therapy Diagnosis: weakness Height/Weight Height (Feet): 5 Height (Inches): 9.00 Weight (Pounds): 152 Weight (Ounces): 4.3 Precautions Precautions/Isolations: Contact Isolation, Droplet Isolation, Fall Prevention Referral Physician: Yocasta Referral Reason: Evaluation/Treatment Medical History Pertinent Medical History: HTN Additional Medical History HTN, HLD, SCC of lung s/p lobectomy, c-diff Current History present with SOB And cough Social History Home: Apartment (6th floor) Current Living Status: Alone Entry Into Home: Elevator ADL-Prior Level of Function SCALE: Activities may be completed with or without assistive devices. 5-Puctuzskke-nomdsmr completes the activity by him/herself with no assistance from a helper. 5-Set-up or Clean-up Assistance-helper sets up or cleans up; patient completes activity. [place] assists only prior to or following the activity. 4-Supervision or Touching Assistance-helper provides verbal cues and/or touching/steadying and/or contact guard assistance as patient completes activity. Assistance may be provided throughout the activity or intermittently. 3-Partial/Moderate Assistance-helper does LESS THAN HALF the effort. [place] lifts, holds or supports trunk or limbs, but provides less than half the effort. 2-Substantial/Maximal Assistance-helper does MORE THAN HALF the effort. [place] lifts or holds trunk or limbs and provides more than half the effort. 1-Zpxcwcrej-focnpl does ALL the effort. Patient does none of the effort to complete the activity. Or, the assistance of 2 or more helpers is required for the patient to complete the activity. If activity was not attempted, code reason: 7-Patient Refused. 9-Not Applicable-not attempted and the patient did not perform the activity b efore the current illness, exacerbation or injury. 10-Not Attempted due to Environmental Limitations-(lack of equipment, weather restraints, etc.). 88-Not Attempted due to Medical Conditions or Safety Concerns. ADL PLOF Comments Pt reports IND with ADLs and functional mobility, using cane and walker. He was receiving home health services, no assistance with bathing/dressing. Self Care: Independent Functional Cognition: Independent OT Current Status Subjective Pt in bed, agreeable to OT tx. Mental Status/Objective Patient Orientation: Person, Place, Situation Attachments: Oxygen ADL-Treatment Eating (QC): 6 (IND with lunch) Oral Hygiene (QC): 5 (Per clincial judgment) Toileting Hygiene (QC): 7 Other Treatments Pt in bed, finishing lunch. OT educated pt on purpose and benefit of OT, he verbalized understanding. Pt provided information about PLOF and home set up and participated in UE screen. Pt declines OOB activities, declines toileting, and declines other ADLs at this time. OT educated pt on purpose/benefit of UE exercises in order to increase strength and activity tolerance. Pt completed x10 reps BUE shoulder flexion, elbow flexion/extension and front punch. Post tx, pt in bed, call light in reach and all needs met. Education OT Patient Education: Correct positioning, Energy conservation, Exercise program, Modified ADL techniques, Progress toward Goal/Update tx plan, Purpose of tx/functional activities, Rehab process Teaching Recipient: Patient Teaching Methods: Discussion Response to Teaching: Verbalize Understanding OT Jig And Fixture Maker Goals Correction Goals Time Frame: Apr 17, 2021 Eating (QC): 6 Oral Hygiene (QC): 6 Toileting Hygiene (QC): 6 Shower/Bathe Self (QC): 6 Upper Body Dressing (QC): 6 Lower Body Dressing (QC): 6 On/Off Footwear (QC): 6 Additional Goals: 1-Demonstrate ADL Tasks, 2-Verbalize Understanding, 3-ImproveStrength/Sandie 1=Demonstrate adherence to instructed precautions during ADL tasks. 2=Patient will verbalize/demonstrate understanding of assistive devices/modifications for ADL. 3=Patient will improve strength/tolerance for activity to enable patient to perform ADL's. OT Education/Plan Problem List/Assessment Assessment: Decreased Activ Tolerance, Decreased UE Strength, Impaired Funct Balance, Impaired I ADL's, Impaired Self-Care Skills Discharge Recommendations Plan/Recommendations: Continue POC Treatment Plan/Plan of Care Patient would benefit from OT for education, treatment and training to promote independence in ADL's, mobility, safety and/or upper extremity function for ADL's. Plan of Care: ADL Retraining, Functional Mobility, UE Funct Exercise/Act Treatment Duration: Apr 17, 2021 Frequency: 3 times per week (3-5 times per week ) Rehab Potential: Fair Time/GCodes Start Time: 13:39 Stop Time: 13:50 Total Time Billed (hr/min): 11 Billed Treatment Time 1, RACQUEL FULLER OT Mar 31, 2021 14:41
[2021-03-31 16:39] VITALS: BP 93/56
--- NOTE | 2021-03-31 17:00 | Progress Note - Hospitalist ---
Subjective HPI/CC On Admission Date Seen by Provider: Mar 31, 2021 Time Seen by Provider: 10:10 Tong Coats is an 85 year old male with PMH HTN, HLD, SCC of the lung s/p lobectomy, history of C diff, who presented with shortness of breath. He also has a cough. His symptoms started yesterday morning. He reports subjective fever. He denies chest pain. He denies abdominal pain. He has not had nausea, vomiting, or diarrhea. He is feeling weak. He was recently hospitalized with pneumonia and he thought he had pneumonia again. He has been doing therapy with home health care. Subjective/Events-last exam He is feeling better today. He still feels a bit unsteady when walking. He still has a cough. Focused Exam Lactate Level 03/29/21 23:30: Lactic Acid Level 0.75 Objective Exam Vital Signs Vital Signs Date Time Temp Pulse Resp B/P (MAP) Pulse Ox O2 Delivery O2 Flow Rate FiO2 03/31/21 16:39 36.4 85 20 93/56 (68) 95 Room Air 03/31/21 14:40 2.00 03/30/21 02:42 21 Capillary Refill : Less Than 3 Seconds General Appearance: No Apparent Distress, Thin Respiratory: Lungs Clear, No Respiratory Distress Cardiovascular: Regular Rate, Rhythm, No Murmur Gastrointestinal: Normal Bowel Sounds, Soft Extremity: Normal Inspection, No Pedal Edema Neurologic/Psychiatric: Alert, Oriented x3, Normal Mood/Affect Skin: Normal Color, Warm/Dry Results/Procedures Lab Laboratory Tests 03/31/21 06:07 Patient resulted labs reviewed. Imaging: Reviewed Imaging Report Assessment/Plan Assessment and Plan Assess & Plan/Chief Complaint COVID-19 COVID+, fully vaccinated and boosted Not requiring supplemental oxygen at this time Stop Decadron Lovenox Debility PT/OT HTN Hold Losartan HLD Depression Continue home meds SCC of the lung s/p lobectomy History of C diff Advanced age Clinically significant, no acute management needs Acute respiratory failure with hypoxia, resolved Diagnosis/Problems Diagnosis/Problems (1) Acute respiratory failure due to COVID-19 Status: Acute (2) HTN (hypertension) Status: Chronic (3) HLD (hyperlipidemia) Status: Chronic (4) History of Clostridium difficile infection Status: Chronic (5) 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
[2021-03-31 19:49] VITALS: BP 109/54
[2021-03-31] MEDS ORDERED: SIMvastatin 40 MG (ZOCOR) TAB PO SCH (21:00)
[2021-03-31 23:21] VITALS: BP 109/62
[2021-04-01] MEDS: RT-ALBUTEROL HFA 8.5 GM INHALER IH SCH ×3 (03:34→15:19)
[2021-04-01] MEDS: ENOXAPARIN 60 MG/0.6 ML (LOVENOX) SYR SC SCH ×2 (03:36→13:59)
[2021-04-01 03:42] VITALS: BP 117/70
[2021-04-01 07:40] VITALS: BP 122/73
[2021-04-01] MEDS: ASPIRIN E.C. 81 MG (ECOTRIN) TAB PO SCH (08:37)
[2021-04-01] MEDS: LACTOBACILLUS ACIDOPHILUS (PROBIOTIC) CAPSULE PO SCH ×2 (08:37→13:59)
[2021-04-01] MEDS: DOCUSATE SODIUM 100 MG (COLACE) CAP PO SCH (08:37)
[2021-04-01 11:35] VITALS: BP 98/57
--- NOTE | 2021-04-01 12:00 | Discharge Summary ---
Discharge Summary Reconcile Patient Problems Problems Reviewed?: Yes Instructions for Patient Via [facility], Assessment/Instructions Take medications as prescribed. You will need to remain in isolation until Tuesday, then wear a mask for (at least) five days when around others. Follow up with your primary care physician, Dr. Holden, in about two weeks. Return with worsening shortness of breath, weakness, or if you feel like you are getting worse. Physician to follow Patient: Adina Discharge Diet for Home: No Restrictions Hospital Course Date of Admission: Mar 30, 2021 at 00:40 Admission Diagnosis : Acute respiratory failure due to COVID-19 Family Physician/Provider: Roscoe Holden MD Date of Discharge: 04/01/21 Discharge Diagnosis: Acute respiratory failure due to COVID-19 Hospital Course: Tong Coats is an 85 year old male with PMH HTN, HLD, depression, SCC of the lung s/p lobectomy, history of C diff, who presented with shortness of breath and cough and was admitted with acute respiratory failure due to COVID-19. He was initially requiring supplemental oxygen, but he quickly improved. He was given steroids. He did not require any supplemental oxygen at the time of discharge. He worked with physical and occupational therapy. He was set up with home health care for ongoing therapy needs. He needs to remain in isolation until Tuesday, then wear a mask around other for (at least) five more days. He should follow up with his primary care physician in about two weeks. He was discharged home in stable condition. Labs and Pending Lab Test: Microbiology 03/30/21 Blood Culture - Preliminary, Resulted No growth 03/29/21 Urine Culture - Final, Complete NO GROWTH Home Meds Active Reported Mucinex (Guaifenesin) 600 Mg Tab.er.12h 600 Mg PO Q12H PRN Tylenol Extra Strength (Acetaminophen) 500 Mg Tablet 500-1,000 Mg PO Q8H PRN Multi-Day Plus Iron Tablet (Multivitamin/Iron/Folic Acid) 1 Each Tablet 1 Each PO DAILY Losartan Potassium 50 Mg Tablet 50 Mg PO DAILY Escitalopram Oxalate 10 Mg Tablet 10 Mg PO HS Simvastatin 40 Mg Tablet 40 Mg PO HS Patient Allergies: Coded Allergies: NKANo Known Allergies (Verified Allergy, Unknown, 03/24/08) Height (Feet): 5 Height (Inches): 9.00 Weight (Pounds): 152 Weight (Ounces): 4.3 Home Health Need/Face to Face Date of Face to Face: Apr 01, 2021 Clinical Findings: Instability, Muscle weakness, Unsteady gait I have seen Pt [id number]: Yes Discharged To: Home Diagnosis/Conditions: COVID-19 HTN HLD Debility Advanced age Problems/Diagnosis/Condition: (1) HTN (hypertension) (2) HLD (hyperlipidemia) (3) Advanced age (4) Depression (5) SCC of lung (small cell carcinoma) (6) History of Clostridium difficile infection (7) COVID-19 Patient is Homebound due to: Sergio fall risk due to instabilty, Muscle weakness Homebound Status Due to the above stated illness, injury or surgical procedure (medical condition or diagnosis) and associated clinical findings, the patient is homebound because of his/her inability to leave home except with aid of a supportive device and/or person AND leaving the home requires a considerable and taxing effort or is medically contraindicated. Pt req the following assistanc: Aid of another person, Cane, Walker Home Health Nursing Orders Home Health Services Order: Nursing Services, Principal Systems Architect-Evaluate & Treat, Physical Therapy-Evaluate & Treat Home Health Infusion Therapy Line Start Date: Mar 29, 2021 Therapy Orders Therapy Orders: OT (must have SN or PT order), Physical Therapy Therapy Specific Orders: Eval assistive deivces, Teach enviro modifications/safety, Gait training, Increase strength/endurance Certify Stmt I certify that this patient is under my care and that I, a nurse practitioner or a physician; a research assistant working with me, had a face to face encounter that - meets the physician face to face encounter requirements with this patient as dated. Discharge Physical Exam General: Alert, Oriented X3, Cooperative, No Acute Distress HEENT: Atraumatic, EOMI, Mucous Memb Moist/[place] Lungs: Clear to Auscultation, Normal Air Movement Heart: Regular Rate, No Murmurs Abdomen: Normal Bowel Sounds, Soft, No Tenderness Extremities: No Edema, No Tenderness/Swelling Skin: No Rashes, No Significant Lesion Neuro: Normal Speech, Normal Tone Psych/Mental Status: Mental Status NL, Mood NL FLAQUITA MATHEWS MD Apr 01, 2021 11:53
--- NOTE | 2021-04-01 12:00 | Occupational Ther Daily Note ---
OT Current Status-Daily Note Subjective Pt up in recliner, agreeable to OT tx. Pt hopes to go home today. ADL-Treatment Therapy Code Descriptions/Definitions Functional Ray Measure: 0=Not Assessed/NA 4=Minimal Assistance 1=Total Assistance 5=Supervision or Setup 2=Maximal Assistance 6=Modified Ray 3=Moderate Assistance 7=Complete IndependenceSCALE: Activities may be completed with or without assistive devices. 0-Aufhznnkgk-knelwdl completes the activity by him/herself with no assistance from a helper. 5-Set-up or Clean-up Assistance-helper sets up or cleans up; patient completes activity. [place] assists only prior to or following the activity. 4-Supervision or Touching Assistance-helper provides verbal cues and/or fatmata matt/steadying and/or contact guard assistance as patient completes activity. Assistance may be provided throughout the activity or intermittently. 3-Partial/Moderate Assistance-helper does LESS THAN HALF the effort. [place] lifts, holds or supports trunk or limbs, but provides less than half the effort. 2-Substantial/Maximal Assistance-helper does MORE THAN HALF the effort. [place] lifts or holds trunk or limbs and provides more than half the effort. 5-Gqeorhcab-peimuz does ALL the effort. Patient does none of the effort to complete the activity. Or, the assistance of 2 or more helpers is required for the patient to complete the activity. If activity was not attempted, code reason: 7-Patient Refused. 9-Not Applicable-not attempted and the patient did not perform the activity before the current illness, exacerbation or injury. 10-Not Attempted due to Environmental Limitations-(lack of equipment, weather restraints, etc.). 88-Not Attempted due to Medical Conditions or Safety Concerns. Eating (QC): 6 On/Off Footwear: 6 Toileting Hygiene (QC): 6 Toilet Transfer (QC): 6 Other Treatment Pt up in recliner, agreeable to OT tx. Pt declined getting dressed at this time, agreeable to going to the bathroom. Pt used FWW to transfer into bathroom and onto toilet independently. Pt completed toileting, stood at sink to wash hands, then transferred back to recliner independently. Pt able to doff/don LE gripper socks independently. Post tx, pt in recliner, call light in reach and all needs met. Education OT Patient Education: Correct positioning, Energy conservation, Exercise program, Modified ADL techniques, Progress toward Goal/Update tx plan, Purpose of tx/functional activities, Rehab process Teaching Recipient: Patient Teaching Methods: Discussion Response to Teaching: Verbalize Understanding OT Correction Goals [employer] Officer Goals Time Frame: Apr 17, 2021 Eating (QC): 6 Oral Hygiene (QC): 6 Toileting Hygiene (QC): 6 Shower/Bathe Self (QC): 6 Upper Body Dressing (QC): 6 Lower Body Dressing (QC): 6 On/Off Footwear (QC): 6 Additional Goals: 1-Demonstrate ADL Tasks, 2-Verbalize Understanding, 3-Improv eStrength/Sandie 1=Demonstrate adherence to instructed precautions during ADL tasks. 2=Patient will verbalize/demonstrate understanding of assistive devices/modifications for ADL. 3=Patient will improve strength/tolerance for activity to enable patient to p erform ADL's. OT Education/Plan Problem List/Assessment Assessment: Decreased Activ Tolerance, Decreased UE Strength, Impaired Funct Balance, Impaired I ADL's, Impaired Self-Care Skills Discharge Recommendations Plan/Recommendations: Continue POC Treatment Plan/Plan of Care Patient would benefit from OT for education, treatment and training to promote independence in ADL's, mobility, safety and/or upper extremity function for ADL's. Plan of Care: ADL Retraining, Functional Mobility, UE Funct Exercise/Act Treatment Duration: Apr 17, 2021 Frequency: 3 times per week (3-5 times per week ) Rehab Potential: Fair Time/GCodes Start Time: 10:50 Stop Time: 11:04 Total Time Billed (hr/min): 14 Billed Treatment Time 1, ADL RACQUEL NEWSOME OT Apr 01, 2021 12:00
--- NOTE | 2021-04-01 12:52 | Physical Therapy Daily Note ---
PT Daily Note-Current Subjective Patient lying supine in bed upon PT arrival, agreeable to treatment. Patient rates pain at 0/10 currently Mental Status Patient Orientation: Person Transfers SCALE: Activities may be completed with or without assistive devices. 7-Uofxssdwwg-aginkmw completes the activity by him/herself with no assistance from a helper. 5-Set-up or Clean-up Assistance-helper sets up or cleans up; patient completes activity. [place] assists only prior to or following the activity. 4-Supervision or Touching Assistance-helper provides verbal cues and/or touching/steadying and/or contact guard assistance as patient completes activity. Assistance may be provided throughout the activity or intermittently. 3-Partial/Moderate Assistance-helper does LESS THAN HALF the effort. [place] lifts, holds or supports trunk or limbs, but provides less than half the effort. 2-Substantial/Maximal Assistance-helper does MORE THAN HALF the effort. [place] lifts or holds trunk or limbs and provides more than half the effort. 9-Zrhhfrfpd-ruswqx does ALL the effort. Patient does none of the effort to complete the activity. Or, the assistance of 2 or more helpers is required for the patient to complete the activity. If activity was not attempted, code reason: 7-Patient Refused. 9-Not Applicable-not attempted and the patient did not perform the activity before the current illness, exacerbation or injury. 10-Not Attempted due to Environmental Limitations-(lack of equipment, weather restraints, etc.). 88-Not Attempted due to Medical Conditions or Safety Concerns. Roll Left & Right (QC): 6 Sit to Lying (QC): 6 Lying to Sitting/Side of Bed(Q: 6 Sit to Stand (QC): 6 Chair/Vls-hp-Mbudm Xfer(QC): 5 Gait Training Does the Patient Walk?: Yes Distance: 110 Walk 10 feet (QC): 4 Walk 50 ft with 2 Turns(QC): 4 Walk 150 ft (QC): 4 Gait Assistive Device: FWW Assessment Current Status: Good Progress Patient tolerated treatment well. Demonstrates improved gait distance and improved overall tolerance to activity. Patient ambulates 110 feet with FWW with SBA in room. Patient reports he feels more secure with the FWW and is able to ambulate more. Patient in chair post treatment with all needs met, nursing notified, Call light in hand. PT Jacquard Loom [place] [facility] Goals PT Jacquard Loom [place] [facility] Goals Time Frame: Apr 07, 2021 Roll Left & Right (QC): 6 Sit to Lying (QC): 6 Lying-Sitting on Side/Bed(QC): 6 Sit to Stand (QC): 6 Chair/Doe-se-Lcqme Xfer(QC): 6 Walk 10 feet (QC): 6 Walk 50ft with 2 Turns (QC): 6 PT Plan Treatment/Plan Treatment Plan: Continue Plan of Care Treatment Plan: Bed Mobility, Education, Functional Activity Sandie, Functional Strength, Gait, Safety, Therapeutic Exercise, Transfers Treatment Duration: Apr 07, 2021 Frequency: 6 times per week Estimated Hrs Per Day: .25 hour per day Patient and/or Family Agrees t: Yes Safety Risks/Education Patient Education: Gait Training Teaching Recipient: Patient Teaching Methods: Demonstration, Discussion Response to Teaching: Verbalize Understanding, Return Demonstration Time/GCodes Time In: 1034 Time Out: 150 Total Billed Treatment Time: 16 Total Billed Treatment Visit, Gait LAUREL KUMAR PT Apr 01, 2021 12:52
== END 2021-04-01 15:45 | disposition home health service (06) | DRG 177 ==
LOC: EDUNIT# 22:20 → ER 22:22 → CSD 03-30 00:40 → 4TH 03-30 16:40
PROVIDERS: ADMIT Internal Medicine; ATTEND Internal Medicine
PROC: 8E0ZXY6 Isolation (ICD-10-PCS; principal; 2021-03-29)
DX: U07.1 COVID-19 (principal); J96.01 Acute respiratory failure with hypoxia; C34.90 Malignant neoplasm of unspecified part of unspecified bronchus or lung; I10 Essential (primary) hypertension; E78.5 Hyperlipidemia, unspecified; F32.A Depression, unspecified; M62.81 Muscle weakness (generalized); E78.00 Pure hypercholesterolemia, unspecified; H25.9 Unspecified age-related cataract; H91.90 Unspecified hearing loss, unspecified ear; R54 Age-related physical debility; Z90.2 Acquired absence of lung [part of]; Z87.19 Personal history of other diseases of the digestive system; Z87.891 Personal history of nicotine dependence; Z87.01 Personal history of pneumonia (recurrent); Z79.899 Other long term (current) drug therapy
CPT/HCPCS: 36415; 71045; 80048; 80053; 81000; 82805; 83605; 83735; 84100; 84145; 85007; 85025; 85027; 85379; 85610; 85730; 86141; 87040; 87088; 87636; 94640; 94760

== ENCOUNTER 2021-06-03 14:54 | Outpatient (RCR) | payer MEDICARE ==
[2021-05-28 15:57] LABS: BASOPHILS # (AUTO) 0.1 10^3/uL (0.0-0.1); BASOPHILS % (AUTO) 1 % (0-10); EOSINOPHILS # (AUTO) 0.5 10^3/uL (0.0-0.3); EOSINOPHILS % (AUTO) 5 % (0-10); HEMATOCRIT 40 % (40-54); HEMOGLOBIN 12.8 g/dL (13.3-17.7); LYMPHOCYTES # (AUTO) 1.3 10^3/uL (1.0-4.0); LYMPHOCYTES % (AUTO) 13 % (12-44); MEAN CORPUSCULAR HEMOGLOBIN 30 pg (25-34); MEAN CORPUSCULAR HGB CONC 32 g/dL (32-36); MEAN CORPUSCULAR VOLUME 91 fL (80-99); MEAN PLATELET VOLUME 9.2 fL (9.0-12.2); MONOCYTES # (AUTO) 0.6 10^3/uL (0.0-1.0); MONOCYTES % (AUTO) 7 % (0-12); NEUTROPHILS # (AUTO) 7.1 10^3/uL (1.8-7.8); NEUTROPHILS % (AUTO) 74 % (42-75); PLATELET COUNT 268 10^3/uL (130-400); WHITE BLOOD COUNT 9.6 10^3/uL (4.3-11.0)
[~2021-06-03 14:54] MED LIST changes: +GUAI600T43 PO
== END 2021-06-13 | disposition home or self-care (01) ==
LOC: ONC 14:54
PROVIDERS: ATTEND Internal Medicine Hematology & Oncology
DX: C34.32 Malignant neoplasm of lower lobe, left bronchus or lung (principal); D50.9 Iron deficiency anemia, unspecified; I10 Essential (primary) hypertension; Z90.2 Acquired absence of lung [part of]; Z98.890 Other specified postprocedural states
CPT/HCPCS: 36415; 82728; 85025

== ENCOUNTER 2021-07-06 16:06 | Outpatient (RCR) | payer MEDICARE ==
[~2021-07-06 16:06] MED LIST changes: -CATHETER FLUSH 10 ML SYR IV PRN; -IOHEXOL 350 MG/ML 100 ML (OMNIPAQUE 350) VIAL IV ONE; -NS 100 ML (IVPB) BAG IV ONE
[2021-07-06 17:10] LABS: ALBUMIN 4.4 GM/DL (3.2-4.5); BILIRUBIN,TOTAL 0.8 MG/DL (0.1-1.0); CALCIUM 9.4 MG/DL (8.5-10.1); CREATININE SERUM 0.88 MG/DL (0.60-1.30); POTASSIUM 4.3 MMOL/L (3.6-5.0); TOTAL PROTEIN 7.4 GM/DL (6.4-8.2)
== END 2021-07-14 | disposition home or self-care (01) ==
LOC: ONC 16:06
PROVIDERS: ATTEND Internal Medicine Hematology & Oncology
DX: C34.90 Malignant neoplasm of unspecified part of unspecified bronchus or lung (principal); I10 Essential (primary) hypertension; Z90.2 Acquired absence of lung [part of]; Z98.890 Other specified postprocedural states
CPT/HCPCS: 36415; 80053

== ENCOUNTER → 2021-07-06 | Outpatient (CLI) | payer MEDICARE ==
[~2021-07-06] MED LIST changes: +CATHETER FLUSH 10 ML SYR IV PRN; +IOHEXOL 350 MG/ML 100 ML (OMNIPAQUE 350) VIAL IV ONE; +NS 100 ML (IVPB) BAG IV ONE
--- NOTE | 2021-07-06 18:24 | Diagnostic Imaging Report ---
EXAMINATION: CT Chest and Abdomen with intravenous contrast. TECHNIQUE: Multiple contiguous axial images were obtained through the chest and abdomen after the uneventful administration of intravenous contrast. All CT scans use one or more of the following dose optimizing techniques: automated exposure control, MA and/or KvP adjustment based on a patient size and exam type, or iterative reconstruction. HISTORY: Lung cancer follow-up COMPARISON: 03/04/2021 FINDINGS: Thyroid: The thyroid is normal. Mediastinum: Heart size is normal without significant pericardial effusion. Calcifications of the aorta and coronary vessels. Thoracic aorta is normal in caliber. There is leftward shift of the mediastinum which is unchanged. No suspicious lymphadenopathy. Lungs and airways: Surgical changes from left lung resection. There is a masslike density within the right upper lobe measuring 2.2 x 2.1 cm, not significantly changed from 03/04/2021. There are a few reticulonodular opacities within the right lower lobe. No new suspicious pulmonary lesion. There are background emphysematous changes of lungs. No pleural effusion or pneumothorax. Mild mucous plugging in the airways. Solid organs: Multiple stable hypoattenuating lesions within the liver which likely represent cysts. No new suspicious hepatic lesion. Gallbladder is normal. There is no biliary ductal dilation. Pancreas is normal. Spleen is normal. Adrenal glands are normal. Demonstrated bilateral renal cysts which require no follow-up. No hydronephrosis. Bowel: No bowel obstruction. Peritoneum: There is no intraperitoneal free fluid or free air. No suspicious lymphadenopathy. Vasculature: Calcification of the aorta without aneurysm. Musculoskeletal: Degenerative changes of the spine without suspicious osseous lesion or compression fracture. IMPRESSION: 1. Stable right upper lobe nodular density compared to 03/04/2021. 2. New reticular nodular opacities within the right lower lobe which can be seen with atypical infection. 3.Surgical changes from partial left pneumonectomy with leftward mediastinal shift. 4. No new findings of metastatic disease. Dictated by: Dictated on workstation # [id number]
== END ==
LOC: RAD 15:48
PROVIDERS: ATTEND Internal Medicine Hematology & Oncology
DX: C34.11 Malignant neoplasm of upper lobe, right bronchus or lung (principal); Z90.2 Acquired absence of lung [part of]
CPT/HCPCS: 71260; 74160

== ENCOUNTER → 2021-07-31 | Outpatient (CLI) | payer MEDICARE ==
--- NOTE | 2021-07-31 16:13 | Diagnostic Imaging Report ---
EXAMINATION: CT abdomen and pelvis without contrast. TECHNIQUE: Multiple contiguous axial images were obtained through the abdomen and pelvis without the use of intravenous contrast. All CT scans use one or more of the following dose optimizing techniques: automated exposure control, MA and/or KvP adjustment based on patient size and exam type or iterative reconstruction. HISTORY: GROSS HEMATURIA COMPARISON: 07/06/2021 FINDINGS: Lung bases: Bibasilar dependent atelectasis. Solid organs: The liver is normal. The gallbladder is normal. There is no biliary ductal dilation. Pancreas is normal. Spleen is normal. Adrenal glands are normal. There is large right renal cyst which requires no followup. No visualized renal calculus or hydronephrosis.. Bowel: The stomach and small bowel are normal without obstruction. There is scattered colonic diverticulosis. Surgical changes of the distal colon. The appendix is normal. Peritoneum: There is no intraperitoneal free fluid or free air. No suspicious lymphadenopathy. Vasculature: Calcification of the aorta without aneurysm. 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 Musculoskeletal: Degenerative changes of the spine without suspicious osseous lesion or compression fracture. Pelvis: The prostate gland is enlarged. The urinary bladder is normal. IMPRESSION: 1. No visualized renal calculus or hydronephrosis. 2. No other acute abnormality in the abdomen or pelvis. Dictated by: Dictated on workstation # [id number]
== END ==
LOC: RAD 15:45
PROVIDERS: ATTEND Urology
DX: J98.11 Atelectasis (principal)
CPT/HCPCS: 74176

== ENCOUNTER 2021-08-12 05:36 | Outpatient (CLI) | payer MEDICARE ==
[~2021-08-12] VITALS: Ht 175.3 cm; Wt 61.3 kg
== END 2021-08-12 14:53 | disposition home or self-care (01) ==
LOC: PREOP 05:36
PROVIDERS: ATTEND Urology
DX: Z01.818 Encounter for other preprocedural examination (principal)

== ENCOUNTER 2021-08-19 06:52 | Day surgery (SDC) | payer MEDICARE ==
[2021-08-19] VITALS (14 sets, daily range): BP systolic 100–156; BP diastolic 56–92
[~2021-08-19] VITALS: Ht 175.3 cm; Wt 61.3 kg
--- NOTE | 2021-08-19 07:28 | Progress Note-Pre Operative ---
Pre-Operative Progress Note H&P Reviewed The H&P was reviewed, patient examined and no changes noted. Date Seen by Provider: Aug 19, 2021 Time Seen by Provider: 07:28 Date H&P Reviewed: Aug 19, 2021 Time H&P Reviewed: 07:28 Pre-Operative Diagnosis: BLADDER TUMOR AXEL GAY MD Aug 19, 2021 07:28
--- NOTE | 2021-08-19 07:36 | Progress Note-Post Operative ---
Post-Operative Progess Note Surgeon (s)/Sap Technical Architect (s) Surgeon AXEL GAY MD Sap Technical Architect: NONE Pre-Operative Diagnosis BLADDER TUMOR (LARGE) Post-Operative Diagnosis SAME Procedure & Operative Findings Date of Procedure 08/19/21 Procedure Performed/Findings TURBT Anesthesia Type GENERAL Estimated Blood Loss Estimated blood loss (mL): LESS THAN 50CC Specimens/Packing Specimens Removed BLADDER TUMOR CHIPS, BLADDER TUMOR BASE, PROSTATE LESIONS, BLADDER TUMOR ROOF Packing: NONE AXEL GAY MD Aug 19, 2021 07:36
--- NOTE | 2021-08-19 07:37 | Discharge Inst-Urology ---
Discharge Inst-Urology Reconcile Patient Problems Problems Reviewed?: Yes Final Diagnosis BLADDER TUMOR Patient Instructions/Follow Up Plan/Assessment/Instructions DC [facility] Discharge and Please make appointment to been seen in office in [address]. [address] Holden or Yocasta re O2 at home Please bell Rx for Cipro 250 BID for 5 days and Pyridium 100 TID PRN #15 Increase oral fluids for 48 hours and then as needed. Diet and Activity as tolerated. If questions or concerns contact your physician Or seek help at emergency department. AXEL GAY MD Aug 19, 2021 07:37
[2021-08-19] MEDS ORDERED: cefTRIAXone 1 GM PRE-MIX 50 ML IV ONE (08:00)
[2021-08-19] MEDS: LACTATED RINGERS 1,000 ML IV PRN ×2 (08:20→10:21)
[2021-08-19] MEDS ORDERED: proPOfol 200 MG/20 ML (DIPRIVAN) VIAL IV ONE (08:47)
[2021-08-19] MEDS ORDERED: fentaNYL INJ 100 MCG/2 ML AMP ONE (08:47)
[2021-08-19] MEDS ORDERED: ONDANSETRON 4 MG/2 ML (SDV) Z0FRAN ONE (08:47)
[2021-08-19] MEDS ORDERED: LIDOCAINE PF 2% 5 ML (XYLOCAINE) VIAL ONE (08:47)
[2021-08-19] MEDS ORDERED: ROCURONIUM 50 MG/5 ML (ZEMURON) VIAL IV ONE (09:39)
[2021-08-19] MEDS ORDERED: SEVOFLURANE (ULTANE) 15 ML INHAL SOLN ONE (10:36)
[2021-08-19] MEDS ORDERED: ONDANSETRON 4 MG/2 ML (SDV) Z0FRAN IVP PRN (11:00)
[2021-08-19] MEDS ORDERED: morphine INJ 10 MG/ML 1ML (SYR OR VIAL) IVP ONE (11:00)
[2021-08-19] MEDS ORDERED: morphine INJ 10 MG/ML 1ML (SYR OR VIAL) ONE (11:07)
--- NOTE | 2021-08-19 15:56 | OPERATIVE REPORT ---
DATE OF SERVICE: 08/19/2021 PREOPERATIVE DIAGNOSES: Large bladder tumor and nodular bladder tumor at the anterior roof part of the bladder on the left side and prostatic lesions. POSTOPERATIVE DIAGNOSES: Large bladder tumor and nodular bladder tumor at the anterior roof part of the bladder on the left side and prostatic lesions. OPERATIONS PERFORMED: Transurethral resection of bladder tumor x2 and transurethral resection of prostate lesions. SURGEON: Axel Gay MD. ANESTHESIA: General. COMPLICATIONS: None. DESCRIPTION OF PROCEDURE: Under satisfactory general anesthesia, the patient in lithotomy position, genitalia were prepped and draped in the usual sterile fashion. Urethra was dilated with Eduin sound to #30 [place]ian easily accommodating a 28-[place]ian [employer] resectoscope, visualized the large bladder tumor present circumferentially from the 12 o'clock position down on the right side to the 5 o'clock position. There were also some prostatic lesions and there was a nodular type tumor in the anterior roof of the bladder close to the bladder neck on the left side. I went ahead and resected all of the above, sent separately the base of the tumor, sent separately each tumor as well as the prostatic lesions, cauterized all the bleeders, resection was as complete as feasible and visibly seen and hemostasis was very adequate. We sent everything separately, removed the resectoscope, inserted a three-way 30 mL balloon, 24-Jordanian size catheter, inflated the balloon to 30 mL, connected it to continuous bladder irrigation with sterile water, the return of which was pretty clear. The patient tolerated the procedure and anesthesia well and was sent to recovery room in stable condition. PLAN: We will see how he recovers mostly for also the urine clarity and bleeding mims to decide about discharge or admit for observation. This was all explained to the family. Job ID: [id number] DocumentID: [id number] Dictated Date: 08/19/2021 11:19:51 Machinery Rigger Date: 08/19/2021 15:55:29 Dictated By: AXEL GAY MD
--- NOTE | 2021-08-19 17:42 | Consultation - Hospitalist ---
HPI History of Present Illness: HPI/Chief Complaint Tong Coats is an 85 year old male who underwent a TURBT as an outpatient today. After the procedure he was having some hypoxia for which the hospitalist service has been consulted. Upon my exam, his breathing has returned to baseline. He denies any shortness of breath or cough. He denies fevers or chills. He denies abdominal pain. He denies nausea and vomiting. He denies chest pain. He is in his normal state of health at this time. Source: patient, family Exam Limitations: no limitations Date Seen 08/19/21 Attending Physician Roscoe Holden MD PCP Admitting Physician: Attending Physician: Alex Carrasco MD Referring Physician Date of Admission Home Medications & Allergies Home Medications Reviewed patient Home Medication Reconciliation performed by pharmacy medication reconciliations vending technician and/or nursing. Patients Allergies have been reviewed. Allergies Allergies Coded Allergies NKANo Known Allergies (Verified Allergy, Unknown, 03/24/08) Past Hjewrkk-Waqcms-Eetfyz Hx Patient Social History Smoking Status: Former Smoker Immunizations Up To Date Date of Influenza Vaccine: Nov 19, 2020 First/Initial COVID19 Vaccinat: 2020 Second COVID19 Vaccination Phil: 2020 Date of Pneumonia Vaccine: Dec 12, 2015 Seasonal Allergies Seasonal Allergies: No Current Status Primary Language: Burmese Past Medical History Surgeries: Abdominal, Lobectomy Pneumonia Atrial Fibrillation, Coronary Artery Disease, High Cholesterol, Hypertension Sexually Transmitted Disease: No HIV/AIDS: No Cataract Hearing Impairment: Hard of Hearing Lung, Skin What Type of Treatment Did You: Surgical Intervention Blood Disorders: No Adverse Reaction/Blood Tranf: No Family Medical History No Pertinent Family Hx Review of Systems Constitutional: no symptoms reported Respiratory: no symptoms reported Cardiovascular: no symptoms reported Gastrointestinal: no symptoms reported Physical Exam Physical Exam Vital Signs Vital Signs - First Documented 08/19/21 07:00 Temp 36.6 Pulse 97 Resp 22 B/P (MAP) 126/84 (98) Pulse Ox 95 O2 Delivery Room Air Capillary Refill : Height, Weight, BMI Height: 5'9.00" Weight: 152lbs. 4.3oz. [id number]; 19.94 BMI Method:Stated General Appearance: No Apparent Distress, Thin HEENT: PERRL/EOMI, Pharynx Normal Neck: Normal Inspection, Supple Respiratory: Lungs Clear, No Respiratory Distress Cardiovascular: Regular Rate, Rhythm, No Murmur Gastrointestinal: Normal Bowel Sounds, Non Tender, Soft Extremity: Normal Inspection, No Pedal Edema Neurologic/Psychiatric: Alert, Normal Mood/Affect Skin: Normal Color, Warm/Dry Results Results/Procedures Labs Patient resulted labs reviewed. Imaging: Reviewed Imaging Report Assessment/Plan Assessment and Plan Assess & Plan/Chief Complaint Bladder tumor s/p TURBT Danilo primary Biopsy results pending [facility] remains in place Acute respiratory failure with hypoxia Resolved Likely anesthesia related Diagnosis/Problems Diagnosis/Problems (1) Bladder tumor Status: Acute (2) S/P cystoscopy Status: Acute (3) Acute respiratory failure with hypoxemia Status: Acute FLAQUITA MATHEWS MD Aug 19, 2021 17:42
[2021-08-20] VITALS (7 sets, daily range): BP systolic 98–127; BP diastolic 52–68
--- NOTE | 2021-08-20 12:53 | Progress Note - Urology ---
Progress Note-Urology Progress Notes/Assess & Plan Progress/Assessment & Plan DOING, LOOKING AND FEELING WELL. URINE CLEAR. DC CBI Final Diagnosis GROSS HEMATURIA AXEL GAY MD Aug 20, 2021 12:53
[2021-08-20] MEDS ORDERED: cefTRIAXone 1 GM PRE-MIX 50 ML IV NR (13:00)
[2021-08-20] MEDS ORDERED: ACETAMINOPHEN 325 MG TABLET PO PRN (22:00)
[2021-08-20] MEDS ORDERED: ACETAMINOPHEN 325 MG TABLET ONE (22:27)
[2021-08-21 03:54] VITALS: BP 140/69
[2021-08-21 07:33] VITALS: BP 127/72
--- NOTE | 2021-08-21 09:44 | Progress Note - Urology ---
Progress Note-Urology Progress Notes/Assess & Plan Progress/Assessment & Plan DOING WELL. URINE CLEAR AND ELLEN OFF CBI. PLAN PER ORDERS Final Diagnosis GROSS HEMATURIA AXEL GAY MD Aug 21, 2021 09:44
[2021-08-21 11:10] VITALS: BP 115/60
--- NOTE | 2021-08-28 13:04 | Anesthesia-General Post-Op ---
General Significant Intra-Op Events Notes Late entry: 08/19 @1200 Patient Condition Mental Status/LOC: Same as Preop Cardiovascular: Satisfactory Nausea/Vomiting: Absent Respiratory: Satisfactory Pain: Controlled Complications: Absent Post Op Complications Complications None Follow Up Care/Instructions Patient Instructions None needed. Anesthesia/Patient Condition Patient Condition Patient is doing well, no complaints, stable vital signs, no apparent adverse anesthesia problems. No complications reported per nursing. PARRIS RUTLEDGE CRNA Aug 28, 2021 13:04
== END 2021-08-21 14:55 | disposition home or self-care (01) ==
LOC: SDC 06:52 → 4TH 13:30 → SDC 08-21 14:55
PROVIDERS: ATTEND Urology
DX: C67.9 Malignant neoplasm of bladder, unspecified (principal); C61 Malignant neoplasm of prostate; Z87.891 Personal history of nicotine dependence
CPT/HCPCS: 87081; 94760

== ENCOUNTER 2021-12-02 13:24 | Outpatient (RCR) | payer MEDICARE ==
[2021-12-02 13:43] LABS: BASOPHILS % (AUTO) 0 % (0-10); EOSINOPHILS # (AUTO) 0.3 10^3/uL (0.0-0.3); EOSINOPHILS % (AUTO) 3 % (0-10); HEMATOCRIT 39 % (40-54); HEMOGLOBIN 12.8 g/dL (13.3-17.7); LYMPHOCYTES % (AUTO) 12 % (12-44); MEAN CORPUSCULAR HEMOGLOBIN 30 pg (25-34); MEAN CORPUSCULAR HGB CONC 33 g/dL (32-36); MEAN CORPUSCULAR VOLUME 91 fL (80-99); MEAN PLATELET VOLUME 9.5 fL (9.0-12.2); MONOCYTES # (AUTO) 0.5 10^3/uL (0.0-1.0); MONOCYTES % (AUTO) 6 % (0-12); NEUTROPHILS # (AUTO) 6.7 10^3/uL (1.8-7.8); NEUTROPHILS % (AUTO) 78 % (42-75); PLATELET COUNT 213 10^3/uL (130-400); WHITE BLOOD COUNT 8.5 10^3/uL (4.3-11.0)
[2021-12-02 14:09] LABS: ALBUMIN 4.2 GM/DL (3.2-4.5); BILIRUBIN,TOTAL 0.9 MG/DL (0.1-1.0); CALCIUM 9.3 MG/DL (8.5-10.1); CREATININE SERUM 1.11 MG/DL (0.60-1.30); POTASSIUM 4.6 MMOL/L (3.6-5.0); TOTAL PROTEIN 6.9 GM/DL (6.4-8.2)
== END 2021-12-14 | disposition home or self-care (01) ==
LOC: ONC 13:24
PROVIDERS: ATTEND Internal Medicine Hematology & Oncology
DX: C34.32 Malignant neoplasm of lower lobe, left bronchus or lung (principal); I10 Essential (primary) hypertension; D50.9 Iron deficiency anemia, unspecified; Z90.2 Acquired absence of lung [part of]; Z98.890 Other specified postprocedural states
CPT/HCPCS: 80053; 82728; 83540; 83550; 85025; G0463; 36415; 99213

== ENCOUNTER 2022-01-19 09:44 | Emergency (ER) | payer MEDICARE ==
[~2022-01-19] VITALS: Ht 175 cm; Wt 62.0 kg
--- NOTE | 2022-01-19 10:23 | ED Respiratory ---
General Chief Complaint: Respiratory Problems Stated Complaint: SOB Nursing Triage Note: PT TO RM 3 PT STATES SOA STARTED YESTERDAY EVENING. STATES HAD BLADDER TX YESTERDAY. PT O2 SAT 89% ON RA, RR 32, O2 APPLIED @2L PER N/C O2 SAT UP TO 97%. PT IS ABLE TO TALK TO STAFF. DENIES C/P. Source: patient, family (daughter) Exam Limitations: no limitations History of Present Illness Date Seen by Provider: Jan 19, 2022 Time Seen by Provider: 10:10 Initial Comments Patient is an 86-year-old male who presents to the emergency room with a chief complaint of feeling short of breath. Onset yesterday. 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 This was done ye sterday at Dr. Gay's office. He has never had issues with hypoxia or COPD in the past. Former very remote smoker. No fevers or chills. He does endorse a little burning with urination which he states is usual after the BCG infusions. He states it is a little bit more than usual in the last 24 hours. No abdominal pain but he states that he feels like he is not emptying his bladder completely. He has noticed a few "clots" in his urine very tiny ones. No diarrhea. No abnormal swelling in his legs. No chest pain associated with his shortness of breath. No sick contacts that he is aware of. He was placed on supplemental oxygen at 2 L at triage, brought him up to 97%. As I was talking to him initially he was off oxygen and satting 96 to 97%. Minimal increased work of breathing noted. Timing/Duration: yesterday Severity: moderate Prior Episodes/Possible Cause: no prior episodes Associated Symptoms: shortness of breath, other (dysuria; blood in urine) Allergies and Home Medications Allergies Coded Allergies: NKANo Known Allergies (Verified Allergy, Unknown, 03/24/08) Patient Home Medication List Home Medication List Reviewed: Yes Escitalopram Oxalate (Escitalopram Oxalate) 10 Mg Tablet, 10 MG PO HS, (Reported) Entered as Reported by: PARKER AL on 03/02/21 1009 Losartan Potassium (Losartan Potassium) 50 Mg Tablet, 50 MG PO DAILY, (Reported) Entered as Reported by: PARKER AL on 03/02/21 1009 Multivitamin/Iron/Folic Acid (Multi-Day Plus Iron Tablet) 1 Each Tablet, 1 EACH PO DAILY, (Reported) Entered as Reported by: PARKER AL on 03/02/21 1009 Simvastatin (Simvastatin) 40 Mg Tablet, 40 MG PO HS, (Reported) Entered as Reported by: CHARLEY DANIELLE on 08/28/18 0840 Review of Systems Review of Systems Constitutional: see HPI EENTM: no symptoms reported Respiratory: short of breath Cardiovascular: no symptoms reported Gastrointestinal: no symptoms reported Genitourinary: frequency, hematuria, hesitancy Musculoskeletal: no symptoms reported Skin: no symptoms reported Psychiatric/Neurological: No Symptoms Reported All Other Systems Reviewed Negative Unless Noted: Yes Past Owaufmn-Deklcm-Mnyzjm Hx Patient Social History Tobacco Use?: No Substance use?: No Alcohol Use?: No Pt feels they are or have been: No Immunizations Up To Date Influenza Vaccine Up-to-Date: Yes; Up-to-Date First/Initial COVID19 Vaccinat: 2019 Second COVID19 Vaccination Phil: 2019 Third COVID19 Vaccination Date: 2020 Seasonal Allergies Seasonal Allergies: No Past Medical History Surgery/Hospitalization HX: BLADDER, Surgeries: No (LEFT EAR SURGERY AND RIGHT ING HERNIA SURGERY, BILAT CATARACTS) Abdominal, Lobectomy Respiratory: Yes (LOBECTOMY - LUNG CA IN 2019 - SOA FREQENTLY AND WITH EXERTION) Pneumonia Cardiac: Yes Atrial Fibrillation, Coronary Artery Disease, High Cholesterol, Hypertension Neurological: No Reproductive Disorders: No Sexually Transmitted Disease: No HIV/AIDS: No Genitourinary: No Gastrointestinal: Yes (inguinal hernia) Musculoskeletal: No Endocrine: No HEENT: Yes Cataract Hearing Impairment: Hard of Hearing Cancer: Yes Lung, Skin What Type of Treatment Did You: Surgical Intervention Psychosocial: No Integumentary: No Blood Disorders: No Adverse Reaction/Blood Tranf: No Family Medical History No Pertinent Family Hx Physical Exam Vital Signs - First Documented 01/19/22 09:45 Temp 35.8 Pulse 103 Resp 32 B/P (MAP) 174/96 (122) Pulse Ox 97 O2 Delivery Nasal Cannula O2 Flow Rate 2.00 Capillary Refill : Less Than 3 Seconds Height: 5'9.00" Weight: 152lbs. 4.3oz. [id number]; 20.00 BMI Method:Stated General Appearance: WD/WN, no apparent distress HEENT: PERRL/EOMI, pale conjunctivae (R) (Slightly pale), pale conjunctivae (L) Neck: normal inspection Respiratory: lungs clear, normal breath sounds, no respiratory distress, no accessory muscle use, other (Slight increased work of breathing with conversation) Cardiovascular: regular rate, rhythm Gastrointestinal: normal bowel sounds, non tender, soft Extremities: normal range of motion, normal inspection, no pedal edema, no calf tenderness Neurologic/Psychiatric: normal mood/affect, oriented x 3 Skin: normal color, warm/dry Progress/Results/Core Measures Suspected Sepsis SIRS Temperature: Pulse: 103 Respiratory Rate: 32 Laboratory Tests 01/19/22 09:50: White Blood Count 10.2 Blood Pressure 174 /96 Mean: 122 Laboratory Tests 01/19/22 09:50: Creatinine 1.05, Platelet Count 213 Results/Orders Lab Results Laboratory Tests Test 01/19/22 09:50 01/19/22 10:39 Range/Units White Blood Count 10.2 4.3-11.0 10^3/uL Red Blood Count 4.53 4.30-5.52 10^6/uL Hemoglobin 13.7 13.3-17.7 g/dL Hematocrit 40 40-54 % Mean Corpuscular Volume 89 80-99 fL Mean Corpuscular Hemoglobin 30 25-34 pg Mean Corpuscular Hemoglobin Concent 34 32-36 g/dL Red Cell Distribution Width 13.1 10.0-14.5 % Platelet Count 213 130-400 10^3/uL Mean Platelet Volume 9.7 9.0-12.2 fL Immature Granulocyte % (Auto) 1 % Neutrophils (%) (Auto) 94 H 42-75 % Lymphocytes (%) (Auto) 3 L 12-44 % Monocytes (%) (Auto) 3 0-12 % Eosinophils (%) (Auto) 0 0-10 % Basophils (%) (Auto) 0 0-10 % Neutrophils # (Auto) 9.6 H 1.8-7.8 10^3/uL Lymphocytes # (Auto) 0.3 L 1.0-4.0 10^3/uL Monocytes # (Auto) 0.3 0.0-1.0 10^3/uL Eosinophils # (Auto) 0.0 0.0-0.3 10^3/uL Basophils # (Auto) 0.0 0.0-0.1 10^3/uL Immature Granulocyte # (Auto) 0.1 0.0-0.1 10^3/uL Neutrophils % (Manual) 88 % Lymphocytes % (Manual) 3 % Monocytes % (Manual) 3 % Eosinophils % (Manual) 0 % Basophils % (Manual) 1 % Band Neutrophils 5 % Blood Morphology Comment NORMAL Sodium Level 129 L 135-145 MMOL/L Potassium Level 4.1 3.6-5.0 MMOL/L Chloride Level 96 L 98-107 MMOL/L Carbon Dioxide Level 22 21-32 MMOL/L Anion Gap 11 5-14 MMOL/L Blood Urea Nitrogen 19 H 7-18 MG/DL Creatinine 1.05 0.60-1.30 MG/DL Estimat Glomerular Filtration Rate 69 BUN/Creatinine Ratio 18 Glucose Level 110 H 70-105 MG/DL Calcium Level 9.3 8.5-10.1 MG/DL Troponin I < 0.028 <0.028 NG/ML Urine Color ORANGE Urine Clarity CLOUDY Urine pH 5.5 5-9 Urine Specific [place] >=1.030 1.016-1.022 Urine Protein 2+ H NEGATIVE Urine Glucose (UA) NEGATIVE NEGATIVE Urine Ketones NEGATIVE NEGATIVE Urine Nitrite NEGATIVE NEGATIVE Urine Bilirubin NEGATIVE NEGATIVE Urine Urobilinogen 0.2 < = 1.0 MG/DL Urine Leukocyte Esterase 2+ H NEGATIVE Urine RBC (Auto) 3+ H NEGATIVE Urine RBC 50-100 H /HPF Urine WBC >100 H /HPF Urine Crystals NONE /LPF Urine Bacteria TRACE /HPF Urine Casts NONE /LPF Urine Mucus SMALL H /LPF Urine Culture Indicated YES My Orders Orders - ZAHRAA ALMAZAN MD Ekg Tracing (01/19/22 09:46) Ed Iv/Invasive Line Start (01/19/22 10:21) Cbc With Automated Diff (01/19/22 10:21) Basic Metabolic Panel (01/19/22 10:21) Troponin I [place] (01/19/22 10:21) Bladder Scan (01/19/22 10:21) Ua Culture If Indicated (01/19/22 10:21) Chest 1 View, Ap/Pa Only (01/19/22 10:21) Manual Differential (01/19/22 09:50) Urine Culture (01/19/22 10:39) Ns Iv 500 Ml (Sodium Chloride 0.9%) (01/19/22 11:12) Ns Iv 500 Ml (Sodium Chloride 0.9%) (01/19/22 11:10) Ceftriaxone 1 Gm Pre-Mix (Rocephin 1 Gm (01/19/22 11:30) Medications Given in ED Current Medications Medications Dose Ordered Sig/Ozzy Route Start Time Stop Time Status Last Admin Dose Admin Ceftriaxone Sodium/Dextrose 50 ml @ 100 mls/hr ONCE ONCE IV 01/19/22 11:30 01/19/22 11:59 DC 01/19/22 11:30 100 MLS/HR Vital Signs/I&O 01/19/22 09:45 Temp 35.8 Pulse 103 Resp 32 B/P (MAP) 174/96 (122) Pulse Ox 97 O2 Delivery Nasal Cannula O2 Flow Rate 2.00 Capillary Refill : Less Than 3 Seconds Blood Pressure Mean: 122 Progress Note : Time: 12:11 Progress Note Care discussed with Dr. Florez at 1118. He recommended Rocephin and then Bactrim DS for 5 days. He we will see him in a week. Dr. Gay advised if he does not get fairly rapid improvement he will need to come back to the hospital for admission. I have discussed the plan of care with the patient, he is comfortable with this. He has maintained normal room air oxygen saturations without decompensation in his breathing. Low clinical concern for acute pulmonary embolism, pneumonia, other acute pulmonary pathology. Patient's chest x-ray is reassuring. He does have a mild increase in his total cells with a normal white count. Renal function is normal. I have advised him to drink lots of fluids while he is taking the Bactrim. All questions are sought and answered. Departure Impression Primary Impression: Dyspnea Qualified Codes: R06.00 - Dyspnea, unspecified Additional Impression: UTI (urinary tract infection) Qualified Codes: N30.01 - Acute cystitis with hematuria Disposition: HOME, SELF-CARE Condition: Stable Departure-Patient Inst. Decision time for Depature: 12:16 Referrals: CIARA CRISOSTOMO MD (PCP/Family) Primary Care Physician Patient Instructions: Urinary Tract Infection, Adult ED Add. Discharge Instructions: Drink lots of fluids to stay well-hydrated. Start taking the Bactrim DS tablets 1 twice a day for 5 days tomorrow. If you have worsening weakness, nausea, shortness of breath or fever please come back to the emergency room for reevaluation. Please follow-up with both Dr. Gay as scheduled and your primary care physician Scripts Sulfamethoxazole/Trimethoprim (Bactrim Ds Tablet) 1 Each Tablet 1 EACH PO BID for 5 Days, #10 TAB Prov: ZAHRAA ALMAZAN MD 01/19/22 Copy Copies To 1: CIARA CRISOSTOMO MD Copies To 2: AXEL GAY MD, KATHRYN M MD Jan 19, 2022 10:23
[2022-01-19 10:32] LABS: BASOPHILS % (AUTO) 0 % (0-10); EOSINOPHILS % (AUTO) 0 % (0-10); HEMATOCRIT 40 % (40-54); HEMOGLOBIN 13.7 g/dL (13.3-17.7); LYMPHOCYTES # (AUTO) 0.3 10^3/uL (1.0-4.0); LYMPHOCYTES % (AUTO) 3 % (12-44); MEAN CORPUSCULAR HEMOGLOBIN 30 pg (25-34); MEAN CORPUSCULAR HGB CONC 34 g/dL (32-36); MEAN CORPUSCULAR VOLUME 89 fL (80-99); MEAN PLATELET VOLUME 9.7 fL (9.0-12.2); MONOCYTES # (AUTO) 0.3 10^3/uL (0.0-1.0); MONOCYTES % (AUTO) 3 % (0-12); NEUTROPHILS # (AUTO) 9.6 10^3/uL (1.8-7.8); NEUTROPHILS % (AUTO) 94 % (42-75); PLATELET COUNT 213 10^3/uL (130-400); WHITE BLOOD COUNT 10.2 10^3/uL (4.3-11.0)
[2022-01-19 10:40] LABS: BUN/CREATININE RATIO 18; CALCIUM 9.3 MG/DL (8.5-10.1); CARBON DIOXIDE 22 MMOL/L (21-32); CHLORIDE 96 MMOL/L (98-107); CREATININE SERUM 1.05 MG/DL (0.60-1.30); GFR ESTIMATED 69; GLUCOSE 110 MG/DL (70-105); POTASSIUM 4.1 MMOL/L (3.6-5.0); SODIUM 129 MMOL/L (135-145)
[2022-01-19 10:50] LABS: BILIRUBIN,URINE NEGATIVE (NEGATIVE); CLARITY,URINE CLOUDY; COLOR,URINE ORANGE; GLUCOSE, URINE (UA) NEGATIVE (NEGATIVE); KETONES,URINE NEGATIVE (NEGATIVE); LEUKOCYTE ESTERASE ,URINE 2+ (NEGATIVE); NITRITE,URINE NEGATIVE (NEGATIVE); PH,URINE 5.5 (5-9); PROTEIN,URINE 2+ (NEGATIVE)
[2022-01-19 10:55] LABS: BAND NEUTROPHILS 5 %; BASOPHILS % (MANUAL) 1 %; EOSINOPHILS % (MANUAL) 0 %; LYMPHOCYTES % (MANUAL) 3 %; MONOCYTES % (MANUAL) 3 %; NEUTROPHILS % (MANUAL) 88 %; RBC MORPH NORMAL
[2022-01-19 11:05] LABS: BACTERIA,URINE TRACE /HPF; RBC,URINE 50-100 /HPF; WBC,URINE >100 /HPF
--- NOTE | 2022-01-19 11:09 | Diagnostic Imaging Report ---
HISTORY: Shortness of breath. COMPARISON: 03/29/2021. TECHNIQUE: Frontal view of the chest. FINDINGS: There is mild elevation of the left hemidiaphragm and the right lung volume appears large. There is airspace opacity in the medial right upper lobe. There is pleural thickening at the left lung apex. These opacities appear stable when compared to the prior exams. There is no new consolidation seen. The cardiac silhouette is normal in size. There is no pleural effusion or pneumothorax. IMPRESSION: Chronic findings in the chest with no acute pulmonary abnormality seen. Dictated by: Dictated on workstation # [id number]
[2022-01-19] MEDS ORDERED: NS IV 500 ML 500 ML ONE (11:10)
[2022-01-19] MEDS ORDERED: NS IV 500 ML 500 ML IV STA (11:12)
[2022-01-19] MEDS ORDERED: cefTRIAXone 1 GM PRE-MIX 50 ML IV ONE (11:30)
[2022-01-19] MEDS ORDERED: SULF1TAB38 PO (12:19)
[2022-01-19 12:55] VITALS: BP 106/62
== END 2022-01-19 12:59 | disposition home or self-care (01) ==
LOC: EDUNIT# 09:44 → ER 09:46
DX: R06.00 Dyspnea, unspecified (principal); N39.0 Urinary tract infection, site not specified; Z87.891 Personal history of nicotine dependence
CPT/HCPCS: 36415; 71045; 80048; 81000; 84484; 85007; 85027; 87088; 93005

== ENCOUNTER 2022-03-04 15:03 | Outpatient (RCR) | payer MEDICARE ==
[~2022-03-04 15:03] MED LIST changes: +SULF1TAB38 PO
[2022-03-04 15:58] LABS: BASOPHILS % (AUTO) 0 % (0-10); EOSINOPHILS # (AUTO) 0.1 10^3/uL (0.0-0.3); EOSINOPHILS % (AUTO) 2 % (0-10); HEMATOCRIT 39 % (40-54); LYMPHOCYTES % (AUTO) 14 % (12-44); MEAN CORPUSCULAR HEMOGLOBIN 30 pg (25-34); MEAN CORPUSCULAR HGB CONC 33 g/dL (32-36); MEAN CORPUSCULAR VOLUME 91 fL (80-99); MEAN PLATELET VOLUME 9.4 fL (9.0-12.2); MONOCYTES # (AUTO) 0.6 10^3/uL (0.0-1.0); MONOCYTES % (AUTO) 8 % (0-12); NEUTROPHILS # (AUTO) 5.7 10^3/uL (1.8-7.8); NEUTROPHILS % (AUTO) 76 % (42-75); PLATELET COUNT 215 10^3/uL (130-400); WHITE BLOOD COUNT 7.5 10^3/uL (4.3-11.0)
[2022-03-04 16:13] LABS: ALBUMIN 4.3 GM/DL (3.2-4.5); BILIRUBIN,TOTAL 1.4 MG/DL (0.1-1.0); CALCIUM 9.5 MG/DL (8.5-10.1); CREATININE SERUM 0.98 MG/DL (0.60-1.30); POTASSIUM 4.3 MMOL/L (3.6-5.0); TOTAL PROTEIN 7.3 GM/DL (6.4-8.2)
[2022-03-07] MEDS ORDERED: ALBU8.5H6 INH (11:21)
== END 2022-03-16 | disposition home or self-care (01) ==
LOC: ONC 15:03
PROVIDERS: ATTEND Internal Medicine Hematology & Oncology
DX: C34.32 Malignant neoplasm of lower lobe, left bronchus or lung (principal); I10 Essential (primary) hypertension; D50.9 Iron deficiency anemia, unspecified; Z90.2 Acquired absence of lung [part of]; Z98.890 Other specified postprocedural states
CPT/HCPCS: 80053; 85025; G0463; 36415; 99213

== ENCOUNTER 2022-03-07 09:30 | Emergency (ER) | payer MEDICARE ==
[~2022-03-07] VITALS: Ht 175 cm; Wt 62.0 kg
[2022-03-07] MEDS ORDERED: methylPREDNISolone 125 MG (Solu-MEDROL) VIAL IVP ONE (09:45)
[2022-03-07] MEDS ORDERED: RT-ALBUTEROL SULF 2.5 MG/3 ML PRE-MIX VIAL INH ONE (09:45)
[2022-03-07] MEDS ORDERED: RT-ALBUTEROL/IPRATROPIUM 3 ML (DUONEB) VIAL INH ONE (09:45)
[2022-03-07 09:49] LABS: BASOPHILS % (AUTO) 0 % (0-10); EOSINOPHILS # (AUTO) 0.1 10^3/uL (0.0-0.3); EOSINOPHILS % (AUTO) 0 % (0-10); HEMATOCRIT 44 % (40-54); HEMOGLOBIN 14.7 g/dL (13.3-17.7); LYMPHOCYTES % (AUTO) 6 % (12-44); MEAN CORPUSCULAR HEMOGLOBIN 30 pg (25-34); MEAN CORPUSCULAR HGB CONC 33 g/dL (32-36); MEAN CORPUSCULAR VOLUME 90 fL (80-99); MEAN PLATELET VOLUME 9.1 fL (9.0-12.2); MONOCYTES # (AUTO) 0.7 10^3/uL (0.0-1.0); MONOCYTES % (AUTO) 5 % (0-12); NEUTROPHILS # (AUTO) 13.4 10^3/uL (1.8-7.8); NEUTROPHILS % (AUTO) 88 % (42-75); PLATELET COUNT 261 10^3/uL (130-400); WHITE BLOOD COUNT 15.2 10^3/uL (4.3-11.0)
[2022-03-07 09:59] LABS: POTASSIUM 4.4 MMOL/L (3.6-5.0)
[2022-03-07 10:00] LABS: CALCIUM 10.1 MG/DL (8.5-10.1)
--- NOTE | 2022-03-07 10:01 | ED Respiratory ---
General Chief Complaint: Respiratory Problems Stated Complaint: SOA Nursing Triage Note: PT AMB TO RM 5 PT VERY SOA, STATES STARTED LAST PM. Source: patient, family Exam Limitations: no limitations History of Present Illness Date Seen by Provider: Mar 07, 2022 Time Seen by Provider: 09:35 Initial Comments Patient is an 86-year-old male with a history of lung cancer who presents to the emergency room with a chief complaint of shortness of breath. Patient had acute onset of shortness of breath last night. He lives alone in an apartment. He does not use breathing treatments or inhalers. Remote history of smoking. No exposures to fumes, gases. He has had a runny nose all morning. Nonproductive cough, mildly sore throat. Unaware of any fever. No sick contacts that he knows of. He is vaccinated for flu and COVID. Denies chest pain. No nausea, vomiting, diarrhea. No urinary complaints. No history of congestive heart failure. No unusual swelling in his legs. No history of blood clot. All other review of systems reviewed and negative except as stated Timing/Duration: other (last night) Severity: severe Modifying Factors: Worse With Activity; Improves With Oxygen Associated Symptoms: nasal congestion, nasal drainage, shortness of breath, sore throat, wheezing Allergies and Home Medications Allergies Coded Allergies: NKANo Known Allergies (Verified Allergy, Unknown, 03/24/08) Patient Home Medication List Home Medication List Reviewed: Yes Escitalopram Oxalate (Escitalopram Oxalate) 10 Mg Tablet, 10 MG PO HS, (Reported) Entered as Reported by: PARKER AL on 03/02/21 1009 Losartan Potassium (Losartan Potassium) 50 Mg Tablet, 50 MG PO DAILY, (Reported) Entered as Reported by: PARKER AL on 03/02/21 1009 Multivitamin/Iron/Folic Acid (Multi-Day Plus Iron Tablet) 1 Each Tablet, 1 EACH PO DAILY, (Reported) Entered as Reported by: PARKER AL on 03/02/21 1009 Simvastatin (Simvastatin) 40 Mg Tablet, 40 MG PO HS, (Reported) Entered as Reported by: CHARLEY DANIELLE on 08/28/18 0840 Sulfamethoxazole/Trimethoprim (Bactrim Ds Tablet) 1 Each Tablet, 1 EACH PO BID Prescribed by: ZAHRAA ALMAZAN on 01/19/22 1219 Review of Systems Review of Systems Constitutional: see HPI EENTM: nose congestion, throat pain Respiratory: cough, short of breath Cardiovascular: no symptoms reported Gastrointestinal: no symptoms reported Genitourinary: no symptoms reported Musculoskeletal: no symptoms reported Skin: no symptoms reported All Other Systems Reviewed Negative Unless Noted: Yes Past Rldtzyt-Nzgciz-Zusqcw Hx Patient Social History Tobacco Use?: No Smoking Status: Former Smoker Substance use?: No Alcohol Use?: No Pt feels they are or have been: No Immunizations Up To Date Influenza Vaccine Up-to-Date: Yes; Up-to-Date First/Initial COVID19 Vaccinat: 2019 Second COVID19 Vaccination Phil: 2019 Third COVID19 Vaccination Date: 2020 Seasonal Allergies Seasonal Allergies: No Past Medical History Surgery/Hospitalization HX: BLADDER, LUNG CA, HTN Surgeries: No (LEFT EAR SURGERY AND RIGHT ING HERNIA SURGERY, BILAT CATARACTS) Abdominal, Lobectomy Respiratory: Yes (LOBECTOMY - LUNG CA IN 2019 - SOA FREQENTLY AND WITH EXERTION) Pneumonia Cardiac: Yes Atrial Fibrillation, Coronary Artery Disease, High Cholesterol, Hypertension Neurological: No Reproductive Disorders: No Sexually Transmitted Disease: No HIV/AIDS: No Genitourinary: No Gastrointestinal: Yes (inguinal hernia) Musculoskeletal: No Endocrine: No HEENT: Yes Cataract Hearing Impairment: Hard of Hearing Cancer: Yes Lung, Skin What Type of Treatment Did You: Surgical Intervention Psychosocial: No Integumentary: No Blood Disorders: No Adverse Reaction/Blood Tranf: No Family Medical History No Pertinent Family Hx Physical Exam Vital Signs - First Documented 03/07/22 09:48 O2 Flow Rate 2.00 Capillary Refill : Less Than 3 Seconds Height: 5'9.00" Weight: 152lbs. 4.3oz. 68.848448gj; 20.00 BMI Method:Stated General Appearance: WD/WN, mild distress Eyes: Bilateral Eye Normal Inspection, Bilateral Eye PERRL, Bilateral Eye EOMI HEENT: PERRL/EOMI, other (dry oral mucosa) Neck: normal inspection Respiratory: respiratory distress (mild), wheezing, expiration, other (increased work of breathing, mild resp distress; diffuse expiratory wheezing; conversational dyspnea - 3-4 words.) Cardiovascular: regular rate, rhythm, tachycardia, other (2+ rad pulses bilaterally) Gastrointestinal: non tender, soft Extremities: non-tender, normal inspection, no pedal edema Neurologic/Psychiatric: alert, normal mood/affect, oriented x 3 Skin: normal color, warm/dry Progress/Results/Core Measures Suspected Sepsis SIRS Temperature: Pulse: 106 Respiratory Rate: 28 Laboratory Tests 03/07/22 09:30: White Blood Count 15.2H Blood Pressure 160 /97 Mean: 118 Laboratory Tests 03/07/22 09:30: Creatinine 1.01, Platelet Count 261 Results/Orders Lab Results Laboratory Tests Test 03/07/22 09:30 03/07/22 09:43 Range/Units White Blood Count 15.2 H 4.3-11.0 10^3/uL Red Blood Count 4.89 4.30-5.52 10^6/uL Hemoglobin 14.7 13.3-17.7 g/dL Hematocrit 44 40-54 % Mean Corpuscular Volume 90 80-99 fL Mean Corpuscular Hemoglobin 30 25-34 pg Mean Corpuscular Hemoglobin Concent 33 32-36 g/dL Red Cell Distribution Width 13.2 10.0-14.5 % Platelet Count 261 130-400 10^3/uL Mean Platelet Volume 9.1 9.0-12.2 fL Immature Granulocyte % (Auto) 1 % Neutrophils (%) (Auto) 88 H 42-75 % Lymphocytes (%) (Auto) 6 L 12-44 % Monocytes (%) (Auto) 5 0-12 % Eosinophils (%) (Auto) 0 0-10 % Basophils (%) (Auto) 0 0-10 % Neutrophils # (Auto) 13.4 H 1.8-7.8 10^3/uL Lymphocytes # (Auto) 1.0 1.0-4.0 10^3/uL Monocytes # (Auto) 0.7 0.0-1.0 10^3/uL Eosinophils # (Auto) 0.1 0.0-0.3 10^3/uL Basophils # (Auto) 0.0 0.0-0.1 10^3/uL Immature Granulocyte # (Auto) 0.1 0.0-0.1 10^3/uL Neutrophils % (Manual) 82 % Lymphocytes % (Manual) 9 % Monocytes % (Manual) 6 % Eosinophils % (Manual) 0 % Basophils % (Manual) 0 % Band Neutrophils 3 % Blood Morphology Comment NORMAL Sodium Level 135 135-145 MMOL/L Potassium Level 4.4 3.6-5.0 MMOL/L Chloride Level 96 L 98-107 MMOL/L Carbon Dioxide Level 26 21-32 MMOL/L Anion Gap 13 5-14 MMOL/L Blood Urea Nitrogen 15 7-18 MG/DL Creatinine 1.01 0.60-1.30 MG/DL Estimat Glomerular Filtration Rate 72 BUN/Creatinine Ratio 15 Glucose Level 118 H 70-105 MG/DL Calcium Level 10.1 8.5-10.1 MG/DL Influenza Type A (RT-PCR) Not Detected Not Detecte Influenza Type B (RT-PCR) Not Detected Not Detecte SARS-CoV-2 RNA (RT-PCR) Not Detected Not Detecte My Orders Orders - ZAHRAA ALMAZAN MD Ed Iv/Invasive Line Start (03/07/22 09:41) Cbc With Automated Diff (03/07/22 09:41) Basic Metabolic Panel (03/07/22 09:41) Chest 1 View, Ap/Pa Only (03/07/22 09:41) Covid 19 Inhouse Test (03/07/22 09:41) Influenza A And B By Pcr (03/07/22 09:41) Isolation Central Supply Req (03/07/22 09:41) Methylprednisolone Sod Succ (Solu-Medrol (03/07/22 09:45) Albuterol Pre-Mix Nebs (Rt) (Proventil (03/07/22 09:45) Albuterol/Ipra Inhalation Soln (Duoneb I (03/07/22 09:45) Svn Small Volume Nebulizer (03/07/22 09:41) Svn Small Volume Nebulizer (03/07/22 09:41) Ekg Tracing (03/07/22 09:41) Manual Differential (03/07/22 09:30) Ct Chest W (03/07/22 10:09) Ns Iv 1000 Ml (Sodium Chloride 0.9%) (03/07/22 10:09) Iohexol Injection (Omnipaque 350 Mg/Ml 1 (03/07/22 10:30) Received Contrast (Hold Metformin- Contr (03/07/22 10:30) Ns (Ivpb) (Sodium Chloride 0.9% Ivpb Bag (03/07/22 10:30) Medications Given in ED Current Medications Medications Dose Ordered Sig/Ozzy Route Start Time Stop Time Status Last Admin Dose Admin Albuterol Sulfate 7.5 mg ONCE ONCE INH 03/07/22 09:45 03/07/22 09:46 DC 03/07/22 09:48 7.5 MG Albuterol/ Ipratropium 3 ml ONCE ONCE INH 03/07/22 09:45 03/07/22 09:46 DC 03/07/22 09:48 3 ML Iohexol 75 ml ONCE ONCE IV 03/07/22 10:30 03/07/22 10:31 DC 03/07/22 10:49 74 ML Methylprednisolone Sodium Succinate 125 mg ONCE ONCE IVP 03/07/22 09:45 03/07/22 09:46 DC 03/07/22 09:56 125 MG Sodium Chloride 100 ml ONCE ONCE IV 03/07/22 10:30 03/07/22 10:31 DC 03/07/22 10:49 80 ML Vital Signs/I&O 03/07/22 03/07/22 03/07/22 09:35 09:35 09:48 Temp 36.0 Pulse 106 Resp 28 B/P (MAP) 160/97 (118) Pulse Ox 97 100 O2 Delivery Room Air Room Air Nasal Cannula O2 Flow Rate 2.00 Capillary Refill : Less Than 3 Seconds Blood Pressure Mean: 118 Progress Note : Time: 11:15 Progress Note Patient seen and evaluated by me, 86-year-old with a history of lung cancer presents with shortness of breath. Evaluation today includes physical exam, single view chest x-ray, CBC, chemistry and CT chest with IV contrast, EKG. Patient was quite dyspneic on arrival, treated with albuterol and DuoNeb with complete resolution of his wheezing and respiratory distress. We did supplement him with a little oxygen at 2 L to help with his air hunger. Differential diagnosis includes pneumonia, COPD exacerbation, pulmonary embolism, pneumothorax. He remained tachycardic with a heart rate of 100-1 10 which was exacerbated by the albuterol. CBC showed a mild leukocytosis at 15,000 slight left shift. Chemistry unremarkable/normal. EKG sinus tachycardia without ectopy or ST segment elevation or depression. Chest x-ray showed questionable enlargement of right upper lobe mass therefore CT chest with IV contrast was pursued which showed stable findings from February 2021. Aseptic vital signs. Patient feels better after treatment. He was given 1 L of normal saline postcontrast. I discussed with him and his daughter at the bedside a prescription for an albuterol inhaler. He would like his chart sent to both Dr. Holden and Dr. Reed's office. Return precautions provided. All questions are sought and answered. Patient is improved at discharge ECG Initial ECG Impression Date: Mar 07, 2022 Initial ECG Impression Time: 09:53 Initial ECG Rate: 94 Initial ECG Rhythm: Normal Sinus Initial ECG Intervals OK 132 QRS 105 QTc 451 Initial ECG Impression: Normal Diagnostic Imaging Diagonstic Imaging: Xray Plain Films/CT/US/NM/MRI: chest Comments NAME: BRAYAN [facility] REC#: [id number] PT STATUS: REG ER : 1935 PHYSICIAN: ZAHRAA ALMAZAN MD ADMIT DATE: 03/07/22/ER Draft Date of Exam:03/07/22 CHEST 1 VIEW, AP/PA ONLY EXAMINATION: Chest 1 view HISTORY: Short of breath COMPARISON: 01/19/2022 FINDINGS: Lungs are emphysematous. There is volume loss in the left hemithorax. There is scarring in the left apex. There is a 4.9 x 3.8 cm nodule in the right apex, new from prior exam. Heart size is normal. IMPRESSION: 1. New right apical nodule. Chest CT with contrast recommended. Dictated on workstation # [id number] Dict: 03/07/22 1001 Trans: 03/07/22 1003 [facility] [id number] Interpreted by: LAUREL TINOCO MD Electronically signed by: Diagonstic Imaging: CT Plain Films/CT/US/NM/MRI: chest Comments [facility] [place] [place] NAME: BRAYAN LINO [facility] REC#: [id number] PT STATUS: REG ER : 1935 PHYSICIAN: ZAHRAA ALMAZAN MD ADMIT DATE: 03/07/22/ER Draft Date of Exam:03/07/22 CT CHEST W EXAMINATION: CT chest with intravenous contrast. TECHNIQUE: Multiple contiguous axial images were obtained through the chest after the uneventful administration of intravenous contrast. All CT scans use one or more of the following dose optimizing techniques: automated exposure control, MA and/or KvP adjustment based on patient size and exam type or iterative reconstruction. HISTORY: Shortness of breath and wheezing. COMPARISON: 07/06/2021 FINDINGS: The nodule seen on radiography in the right apex measures 2.2 x 2.2 cm, previously 2.2 x 2.1 cm. It is similar to prior exam of 03/04/2021. There is surrounding linear opacities. There are a few scattered tree-in-bud nodules in the right lower lobe. There has been a left upper lobectomy. There is scarring in the left apex. There is a loculated pleural effusion in the left lung base, similar to prior exam. No pneumothorax. There is no axillary or supraclavicular lymphadenopathy. There is no mediastinal lymphadenopathy. Heart size is normal. There are moderate coronary artery calcifications. No pericardial effusion. Aorta is normal in caliber. Limited views of the upper abdomen show cysts in the kidneys and liver. There are no suspicious osseus lesions. IMPRESSION: 1. Right apical nodule was present on prior CT dating back to 03/04/2021 and may represent an area of scarring. Continued surveillance is warranted. Dictated on workstation # [id number] Dict: 03/07/22 1055 Trans: 03/07/22 1101 [facility] [id number] Interpreted by: LAUREL TINOCO MD Electronically signed by: Departure Impression Primary Impression: Reactive airway disease with wheezing with acute exacerbation Qualified Codes: J45.21 - Mild intermittent asthma with (acute) exacerbation Disposition: 01 HOME, SELF-CARE Condition: Improved Departure-Patient Inst. Decision time for Depature: 11:19 Referrals: CIARA HOLDEN MD (PCP/Family) Primary Care Physician Patient Instructions: How to Use a Metered Dose Inhaler ED Add. Discharge Instructions: Continue your current medications as prescribed by your primary care doctor. Drink plenty of fluids to stay well-hydrated. You can take lnaw-gwx-[id number] extra strength Tylenol 1 tablet every 6 hours as needed for sore throat. Warm salt water gargles will also help with sore throat. Coricidin HBP is an ojrl-zhs-svcakpu cold medication that is safe to take with high blood pressure. I have prescribed an albuterol inhaler, if you develop shortness of breath/wheezing you can take 2 puffs every 6 hours as needed. For Any other worsening symptoms such as high fever, productive cough, shortness of breath that does not resolve with the inhaler please come back to the emerg ency room for reevaluation. Scripts Albuterol Sulfate (Ventolin Hfa) 90 Mcg Hfa.aer.ad 2 PUFF INH Q6H PRN for wheezing, #1 UNIT 1 PUFF = 90 MCG Prov: ZAHRAA ALMAZAN MD 03/07/22 Copy Copies To 1: CIARA HOLDEN MD Copies To 2: EDDIE STEELE MD, KATHRYN M MD Mar 07, 2022 10:01
--- NOTE | 2022-03-07 10:04 | Diagnostic Imaging Report ---
EXAMINATION: Chest 1 view HISTORY: Short of breath COMPARISON: 01/19/2022 FINDINGS: Lungs are emphysematous. There is volume loss in the left hemithorax. There is scarring in the left apex. There is a 4.9 x 3.8 cm nodule in the right apex, new from prior exam. Heart size is normal. IMPRESSION: 1. New right apical nodule. Chest CT with contrast recommended. Dictated by: Dictated on workstation # [id number]
[2022-03-07 10:05] LABS: CREATININE SERUM 1.01 MG/DL (0.60-1.30)
[2022-03-07] MEDS ORDERED: NS IV 1000 ML 1,000 ML IV STA (10:09)
[2022-03-07] MEDS ORDERED: IOHEXOL 350 MG/ML 100 ML (OMNIPAQUE 350) VIAL IV ONE (10:30)
[2022-03-07] MEDS ORDERED: NS 100 ML (IVPB) BAG IV ONE (10:30)
[2022-03-07] MEDS ORDERED: HOLD METFORMIN - RECEIVED CONTRAST 20 ML VIAL IV SCH (10:30)
[2022-03-07 10:36] LABS: BAND NEUTROPHILS 3 %; BASOPHILS % (MANUAL) 0 %; EOSINOPHILS % (MANUAL) 0 %; LYMPHOCYTES % (MANUAL) 9 %; MONOCYTES % (MANUAL) 6 %; NEUTROPHILS % (MANUAL) 82 %
[2022-03-07 10:37] LABS: RBC MORPH NORMAL
--- NOTE | 2022-03-07 11:01 | Diagnostic Imaging Report ---
EXAMINATION: CT chest with intravenous contrast. TECHNIQUE: Multiple contiguous axial images were obtained through the chest after the uneventful administration of intravenous contrast. All CT scans use one or more of the following dose optimizing techniques: automated exposure control, MA and/or KvP adjustment based on patient size and exam type or iterative reconstruction. HISTORY: Shortness of breath and wheezing. COMPARISON: 07/06/2021 FINDINGS: The nodule seen on radiography in the right apex measures 2.2 x 2.2 cm, previously 2.2 x 2.1 cm. It is similar to prior exam of 03/04/2021. There is surrounding linear opacities. There are a few scattered tree-in-bud nodules in the right lower lobe. There has been a left upper lobectomy. There is scarring in the left apex. There is a loculated pleural effusion in the left lung base, similar to prior exam. No pneumothorax. There is no axillary or supraclavicular lymphadenopathy. There is no mediastinal lymphadenopathy. Heart size is normal. There are moderate coronary artery calcifications. No pericardial effusion. Aorta is normal in caliber. Limited views of the upper abdomen show cysts in the kidneys and liver. There are no suspicious osseus lesions. IMPRESSION: 1. Right apical nodule was present on prior CT dating back to 03/04/2021 and may represent an area of scarring. Continued surveillance is warranted. Dictated by: Dictated on workstation # [id number]
[2022-03-07] MEDS ORDERED: ALBU8.5H6 INH (11:21)
[2022-03-07 11:41] VITALS: BP 132/77
== END 2022-03-07 11:41 | disposition home or self-care (01) ==
LOC: EDUNIT# 09:30 → ER 09:31
DX: J45.901 Unspecified asthma with (acute) exacerbation (principal); D72.829 Elevated white blood cell count, unspecified; Z87.891 Personal history of nicotine dependence; Z20.822 Contact with and (suspected) exposure to COVID-19
CPT/HCPCS: 36415; 71045; 71260; 80048; 85007; 85027; 87636; 93005; 94640

== ENCOUNTER 2022-05-27 13:40 | Outpatient (RCR) | payer MEDICARE ==
[2022-05-24 13:50] LABS: BASOPHILS % (AUTO) 1 % (0-10); EOSINOPHILS # (AUTO) 0.3 10^3/uL (0.0-0.3); EOSINOPHILS % (AUTO) 5 % (0-10); HEMATOCRIT 39 % (40-54); HEMOGLOBIN 12.8 g/dL (13.3-17.7); LYMPHOCYTES # (AUTO) 1.3 10^3/uL (1.0-4.0); LYMPHOCYTES % (AUTO) 17 % (12-44); MEAN CORPUSCULAR HEMOGLOBIN 30 pg (25-34); MEAN CORPUSCULAR HGB CONC 33 g/dL (32-36); MEAN CORPUSCULAR VOLUME 91 fL (80-99); MEAN PLATELET VOLUME 9.5 fL (9.0-12.2); MONOCYTES # (AUTO) 0.6 10^3/uL (0.0-1.0); MONOCYTES % (AUTO) 8 % (0-12); NEUTROPHILS # (AUTO) 5.3 10^3/uL (1.8-7.8); NEUTROPHILS % (AUTO) 70 % (42-75); PLATELET COUNT 207 10^3/uL (130-400); WHITE BLOOD COUNT 7.5 10^3/uL (4.3-11.0)
[2022-05-24 14:10] LABS: ALBUMIN 4.1 GM/DL (3.2-4.5); CALCIUM 9.1 MG/DL (8.5-10.1); CREATININE SERUM 1.02 MG/DL (0.60-1.30); POTASSIUM 4.3 MMOL/L (3.6-5.0); TOTAL PROTEIN 6.8 GM/DL (6.4-8.2)
[~2022-05-27 13:40] MED LIST changes: +ALBU8.5H6 INH
== END 2022-06-13 | disposition home or self-care (01) ==
LOC: ONC 13:40
PROVIDERS: ATTEND Internal Medicine Hematology & Oncology
DX: C34.32 Malignant neoplasm of lower lobe, left bronchus or lung (principal); I10 Essential (primary) hypertension; D50.9 Iron deficiency anemia, unspecified; Z90.2 Acquired absence of lung [part of]; Z98.890 Other specified postprocedural states
CPT/HCPCS: 36415; 80053; 82728; 83540; 83550; 85025

== ENCOUNTER 2022-11-25 14:50 | Outpatient (RCR) | payer MEDICARE ==
[2022-11-25 15:12] LABS: BASOPHILS % (AUTO) 0 % (0-10); EOSINOPHILS # (AUTO) 0.2 10^3/uL (0.0-0.3); EOSINOPHILS % (AUTO) 2 % (0-10); HEMATOCRIT 41 % (40-54); HEMOGLOBIN 13.6 g/dL (13.3-17.7); LYMPHOCYTES # (AUTO) 1.2 X 10^3 (1.0-4.0); LYMPHOCYTES % (AUTO) 12 % (12-44); MEAN CORPUSCULAR HEMOGLOBIN 30 pg (25-34); MEAN CORPUSCULAR HGB CONC 33 g/dL (32-36); MEAN CORPUSCULAR VOLUME 92 fL (80-99); MEAN PLATELET VOLUME 9.5 fL (9.0-12.2); MONOCYTES # (AUTO) 0.6 X 10^3 (0.0-1.0); MONOCYTES % (AUTO) 7 % (0-12); NEUTROPHILS # (AUTO) 7.5 X 10^3 (1.8-7.8); NEUTROPHILS % (AUTO) 79 % (42-75); PLATELET COUNT 246 10^3/uL (130-400); WHITE BLOOD COUNT 9.6 10^3/uL (4.3-11.0)
[2022-11-25 15:27] LABS: ALANINE AMINOTRANSFERASE 18 U/L (0-55); ALBUMIN 4.6 GM/DL (3.2-4.5); ALKALINE PHOSPHATASE 105 U/L (40-136); BILIRUBIN,TOTAL 1.2 MG/DL (0.1-1.0); BUN/CREATININE RATIO 16; CALCIUM 9.5 MG/DL (8.5-10.1); CARBON DIOXIDE 28 MMOL/L (21-32); CHLORIDE 97 MMOL/L (98-107); CREATININE SERUM 1.05 MG/DL (0.60-1.30); GFR ESTIMATED 69; GLUCOSE 103 MG/DL (70-105); POTASSIUM 4.5 MMOL/L (3.6-5.0); SODIUM 135 MMOL/L (135-145); TOTAL PROTEIN 7.4 GM/DL (6.4-8.2)
== END 2022-12-14 | disposition home or self-care (01) ==
LOC: ONC 14:50
PROVIDERS: ATTEND Internal Medicine Hematology & Oncology
DX: C34.32 Malignant neoplasm of lower lobe, left bronchus or lung (principal); I10 Essential (primary) hypertension; D50.9 Iron deficiency anemia, unspecified; Z90.2 Acquired absence of lung [part of]; Z98.890 Other specified postprocedural states
CPT/HCPCS: 80053; 85025; G0463; 36415; 99214